=== PATIENT | female | born 1960 | race Caucasian/White ===

== ENCOUNTER 2021-09-30 11:09 | Inpatient (IN) ==
--- NOTE | 2021-09-30 11:19 | Emergency Department Note ---
Upper Extremity HPI General Chief Complaint: Extremity Injury, Upper Stated Complaint: left arm pain, fall yesterday Time Seen by Provider: 09/30/21 11:17 Source: patient Mode of arrival: wheelchair Limitations: no limitations History of Present Illness HPI Narrative: Narrative: 61-year-old female presents to the emerge department stating that she fell yesterday at noon and now has left wrist pain. She rates the pain as an 8 on a 0-to-10 scale. States it is constant. Describes it as a dull pain. States the pain radiates proximally towards the elbow. States that she took 650 mg of acetaminophen and it made no change. She has slight tingling in her's ball finger as well as at the tip of her ring finger. states that the patient has had significant edema in her lower extremities for the last month or so and he is concerned. Patient states that she has had a 19 pound weight gain in the last 31 days. Patient states that she is urinating. Denies shortness of breath. States that she has had swelling in her legs before after her hip surgeries. This time however it is worse than before. Patient states she has chronic low back pain. Has bronchiectasis, has lower extremity edema. Morbidly obese. Smoker. Hypertension. Patient denies alcoholism. States she has not been to an AA meeting. States she drinks vodka at night Related Data Home Medications Medication Instructions Recorded Confirmed gabapentin 300 mg capsule 300 mg PO BID 06/09/19 09/30/21 zolpidem 5 mg tablet 5 mg PO DAILY 06/09/19 09/17/21 albuterol sulfate 2.5 mg/0.5 mL 2.5 mg INHALATION QID PRN ea 05/02/21 09/30/21 solution for nebulization diphenhydramine HCl 25 mg capsule 25 mg PO Q6H PRN 05/02/21 09/30/21 (Benadryl) guaifenesin 600 mg tablet, 600 mg PO Q12H PRN 05/02/21 09/30/21 extended release 12 hr (Mucinex) buspirone 15 mg tablet 7.5 mg PO BID tab 06/28/21 09/30/21 famotidine 40 mg tablet 40 mg PO QDAY 08/14/21 09/30/21 ipratropium 20 mcg-albuterol 100 2 puff INHALATION QID g 08/14/21 09/30/21 mcg/actuation mist for inhalation (Combivent Respimat) lorazepam 0.5 mg tablet 0.5 mg PO BID PRN 08/14/21 09/17/21 benzonatate 100 mg capsule 100 mg PO TID PRN 09/30/21 09/30/21 Previous Rx's Medication Instructions Recorded emollient combo no.59 (bulk) See Rx Instructions TOPICAL BID 06/18/21 (Custom Base Pcca Lipoderm) #60 g cyclobenzaprine 5 mg tablet 5 mg PO TID PRN #15 tab 09/17/21 fluticasone fur. 100 mcg-umeclid 1 inh INHALATION Q24H #60 ea 09/27/21 62.5 mcg-vilant 25 mcg inhalat.powder (Trelegy Ellipta) Allergies Allergy/AdvReac Type Severity Reaction Status Date / Time Penicillins Allergy Severe Difficulty Verified 09/30/21 11:14 Breathing prednisone Allergy Severe Difficulty Verified 09/30/21 11:14 Breathing Influenza Virus Vaccines Allergy Unknown Burning Verified 09/30/21 11:14 sensation in hands and feet omeprazole Allergy Unknown Vomiting Verified 09/30/21 11:14 trospium Allergy Unknown Facial Verified 09/30/21 11:14 swelling, itching, rash codeine AdvReac Intermediate Nausea Verified 09/30/21 11:14 metoclopramide [From Reglan] AdvReac Intermediate Anxiety Verified 09/30/21 11:14 Review of Systems ROS ROS Narrative: Narrative: Constitutional: Reports weight change (19 pound weight gain in 31 days); Denies fever Eyes: Denies eye pain ENT ED: Denies throat pain or rhinorrhea Cardiovascular: Reports edema; Denies chest pain Respiratory: Denies shortness of breath Gastrointestinal: Reports abdominal pain (Right upper quadrant ) and other (Obese) Genitourinary: Denies dysuria Musculoskeletal: Reports back pain (Chronic) Integumentary: Denies rash Neurological: Reports other (Some difficulty walking and bending with her legs so swollen.) Psychiatric: Reports depression Hematological/Lymphatic: Denies easy bleeding Allergic/Immunologic: Denies facial swelling PFSH Narrative Patient History Narrative: Narrative: Medical/Surgical/Family History All Active Problems (Updated 09/30/21 @ 17:53 by Hector Cobb MD) Acute hyponatremia (Acute) Macrocytosis (Acute) Left wrist fracture (Acute) Elevated liver function tests (Acute) Elevated hemidiaphragm (Chronic) Nocturnal hypoxia (Chronic) Myofascial pain syndrome (Chronic) Weight loss (Chronic) Macrocytosis (Chronic) Hyperventilation (Chronic) Bronchospasm (Chronic) Chest pain (Chronic) Cardiomegaly (Chronic) Pulmonary vascular congestion (Chronic) SOB (shortness of breath) (Chronic) Exposure to COVID-19 virus (Chronic) Cough (Chronic) Acute upper respiratory infection (Chronic) Colon polyps (Chronic) Kidney stones (Chronic) Reactive airway disease (Chronic) Urge incontinence of urine (Chronic) Pernicious anemia (Chronic) Spinal stenosis (Chronic) Renal colic (Chronic) Diarrhea (Chronic) Hyperlipidemia (Chronic) Homocystinemia (Chronic) Nonalcoholic steatohepatitis (Chronic) Osteoarthritis (Chronic) Fever (Chronic) Vitamin D deficiency (Chronic) Osteopenia (Chronic) Abdominal pain (Chronic) Insomnia (Chronic) Cobalamin deficiency (Chronic) Folic acid deficiency (Chronic) Avascular necrosis of bone (Chronic) Abnormal liver enzymes (Chronic) Smoker (Chronic) GERD (gastroesophageal reflux disease) (Chronic) COPD (chronic obstructive pulmonary disease) (Chronic) Acute myofascial pain (Chronic) Contusion of right wrist (Chronic) Radiculopathy, thoracic region (Chronic) Spondylosis of thoracic spine with radiculopathy (Chronic) History of surgery (Chronic) Anxiety (Chronic) Hypertension (Chronic) Chronic pain (Chronic) Depression (Chronic) Back pain (Chronic) Thoracic back pain (Chronic) Muscle spasm (Chronic) Wrist injury (Chronic) Wrist fracture (Chronic) Medical History Abdominal pain Abnormal liver enzymes Acute myofascial pain Acute upper respiratory infection Anxiety Avascular necrosis of bone Back pain Bronchospasm Cardiomegaly Chest pain Chronic pain Cobalamin deficiency Colon polyps COPD (chronic obstructive pulmonary disease) Cough Depression Diarrhea Elevated hemidiaphragm Right Exposure to COVID-19 virus Fever Folic acid deficiency GERD (gastroesophageal reflux disease) Homocystinemia Hyperlipidemia Hypertension Hyperventilation Insomnia Kidney stones Macrocytosis Muscle spasm Myofascial pain syndrome Nocturnal hypoxia Nonalcoholic steatohepatitis Osteoarthritis Osteopenia Pernicious anemia Pulmonary vascular congestion Reactive airway disease Renal colic Smoker SOB (shortness of breath) Spinal stenosis Thoracic back pain Urge incontinence of urine Vitamin D deficiency Weight loss Wrist fracture Wrist injury Surgical History History of appendectomy (~1974) History of cholecystectomy (~1989) History of foot surgery (~2007) Right foot sebaceous cyst removal History of foot surgery (~1992) Right foot fracture repair History of hip surgery (~2012) Right Hip IT Band History of hip surgery (~2010) Right hip modification History of surgery TESI #1 T4-5 w/sed History of total abdominal hysterectomy and bilateral salpingo-oophorectomy (~2000) History of total hip replacement (~2012) History of total left hip replacement (~2008) History of total right hip replacement (~2009) History of tubal ligation (~1980) History of wisdom tooth extraction (~1984) x2 Family History Grandfather Heart disease Paternal Grandmother Type 2 diabetes mellitus Maternal Father , : 65 Lung cancer Alcohol abuse Mother Scoliosis Brother Breathing problem Sister Anxiety Back problem Other CAD (coronary artery disease) Social History Smoking Status: Current every day smoker Alcohol Intake Frequency: 2+ drinks per day Substance Use: marijuana and other Exam Narrative Narrative: Narrative: General Limitations: no limitations General appearance: Present alert and in distress Head Head: Present atraumatic and normocephalic Eye Eye: Present normal appearance ENT ENT: Present mucous membranes moist Neck Neck: Present normal inspection and trachea midline Respiratory Respiratory: Present normal lung sounds bilaterally; Absent respiratory distress Cardiovascular Cardiovascular: Present regular rate and normal rhythm Adbominal Abdominal: Present soft and tenderness (Right upper quadrant) Extremities Extremities: Present pedal edema, pretibial edema and other (Massive edema lower extremities up to the mid thigh) Back Back: Present tenderness Neurological Neurological: Present alert and oriented X3 Psychiatric Psychiatric: Present normal affect and normal mood Skin Skin: Present warm (WNL) and dry Course Vital Signs Vital signs: Vital Signs Temperature 97.5 F 09/30/21 11:11 Pulse Rate 97 H 09/30/21 11:11 Respiratory Rate 24 H 09/30/21 11:11 Blood Pressure 105/64 09/30/21 11:11 Pulse Oximetry (%) 95 09/30/21 11:11 Temperature 97.5 F 09/30/21 11:11 Pulse Rate 94 H 09/30/21 16:32 Respiratory Rate 24 H 09/30/21 11:11 Blood Pressure 130/82 09/30/21 16:32 Pulse Oximetry (%) 92 09/30/21 16:32 Procedures Splint Application Narrative: Nondisplaced intra-articular fracture of the distal radius left wrist was noted on x-ray. Sensorimotor and circulation were intact. Skin was intact. Minimal swelling. A preformed aluminum splint was applied to the left forearm by the x- ray department tech. I checked the sensorimotor circulation afterwards and found all three to be intact post application. Patient had reduction in pain in the wrist post splinting. MDM MDM Narrative Medical decision making narrative: Narrative: 61-year-old female presents emerge department with left wrist pain post fall but also massive edema in her lower extremities of unclear etiology. Differential diagnosis includes left wrist sprain, left wrist fracture, left wrist contusion. Differential for lower extremity edema includes dependent edema, congestive heart failure, nephrotic syndrome, alcoholic complication, malnutrition, other. Sodium was 116 chloride was 81. Potassium was 4.7. Bicarb was 16. Glucose was 121. BUN was four. Creatinine was 0.9. White count was 12.3, mildly elevated. Hemoglobin was mildly low at 11.8. Platelet count mildly low at 109. AST was elevated at 193 and a LT was elevated at 101. Both these are compatible with alcoholic liver disease though other considerations must be made. The BNP was mildly elevated at 441 but the D-dimer was markedly elevated at 6.89. Chest x- ray did not show any congestive heart failure. No acute disease on chest x-ray. X-ray of the left wrist revealed intra-articular fracture of the radius. Short arm splint was applied by the senior engineering technician to the left forearm. Se nsorimotor and circulation were intact distally after the application of the splint. Case was discussed with Dr. Caraballo the hospitalist. He agreed to admit the patient to the hospital for further care. Lab Data Result diagrams: 09/30/21 14:38 09/30/21 14:38 Labs: Lab Results 09/30/21 09/30/21 09/30/21 Range/Units 14:38 14:38 14:38 WBC 12.3 H (4.5-11.0) K/mcL RBC 2.62 L (3.59-5.38) M/mcL Hgb 11.8 (11.2-15.7) g/dL Hct 33.6 L (34.1-44.9) % MCV 128.2 H (80.0-100.0) fL MCH 45.0 H (26.0-34.0) pg MCHC 35.1 (31.0-36.0) g/dL RDW 14.8 H (11.5-14.5) % Plt Count 109 L (140-440) K/mcL MPV 10.5 H (7.4-10.4) fL Neut % (Auto) 82.0 H (38.0-78.0) % Lymph % (Auto) 6.8 L (15.5-49.0) % [place] % (Auto) 10.9 (1.0-12.0) % Eos % (Auto) 0.1 (0.0-7.0) % Baso % (Auto) 0.2 (0.0-2.0) % Lymph # (Auto) 0.84 L (1.50-4.80) K/mcL [place] # (Auto) 1.34 H (0.10-0.90) K/mcL Eos # (Auto) 0.01 (0.00-0.70) K/mcL Baso # (Auto) 0.02 (0.00-0.30) K/mcL Absolute Neutrophils 10.09 H (1.80-8.00) K/mcL D-Dimer 6.89 H (0.27-0.50) ug/mL Sodium 116 L* (133-145) mmol/L Potassium 4.7 (3.3-5.1) mmol/L Chloride 81 L (96-108) mmol/L Carbon Dioxide 16 L (22-30) mmol/L Anion Gap 19.0 H (8.0-16.0) BUN 4 L (8-23) mg/dL Creatinine 0.9 (0.6-1.1) mg/dL GFR Calculation 68 Glucose 121 H (70-105) mg/dL Calcium 8.2 L (8.6-10.4) mg/dL Total Bilirubin 1.8 H (0.1-1.0) mg/dL AST 193 H (<32) U/L ALT 101 H (<40) U/L Alkaline Phosphatase 328 H (39-117) U/L NT-Pro-B Natriuret Pep 441.4 H (<125.0) pg/mL Total Protein 6.1 (5.9-8.4) gm/dL Albumin 3.2 (3.2-5.2) gm/dL Globulin 2.9 (2.2-3.7) gm/dL Albumin/Globulin Ratio 1.1 (1.0-2.3) Discharge Plan Patient/Caregiver Discharge Instructions Pt seen by REHAB NURSE/PA only: No Clinical Impression: Acute hyponatremia, Macrocytosis, Left wrist fracture, Elevated liver function tests Patient Disposition: Xfer As Inpt ([facility]) Condition: Fair Follow up with: Nikolas Sanchez MD [Primary Care Provider] - Prescriptions: No Action Custom Base Pcca Lipoderm Cream See Rx Instructions TOPICAL BID Qty: 60 0RF Rx Instructions: topical twice a day; Trelegy Ellipta 100-62.5-25 mcg blister with device 1 inh inhalation Q24H Qty: 60 3RF Combivent Respimat 20-100 mcg/actuation mist 2 puff inhalation QID 0RF Rx Instructions: space evenly during waking hours famotidine 40 mg tablet 40 mg PO QDAY 0RF lorazepam 0.5 mg tablet 0.5 mg PO BID PRN (Reason: Anxiety) 0RF diphenhydramine HCl [Benadryl] 25 mg capsule 25 mg PO Q6H PRN (Reason: Itching) 0RF guaifenesin [Mucinex] 600 mg tablet extended release 12hr 600 mg PO Q12H PRN (Reason: Congestion) 0RF albuterol sulfate 2.5 mg/0.5 mL solution for nebulization 2.5 mg inhalation QID PRN (Reason: Shortness Of Breath) 0RF Rx Instructions: for up to 3 doses buspirone 15 mg tablet 7.5 mg PO BID 0RF cyclobenzaprine 5 mg tablet 5 mg PO TID PRN (Reason: muscle spasm) Qty: 15 0RF gabapentin 300 MG capsule 300 mg PO BID 0RF zolpidem 5 MG tablet 5 mg PO DAILY 0RF benzonatate 100 mg capsule 100 mg PO TID PRN (Reason: cough) 0RF
[2021-09-30] MEDS ORDERED: HYDROmorphone 1 MG/ML SYRINGE IM ONE (11:22)
[2021-09-30] MEDS ORDERED: FUROSEMIDE 40 MG/4 ML VIAL IV ONE (13:35)
[2021-09-30 15:27] LABS: Basophils # (Auto) 0.02 K/mcL (0.00-0.30); Basophils % (Auto) 0.2 % (0.0-2.0); Eosinophils # (Auto) 0.01 K/mcL (0.00-0.70); Eosinophils % (Auto) 0.1 % (0.0-7.0); Hematocrit 33.6 % (34.1-44.9); Hemoglobin 11.8 g/dL (11.2-15.7); Lymphocytes # (Auto) 0.84 K/mcL (1.50-4.80); Lymphocytes % (Auto) 6.8 % (15.5-49.0); Mean Cell Volume 128.2 fL (80.0-100.0); Mean Corpuscular HGB Conc 35.1 g/dL (31.0-36.0); Mean Platelet Volume 10.5 fL (7.4-10.4); Monocytes # (Auto) 1.34 K/mcL (0.10-0.90); Monocytes % (Auto) 10.9 % (1.0-12.0); Platelet Count 109 K/mcL (140-440); RBC 2.62 M/mcL (3.59-5.38); Red Cell Distribution Width 14.8 % (11.5-14.5); WBC 12.3 K/mcL (4.5-11.0)
[2021-09-30 15:33] LABS: proBNP 441.4 pg/mL (<125.0)
--- NOTE | 2021-09-30 15:35 | XRay Report ---
HISTORY: Fell and injured distal left radius FINDINGS: There is an obliquely oriented intra-articular fracture of the distal radius. This is located along the lateral border. There is no step-off along the articular surface. On the AP view a displaced 2 x 5 mm fragment is seen overlying the joint space between the radial styloid process and scaphoid. Adjacent to the trapezium there is a well-circumscribed 4 x 5 mm calcification which may be from an earlier injury. There is also a spur at the base of the first metacarpal. IMPRESSION: Intra-articular fracture of the distal radius Interpreted and Authenticated by: Juan Cole 09/30/21
[2021-09-30 15:41] LABS: ALT/SGPT 101 U/L (<40); AST/SGOT 193 U/L (<32); Albumin 3.2 gm/dL (3.2-5.2); Albumin/Globulin Ratio 1.1 (1.0-2.3); Alkaline Phosphatase 328 U/L (39-117); Bilirubin,Total 1.8 mg/dL (0.1-1.0); Blood Urea Nitrogen 4 mg/dL (8-23); Calcium 8.2 mg/dL (8.6-10.4); Carbon Dioxide 16 mmol/L (22-30); Chloride 81 mmol/L (96-108); Globulin 2.9 gm/dL (2.2-3.7); Glomerular Filtration Rate 68; Glucose 121 mg/dL (70-105)
--- NOTE | 2021-09-30 15:50 | XRay Report ---
HISTORY: Fell yesterday, bilateral dependent edema in the mid thigh, left arm pain FINDINGS: There are linear opacities in the lingula and right middle lobe. These correspond with bands of scar or atelectasis seen on the chest CT performed on 08/21/21. No acute infiltrate has developed. There is no pulmonary contusion, pneumothorax or pleural effusion. The heart size and pulmonary vasculature are normal. The mediastinum, kinza and pleura are normal. No chest wall lesion or fracture are seen. Overlying the top of the right humeral head there is an amorphous radiopaque structure. This could be an overlying foreign body or large soft tissue calcification. This is more likely an artifact since no corresponding structure was seen on a prior chest x-ray done on 03/29/21. IMPRESSION: Stable scar versus discoid atelectasis in right middle lobe and lingula No acute abnormality Interpreted and Authenticated by: Juan Cole 09/30/21
[2021-09-30] MEDS ORDERED: 0.9 % SODIUM CHLORIDE 1,000 ML IV ONE (15:53)
[2021-09-30] MEDS ORDERED: HYDROmorphone 0.5 MG/0.5 ML SYRINGE IV ONE (16:00)
[2021-09-30] MEDS ORDERED: ONDANSETRON 4 MG/2 ML VIAL IV ONE (16:15)
[2021-09-30] MEDS ORDERED: MULTIVIT,THER IRON,CA,FA & MIN 1 TABLET PO ONE (16:25)
[2021-09-30] MEDS ORDERED: ONDANSETRON 4 MG/2 ML VIAL IV PRN (16:29)
--- NOTE | 2021-09-30 17:25 | EKG ---
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
[2021-09-30] MEDS ORDERED: LORazepam 2 MG/ML VIAL IV ONE ×3 (17:41→21:30)
--- NOTE | 2021-09-30 18:03 | Internal Med History&Physical ---
HPI History of Present Illness Patient information: Note initiated : 09/30/21 at 5:46 pm Service Date, if different from initiated Date: [] Patient: Caleb Kern 61 y/o F admitted on for left arm pain, fall yesterday. Chief Complaint: [] Chief complaint: Fall History of present illness: Ms. Kern is a 61 year old female with a past medical history not limited to SILVA, COPD, nocturnal hypoxia, vitamin B12 deficiency, degenerative disc disease, obesity, tobacco use disorder who presented to the emergency department after a fall at home for further evaluation of left wrist pain. X-ray of the left wrist showed an intraarticular fracture of the distal radius. The patient was noted to be hypervolemic in the emergency department, CBC and chemistry panel were ordered showing severe hyponatremia with a sodium level of 116. Additionally, labs showed a mild leukocytosis of 12.3, severe macrocytosis, thrombocytopenia, anion gap metabolic acidosis, bilirubin of 1.8 and ALT and AST elevated compared to the patient's prior labs from 2020. Patient also had a NT proBNP of 441, 1 view chest x-ray did not show any pulmonary vascular congestion. The patient had a markedly elevated D-dimer of 6.89. The patient has not been having any shortness of breath recently and was comfortable on room air in the emergency department. The patient received Lasix IV in the emergency department. Hospital medicine was consulted for admission and management of severe hyponatremia. The patient says that she has been experiencing intermittent bilateral lower extremity edema for some time and that they have always resolved. The current amount of edema is more severe than prior episodes. She denies recent dyspnea, has not noticed any significant changes in urination. Patient says that she has known about "fatty liver di sease" for some time. She does drink a significant amount of alcohol which usually contains vodka on an almost daily basis. We discussed the goals of admission which include a gradual correction of her sodium level. We also discussed further work-up which will focus on cardiac, liver and renal pathologies that could explain hypovolemic hyponatremia. We discussed CODE STATUS in detail, the patient wishes to be full code. Review of systems Constitutional: Positive for unintentional weight gain, no fever Eyes: no vision changes or pain Cardiovascular: no chest pain, no palpitations Respiratory: Positive for chronic and nocturnal hypoxia requiring oxygen supplementation, denies exertional dyspnea Gastrointestinal: Positive for abdominal distention, no abdominal pain, no nausea, vomiting, or diarrhea Genitourinary: no dysuria or difficulty voiding Musculoskeletal: Positive for bilateral lower extremity edema, left wrist pain after recent fall Integumentary: Positive for dry skin Neurological: no focal weakness or numbness Psychiatric: Positive for anxiety Physical exam Head: Atraumatic, normal inspection. Eyes: normal appearance, no scleral icterus. Neck: full ROM Respiratory: no respiratory distress. Cardiovascular: normal rate and rhythm, S1, S2. GI/Abdominal: Distended abdomen, soft, nontender, no guarding. Extremities: Bilateral lower extremity 3+ pitting edema Neurological: CN II-XII intact, intact motor, intact sensation. Psychiatric: normal mood. Skin: Spider angiomas present in upper extremities, upper chest, upper back, diffuse flaky dry skin, warm PFSH PFSH All Active Problems (Updated 09/30/21 @ 17:53 by Hector Cobb MD) Acute hyponatremia (Acute) Macrocytosis (Acute) Left wrist fracture (Acute) Elevated liver function tests (Acute) Elevated hemidiaphragm (Chronic) Nocturnal hypoxia (Chronic) Myofascial pain syndrome (Chronic) Weight loss (Chronic) Macrocytosis (Chronic) Hyperventilation (Chronic) Bronchospasm (Chronic) Chest pain (Chronic) Cardiomegaly (Chronic) Pulmonary vascular congestion (Chronic) SOB (shortness of breath) (Chronic) Exposure to COVID-19 virus (Chronic) Cough (Chronic) Acute upper respiratory infection (Chronic) Colon polyps (Chronic) Kidney stones (Chronic) Reactive airway disease (Chronic) Urge incontinence of urine (Chronic) Pernicious anemia (Chronic) Spinal stenosis (Chronic) Renal colic (Chronic) Diarrhea (Chronic) Hyperlipidemia (Chronic) Homocystinemia (Chronic) Nonalcoholic steatohepatitis (Chronic) Osteoarthritis (Chronic) Fever (Chronic) Vitamin D deficiency (Chronic) Osteopenia (Chronic) Abdominal pain (Chronic) Insomnia (Chronic) Cobalamin deficiency (Chronic) Folic acid deficiency (Chronic) Avascular necrosis of bone (Chronic) Abnormal liver enzymes (Chronic) Smoker (Chronic) GERD (gastroesophageal reflux disease) (Chronic) COPD (chronic obstructive pulmonary disease) (Chronic) Acute myofascial pain (Chronic) Contusion of right wrist (Chronic) Radiculopathy, thoracic region (Chronic) Spondylosis of thoracic spine with radiculopathy (Chronic) History of surgery (Chronic) Anxiety (Chronic) Hypertension (Chronic) Chronic pain (Chronic) Depression (Chronic) Back pain (Chronic) Thoracic back pain (Chronic) Muscle spasm (Chronic) Wrist injury (Chronic) Wrist fracture (Chronic) Medical History Abdominal pain Abnormal liver enzymes Acute myofascial pain Acute upper respiratory infection Anxiety Avascular necrosis of bone Back pain Bronchospasm Cardiomegaly Chest pain Chronic pain Cobalamin deficiency Colon polyps COPD (chronic obstructive pulmonary disease) Cough Depression Diarrhea Elevated hemidiaphragm Right Exposure to COVID-19 virus Fever Folic acid deficiency GERD (gastroesophageal reflux disease) Homocystinemia Hyperlipidemia Hypertension Hyperventilation Insomnia Kidney stones Macrocytosis Muscle spasm Myofascial pain syndrome Nocturnal hypoxia Nonalcoholic steatohepatitis Osteoarthritis Osteopenia Pernicious anemia Pulmonary vascular congestion Reactive airway disease Renal colic Smoker SOB (shortness of breath) Spinal stenosis Thoracic back pain Urge incontinence of urine Vitamin D deficiency Weight loss Wrist fracture Wrist injury Surgical History History of appendectomy (~1974) History of cholecystectomy (~1989) History of foot surgery (~2007) Right foot sebaceous cyst removal History of foot surgery (~1992) Right foot fracture repair History of hip surgery (~2012) Right Hip IT Band History of hip surgery (~2010) Right hip modification History of surgery TESI #1 T4-5 w/sed History of total abdominal hysterectomy and bilateral salpingo-oophorectomy (~2000) History of total hip replacement (~2012) History of total left hip replacement (~2008) History of total right hip replacement (~2009) History of tubal ligation (~1980) History of wisdom tooth extraction (~1984) x2 Family History Grandfather Heart disease Paternal Grandmother Type 2 diabetes mellitus Maternal Father , : 65 Lung cancer Alcohol abuse Mother Scoliosis Brother Breathing problem Sister Anxiety Back problem Other CAD (coronary artery disease) Social History marital status: occupational status: employed 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 smoking status: Current every day smoker alcohol intake frequency: 2+ drinks per day substance use type: marijuana and other details: THC MEDS/ALLERGIES Home Medications and Allergies Home Medications Medication Instructions Recorded Confirmed Type gabapentin 300 mg capsule 300 mg PO BID 06/09/19 09/30/21 History zolpidem 5 mg tablet 5 mg PO DAILY 06/09/19 09/30/21 History albuterol sulfate 2.5 mg/0.5 mL 2.5 mg INHALATION QID PRN ea 05/02/21 09/30/21 History solution for nebulization diphenhydramine HCl 25 mg capsule 25 mg PO Q6H PRN 05/02/21 09/30/21 History (Benadryl) guaifenesin 600 mg tablet, 600 mg PO Q12H PRN 05/02/21 09/30/21 History extended release 12 hr (Mucinex) emollient combo no.59 (bulk) See Rx Instructions TOPICAL BID 06/18/21 09/30/21 Rx (Custom Base [facility] Lipoderm) #60 g buspirone 15 mg tablet 7.5 mg PO BID tab 06/28/21 09/30/21 History famotidine 40 mg tablet 40 mg PO QDAY 08/14/21 09/30/21 History ipratropium 20 mcg-albuterol 100 2 puff INHALATION QID g 08/14/21 09/30/21 History mcg/actuation mist for inhalation (Combivent Respimat) lorazepam 0.5 mg tablet 0.5 mg PO BID PRN 08/14/21 09/30/21 History cyclobenzaprine 5 mg tablet 5 mg PO TID PRN #15 tab 09/17/21 09/30/21 Rx fluticasone fur. 100 mcg-umeclid 1 inh INHALATION Q24H #60 ea 09/27/21 09/30/21 Rx 62.5 mcg-vilant 25 mcg inhalat.powder (Trelegy Ellipta) benzonatate 100 mg capsule 100 mg PO TID PRN 09/30/21 09/30/21 History Allergies Allergy/AdvReac Type Severity Reaction Status Date / Time Penicillins Allergy Severe Difficulty Verified 09/30/21 11:14 Breathing prednisone Allergy Severe Difficulty Verified 09/30/21 11:14 Breathing Influenza Virus Vaccines Allergy Unknown Burning Verified 09/30/21 11:14 sensation in hands and feet omeprazole Allergy Unknown Vomiting Verified 09/30/21 11:14 trospium Allergy Unknown Facial Verified 09/30/21 11:14 swelling, itching, rash codeine AdvReac Intermediate Nausea Verified 09/30/21 11:14 metoclopramide [From Reglan] AdvReac Intermediate Anxiety Verified 09/30/21 11:14 EXAM Constitutional Vitals: Temp Pulse Resp BP Pulse Ox 97.5 F 94 H 24 H 130/82 92 09/30/21 11:11 09/30/21 16:32 09/30/21 11:11 09/30/21 16:32 09/30/21 16:32 DATA Data Completed and Pending Labs: Labs from last 24 hours 09/30/21 09/30/21 09/30/21 14:38 14:38 14:38 WBC 12.3 H RBC 2.62 L Hgb 11.8 Hct 33.6 L MCV 128.2 H MCH 45.0 H MCHC 35.1 RDW 14.8 H Plt Count 109 L MPV 10.5 H Neut % (Auto) 82.0 H Lymph % (Auto) 6.8 L [place] % (Auto) 10.9 Eos % (Auto) 0.1 Baso % (Auto) 0.2 Lymph # (Auto) 0.84 L [place] # (Auto) 1.34 H Eos # (Auto) 0.01 Baso # (Auto) 0.02 Absolute Neutrophils 10.09 H D-Dimer 6.89 H Sodium 116 L* Potassium 4.7 Chloride 81 L Carbon Dioxide 16 L Anion Gap 19.0 H BUN 4 L Creatinine 0.9 GFR Calculation 68 Glucose 121 H Calcium 8.2 L Total Bilirubin 1.8 H AST 193 H ALT 101 H Alkaline Phosphatase 328 H NT-Pro-B Natriuret Pep 441.4 H Total Protein 6.1 Albumin 3.2 Globulin 2.9 Albumin/Globulin Ratio 1.1 A/P Narrative A/P Narrative: Assessment: 61 year old female with a past medical history not limited to SILVA, COPD, nocturnal hypoxia, vitamin B12 deficiency, degenerative disc disease, obesity, tobacco use disorder who presented to the emergency department after a fall at home and found to have a distal left radius fracture in the ED. The patient was also found to be severely volume overloaded and to have severe hyponatremia. The patient was admitted for severe hyponatremia. #Severe hypervolemic hyponatremia #Volume overload including ascites #Concern for liver cirrhosis versus nephrotic syndrome #History of SILVA #Elevated LFTs #Macrocytosis #Leukocytosis #Anion gap metabolic acidosis #Elevated D-dimer #Distal left intra-articular radius fracture -discussed with Dr. Christopher: nonoperative fracture #COPD #Nocturnal hypoxia #History of vitamin B12 deficiency #Degenerative disc disease #Anxiety disorder #Alcohol use disorder #Obesity BMI 38 Plan -Lasix 40 mg IV twice daily for now. -Follow sodium every 4 hours for now, avoid increase of > 8mmol/L/hr. -Monitor volume status, renal function, electrolytes. -Serum osmolality, urine osmolality and sodium. -Urine protein creatinine ratio and urinalysis. -TSH, morning cortisol, CRP/ESR, INR, lactic acid. -Vitamin B12 and folate. -Transthoracic echocardiogram. -Peripheral blood smear. -Bilateral lower extremity venous Doppler. -Abdominal ultrasound. -Consider paracentesis. -Consider CT abdomen pelvis with contrast. -Low-sodium and fluid restricted diet. -PT consult. -DVT prophylaxis: Lovenox -CODE STATUS: Full -Disposition: TBD, follow up with ortho in clinic for left radial fracture. Time Spent With Patient Time: Total time spent is greater than 50% in coordination of care (as documented) at patient's floor/unit and/or counseling patient:
--- NOTE | 2021-09-30 20:00 | Ultrasound Report ---
History: Bilateral swollen legs with elevated serum d-dimer levels FINDINGS: There is normal augmentation and compressibility in the deep veins as well as the greater lesser saphenous veins bilaterally from the groin through the calf. Doppler shows normal waveform patterns. A moderate amount of subcutaneous edema is present in each calf extending up to the popliteal fossa. IMPRESSION: No evidence of deep venous thrombosis in either leg. Bilateral calf edema Interpreted and Authenticated by: Juan Cole 09/30/21
--- NOTE | 2021-09-30 20:13 | Ultrasound Report ---
History: Abdominal pain, bloating, ultrasound documented fatty liver on prior exam FINDINGS: The liver is borderline enlarged. The parenchyma is very heterogeneous and difficult to penetrate due to moderately severe fatty infiltration. No discrete mass is identified. Doppler demonstrates normal directional blood flow in the hepatic and portal veins. The gallbladder has been removed. Common bile duct measures 4 mm. Pancreas is largely obscured. The visualized segments appear normal. Small to moderate amount of ascites is present in the abdomen and pelvis. Largest pocket is in left lower quadrant. The fluid appears uniformly anechoic. Comparison with the prior ultrasound done on 06/21/20 shows the heterogeneity of the liver has become worse and the ascites is new. IMPRESSION: Fatty liver. Patient may have steatohepatitis or early stage of cirrhosis. Ascites Interpreted and Authenticated by: Juan Cole 09/30/21
[2021-09-30] MEDS ORDERED: IBUPROFEN 200 MG TABLET PO PRN (20:15)
[2021-09-30] MEDS ORDERED: SENNOSIDES 1 TABLET PO SCH ×2 (20:15→21:00)
[2021-09-30] MEDS ORDERED: ALBUTEROL SULFATE 2.5 MG/3 ML NEBULIZER NEB PRN (20:15)
[2021-09-30] MEDS ORDERED: LORazepam 2 MG/ML VIAL ONE ×2 (20:58→21:38)
[2021-09-30] MEDS ORDERED: 0.9 % SODIUM CHLORIDE 10 ML SYRINGE IV SCH (22:00)
--- NOTE | 2021-09-30 22:39 | Procedure Note ---
PROC Central Line Placement Right IJ: Consent obtained: verbal consent and written consent Date of Procedure: 09/30/21 Time out performed: Yes Patient placed on monitor/pulse ox: Yes MD prep: mask, sterile gown, sterile gloves and cap Central line prep: 2% Chlorhexidine scrub Local anesthesia used: lidocaine 1% Amount of anesthesia used (mls): 3 Ultrasound used for placement: Yes Central line lumen inserted: quad Post procedure: sutured in place Post procedure x-ray: tip of catheter in good position Patient tolerated procedure: no complications
[2021-09-30] MEDS: LACTULOSE 20 GM/30 ML ORAL.SOL PO SCH (23:04)
[2021-09-30] MEDS: IPRATROPIUM/ALBUTEROL SULFATE 1 PUFF INHALER INH SCH (23:05)
[2021-09-30] MEDS: Fluticasone-Umeclidin-Vilanter [Trelegy Ellipta] Inhaler INH SCH (23:05)
[2021-09-30] MEDS: DOCUSATE SODIUM 100 MG CAPSULE PO SCH (23:15)
[2021-09-30] MEDS: 0.9 % SODIUM CHLORIDE 10 ML SYRINGE IV SCH (23:22)
[2021-09-30] MEDS: oxyCODONE HCL 5 MG TABLET PO PRN (23:27)
[2021-09-30] MEDS: GABAPENTIN 300 MG CAPSULE PO SCH (23:27)
[2021-09-30] MEDS: busPIRone 15 MG TABLET PO SCH (23:28)
[2021-10-01 00:09] LABS: INR 1.2 (0.9-1.1); Prothrombin Time 15.3 sec (11.9-14.5)
[2021-10-01 00:27] LABS: Thyroid Stimulating Hormone 2.43 uIU/mL (0.27-5.01)
[2021-10-01 01:07] LABS: Folate 5.4 ng/mL (4.2-19.9)
[2021-10-01] MEDS: ZOLPIDEM 5 MG TABLET PO PRN ×2 (01:27→22:24)
[2021-10-01] MEDS ORDERED: ZOLPIDEM 5 MG TABLET ONE (01:32)
[2021-10-01] MEDS ORDERED: PNEUMOCOCCAL 23-VAL P-SAC VAC 0.5 ML SYRINGE IM ONE (01:54)
[2021-10-01 02:07] LABS: Osmolality,Urine 278 mOSM/kg (80-1000)
[2021-10-01 02:10] LABS: Appearance,Urine CLOUDY (Clear); Bacteria,Urine FEW /hpf (0); Color,Urine AMBER; Culture Indicated,Urine No; Glucose,Urine (UA) Negative (Negative); Ketones,Urine Negative (Negative); Leukocyte Esterase,Urine 75 /uL (Negative); Mucus,Urine MOD /hpf; Nitrate,Urine Negative (Negative); Protein,Urine 30 mg/dL (Negative); Specific Gravity,Urine 1.024 (1.000-1.035); Urine Blood Negative (Negative); Urine Hyaline Cast 209 /lph (0-2); Urine Hyphae Yeast FEW /hpf; Urine RBC 4 /hpf (0-3); Urine Squamous Epithelial Cell 6 /hpf (0-4); Urine WBC 17 /hpf (0-4)
[2021-10-01 02:13] LABS: Sodium, Urine Random 10 mmol/L
[2021-10-01 02:22] LABS: Pro:Crea Ratio 0.18 (<0.20)
[2021-10-01 04:54] LABS: Basophils # (Auto) 0.01 K/mcL (0.00-0.30); Basophils % (Auto) 0.1 % (0.0-2.0); Eosinophils # (Auto) 0.02 K/mcL (0.00-0.70); Eosinophils % (Auto) 0.2 % (0.0-7.0); Hematocrit 27.2 % (34.1-44.9); Lymphocytes # (Auto) 0.74 K/mcL (1.50-4.80); Lymphocytes % (Auto) 7.6 % (15.5-49.0); Mean Cell Volume 119.8 fL (80.0-100.0); Mean Corpuscular HGB Conc 36.8 g/dL (31.0-36.0); Monocytes # (Auto) 1.25 K/mcL (0.10-0.90); Monocytes % (Auto) 12.8 % (1.0-12.0); Neutrophils % (Auto) 79.3 % (38.0-78.0); Platelet Count 105 K/mcL (140-440); RBC 2.27 M/mcL (3.59-5.38); Red Cell Distribution Width 14.6 % (11.5-14.5); WBC 9.8 K/mcL (4.5-11.0)
[2021-10-01 05:12] LABS: ALT/SGPT 97 U/L (<40); AST/SGOT 177 U/L (<32); Albumin/Globulin Ratio 1.2 (1.0-2.3); Alkaline Phosphatase 295 U/L (39-117); Bilirubin,Total 2.9 mg/dL (0.1-1.0); Blood Urea Nitrogen 6 mg/dL (8-23); Calcium 7.9 mg/dL (8.6-10.4); Carbon Dioxide 22 mmol/L (22-30); Chloride 86 mmol/L (96-108); Globulin 2.6 gm/dL (2.2-3.7); Glomerular Filtration Rate 48; Glucose 124 mg/dL (70-105)
[2021-10-01 05:27] LABS: Estimated Average Glucose(eAG) 80 mg/dL; Hemoglobin A1C 4.4 % Hgb (4.0-6.0)
[2021-10-01] MEDS: 0.9 % SODIUM CHLORIDE 10 ML SYRINGE IV SCH ×5 (05:40→21:15)
[2021-10-01] MEDS: oxyCODONE HCL 5 MG TABLET PO PRN ×3 (07:22→21:11)
[2021-10-01] MEDS: FUROSEMIDE 40 MG/4 ML VIAL IV SCH ×2 (07:22→14:54)
[2021-10-01] MEDS ORDERED: MAGNESIUM SULFATE 2 GM/50 ML BAG IV ONE (07:36)
--- NOTE | 2021-10-01 08:24 | XRay Report ---
CLINICAL INFORMATION: Central line placement COMPARISON: None. TECHNIQUE: PA and Lateral views FINDINGS: The heart size, mediastinum and pulmonary vessels are unremarkable. Right IJ central line tip overlies the SVC right atrial junction. No pneumothorax or other complication from line placement. Minor bibasilar atelectasis noted.. There are no effusions. The bones and soft tissues are within normal limits. IMPRESSION: Right IJ line in satisfactory position. No complication from line placement Interpreted and Authenticated by: Chris Arriola 10/01/21
[2021-10-01] MEDS ORDERED: ZOLPIDEM 5 MG TABLET PO SCH (09:00)
[2021-10-01] MEDS ORDERED: SODIUM CHLORIDE 3 % 100 ML IV ONE (10:45)
[2021-10-01] MEDS: LACTULOSE 20 GM/30 ML ORAL.SOL PO SCH ×2 (11:09→21:18)
[2021-10-01] MEDS: DOCUSATE SODIUM 100 MG CAPSULE PO SCH ×2 (11:09→21:13)
[2021-10-01] MEDS ORDERED: SENNOSIDES 1 TABLET PO PRN (11:10)
[2021-10-01] MEDS ORDERED: LACTULOSE 20 GM/30 ML ORAL.SOL PO PRN (11:10)
[2021-10-01] MEDS: IPRATROPIUM/ALBUTEROL SULFATE 1 PUFF INHALER INH SCH ×5 (11:46→21:30)
[2021-10-01] MEDS: [UNRECOGNIZED DRUG - OTHER] TOPICAL SCH ×2 (11:47→21:14)
[2021-10-01] MEDS: ENOXAPARIN 40 MG/0.4 ML SYRINGE SQ SCH (11:53)
[2021-10-01] MEDS: FAMOTIDINE 20 MG TABLET PO SCH (11:54)
[2021-10-01] MEDS: GABAPENTIN 300 MG CAPSULE PO SCH ×2 (11:54→21:10)
[2021-10-01] MEDS: guaiFENesin 600 MG TAB.SR.12H PO PRN (11:54)
[2021-10-01] MEDS: LORazepam 0.5 MG TABLET PO PRN ×2 (11:54→22:27)
[2021-10-01] MEDS: NICOTINE 21 MG PATCH TOPICAL SCH (11:55)
[2021-10-01] MEDS: busPIRone 15 MG TABLET PO SCH ×2 (12:20→21:10)
[2021-10-01] MEDS: CYCLOBENZAPRINE 10 MG TABLET PO PRN ×2 (12:21→22:27)
[2021-10-01] MEDS ORDERED: FUROSEMIDE 100 MG/10 ML VIAL IV ONE (14:00)
--- NOTE | 2021-10-01 17:01 | Internal Med Progress Note ---
SUBJECTIVE Subjective Patient information: Note initiated : 10/01/21 at 4:59 pm Service Date, if different from initiated Date: [] Patient: Caleb Kern 61 y/o F admitted on 09/30/21 for left arm pain, fall yesterday. Chief Complaint: [] Principal diagnosis: Severe hypervolemic hyponatremia Interval history: Ms. Kern is a 61 year old female with a past medical history not limited to SILVA, COPD, nocturnal hypoxia, vitamin B12 deficiency, degenerative disc disease, obesity, tobacco use disorder who presented to the emergency department after a fall at home for further evaluation of left wrist pain. X-ray of the l eft wrist showed an intraarticular fracture of the distal radius. The patient was noted to be hypervolemic in the emergency department, CBC and chemistry panel were ordered showing severe hyponatremia with a sodium level of 116. Additionally, labs showed a mild leukocytosis of 12.3, severe macrocytosis, thrombocytopenia, anion gap metabolic acidosis, bilirubin of 1.8 and ALT and AST elevated compared to the patient's prior labs from 2020. Patient also had a NT proBNP of 441, 1 view chest x-ray did not show any pulmonary vascular congestion. The patient had a markedly elevated D-dimer of 6.89. The patient has not been having any shortness of breath recently and was comfortable on room air in the emergency department. The patient received Lasix IV in the emergency department. Hospital medicine was consulted for admission and management of severe hyponatremia. The patient says that she has been experiencing intermittent bilateral lower extremity edema for some time and that they have always resolved. The current amount of edema is more severe than prior episodes. She denies recent dyspnea, has not noticed any significant changes in urination. Patient says that she has known about "fatty liver disease" for some time. She does drink a significant amount of alcohol which usually contains vodka on an almost daily basis. We discussed the goals of admission which include a gradual correction of her sodium level. We also discussed further work-up which will focus on cardiac, liver and renal pathologies that could explain hypovolemic hyponatremia. We discussed CODE STATUS in detail, the patient wishes to be full code. 3/ Urine protein creatinine ratio was normal, TSH and morning cortisol levels nikhil l. blood smear was not suggestive of a sinister hematologic process. Vitamin B12 level elevated, folate level normal. INR was 1.2. Sodium trended up to 120s and down to 119, the patient received 100 mL of 3% saline followed by increase in sodium to 122. Patient has not made significant urine after receiving a dose of Lasix 80 mg IV. Volume overloaded as on admission with bilateral lower extremity pitting edema. Abdominal ultrasound showed fatty liver, possible steatohepatitis or early stage cirrhosis, small to moderate amount of ascites was present, normal directional blood flow and hepatic and portal veins. Bilateral lower extremity venous duplex ultrasound was negative for DVT. Transthoracic echocardiogram report pending. Physical exam Head: Atraumatic, normal inspection. Eyes: normal appearance, no scleral icterus. Neck: full ROM Respiratory: no respiratory distress. Cardiovascular: normal rate and rhythm, S1, S2. GI/Abdominal: Distended abdomen, soft, nontender, no guarding. Extremities: Bilateral lower extremity 3+ pitting edema Neurological: CN II-XII intact, intact motor, intact sensation. Psychiatric: normal mood. Skin: Spider angiomas present in upper extremities, upper chest, upper back, diffuse flaky dry skin, warm Constitutional Vitals: Vital Signs Temp Pulse Resp BP Pulse Ox 98.0 F 91 H 13 104/55 100 10/01/21 16:01 10/01/21 07:00 10/01/21 16:01 10/01/21 16:01 10/01/21 16:01 Period Temp Pulse Resp BP Sys/Altman Pulse Ox Last 24 Hr 97.4 F-98.1 F 91-115 10-23 100-155/55-125 88-100 Intake and Output 10/01/21 10/01/21 10/01/21 05:59 13:59 21:59 Intake Total 240 510 Output Total 100 Balance 140 510 Weight 94.801 kg Patient Weight 10/02/21 05:59 Weight 94.801 kg Intake & Output: Intake & Output 10/01/21 10/01/21 10/01/21 05:59 13:59 21:59 Intake Total 240 510 Output Total 100 Balance 140 510 Weight 94.801 kg Intake: IV 150 Sodium Chloride 3% 100 ml @ 100 100 mls/hr IV ONCE ONE Rx#: [id number] Oral 240 360 Output: Void Amount 100 Other: Meal Lunch Percent of Meal Consumed 75% Feeding Ability Independent Urine Appearance Cloudy Urine Color Dark Isabel OBJ DATA Labs CBC & Chem 7: 10/01/21 04:20 10/01/21 15:58 Labs: Abnormal Lab Results 10/01/21 10/01/21 10/01/21 12:09 12:08 08:07 WBC RBC Hgb Hct MCV MCH MCHC RDW Plt Count MPV Neut % (Auto) Lymph % (Auto) [place] % (Auto) Lymph # (Auto) [place] # (Auto) Absolute Neutrophils PT INR D-Dimer Sodium 119 L* 119 L* Chloride Carbon Dioxide Anion Gap BUN Creatinine Glucose Osmolality Calcium Magnesium Total Bilirubin AST ALT Alkaline Phosphatase Ammonia 90 H C-Reactive Protein NT-Pro-B Natriuret Pep Total Protein Albumin Vitamin B12 Urine Appearance Urine Protein Urine Bilirubin Urine Urobilinogen Ur Leukocyte Esterase Urine RBC Urine WBC Ur Squamous Epith Cells Urine Bacteria Hyaline Casts Urine Mucus Ur Yeast w Hyphae Ur Random Creatinine 10/01/21 10/01/21 10/01/21 04:20 04:20 01:30 WBC RBC 2.27 L Hgb 10.0 L Hct 27.2 L MCV 119.8 H MCH 44.1 H MCHC 36.8 H RDW 14.6 H Plt Count 105 L MPV 11.0 H Neut % (Auto) 79.3 H Lymph % (Auto) 7.6 L [place] % (Auto) 12.8 H Lymph # (Auto) 0.74 L [place] # (Auto) 1.25 H Absolute Neutrophils PT INR D-Dimer Sodium 120 L Chloride 86 L Carbon Dioxide Anion Gap BUN 6 L Creatinine 1.2 H Glucose 124 H Osmolality Calcium 7.9 L Magnesium 1.5 L Total Bilirubin 2.9 H AST 177 H ALT 97 H Alkaline Phosphatase 295 H Ammonia C-Reactive Protein NT-Pro-B Natriuret Pep Total Protein 5.6 L Albumin 3.0 L Vitamin B12 Urine Appearance Cloudy A Urine Protein 30 A Urine Bilirubin 2.0 A Urine Urobilinogen 2.0 A Ur Leukocyte Esterase 75 A Urine RBC 4 H Urine WBC 17 H Ur Squamous Epith Cells 6 H Urine Bacteria Few A Hyaline Casts 209 H Urine Mucus Mod A Ur Yeast w Hyphae Few A Ur Random Creatinine 09/30/21 09/30/21 09/30/21 23:10 23:10 23:10 WBC RBC Hgb Hct MCV MCH MCHC RDW Plt Count MPV Neut % (Auto) Lymph % (Auto) [place] % (Auto) Lymph # (Auto) [place] # (Auto) Absolute Neutrophils PT 15.3 H INR 1.2 H D-Dimer Sodium 121 L Chloride Carbon Dioxide Anion Gap BUN Creatinine Glucose Osmolality 253 L Calcium Magnesium Total Bilirubin AST ALT Alkaline Phosphatase Ammonia C-Reactive Protein 7.80 H NT-Pro-B Natriuret Pep Total Protein Albumin Vitamin B12 > 2000.0 H Urine Appearance Urine Protein Urine Bilirubin Urine Urobilinogen Ur Leukocyte Esterase Urine RBC Urine WBC Ur Squamous Epith Cells Urine Bacteria Hyaline Casts Urine Mucus Ur Yeast w Hyphae Ur Random Creatinine 09/30/21 09/30/21 09/30/21 23:10 14:38 14:38 WBC RBC Hgb Hct MCV MCH MCHC RDW Plt Count MPV Neut % (Auto) Lymph % (Auto) [place] % (Auto) Lymph # (Auto) [place] # (Auto) Absolute Neutrophils PT INR D-Dimer 6.89 H Sodium 116 L* Chloride 81 L Carbon Dioxide 16 L Anion Gap 19.0 H BUN 4 L Creatinine Glucose 121 H Osmolality Calcium 8.2 L Magnesium Total Bilirubin 1.8 H AST 193 H ALT 101 H Alkaline Phosphatase 328 H Ammonia C-Reactive Protein NT-Pro-B Natriuret Pep 441.4 H Total Protein Albumin Vitamin B12 Urine Appearance Urine Protein Urine Bilirubin Urine Urobilinogen Ur Leukocyte Esterase Urine RBC Urine WBC Ur Squamous Epith Cells Urine Bacteria Hyaline Casts Urine Mucus Ur Yeast w Hyphae Ur Random Creatinine 287.0 H 09/30/21 14:38 WBC 12.3 H RBC 2.62 L Hgb Hct 33.6 L MCV 128.2 H MCH 45.0 H MCHC RDW 14.8 H Plt Count 109 L MPV 10.5 H Neut % (Auto) 82.0 H Lymph % (Auto) 6.8 L [place] % (Auto) Lymph # (Auto) 0.84 L [place] # (Auto) 1.34 H Absolute Neutrophils 10.09 H PT INR D-Dimer Sodium Chloride Carbon Dioxide Anion Gap BUN Creatinine Glucose Osmolality Calcium Magnesium Total Bilirubin AST ALT Alkaline Phosphatase Ammonia C-Reactive Protein NT-Pro-B Natriuret Pep Total Protein Albumin Vitamin B12 Urine Appearance Urine Protein Urine Bilirubin Urine Urobilinogen Ur Leukocyte Esterase Urine RBC Urine WBC Ur Squamous Epith Cells Urine Bacteria Hyaline Casts Urine Mucus Ur Yeast w Hyphae Ur Random Creatinine Meds: Medications Albuterol Sulfate (Albuterol Sulfate 2.5 Mg/3 Ml Nebulizer) 2.5 mg NEB Q4HRT PRN PRN Reason: shortness of breath Albuterol/Ipratropium (Ipratropium/Albuterol Sulfate 1 Puff Inhaler) 2 puff INH QID [facility] Last Admin: 10/01/21 15:34 Dose: Not Given Documented by: Benzonatate (Benzonatate 100 Mg Capsule) 100 mg PO TID PRN PRN Reason: cough Buspirone HCl (Buspirone 15 Mg Tablet) 7.5 mg PO BID [facility] Last Admin: 10/01/21 12:20 Dose: 7.5 mg Documented by: Cyclobenzaprine HCl (Cyclobenzaprine 10 Mg Tablet) 5 mg PO TIDP PRN PRN Reason: Muscle Spasm Last Admin: 10/01/21 12:21 Dose: 5 mg Documented by: Diphenhydramine HCl (Diphenhydramine 25 Mg Capsule) 25 mg PO Q6H PRN PRN Reason: Itching Docusate Sodium (Docusate Sodium 100 Mg Capsule) 100 mg PO BID [facility] Last Admin: 10/01/21 11:09 Dose: Not Given Documented by: Enoxaparin Sodium (Enoxaparin 40 Mg/0.4 Ml Syringe) 40 mg SQ DAILY [facility] Last Admin: 10/01/21 11:53 Dose: 40 mg Documented by: Famotidine (Famotidine 20 Mg Tablet) 40 mg PO QDAY [facility] Last Admin: 10/01/21 11:54 Dose: 40 mg Documented by: Furosemide (Furosemide 40 Mg/4 Ml Vial) 40 mg IV BIDD [facility] Last Admin: 10/01/21 14:54 Dose: Not Given Documented by: Gabapentin (Gabapentin 300 Mg Capsule) 300 mg PO BID [facility] Last Admin: 10/01/21 11:54 Dose: 300 mg Documented by: Guaifenesin (Guaifenesin 600 Mg Tab.Sr.12h) 600 mg PO Q12H PRN PRN Reason: Congestion Last Admin: 10/01/21 11:54 Dose: 600 mg Documented by: Ibuprofen (Ibuprofen 200 Mg Tablet) 400 mg PO Q4HP PRN; Protocol PRN Reason: Per Pain Protocol Lactulose (Lactulose 20 Gm/30 Ml Oral.Petra) 10 gm PO BID PRN PRN Reason: constipation Lorazepam (Lorazepam 0.5 Mg Tablet) 0.5 mg PO BID PRN PRN Reason: Anxiety Last Admin: 10/01/21 11:54 Dose: 0.5 mg Documented by: Nicotine (Nicotine 21 Mg Patch) 21 mg TOPICAL DAILY@1000 [facility] Last Admin: 10/01/21 11:55 Dose: 21 mg Documented by: Ondansetron HCl (Ondansetron 4 Mg/2 Ml Vial) 4 mg IV Q4HP PRN; Protocol PRN Reason: Nausea And Vomiting Oxycodone HCl (Oxycodone Hcl 5 Mg Tablet) 5 mg PO Q4HP PRN; Protocol PRN Reason: Per Pain Protocol Last Admin: 10/01/21 14:51 Dose: 5 mg Documented by: Emollient Combo No. [id number] (Bulk) [Custom Base Pcca] Cream 1 dose TOPICAL BID [facility] Last Admin: 10/01/21 11:47 Dose: 1 dose Documented by: Fluticasone- Umeclidin-Vilanter [ Trelegy Ellipta] Inhaler 1 dose INH Q24H [facility] Last Admin: 09/30/21 23:05 Dose: Not Given Documented by: Pneumococcal Polyvalent Vaccine (Pneumococcal 23-Isabel P-Sac Vac 0.5 Ml Syringe) 0.5 ml IM .ONCE ONE Stop: 10/02/21 10:01 Senna (Sennosides 1 Tablet) 2 tab PO HS PRN PRN Reason: constipation Sodium Chloride (0.9 % Sodium Chloride 10 Ml Syringe) 10 ml IV Q8 [facility] Last Admin: 10/01/21 14:52 Dose: 10 ml Documented by: Sodium Chloride (0.9 % Sodium Chloride 10 Ml Syringe) 10 ml IV Q12 [facility] Last Admin: 10/01/21 09:00 Dose: 10 ml Documented by: Sodium Chloride (0.9 % Sodium Chloride 10 Ml Syringe) 10 ml IV UD PRN PRN Reason: Central Line Maintence Zolpidem Tartrate (Zolpidem 5 Mg Tablet) 5 mg PO HSP PRN PRN Reason: Insomnia Last Admin: 10/01/21 01:27 Dose: 5 mg Documented by: A/P Narrative A/P Narrative: Assessment: 61 year old female with a past medical history not limited to SILVA, COPD, nocturnal hypoxia, vitamin B12 deficiency, degenerative disc disease, obesity, tobacco use disorder who presented to the emergency department after a fall at home and found to have a distal left radius fracture in the ED. The patient was also found to be severely volume overloaded and to have severe hyponatremia. The patient was admitted for severe hyponatremia. #Severe hypervolemic hyponatremia #Volume overload including ascites -TTE report pending -Urine protein creatinine ratio normal -Somewhat refractory to IV Lasix. #Concern for right-sided heart failure #Concern for liver cirrhosis -INR 1.2 -Ascites present on abdominal ultrasound -Ammonia elevated #History of SILVA #Elevated LFTs #Macrocytic anemia #Elevated D-dimer #Distal left intra-articular radius fracture -discussed with Dr. Christopher: nonoperative fracture #COPD #Nocturnal hypoxia #History of vitamin B12 deficiency #Degenerative disc disease #Anxiety disorder #Alcohol use disorder #Tobacco use disorder #Obesity BMI 38 Plan -Lasix IV twice daily for now. -Metolazone 5 mg once. -Consider Lasix infusion. -Follow sodium every 4 hours for now, avoid increase of > 8mmol/L/hr. -3% saline 100 mL today. -Monitor volume status, urine output, renal function, electrolytes. -Transthoracic echocardiogram report pending-if RV dilated consider CTA chest to evaluate for PE. -Start lactulose, goal is 2-3 loose BMs per day. -Nicotine patch. -Continue essential home medications. -Consider diagnostic paracentesis. -Consider CT abdomen pelvis. -Consider nephrology consult for refractory volume overload. -Remove IJ central line when no longer necessary. -Low-sodium and fluid restricted diet. -PT consult. -DVT prophylaxis: Lovenox -CODE STATUS: Full -Disposition: TBD, follow up with ortho in clinic for left radial fracture. GI referral for liver cirrhosis. Possible cardiology referral depending on TTE results. Time Spent With Patient Time: Total time spent is greater than 50% in coordination of care (as documented) at patient's floor/unit and/or counseling patient:
[2021-10-01] MEDS ORDERED: METOLAZONE 2.5 MG TABLET PO ONE (18:29)
[2021-10-01] MEDS ORDERED: FUROSEMIDE 40 MG/4 ML VIAL IV SCH (20:00)
[2021-10-01] MEDS: Fluticasone-Umeclidin-Vilanter [Trelegy Ellipta] Inhaler INH SCH (21:13)
[2021-10-01 21:22] LABS: Calcium 7.7 mg/dL (8.6-10.4); Phosphorous 2.6 mg/dL (2.5-4.5)
[2021-10-02] MEDS: diphenhydrAMINE 25 MG CAPSULE PO PRN (00:24)
[2021-10-02] MEDS: oxyCODONE HCL 5 MG TABLET PO PRN ×2 (01:35→10:02)
[2021-10-02 04:47] LABS: Basophils # (Auto) 0.02 K/mcL (0.00-0.30); Basophils % (Auto) 0.3 % (0.0-2.0); Eosinophils # (Auto) 0.03 K/mcL (0.00-0.70); Eosinophils % (Auto) 0.4 % (0.0-7.0); Hematocrit 26.4 % (34.1-44.9); Hemoglobin 9.2 g/dL (11.2-15.7); Lymphocytes # (Auto) 0.64 K/mcL (1.50-4.80); Mean Cell Volume 120.5 fL (80.0-100.0); Mean Corpuscular HGB Conc 34.8 g/dL (31.0-36.0); Mean Platelet Volume 10.8 fL (7.4-10.4); Monocytes # (Auto) 0.78 K/mcL (0.10-0.90); Neutrophils % (Auto) 79.3 % (38.0-78.0); Platelet Count 97 K/mcL (140-440); RBC 2.19 M/mcL (3.59-5.38); Red Cell Distribution Width 14.6 % (11.5-14.5); WBC 7.1 K/mcL (4.5-11.0)
[2021-10-02 05:02] LABS: ALT/SGPT 95 U/L (<40); AST/SGOT 165 U/L (<32); Albumin 2.9 gm/dL (3.2-5.2); Albumin/Globulin Ratio 1.2 (1.0-2.3); Alkaline Phosphatase 283 U/L (39-117); Bilirubin,Total 2.7 mg/dL (0.1-1.0); Blood Urea Nitrogen 7 mg/dL (8-23); Calcium 7.8 mg/dL (8.6-10.4); Carbon Dioxide 23 mmol/L (22-30); Chloride 87 mmol/L (96-108); Globulin 2.4 gm/dL (2.2-3.7); Glomerular Filtration Rate 34; Glucose 119 mg/dL (70-105)
[2021-10-02] MEDS: 0.9 % SODIUM CHLORIDE 10 ML SYRINGE IV SCH ×5 (05:59→21:51)
[2021-10-02] MEDS ORDERED: FUROSEMIDE 40 MG/4 ML VIAL IV SCH (08:00)
--- NOTE | 2021-10-02 08:50 | Nephrology Consult Note ---
HPI Data of Consult Patient: new to practice Consult date: 10/02/21 Requesting physician: Shaun Caraballo Primary Care Provider: Nikolas Sanchez Consult Narrative Chief complaint: Wrist pain after a fall Reason for consult: Diuretic resistance and hyponatremia History of present illness: 61 yr old alcoholic, smoker, COPD, chronic pain with pain management & pain contract, HTN, macrocytosis with neg w/u = EtOH, presents to ED post fall. Admitted due to electrolyte annormalities. Oliguria and refractory to moderdose loop diuretic and metolazone. Borderline BP. Ascites present on imaging study. Attempts at diuresis have lead to worsening GFR and little improvement in Serum Na. Discussed with hospital medicine service. PFTs ABD U/S September,: The liver is borderline enlarged. The parenchyma is very heterogeneous and difficult to penetrate due to moderately severe fatty infiltration. No discrete mass is identified. Doppler demonstrates normal directional blood flow in the hepatic and portal veins. The gallbladder has been removed. Common bile duct measures 4 mm. Pancreas is largely obscured. The visualized segments appear normal. Small to moderate amount of ascites is present in the abdomen and pelvis. Largest pocket is in left lower quadrant. The fluid appears uniformly anechoic. Comparison with the prior ultrasound done on 06/21/20 shows the heterogeneity of the liver has become worse and the ascites is new. IMPRESSION: Fatty liver. Patient may have steatohepatitis or early stage of cirrhosis. Ascites Vital Signs Temp Resp BP Pulse Ox 10/02/21 08:09 20 96 10/02/21 08:01 36.5 C 15 118/78 93 10/02/21 07:01 8 L 115/94 92 10/02/21 06:01 9 L 113/75 93 10/02/21 05:00 15 112/76 94 10/02/21 04:00 36.1 C 9 L 112/75 96 10/02/21 03:00 13 114/85 97 10/02/21 02:00 10 L 106/72 97 10/02/21 01:00 11 L 106/76 94 10/02/21 00:06 36.3 C 27 H 128/102 94 10/01/21 23:01 25 H 121/83 97 10/01/21 22:01 14 119/73 95 10/01/21 21:01 21 113/69 10/01/21 20:19 36.7 C 17 106/91 97 10/01/21 19:01 12 138/122 61 L 10/01/21 17:01 36.7 C 16 115/59 97 10/01/21 16:01 36.7 C 13 104/55 100 10/01/21 15:32 15 105/68 10/01/21 14:03 16 110/69 92 10/01/21 13:01 36.6 C 19 118/57 98 10/01/21 12:36 16 95 10/01/21 12:02 36.6 C 17 118/68 95 10/01/21 11:00 11 L 118/59 96 10/01/21 10:27 11 L 95 10/01/21 10:00 11 L 104/72 94 Intake and Output 10/01/21 10/02/21 10/02/21 21:59 05:59 13:59 Intake Total 240 Output Total 245 Balance -5 Intake: Oral 240 Output: Urine Catheter Amount 245 Other: Meal Dinner Percent of Meal Consumed 50% Feeding Ability Independent Urine Appearance Cloudy Uretheral ([place]) Cloudy Urine Color Dark Isabel Uretheral ([place]) Dark Isabel Weight 92.278 kg The totality of the evidence is cirrhosis/cirrhotic physiology with severe prerenal azotemia verses HRS. I see nothing to suggest cardiac etiology of her sodium avid state. Recommend: 1. When you do the paracentesis, send fluid to calculate the SAG and calculate MELD score 2. Hold diuretics and volume expand with colloid 12.5 gm Albumin q 6 hr x 4 doses. 3. If the above does not help, I'd recommend somatostatin and dopamine and if that fails, then add lasix +/- albumin. 4. It goes without saying without absolute cessation of EtOH, her prognosis is grave...especially if this is HRS in which case 6 month survival is <50%. 5. I generally do not advocate for [employer] in servere cirrhosis or HRS cc:: CC: Shaun Caraballo MD Review of Systems All systems: reviewed and no additional remarkable complaints except as stated Review of systems: Fell and Fx wrist EtOH up to 96 hrs ago Excess po fluid intake (+) nervousness and states confusion Denies DT's or EtOH withdrawal Sz Prior hx of low sodium in blood PFSH PFSH All Active Problems (Updated 10/02/21 @ 16:15 by David Joe MD) Hyponatremia (Acute) ARF (acute renal failure) (Acute) Oliguria and anuria (Acute) Cirrhosis with alcoholism (Acute) Back pain (Chronic) Thoracic back pain (Chronic) Muscle spasm (Chronic) Wrist injury (Chronic) Wrist fracture (Chronic) Depression (Chronic) Chronic pain (Chronic) Hypertension (Chronic) Anxiety (Chronic) History of surgery (Chronic) Spondylosis of thoracic spine with radiculopathy (Chronic) Radiculopathy, thoracic region (Chronic) Contusion of right wrist (Chronic) Acute myofascial pain (Chronic) COPD (chronic obstructive pulmonary disease) (Chronic) GERD (gastroesophageal reflux disease) (Chronic) Smoker (Chronic) Abnormal liver enzymes (Chronic) Avascular necrosis of bone (Chronic) Folic acid deficiency (Chronic) Cobalamin deficiency (Chronic) Insomnia (Chronic) Abdominal pain (Chronic) Osteopenia (Chronic) Vitamin D deficiency (Chronic) Fever (Chronic) Osteoarthritis (Chronic) Nonalcoholic steatohepatitis (Chronic) Homocystinemia (Chronic) Hyperlipidemia (Chronic) Diarrhea (Chronic) Renal colic (Chronic) Spinal stenosis (Chronic) Pernicious anemia (Chronic) Urge incontinence of urine (Chronic) Reactive airway disease (Chronic) Kidney stones (Chronic) Colon polyps (Chronic) Acute upper respiratory infection (Chronic) Cough (Chronic) Exposure to COVID-19 virus (Chronic) SOB (shortness of breath) (Chronic) Pulmonary vascular congestion (Chronic) Cardiomegaly (Chronic) Chest pain (Chronic) Bronchospasm (Chronic) Hyperventilation (Chronic) Macrocytosis (Chronic) Weight loss (Chronic) Myofascial pain syndrome (Chronic) Nocturnal hypoxia (Chronic) Elevated hemidiaphragm (Chronic) Acute hyponatremia (Acute) Macrocytosis (Acute) Left wrist fracture (Acute) Elevated liver function tests (Acute) Medical History Abdominal pain Abnormal liver enzymes Acute myofascial pain Acute upper respiratory infection Anxiety Avascular necrosis of bone Back pain Bronchospasm Cardiomegaly Chest pain Chronic pain Cobalamin deficiency Colon polyps COPD (chronic obstructive pulmonary disease) Cough Depression Diarrhea Elevated hemidiaphragm Right Exposure to COVID-19 virus Fever Folic acid deficiency GERD (gastroesophageal reflux disease) Homocystinemia Hyperlipidemia Hypertension Hyperventilation Insomnia Kidney stones Macrocytosis Muscle spasm Myofascial pain syndrome Nocturnal hypoxia Nonalcoholic steatohepatitis Osteoarthritis Osteopenia Pernicious anemia Pulmonary vascular congestion Reactive airway disease Renal colic Smoker SOB (shortness of breath) Spinal stenosis Thoracic back pain Urge incontinence of urine Vitamin D deficiency Weight loss Wrist fracture Wrist injury Surgical History History of appendectomy (~1974) History of cholecystectomy (~1989) History of foot surgery (~2007) Right foot sebaceous cyst removal History of foot surgery (~1992) Right foot fracture repair History of hip surgery (~2012) Right Hip IT Band History of hip surgery (~2010) Right hip modification History of surgery TESI #1 T4-5 w/sed History of total abdominal hysterectomy and bilateral salpingo-oophorectomy (~2000) History of total hip replacement (~2012) History of total left hip replacement (~2008) History of total right hip replacement (~2009) History of tubal ligation (~1980) History of wisdom tooth extraction (~1984) x2 Family History Grandfather Heart disease Paternal Grandmother Type 2 diabetes mellitus Maternal Father , : 65 Lung cancer Alcohol abuse Mother Scoliosis Brother Breathing problem Sister Anxiety Back problem Other CAD (coronary artery disease) Social History marital status: occupational status: employed 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 smoking status: Current every day smoker alcohol intake frequency: 2+ drinks per day substance use type: marijuana and other details: THC MEDS/ALLERGIES Home Medications and Allergies Home Medications Medication Instructions Recorded Confirmed Type gabapentin 300 mg capsule 300 mg PO BID 06/09/19 10/02/21 History zolpidem 5 mg tablet 5 mg PO HS 06/09/19 10/02/21 History albuterol sulfate 2.5 mg/0.5 mL 2.5 mg INHALATION QID PRN ea 05/02/21 10/02/21 History solution for nebulization diphenhydramine HCl 25 mg capsule 25 mg PO Q6H PRN 05/02/21 10/02/21 History (Benadryl) guaifenesin 600 mg tablet, 600 mg PO Q12H PRN 05/02/21 10/02/21 History extended release 12 hr (Mucinex) emollient combo no.59 (bulk) See Rx Instructions TOPICAL BID 06/18/21 10/02/21 Rx (Custom Base [facility] Lipoderm) #60 g buspirone 15 mg tablet 7.5 mg PO BID tab 06/28/21 10/02/21 History famotidine 40 mg tablet 40 mg PO QHS 08/14/21 10/02/21 History ipratropium 20 mcg-albuterol 100 2 puff INHALATION QID g 08/14/21 10/02/21 History mcg/actuation mist for inhalation (Combivent Respimat) cyclobenzaprine 5 mg tablet 5 mg PO TID PRN #15 tab 09/17/21 10/02/21 Rx fluticasone fur. 100 mcg-umeclid 1 inh INHALATION Q24H #60 ea 09/27/21 10/02/21 Rx 62.5 mcg-vilant 25 mcg inhalat.powder (Trelegy Ellipta) benzonatate 100 mg capsule 200 mg PO TID PRN 09/30/21 10/02/21 History clotrimazole 10 mg edwardo 10 mg MUCOUS MEMBRANE 5XD 10/01/21 10/02/21 History cyanocobalamin (vitamin B-12) 1 ml IM Q2W 10/02/21 10/02/21 History 1,000 mcg/mL injection solution furosemide 20 mg tablet 20 mg PO QAM 10/02/21 10/02/21 History hydrocodone 5 mg-acetaminophen 325 1 tab PO BID PRN 10/02/21 10/02/21 History mg tablet lorazepam 0.5 mg tablet 0.5 mg PO QDAY 10/02/21 10/02/21 History spironolactone 50 mg tablet 50 mg PO QDAY 10/02/21 10/02/21 History (Aldactone) Allergies Allergy/AdvReac Type Severity Reaction Status Date / Time Penicillins Allergy Severe Difficulty Verified 09/30/21 20:47 Breathing prednisone Allergy Severe Difficulty Verified 09/30/21 21:17 Breathing trospium Allergy Intermediate Facial Verified 09/30/21 21:17 swelling, itching, rash Influenza Virus Vaccines AdvReac Intermediate Burning Verified 09/30/21 21:17 sensation in hands and feet codeine AdvReac Mild Nausea Verified 09/30/21 21:17 metoclopramide [From Reglan] AdvReac Mild Anxiety Verified 09/30/21 21:17 omeprazole AdvReac Mild Vomiting Verified 09/30/21 21:17 Physical Examination Vital Signs Vital signs: Temp Pulse Resp BP Pulse Ox 36.5 C 91 H 20 118/78 96 10/02/21 08:01 10/01/21 07:00 10/02/21 08:09 10/02/21 08:01 10/02/21 08:09 General Appearance General appearance: obese, chronically ill and anxious EENT EENT: ATNC, PERRL, mucous membranes dry and hearing intact Neck Neck: no JVD and no carotid bruit Respiratory Respiratory: course breath sounds Cardiovascular Cardiology: no murmurs, no gallops, edema, normal S1 and normal S2 Gastrointestinal Gastrointestinal: normoactive bowel sounds and distended (shifting dullness present) Integumentary Integumentary: cool/clammy Neurologic Neurologic: no focal deficit, asterixis, confused, reflexes 2+ and symmetric (hyper-reflexic) and CN 3-12 intact Musculoskeletal Musculoskeletal: no cyanosis and no clubbing Psychiatric Psychiatric: agitated Results Lab Results Result Diagrams: 10/02/21 04:04 10/02/21 07:51 Lab results: Most recent lab results Calcium 7.8 mg/dL (8.6-10.4) L 10/02/21 04:05 Phosphorus 2.6 mg/dL (2.5-4.5) 10/01/21 19:55 Magnesium 1.5 mg/dL (1.6-2.5) L 10/01/21 04:20 A/P Assessment and plan (1) Hyponatremia: Assessment and plan: Edema rules out SIADS No CHF Sx or cardiac echo finding to support Cardiac ascites and cause of edema and hyponatremia Sodium avid state without proteinuria makes renal etiology of edema and hyonatremia unlikely This leaves cirrhotic physiology, excess oral fluid intake (Vodka and hypotonic fluids), low serum BUN means protein depravation (tea and toast diet) and loss of medullary concentrating function so cannot ultimately excrete a free H2O load, low oncotic pressure not helping. Status: Acute Comment: PO fluid restrict Increase protein intake For now, volume expand with colloid...hold diuretics Low sodium intake (2) Cirrhosis with alcoholism: Assessment and plan: Long standing Complicated by cirrhosis/cirrhotic physiology Some agitation Macrocytosis low BUN / proteien calorie malnutrition High risk for refeeding hypophosphatemia and hypokalemia Status: Acute Comment: Stop all EtOH consumption EtOH rehab...[facility] has highest success rate (3) Oliguria and anuria: Assessment and plan: Cirrhosis and cirrhotic physiology along with decreased BP and low oncotic pressure => decreased renal perfusion (Ofelia<10 and FeNa <<<1%) No evidence of underlying renal disease (no proteinuria) or underlying cardiac etiology of edema and ascites Poor prognisis without life altering changes Status: Acute Comment: Colloid for ECF volume expansion May need Octreotide and midodrine or dopamine prior to attempted diuresis in next 24 hours (4) ARF (acute renal failure): Assessment and plan: The etiology of oligoanuria is renal hypoperfusion...diuretic will only worsen this 1. Colloid for 24 hours to see what happens to UOP and BP 2. If that fails...Octreotide SQ and dopamine +/- spironolactone and/or loop diuretics 3. If the above fails...high risk for precipatating episode of HRS from which there is little hope of improvement Status: Acute Narrative A/P Narrative: As in HPI and above Time Spent With Patient Time: Total time spent is greater than 50% in coordination of care (as documented) at patient's floor/unit and/or counseling patient: Total time spent with greater than 50% in coordination of care (as documented) at patient's floor/unit and/or counseling patient:: 25 - 35 minutes
[2021-10-02 09:16] LABS: Hepatitis C Virus Antibody Non-Reactive (Non-Reactive)
[2021-10-02] MEDS: LACTULOSE 20 GM/30 ML ORAL.SOL PO SCH ×3 (09:40→21:42)
[2021-10-02] MEDS: NICOTINE 21 MG PATCH TOPICAL SCH (09:43)
[2021-10-02] MEDS: ENOXAPARIN 40 MG/0.4 ML SYRINGE SQ SCH (09:43)
[2021-10-02] MEDS: ALBUMIN HUMAN 12.5 GM/50 ML BAG IV SCH ×3 (09:48→21:50)
[2021-10-02] MEDS: IPRATROPIUM/ALBUTEROL SULFATE 1 PUFF INHALER INH SCH ×4 (09:56→21:48)
[2021-10-02] MEDS: busPIRone 15 MG TABLET PO SCH ×2 (10:00→21:48)
[2021-10-02] MEDS ORDERED: PNEUMOCOCCAL 23-VAL P-SAC VAC 0.5 ML SYRINGE IM ONE (10:00)
[2021-10-02] MEDS: [UNRECOGNIZED DRUG - OTHER] TOPICAL SCH ×2 (10:02→21:50)
[2021-10-02] MEDS: GABAPENTIN 300 MG CAPSULE PO SCH ×2 (10:03→21:49)
[2021-10-02] MEDS: DOCUSATE SODIUM 100 MG CAPSULE PO SCH ×2 (10:03→21:48)
[2021-10-02] MEDS: guaiFENesin 600 MG TAB.SR.12H PO PRN (10:03)
[2021-10-02] MEDS: LORazepam 0.5 MG TABLET PO PRN (10:03)
[2021-10-02] MEDS ORDERED: ALBUTEROL SULFATE 200 PUFF INHALER INH PRN (11:07)
[2021-10-02] MEDS: FAMOTIDINE 20 MG TABLET PO SCH (11:36)
--- NOTE | 2021-10-02 16:17 | Internal Med Progress Note ---
SUBJECTIVE Subjective Patient information: Note initiated : 10/02/21 at 4:15 pm Service Date, if different from initiated Date: [] Patient: Caleb Kern 61 y/o F admitted on 09/30/21 for left arm pain, fall yesterday. Chief Complaint: [] Principal diagnosis: Severe hypervolemic hyponatremia Interval history: Ms. Kern is a 61 year old female with a past medical history not limited to SILVA, COPD, nocturnal hypoxia, vitamin B12 deficiency, degenerative disc disease, obesity, tobacco use disorder who presented to the emergency department after a fall at home for further evaluation of left wrist pain. X-ray of the l eft wrist showed an intraarticular fracture of the distal radius. The patient was noted to be hypervolemic in the emergency department, CBC and chemistry panel were ordered showing severe hyponatremia with a sodium level of 116. Additionally, labs showed a mild leukocytosis of 12.3, severe macrocytosis, thrombocytopenia, anion gap metabolic acidosis, bilirubin of 1.8 and ALT and AST elevated compared to the patient's prior labs from 2020. Patient also had a NT proBNP of 441, 1 view chest x-ray did not show any pulmonary vascular congestion. The patient had a markedly elevated D-dimer of 6.89. The patient has not been having any shortness of breath recently and was comfortable on room air in the emergency department. The patient received Lasix IV in the emergency department. Hospital medicine was consulted for admission and management of severe hyponatremia. The patient says that she has been experiencing intermittent bilateral lower extremity edema for some time and that they have always resolved. The current amount of edema is more severe than prior episodes. She denies recent dyspnea, has not noticed any significant changes in urination. Patient says that she has known about "fatty liver disease" for some time. She does drink a significant amount of alcohol which usually contains vodka on an almost daily basis. We discussed the goals of admission which include a gradual correction of her sodium level. We also discussed further work-up which will focus on cardiac, liver and renal pathologies that could explain hypovolemic hyponatremia. We discussed CODE STATUS in detail, the patient wishes to be full code. 3/ Urine protein creatinine ratio was normal, TSH and morning cortisol levels nikhil l. blood smear was not suggestive of a sinister hematologic process. Vitamin B12 level elevated, folate level normal. INR was 1.2. Sodium trended up to 120s and down to 119, the patient received 100 mL of 3% saline followed by increase in sodium to 122. Patient has not made significant urine after receiving a dose of Lasix 80 mg IV. Volume overloaded as on admission with bilateral lower extremity pitting edema. Abdominal ultrasound showed fatty liver, possible steatohepatitis or early stage cirrhosis, small to moderate amount of ascites was present, normal directional blood flow and hepatic and portal veins. Bilateral lower extremity venous duplex ultrasound was negative for DVT. Transthoracic echocardiogram report pending. 10/02 Creatinine increased, discontinued lasix and consulted nephrology. Awaiting recommendations. Physical exam Head: Atraumatic, normal inspection. Eyes: normal appearance, no scleral icterus. Neck: full ROM Respiratory: no respiratory distress. Cardiovascular: normal rate and rhythm, S1, S2. GI/Abdominal: Distended abdomen, soft, nontender, no guarding. Extremities: Bilateral lower extremity 3+ pitting edema Neurological: CN II-XII intact, intact motor, intact sensation. Psychiatric: normal mood. Skin: Spider angiomas present in upper extremities, upper chest, upper back, diffuse flaky dry skin, warm Constitutional Vitals: Vital Signs Temp Pulse Resp BP Pulse Ox 97.8 F 91 H 10 L 128/85 97 10/02/21 12:03 10/01/21 07:00 10/02/21 14:14 10/02/21 14:01 10/02/21 14:14 Period Temp Pulse Resp BP Sys/Altman Pulse Ox Last 24 Hr 97.0 F-98.1 F 8-34 106-138/59-122 61-98 Intake and Output 10/02/21 10/02/21 10/02/21 05:59 13:59 21:59 Intake Total 240 50 240 Output Total 245 Balance -5 50 240 Intake & Output: Intake & Output 10/02/21 10/02/21 10/02/21 05:59 13:59 21:59 Intake Total 240 50 240 Output Total 245 Balance -5 50 240 Intake: IV 50 Oral 240 240 Output: Urine Catheter Amount 245 Other: Meal Lunch Percent of Meal Consumed 50% Feeding Ability Independent Urine Appearance Cloudy Urine Color Dark Isabel Stool Size Moderate Stool Color Brown Yellow Stool Consistency Liquid # Bowel Movements 1 OBJ DATA Labs CBC & Chem 7: 10/02/21 04:04 10/02/21 07:51 Labs: Abnormal Lab Results 10/02/21 10/02/21 10/02/21 07:51 04:05 04:04 WBC RBC Hgb Hct MCV MCH MCHC RDW Plt Count MPV Neut % (Auto) Lymph % (Auto) [place] % (Auto) Lymph # (Auto) [place] # (Auto) Absolute Neutrophils PT INR D-Dimer Sodium 120 L 121 L Chloride 87 L Carbon Dioxide Anion Gap BUN 7 L Creatinine 1.6 H Glucose 119 H Osmolality Calcium 7.8 L Magnesium Total Bilirubin 2.7 H AST 165 H ALT 95 H Alkaline Phosphatase 283 H Ammonia 74 H C-Reactive Protein NT-Pro-B Natriuret Pep Total Protein 5.3 L Albumin 2.9 L Vitamin B12 Urine Appearance Urine Protein Urine Bilirubin Urine Urobilinogen Ur Leukocyte Esterase Urine RBC Urine WBC Ur Squamous Epith Cells Urine Bacteria Hyaline Casts Urine Mucus Ur Yeast w Hyphae Ur Random Creatinine 10/02/21 10/02/21 10/01/21 04:04 00:27 19:55 WBC RBC 2.19 L Hgb 9.2 L Hct 26.4 L MCV 120.5 H MCH 42.0 H MCHC RDW 14.6 H Plt Count 97 L MPV 10.8 H Neut % (Auto) 79.3 H Lymph % (Auto) 9.0 L [place] % (Auto) Lymph # (Auto) 0.64 L [place] # (Auto) Absolute Neutrophils PT INR D-Dimer Sodium 121 L 118 L* Chloride 85 L Carbon Dioxide Anion Gap BUN 7 L Creatinine 1.6 H Glucose 136 H Osmolality Calcium 7.7 L Magnesium Total Bilirubin AST ALT Alkaline Phosphatase Ammonia C-Reactive Protein NT-Pro-B Natriuret Pep Total Protein Albumin 3.0 L Vitamin B12 Urine Appearance Urine Protein Urine Bilirubin Urine Urobilinogen Ur Leukocyte Esterase Urine RBC Urine WBC Ur Squamous Epith Cells Urine Bacteria Hyaline Casts Urine Mucus Ur Yeast w Hyphae Ur Random Creatinine 10/01/21 10/01/21 10/01/21 15:58 12:09 12:08 WBC RBC Hgb Hct MCV MCH MCHC RDW Plt Count MPV Neut % (Auto) Lymph % (Auto) [place] % (Auto) Lymph # (Auto) [place] # (Auto) Absolute Neutrophils PT INR D-Dimer Sodium 122 L 119 L* Chloride Carbon Dioxide Anion Gap BUN Creatinine Glucose Osmolality Calcium Magnesium Total Bilirubin AST ALT Alkaline Phosphatase Ammonia 90 H C-Reactive Protein NT-Pro-B Natriuret Pep Total Protein Albumin Vitamin B12 Urine Appearance Urine Protein Urine Bilirubin Urine Urobilinogen Ur Leukocyte Esterase Urine RBC Urine WBC Ur Squamous Epith Cells Urine Bacteria Hyaline Casts Urine Mucus Ur Yeast w Hyphae Ur Random Creatinine 10/01/21 10/01/21 10/01/21 08:07 04:20 04:20 WBC RBC 2.27 L Hgb 10.0 L Hct 27.2 L MCV 119.8 H MCH 44.1 H MCHC 36.8 H RDW 14.6 H Plt Count 105 L MPV 11.0 H Neut % (Auto) 79.3 H Lymph % (Auto) 7.6 L [place] % (Auto) 12.8 H Lymph # (Auto) 0.74 L [place] # (Auto) 1.25 H Absolute Neutrophils PT INR D-Dimer Sodium 119 L* 120 L Chloride 86 L Carbon Dioxide Anion Gap BUN 6 L Creatinine 1.2 H Glucose 124 H Osmolality Calcium 7.9 L Magnesium 1.5 L Total Bilirubin 2.9 H AST 177 H ALT 97 H Alkaline Phosphatase 295 H Ammonia C-Reactive Protein NT-Pro-B Natriuret Pep Total Protein 5.6 L Albumin 3.0 L Vitamin B12 Urine Appearance Urine Protein Urine Bilirubin Urine Urobilinogen Ur Leukocyte Esterase Urine RBC Urine WBC Ur Squamous Epith Cells Urine Bacteria Hyaline Casts Urine Mucus Ur Yeast w Hyphae Ur Random Creatinine 10/01/21 09/30/21 09/30/21 01:30 23:10 23:10 WBC RBC Hgb Hct MCV MCH MCHC RDW Plt Count MPV Neut % (Auto) Lymph % (Auto) [place] % (Auto) Lymph # (Auto) [place] # (Auto) Absolute Neutrophils PT 15.3 H INR 1.2 H D-Dimer Sodium 121 L Chloride Carbon Dioxide Anion Gap BUN Creatinine Glucose Osmolality Calcium Magnesium Total Bilirubin AST ALT Alkaline Phosphatase Ammonia C-Reactive Protein NT-Pro-B Natriuret Pep Total Protein Albumin Vitamin B12 Urine Appearance Cloudy A Urine Protein 30 A Urine Bilirubin 2.0 A Urine Urobilinogen 2.0 A Ur Leukocyte Esterase 75 A Urine RBC 4 H Urine WBC 17 H Ur Squamous Epith Cells 6 H Urine Bacteria Few A Hyaline Casts 209 H Urine Mucus Mod A Ur Yeast w Hyphae Few A Ur Random Creatinine 09/30/21 09/30/21 09/30/21 23:10 23:10 14:38 WBC RBC Hgb Hct MCV MCH MCHC RDW Plt Count MPV Neut % (Auto) Lymph % (Auto) [place] % (Auto) Lymph # (Auto) [place] # (Auto) Absolute Neutrophils PT INR D-Dimer 6.89 H Sodium Chloride Carbon Dioxide Anion Gap BUN Creatinine Glucose Osmolality 253 L Calcium Magnesium Total Bilirubin AST ALT Alkaline Phosphatase Ammonia C-Reactive Protein 7.80 H NT-Pro-B Natriuret Pep Total Protein Albumin Vitamin B12 > 2000.0 H Urine Appearance Urine Protein Urine Bilirubin Urine Urobilinogen Ur Leukocyte Esterase Urine RBC Urine WBC Ur Squamous Epith Cells Urine Bacteria Hyaline Casts Urine Mucus Ur Yeast w Hyphae Ur Random Creatinine 287.0 H 09/30/21 09/30/21 14:38 14:38 WBC 12.3 H RBC 2.62 L Hgb Hct 33.6 L MCV 128.2 H MCH 45.0 H MCHC RDW 14.8 H Plt Count 109 L MPV 10.5 H Neut % (Auto) 82.0 H Lymph % (Auto) 6.8 L [place] % (Auto) Lymph # (Auto) 0.84 L [place] # (Auto) 1.34 H Absolute Neutrophils 10.09 H PT INR D-Dimer Sodium 116 L* Chloride 81 L Carbon Dioxide 16 L Anion Gap 19.0 H BUN 4 L Creatinine Glucose 121 H Osmolality Calcium 8.2 L Magnesium Total Bilirubin 1.8 H AST 193 H ALT 101 H Alkaline Phosphatase 328 H Ammonia C-Reactive Protein NT-Pro-B Natriuret Pep 441.4 H Total Protein Albumin Vitamin B12 Urine Appearance Urine Protein Urine Bilirubin Urine Urobilinogen Ur Leukocyte Esterase Urine RBC Urine WBC Ur Squamous Epith Cells Urine Bacteria Hyaline Casts Urine Mucus Ur Yeast w Hyphae Ur Random Creatinine Meds: Medications Albuterol Sulfate (Albuterol Sulfate 200 Puff Inhaler) 1 puff INH Q4-6HP PRN PRN Reason: Shortness Of Breath Albuterol/Ipratropium (Ipratropium/Albuterol Sulfate 1 Puff Inhaler) 2 puff INH QID [facility] Last Admin: 10/02/21 09:56 Dose: Not Given Documented by: Benzonatate (Benzonatate 100 Mg Capsule) 100 mg PO TID PRN PRN Reason: cough Buspirone HCl (Buspirone 15 Mg Tablet) 7.5 mg PO BID [facility] Last Admin: 10/02/21 10:00 Dose: 7.5 mg Documented by: Cyclobenzaprine HCl (Cyclobenzaprine 10 Mg Tablet) 5 mg PO TIDP PRN PRN Reason: Muscle Spasm Last Admin: 10/01/21 22:27 Dose: 5 mg Documented by: Diphenhydramine HCl (Diphenhydramine 25 Mg Capsule) 25 mg PO Q6H PRN PRN Reason: Itching Last Admin: 10/02/21 00:24 Dose: 25 mg Documented by: Docusate Sodium (Docusate Sodium 100 Mg Capsule) 100 mg PO BID [facility] Last Admin: 10/02/21 10:03 Dose: 100 mg Documented by: Enoxaparin Sodium (Enoxaparin 40 Mg/0.4 Ml Syringe) 40 mg SQ DAILY [facility] Last Admin: 10/02/21 09:43 Dose: 40 mg Documented by: Gabapentin (Gabapentin 300 Mg Capsule) 300 mg PO BID [facility] Last Admin: 10/02/21 10:03 Dose: 300 mg Documented by: Guaifenesin (Guaifenesin 600 Mg Tab.Sr.12h) 600 mg PO Q12H PRN PRN Reason: Congestion Last Admin: 10/02/21 10:03 Dose: 600 mg Documented by: Albumin Human (Buminate) 12.5 gm in 50 mls @ 100 mls/hr IV Q6H [facility] Stop: 10/03/21 03:59 Last Infusion: 10/02/21 10:30 Dose: Infused Documented by: Lactulose (Lactulose 20 Gm/30 Ml Oral.Petra) 10 gm PO BID PRN PRN Reason: constipation Lactulose (Lactulose 20 Gm/30 Ml Oral.Petra) 30 gm PO TID [facility] Last Admin: 10/02/21 09:40 Dose: 30 gm Documented by: Lorazepam (Lorazepam 0.5 Mg Tablet) 0.5 mg PO BID PRN PRN Reason: Anxiety Last Admin: 10/02/21 10:03 Dose: 0.5 mg Documented by: Nicotine (Nicotine 21 Mg Patch) 21 mg TOPICAL DAILY@1000 [facility] Last Admin: 10/02/21 09:43 Dose: 21 mg Documented by: Ondansetron HCl (Ondansetron 4 Mg/2 Ml Vial) 4 mg IV Q4HP PRN; Protocol PRN Reason: Nausea And Vomiting Oxycodone HCl (Oxycodone Hcl 5 Mg Tablet) 5 mg PO Q4HP PRN; Protocol PRN Reason: Per Pain Protocol Last Admin: 10/02/21 10:02 Dose: 5 mg Documented by: Emollient Combo No. [id number] (Bulk) [Custom Base Pcca] Cream 1 dose TOPICAL BID [facility] Last Admin: 10/02/21 10:02 Dose: 1 dose Documented by: Fluticasone- Umeclidin-Vilanter [ Trelegy Ellipta] Inhaler 1 dose INH Q24H [facility] Last Admin: 10/01/21 21:13 Dose: 1 dose Documented by: Senna (Sennosides 1 Tablet) 2 tab PO HS PRN PRN Reason: constipation Sodium Chloride (0.9 % Sodium Chloride 10 Ml Syringe) 10 ml IV Q8 [facility] Last Admin: 10/02/21 05:59 Dose: 10 ml Documented by: Sodium Chloride (0.9 % Sodium Chloride 10 Ml Syringe) 10 ml IV Q12 [facility] Last Admin: 10/02/21 10:04 Dose: 10 ml Documented by: Sodium Chloride (0.9 % Sodium Chloride 10 Ml Syringe) 10 ml IV UD PRN PRN Reason: Central Line Maintence Zolpidem Tartrate (Zolpidem 5 Mg Tablet) 5 mg PO HSP PRN PRN Reason: Insomnia Last Admin: 10/01/21 22:24 Dose: 5 mg Documented by: A/P Narrative A/P Narrative: Assessment: 61 year old female with a past medical history not limited to SILVA, COPD, nocturnal hypoxia, vitamin B12 deficiency, degenerative disc disease, obesity, tobacco use disorder who presented to the emergency department after a fall at home and found to have a distal left radius fracture in the ED. The patient was also found to be severely volume overloaded and to have severe hyponatremia. The patient was admitted for severe hyponatremia. #Severe hypervolemic hyponatremia #Volume overload including ascites -TTE report pending -Urine protein creatinine ratio normal -Somewhat refractory to IV Lasix. #Concern for right-sided heart failure #Concern for liver cirrhosis -INR 1.2 -Ascites present on abdominal ultrasound -Ammonia elevated #History of SILVA #Elevated LFTs #Macrocytic anemia #Elevated D-dimer #Distal left intra-articular radius fracture -discussed with Dr. Christopher: nonoperative fracture #COPD #Nocturnal hypoxia #History of vitamin B12 deficiency #Degenerative disc disease #Anxiety disorder #Alcohol use disorder #Tobacco use disorder #Obesity BMI 38 Plan -Holding diuretics for now. -Nephrology consult. -Follow sodium, avoid increase of > 8mmol/L/24hr. -Monitor volume status, urine output, renal function, electrolytes. -Transthoracic echocardiogram report pending-if RV dilated consider CTA chest to evaluate for PE. -Start lactulose, goal is 2-3 loose BMs per day. -Nicotine patch. -Continue essential home medications. -Consider diagnostic paracentesis. -Consider CT abdomen pelvis. -Remove IJ central line when no longer necessary. -Low-sodium and fluid restricted diet. -PT consult. -DVT prophylaxis: Lovenox -CODE STATUS: Full -Disposition: TBD, follow up with ortho in clinic for left radial fracture. GI referral for liver cirrhosis. Possible cardiology referral depending on TTE results. Time Spent With Patient Time: Total time spent is greater than 50% in coordination of care (as documented) at patient's floor/unit and/or counseling patient:
[2021-10-02] MEDS: ZOLPIDEM 5 MG TABLET PO PRN (21:49)
[2021-10-02] MEDS: Fluticasone-Umeclidin-Vilanter [Trelegy Ellipta] Inhaler INH SCH (21:51)
[2021-10-03] MEDS: oxyCODONE HCL 5 MG TABLET PO PRN (01:48)
[2021-10-03] MEDS: ALBUMIN HUMAN 12.5 GM/50 ML BAG IV SCH ×3 (03:33→17:23)
[2021-10-03] MEDS: ONDANSETRON 4 MG/2 ML VIAL IV PRN (05:36)
[2021-10-03 06:41] LABS: Basophils # (Auto) 0.01 K/mcL (0.00-0.30); Basophils % (Auto) 0.2 % (0.0-2.0); Eosinophils # (Auto) 0.01 K/mcL (0.00-0.70); Eosinophils % (Auto) 0.2 % (0.0-7.0); Lymphocytes # (Auto) 0.58 K/mcL (1.50-4.80); Lymphocytes % (Auto) 9.1 % (15.5-49.0); Mean Cell Volume 121.4 fL (80.0-100.0); Mean Platelet Volume 11.2 fL (7.4-10.4); Monocytes # (Auto) 0.86 K/mcL (0.10-0.90); Monocytes % (Auto) 13.5 % (1.0-12.0); Platelet Count 111 K/mcL (140-440); RBC 2.06 M/mcL (3.59-5.38); Red Cell Distribution Width 14.9 % (11.5-14.5); WBC 6.4 K/mcL (4.5-11.0)
[2021-10-03 06:59] LABS: ALT/SGPT 80 U/L (<40); AST/SGOT 139 U/L (<32); Albumin 3.2 gm/dL (3.2-5.2); Albumin/Globulin Ratio 1.5 (1.0-2.3); Alkaline Phosphatase 252 U/L (39-117); Bilirubin,Total 2.9 mg/dL (0.1-1.0); Blood Urea Nitrogen 8 mg/dL (8-23); Calcium 8.3 mg/dL (8.6-10.4); Carbon Dioxide 25 mmol/L (22-30); Chloride 89 mmol/L (96-108); Globulin 2.2 gm/dL (2.2-3.7); Glomerular Filtration Rate 44; Glucose 115 mg/dL (70-105)
[2021-10-03] MEDS: 0.9 % SODIUM CHLORIDE 10 ML SYRINGE IV SCH ×5 (07:09→21:17)
[2021-10-03] MEDS: METOCLOPRAMIDE 10 MG/2 ML VIAL IV PRN ×2 (08:19→14:58)
[2021-10-03] MEDS: ENOXAPARIN 40 MG/0.4 ML SYRINGE SQ SCH (09:05)
[2021-10-03] MEDS: DOCUSATE SODIUM 100 MG CAPSULE PO SCH ×2 (09:05→21:17)
[2021-10-03] MEDS: LACTULOSE 20 GM/30 ML ORAL.SOL PO SCH ×4 (09:05→21:58)
[2021-10-03] MEDS: IPRATROPIUM/ALBUTEROL SULFATE 1 PUFF INHALER INH SCH ×4 (09:06→21:20)
[2021-10-03] MEDS: GABAPENTIN 300 MG CAPSULE PO SCH ×2 (09:06→21:18)
[2021-10-03] MEDS: [UNRECOGNIZED DRUG - OTHER] TOPICAL SCH ×2 (09:07→21:22)
[2021-10-03] MEDS: NICOTINE 21 MG PATCH TOPICAL SCH (09:09)
[2021-10-03] MEDS: busPIRone 15 MG TABLET PO SCH ×2 (09:12→21:18)
--- NOTE | 2021-10-03 09:16 | Nephrology Progress Note ---
SUBJECTIVE Subjective Patient information: Note initiated : 10/03/21 at 9:10 am Service Date, if different from initiated Date: [] Patient: Caleb Kern 61 y/o F admitted on 09/30/21 for left arm pain, fall yesterday. Chief Complaint: [Broken wrist] Principal diagnosis: Severe hypervolemic hyponatremia Interval history: Seen, examined , data reviewed Edema, ascites, and marked hyponatremia. In my opinion this is cirrhosis and related pathophysiologic changes leading to H2O retention in excess of sodium retention, excess po fluid intake and decreased nutritional stores from most calories from Vodka with obligate H2O intake. Suspect the "effective" volume status is low (no elevated JVD an low Ofelia) in which case attempts to diurese the patient leads to further decline in GFR. Vital Signs Temp Pulse Resp BP Pulse Ox 10/03/21 08:31 14 93 10/03/21 08:28 37.6 C H 14 126/70 95 10/03/21 06:03 14 123/82 93 10/03/21 04:01 36.8 C 14 117/71 95 10/03/21 03:02 13 116/73 96 10/03/21 03:01 12 116/34 96 10/03/21 02:01 14 106/66 95 10/03/21 01:01 13 124/59 95 10/03/21 00:15 102 H 97 10/03/21 00:01 37.2 C 13 108/69 96 10/02/21 23:00 14 124/75 97 10/02/21 22:00 12 101/82 90 10/02/21 21:00 11 L 109/70 93 10/02/21 20:01 37.0 C 12 142/92 97 10/02/21 19:30 104 H 96 10/02/21 19:01 12 126/74 10/02/21 18:01 36.7 C 22 118/86 10/02/21 16:21 10 L 10/02/21 16:14 37.1 C 19 124/77 10/02/21 14:14 10 L 97 10/02/21 14:01 10 L 128/85 97 10/02/21 13:01 20 125/84 94 10/02/21 12:08 16 96 10/02/21 12:03 36.6 C 34 H 108/67 98 10/02/21 11:02 14 117/79 98 10/02/21 10:14 16 10/02/21 10:01 13 124/93 Intake and Output 10/02/21 10/03/21 10/03/21 21:59 05:59 13:59 Intake Total 290 100 Output Total 175 250 Balance 115 -150 Intake: IV 50 100 Oral 240 Output: Urine Catheter Amount 175 250 Other: Meal Dinner Percent of Meal Consumed 10% Feeding Ability Independent Urine Appearance Cloudy Clear Uretheral (Burrell) Clear Clear Urine Color Dark Isabel Dark Isabel Uretheral (Burrell) Dark Yellow Dark Yellow Stool Size Smear Small Stool Color Brown Brown Stool Consistency Liquid Soft Liquid # Unmeasured Emesis 1 # Bowel Movements 2 # of times incontinent of 1 1 Bowels Weight 94.574 kg Laboratory Tests 09/30/21 10/01/21 10/02/21 23:10 08:06 04:04 Sodium Potassium Chloride Carbon Dioxide Anion Gap BUN Creatinine GFR Calculation Glucose Calcium Total Bilirubin AST ALT Alkaline Phosphatase Ammonia 74 H Total Protein Albumin Globulin Albumin/Globulin Ratio TSH 2.43 Cortisol AM Sample 12.8 10/03/21 10/03/21 05:12 05:12 Sodium 123 L Potassium 4.1 Chloride 89 L Carbon Dioxide 25 Anion Gap 12.0 BUN 8 Creatinine 1.3 H GFR Calculation 44 Glucose 115 H Calcium 8.3 L Total Bilirubin 2.9 H AST 139 H ALT 80 H Alkaline Phosphatase 252 H Ammonia Total Protein 5.4 L Albumin 3.2 Globulin 2.2 Albumin/Globulin Ratio 1.5 TSH Cortisol AM Sample Current Medications Albuterol Sulfate (Albuterol Sulfate 200 Puff Inhaler) 1 puff INH Q4-6HP PRN PRN Reason: Shortness Of Breath Albuterol/Ipratropium (Ipratropium/Albuterol Sulfate 1 Puff Inhaler) 2 puff INH QID [facility] Last Admin: 10/03/21 09:06 Dose: 2 puff Documented by: Benzonatate (Benzonatate 100 Mg Capsule) 100 mg PO TID PRN PRN Reason: cough Buspirone HCl (Buspirone 15 Mg Tablet) 7.5 mg PO BID [facility] Last Admin: 10/03/21 09:12 Dose: 7.5 mg Documented by: Cyclobenzaprine HCl (Cyclobenzaprine 10 Mg Tablet) 5 mg PO TIDP PRN PRN Reason: Muscle Spasm Last Admin: 10/01/21 22:27 Dose: 5 mg Documented by: Diphenhydramine HCl (Diphenhydramine 25 Mg Capsule) 25 mg PO Q6H PRN PRN Reason: Itching Last Admin: 10/02/21 00:24 Dose: 25 mg Documented by: Docusate Sodium (Docusate Sodium 100 Mg Capsule) 100 mg PO BID [facility] Last Admin: 10/03/21 09:05 Dose: 100 mg Documented by: Enoxaparin Sodium (Enoxaparin 40 Mg/0.4 Ml Syringe) 40 mg SQ DAILY [facility] Last Admin: 10/03/21 09:05 Dose: 40 mg Documented by: Gabapentin (Gabapentin 300 Mg Capsule) 300 mg PO BID [facility] Last Admin: 10/03/21 09:06 Dose: 300 mg Documented by: Guaifenesin (Guaifenesin 600 Mg Tab.Sr.12h) 600 mg PO Q12H PRN PRN Reason: Congestion Last Admin: 10/02/21 10:03 Dose: 600 mg Documented by: Lactulose (Lactulose 20 Gm/30 Ml Oral.Petra) 10 gm PO BID PRN PRN Reason: constipation Lactulose (Lactulose 20 Gm/30 Ml Oral.Petra) 30 gm PO TID [facility] Last Admin: 10/03/21 09:05 Dose: 30 gm Documented by: Lorazepam (Lorazepam 0.5 Mg Tablet) 0.5 mg PO BID PRN PRN Reason: Anxiety Last Admin: 10/02/21 10:03 Dose: 0.5 mg Documented by: Metoclopramide HCl (Metoclopramide 10 Mg/2 Ml Vial) 5 mg IV Q6HP PRN PRN Reason: Nausea And Vomiting Last Admin: 10/03/21 08:19 Dose: 5 mg Documented by: Nicotine (Nicotine 21 Mg Patch) 21 mg TOPICAL DAILY@1000 [facility] Last Admin: 10/03/21 09:09 Dose: 21 mg Documented by: Ondansetron HCl (Ondansetron 4 Mg/2 Ml Vial) 4 mg IV Q4HP PRN; Protocol PRN Reason: Nausea And Vomiting Last Admin: 10/03/21 05:36 Dose: 4 mg Documented by: Oxycodone HCl (Oxycodone Hcl 5 Mg Tablet) 5 mg PO Q4HP PRN; Protocol PRN Reason: Per Pain Protocol Last Admin: 10/03/21 01:48 Dose: 5 mg Documented by: Emollient Combo No. [id number] (Bulk) [Custom Base Pcca] Cream 1 dose TOPICAL BID [facility] Last Admin: 10/03/21 09:07 Dose: 1 dose Documented by: Fluticasone- Umeclidin-Vilanter [ Trelegy Ellipta] Inhaler 1 dose INH Q24H [facility] Last Admin: 10/02/21 21:51 Dose: 1 dose Documented by: Senna (Sennosides 1 Tablet) 2 tab PO HS PRN PRN Reason: constipation Sodium Chloride (0.9 % Sodium Chloride 10 Ml Syringe) 10 ml IV Q8 [facility] Last Admin: 10/03/21 07:09 Dose: 10 ml Documented by: Sodium Chloride (0.9 % Sodium Chloride 10 Ml Syringe) 10 ml IV Q12 [facility] Last Admin: 10/03/21 09:07 Dose: 10 ml Documented by: Sodium Chloride (0.9 % Sodium Chloride 10 Ml Syringe) 10 ml IV UD PRN PRN Reason: Central Line Maintence Zolpidem Tartrate (Zolpidem 5 Mg Tablet) 5 mg PO HSP PRN PRN Reason: Insomnia Last Admin: 10/02/21 21:49 Dose: 5 mg Documented by: Pertinent ROS: Nothing to ADD Additional PMFSH (Level 3 Only): N/A Constitutional Vitals: Vital Signs Temp Pulse Resp BP Pulse Ox 37.6 C H 102 H 14 126/70 93 10/03/21 08:28 10/03/21 00:15 10/03/21 08:31 10/03/21 08:28 10/03/21 08:31 Period Temp Pulse Resp BP Sys/Altman Pulse Ox Last 24 Hr 36.6 C-37.6 C 102-104 10-34 101-142/34-93 90-98 Intake and Output 10/02/21 10/03/21 10/03/21 21:59 05:59 13:59 Intake Total 290 100 Output Total 175 250 Balance 115 -150 Weight 94.574 kg Intake & Output: Intake & Output 10/02/21 10/03/21 10/03/21 21:59 05:59 13:59 Intake Total 290 100 Output Total 175 250 Balance 115 -150 Weight 94.574 kg Intake: IV 50 100 Oral 240 Output: Urine Catheter Amount 175 250 Other: Meal Dinner Percent of Meal Consumed 10% Feeding Ability Independent Urine Appearance Cloudy Clear Uretheral (Burrell) Clear Clear Urine Color Dark Isabel Dark Isabel Uretheral (Burrell) Dark Yellow Dark Yellow Stool Size Smear Small Stool Color Brown Brown Stool Consistency Liquid Soft Liquid # Unmeasured Emesis 1 # Bowel Movements 2 # of times incontinent of 1 1 Bowels General appearance: disheveled and obese Head Head exam: Present normal inspection Eye Eye exam: Present EOMI and PERRL; Absent scleral icterus Pupils: Present PERRL ENT ENT exam: Present mucous membranes dry Neck Neck exam: Present full ROM; Absent meningismus Respiratory Respiratory exam: Present rhonchi Cardiovascular Cardiovascular exam: Present normal rate and rhythm, +S1 and +S2 GI/Abdominal GI/Abdominal exam: Present diminished bowel sounds and distended; Absent rebound or tenderness Additional comments: burrell in place with concentrated urine Extremities Exam Extremities exam: Present pedal edema (1-2 plus with compression stockings) Neurological Exam Neurological exam: Present altered (lethagic, slurring of speech, required noxious stimuli to awaken) and CN II-XII intact Psychiatric Additional comments: lethargic but arousable. Confused when awakened Skin Skin exam: Present mottled A/P Assessment and plan (1) Hyponatremia: Assessment and plan: Excess fluid with low protein stores Suspect most calories are from Vodka Status: Chronic Comment: PO fluid restrict Increase protein intake For now, volume expand with colloid...hold diuretics Low sodium intake (2) ARF (acute renal failure): Status: Acute Comment: Diuretic related in a patient with reduced effective cirrulating volume (3) Oliguria and anuria: Assessment and plan: Urine Na of < 10 => poor renal perfusion / avoid diuretics and expand ECF volume with colloid Status: Acute Comment: Colloid for ECF volume expansion May need Octreotide and midodrine or dopamine prior to attempted diuresis in next 24 hours (4) Cirrhosis with alcoholism: Status: Acute Comment: Stop all EtOH consumption EtOH rehab...[facility] has highest success rate Narrative A/P Narrative: More albumin Add octreotide and midodrine May add spironolactone tomorrow Continue po fluid restriction Time Spent With Patient Time: Total time spent is greater than 50% in coordination of care (as documented) at patient's floor/unit and/or counseling patient: Total time spent with greater than 50% in coordination of care (as documented) at patient's floor/unit and/or counseling patient:: 25 - 35 minutes
[2021-10-03] MEDS: PANTOPRAZOLE 40 MG VIAL IV SCH ×2 (11:20→17:23)
[2021-10-03] MEDS: OCTREOTIDE ACETATE 100 MCG/ML VIAL SQ SCH ×2 (12:26→22:06)
[2021-10-03] MEDS: MIDODRINE 5 MG TABLET PO SCH ×2 (12:26→21:16)
[2021-10-03] MEDS ORDERED: LACTULOSE 20 GM/30 ML ORAL.SOL PO PRN (14:52)
--- NOTE | 2021-10-03 15:02 | Internal Med Progress Note ---
SUBJECTIVE Subjective Patient information: Note initiated : 10/03/21 at 2:55 pm Service Date, if different from initiated Date: [] Patient: Caleb Kern 61 y/o F admitted on 09/30/21 for left arm pain, fall yesterday. Chief Complaint: [] Principal diagnosis: Severe hypervolemic hyponatremia Interval history: Ms. Kern is a 61 year old female with a past medical history not limited to SILVA, COPD, nocturnal hypoxia, vitamin B12 deficiency, degenerative disc disease, obesity, tobacco use disorder who presented to the emergency department after a fall at home for further evaluation of left wrist pain. X-ray of the l eft wrist showed an intraarticular fracture of the distal radius. The patient was noted to be hypervolemic in the emergency department, CBC and chemistry panel were ordered showing severe hyponatremia with a sodium level of 116. Additionally, labs showed a mild leukocytosis of 12.3, severe macrocytosis, thrombocytopenia, anion gap metabolic acidosis, bilirubin of 1.8 and ALT and AST elevated compared to the patient's prior labs from 2020. Patient also had a NT proBNP of 441, 1 view chest x-ray did not show any pulmonary vascular congestion. The patient had a markedly elevated D-dimer of 6.89. The patient has not been having any shortness of breath recently and was comfortable on room air in the emergency department. The patient received Lasix IV in the emergency department. Hospital medicine was consulted for admission and management of severe hyponatremia. The patient says that she has been experiencing intermittent bilateral lower extremity edema for some time and that they have always resolved. The current amount of edema is more severe than prior episodes. She denies recent dyspnea, has not noticed any significant changes in urination. Patient says that she has known about "fatty liver disease" for some time. She does drink a significant amount of alcohol which usually contains vodka on an almost daily basis. We discussed the goals of admission which include a gradual correction of her sodium level. We also discussed further work-up which will focus on cardiac, liver and renal pathologies that could explain hypovolemic hyponatremia. We discussed CODE STATUS in detail, the patient wishes to be full code. 3/ Urine protein creatinine ratio was normal, TSH and morning cortisol levels nikhil l. blood smear was not suggestive of a sinister hematologic process. Vitamin B12 level elevated, folate level normal. INR was 1.2. Sodium trended up to 120s and down to 119, the patient received 100 mL of 3% saline followed by increase in sodium to 122. Patient has not made significant urine after receiving a dose of Lasix 80 mg IV. Volume overloaded as on admission with bilateral lower extremity pitting edema. Abdominal ultrasound showed fatty liver, possible steatohepatitis or early stage cirrhosis, small to moderate amount of ascites was present, normal directional blood flow and hepatic and portal veins. Bilateral lower extremity venous duplex ultrasound was negative for DVT. Transthoracic echocardiogram report pending. 10/02 Creatinine increased, discontinued lasix and consulted nephrology. Nephrology started albumin, recommended holding on diuretics at this time. 10/03 TTE was fairly unremarkable, etiology for hyponatremia is likely a liver cirrhosis combined with alcohol use. Patient is more confused now, likely secondary to hepatic encephalopathy as ammonia has also been elevated. Hemoglobin trending down, started Protonix IV twice daily. Trending hemoglobin, will consider consulting general surgery for EGD if this trends down further. Sodium slightly improved now at 123. Renal function slightly improved, creatinine 1.3 today. Physical exam Head: Atraumatic, normal inspection. Eyes: normal appearance, no scleral icterus. Neck: full ROM Respiratory: no respiratory distress. Cardiovascular: normal rate and rhythm, S1, S2. GI/Abdominal: Distended abdomen, soft, nontender, no guarding. Extremities: Bilateral lower extremity 3+ pitting edema Neurological: CN II-XII intact, intact motor, intact sensation. Psychiatric: normal mood. Skin: Spider angiomas present in upper extremities, upper chest, upper back. Constitutional Vitals: Vital Signs Temp Pulse Resp BP Pulse Ox 98.6 F 103 H 20 106/54 96 10/03/21 12:01 10/03/21 13:15 10/03/21 14:03 10/03/21 14:01 10/03/21 14:03 Period Temp Pulse Resp BP Sys/[place] Pulse Ox Last 24 Hr 98.1 F-99.6 F 102-111 05-18 90-142/34-92 90-98 Intake and Output 10/03/21 10/03/21 10/03/21 05:59 13:59 21:59 Intake Total 100 50 Output Total 250 150 Balance -150 50 -150 Intake & Output: Intake & Output 10/03/21 10/03/21 10/03/21 05:59 13:59 21:59 Intake Total 100 50 Output Total 250 150 Balance -150 50 -150 Intake: IV 100 50 Output: Urine Catheter Amount 250 150 Other: Urine Appearance Clear Clear Uretheral ([place]) Clear Clear Urine Color Dark Isabel Light Isabel Uretheral ([place]) Dark Yellow Dark Yellow [place] Stool Size Small Moderate Stool Color Brown Brown Stool Consistency Soft Loose Liquid # Unmeasured Emesis 1 # of times incontinent of 1 1 Bowels OBJ DATA Labs CBC & Chem 7: 10/03/21 13:56 10/03/21 05:12 Labs: Abnormal Lab Results 10/03/21 10/03/21 10/03/21 13:56 10:20 05:12 WBC RBC Hgb 8.9 L Hct MCV MCH MCHC RDW Plt Count MPV Neut % (Auto) Lymph % (Auto) [place] % (Auto) Lymph # (Auto) [place] # (Auto) Absolute Neutrophils PT INR D-Dimer Sodium 123 L Chloride Carbon Dioxide Anion Gap BUN Creatinine Glucose Osmolality Calcium Magnesium Total Bilirubin AST ALT Alkaline Phosphatase Ammonia 80 H C-Reactive Protein NT-Pro-B Natriuret Pep Total Protein Albumin Vitamin B12 Urine Appearance Urine Protein Urine Bilirubin Urine Urobilinogen Ur Leukocyte Esterase Urine RBC Urine WBC Ur Squamous Epith Cells Urine Bacteria Hyaline Casts Urine Mucus Ur Yeast w Hyphae Ur Random Creatinine 10/03/21 10/03/21 10/03/21 05:12 05:12 01:14 WBC RBC 2.06 L Hgb 9.0 L Hct 25.0 L MCV 121.4 H MCH 43.7 H MCHC RDW 14.9 H Plt Count 111 L MPV 11.2 H Neut % (Auto) Lymph % (Auto) 9.1 L [place] % (Auto) 13.5 H Lymph # (Auto) 0.58 L [place] # (Auto) Absolute Neutrophils PT INR D-Dimer Sodium 126 L 123 L Chloride 89 L Carbon Dioxide Anion Gap BUN Creatinine 1.3 H Glucose 115 H Osmolality Calcium 8.3 L Magnesium Total Bilirubin 2.9 H AST 139 H ALT 80 H Alkaline Phosphatase 252 H Ammonia C-Reactive Protein NT-Pro-B Natriuret Pep Total Protein 5.4 L Albumin Vitamin B12 Urine Appearance Urine Protein Urine Bilirubin Urine Urobilinogen Ur Leukocyte Esterase Urine RBC Urine WBC Ur Squamous Epith Cells Urine Bacteria Hyaline Casts Urine Mucus Ur Yeast w Hyphae Ur Random Creatinine 03/03/1810/02/21 10/02/21 20:17 16:37 12:14 WBC RBC Hgb Hct MCV MCH MCHC RDW Plt Count MPV Neut % (Auto) Lymph % (Auto) [place] % (Auto) Lymph # (Auto) [place] # (Auto) Absolute Neutrophils PT INR D-Dimer Sodium 123 L 122 L 123 L Chloride Carbon Dioxide Anion Gap BUN Creatinine Glucose Osmolality Calcium Magnesium Total Bilirubin AST ALT Alkaline Phosphatase Ammonia C-Reactive Protein NT-Pro-B Natriuret Pep Total Protein Albumin Vitamin B12 Urine Appearance Urine Protein Urine Bilirubin Urine Urobilinogen Ur Leukocyte Esterase Urine RBC Urine WBC Ur Squamous Epith Cells Urine Bacteria Hyaline Casts Urine Mucus Ur Yeast w Hyphae Ur Random Creatinine 10/02/21 10/02/21 10/02/21 07:51 04:05 04:04 WBC RBC Hgb Hct MCV MCH MCHC RDW Plt Count MPV Neut % (Auto) Lymph % (Auto) [place] % (Auto) Lymph # (Auto) [place] # (Auto) Absolute Neutrophils PT INR D-Dimer Sodium 120 L 121 L Chloride 87 L Carbon Dioxide Anion Gap BUN 7 L Creatinine 1.6 H Glucose 119 H Osmolality Calcium 7.8 L Magnesium Total Bilirubin 2.7 H AST 165 H ALT 95 H Alkaline Phosphatase 283 H Ammonia 74 H C-Reactive Protein NT-Pro-B Natriuret Pep Total Protein 5.3 L Albumin 2.9 L Vitamin B12 Urine Appearance Urine Protein Urine Bilirubin Urine Urobilinogen Ur Leukocyte Esterase Urine RBC Urine WBC Ur Squamous Epith Cells Urine Bacteria Hyaline Casts Urine Mucus Ur Yeast w Hyphae Ur Random Creatinine 10/02/21 10/02/21 10/01/21 04:04 00:27 19:55 WBC RBC 2.19 L Hgb 9.2 L Hct 26.4 L MCV 120.5 H MCH 42.0 H MCHC RDW 14.6 H Plt Count 97 L MPV 10.8 H Neut % (Auto) 79.3 H Lymph % (Auto) 9.0 L [place] % (Auto) Lymph # (Auto) 0.64 L [place] # (Auto) Absolute Neutrophils PT INR D-Dimer Sodium 121 L 118 L* Chloride 85 L Carbon Dioxide Anion Gap BUN 7 L Creatinine 1.6 H Glucose 136 H Osmolality Calcium 7.7 L Magnesium Total Bilirubin AST ALT Alkaline Phosphatase Ammonia C-Reactive Protein NT-Pro-B Natriuret Pep Total Protein Albumin 3.0 L Vitamin B12 Urine Appearance Urine Protein Urine Bilirubin Urine Urobilinogen Ur Leukocyte Esterase Urine RBC Urine WBC Ur Squamous Epith Cells Urine Bacteria Hyaline Casts Urine Mucus Ur Yeast w Hyphae Ur Random Creatinine 10/01/21 10/01/21 10/01/21 15:58 12:09 12:08 WBC RBC Hgb Hct MCV MCH MCHC RDW Plt Count MPV Neut % (Auto) Lymph % (Auto) [place] % (Auto) Lymph # (Auto) [place] # (Auto) Absolute Neutrophils PT INR D-Dimer Sodium 122 L 119 L* Chloride Carbon Dioxide Anion Gap BUN Creatinine Glucose Osmolality Calcium Magnesium Total Bilirubin AST ALT Alkaline Phosphatase Ammonia 90 H C-Reactive Protein NT-Pro-B Natriuret Pep Total Protein Albumin Vitamin B12 Urine Appearance Urine Protein Urine Bilirubin Urine Urobilinogen Ur Leukocyte Esterase Urine RBC Urine WBC Ur Squamous Epith Cells Urine Bacteria Hyaline Casts Urine Mucus Ur Yeast w Hyphae Ur Random Creatinine 10/01/21 10/01/21 10/01/21 08:07 04:20 04:20 WBC RBC 2.27 L Hgb 10.0 L Hct 27.2 L MCV 119.8 H MCH 44.1 H MCHC 36.8 H RDW 14.6 H Plt Count 105 L MPV 11.0 H Neut % (Auto) 79.3 H Lymph % (Auto) 7.6 L [place] % (Auto) 12.8 H Lymph # (Auto) 0.74 L [place] # (Auto) 1.25 H Absolute Neutrophils PT INR D-Dimer Sodium 119 L* 120 L Chloride 86 L Carbon Dioxide Anion Gap BUN 6 L Creatinine 1.2 H Glucose 124 H Osmolality Calcium 7.9 L Magnesium 1.5 L Total Bilirubin 2.9 H AST 177 H ALT 97 H Alkaline Phosphatase 295 H Ammonia C-Reactive Protein NT-Pro-B Natriuret Pep Total Protein 5.6 L Albumin 3.0 L Vitamin B12 Urine Appearance Urine Protein Urine Bilirubin Urine Urobilinogen Ur Leukocyte Esterase Urine RBC Urine WBC Ur Squamous Epith Cells Urine Bacteria Hyaline Casts Urine Mucus Ur Yeast w Hyphae Ur Random Creatinine 10/01/21 09/30/21 09/30/21 01:30 23:10 23:10 WBC RBC Hgb Hct MCV MCH MCHC RDW Plt Count MPV Neut % (Auto) Lymph % (Auto) [place] % (Auto) Lymph # (Auto) [place] # (Auto) Absolute Neutrophils PT 15.3 H INR 1.2 H D-Dimer Sodium 121 L Chloride Carbon Dioxide Anion Gap BUN Creatinine Glucose Osmolality Calcium Magnesium Total Bilirubin AST ALT Alkaline Phosphatase Ammonia C-Reactive Protein NT-Pro-B Natriuret Pep Total Protein Albumin Vitamin B12 Urine Appearance Cloudy A Urine Protein 30 A Urine Bilirubin 2.0 A Urine Urobilinogen 2.0 A Ur Leukocyte Esterase 75 A Urine RBC 4 H Urine WBC 17 H Ur Squamous Epith Cells 6 H Urine Bacteria Few A Hyaline Casts 209 H Urine Mucus Mod A Ur Yeast w Hyphae Few A Ur Random Creatinine 09/30/21 09/30/21 09/30/21 23:10 23:10 14:38 WBC RBC Hgb Hct MCV MCH MCHC RDW Plt Count MPV Neut % (Auto) Lymph % (Auto) [place] % (Auto) Lymph # (Auto) [place] # (Auto) Absolute Neutrophils PT INR D-Dimer 6.89 H Sodium Chloride Carbon Dioxide Anion Gap BUN Creatinine Glucose Osmolality 253 L Calcium Magnesium Total Bilirubin AST ALT Alkaline Phosphatase Ammonia C-Reactive Protein 7.80 H NT-Pro-B Natriuret Pep Total Protein Albumin Vitamin B12 > 2000.0 H Urine Appearance Urine Protein Urine Bilirubin Urine Urobilinogen Ur Leukocyte Esterase Urine RBC Urine WBC Ur Squamous Epith Cells Urine Bacteria Hyaline Casts Urine Mucus Ur Yeast w Hyphae Ur Random Creatinine 287.0 H 09/30/21 09/30/21 14:38 14:38 WBC 12.3 H RBC 2.62 L Hgb Hct 33.6 L MCV 128.2 H MCH 45.0 H MCHC RDW 14.8 H Plt Count 109 L MPV 10.5 H Neut % (Auto) 82.0 H Lymph % (Auto) 6.8 L [place] % (Auto) Lymph # (Auto) 0.84 L [place] # (Auto) 1.34 H Absolute Neutrophils 10.09 H PT INR D-Dimer Sodium 116 L* Chloride 81 L Carbon Dioxide 16 L Anion Gap 19.0 H BUN 4 L Creatinine Glucose 121 H Osmolality Calcium 8.2 L Magnesium Total Bilirubin 1.8 H AST 193 H ALT 101 H Alkaline Phosphatase 328 H Ammonia C-Reactive Protein NT-Pro-B Natriuret Pep 441.4 H Total Protein Albumin Vitamin B12 Urine Appearance Urine Protein Urine Bilirubin Urine Urobilinogen Ur Leukocyte Esterase Urine RBC Urine WBC Ur Squamous Epith Cells Urine Bacteria Hyaline Casts Urine Mucus Ur Yeast w Hyphae Ur Random Creatinine Meds: Medications Albuterol Sulfate (Albuterol Sulfate 200 Puff Inhaler) 1 puff INH Q4-6HP PRN PRN Reason: Shortness Of Breath Albuterol/Ipratropium (Ipratropium/Albuterol Sulfate 1 Puff Inhaler) 2 puff INH QID [facility] Last Admin: 10/03/21 12:30 Dose: 2 puff Documented by: Benzonatate (Benzonatate 100 Mg Capsule) 100 mg PO TID PRN PRN Reason: cough Buspirone HCl (Buspirone 15 Mg Tablet) 7.5 mg PO BID [facility] Last Admin: 10/03/21 09:12 Dose: 7.5 mg Documented by: Diphenhydramine HCl (Diphenhydramine 25 Mg Capsule) 25 mg PO Q6H PRN PRN Reason: Itching Last Admin: 10/02/21 00:24 Dose: 25 mg Documented by: Docusate Sodium (Docusate Sodium 100 Mg Capsule) 100 mg PO BID [facility] Last Admin: 10/03/21 09:05 Dose: 100 mg Documented by: Gabapentin (Gabapentin 300 Mg Capsule) 300 mg PO BID [facility] Last Admin: 10/03/21 09:06 Dose: 300 mg Documented by: Guaifenesin (Guaifenesin 600 Mg Tab.Sr.12h) 600 mg PO Q12H PRN PRN Reason: Congestion Last Admin: 10/02/21 10:03 Dose: 600 mg Documented by: Albumin Human (Buminate) 12.5 gm in 50 mls @ 100 mls/hr IV Q6H [facility] Stop: 10/04/21 06:29 Last Infusion: 10/03/21 12:57 Dose: Infused Documented by: Lactulose (Lactulose 20 Gm/30 Ml Oral.Petra) 30 gm PO TID [facility] Last Admin: 10/03/21 14:40 Dose: 30 gm Documented by: Lactulose (Lactulose 20 Gm/30 Ml Oral.Petra) 30 gm PO TID PRN PRN Reason: constipation Lorazepam (Lorazepam 0.5 Mg Tablet) 0.5 mg PO BID PRN PRN Reason: Anxiety Last Admin: 10/02/21 10:03 Dose: 0.5 mg Documented by: Metoclopramide HCl (Metoclopramide 10 Mg/2 Ml Vial) 5 mg IV Q6HP PRN PRN Reason: Nausea And Vomiting Last Admin: 10/03/21 08:19 Dose: 5 mg Documented by: Midodrine (Midodrine 5 Mg Tablet) 5 mg PO Q8H [facility] Stop: 10/05/21 04:01 Last Admin: 10/03/21 12:26 Dose: 5 mg Documented by: Nicotine (Nicotine 21 Mg Patch) 21 mg TOPICAL DAILY@1000 [facility] Last Admin: 10/03/21 09:09 Dose: 21 mg Documented by: Octreotide Acetate (Octreotide Acetate 100 Mcg/Ml Vial) 100 mcg SQ Q8H [facility] Stop: 10/05/21 04:01 Last Admin: 10/03/21 12:26 Dose: 100 mcg Documented by: Ondansetron HCl (Ondansetron 4 Mg/2 Ml Vial) 4 mg IV Q4HP PRN; Protocol PRN Reason: Nausea And Vomiting Last Admin: 10/03/21 05:36 Dose: 4 mg Documented by: Pantoprazole Sodium (Pantoprazole 40 Mg Vial) 40 mg IV BIDAC [facility] Last Admin: 10/03/21 11:20 Dose: 40 mg Documented by: Emollient Combo No. [id number] (Bulk) [Custom Base Pcca] Cream 1 dose TOPICAL BID [facility] Last Admin: 10/03/21 09:07 Dose: 1 dose Documented by: Fluticasone- Umeclidin-Vilanter [ Trelegy Ellipta] Inhaler 1 dose INH Q24H [facility] Last Admin: 10/02/21 21:51 Dose: 1 dose Documented by: Senna (Sennosides 1 Tablet) 2 tab PO HS PRN PRN Reason: constipation Sodium Chloride (0.9 % Sodium Chloride 10 Ml Syringe) 10 ml IV Q8 [facility] Last Admin: 10/03/21 13:53 Dose: 10 ml Documented by: Sodium Chloride (0.9 % Sodium Chloride 10 Ml Syringe) 10 ml IV Q12 [facility] Last Admin: 10/03/21 09:07 Dose: 10 ml Documented by: Sodium Chloride (0.9 % Sodium Chloride 10 Ml Syringe) 10 ml IV UD PRN PRN Reason: Central Line Maintence A/P Narrative A/P Narrative: Assessment: 61 year old female with a past medical history not limited to SILVA, COPD, nocturnal hypoxia, vitamin B12 deficiency, degenerative disc disease, obesity, tobacco use disorder who presented to the emergency department after a fall at home and found to have a distal left radius fracture in the ED. The patient was also found to be severely volume overloaded and to have severe hyponatremia. The patient was admitted for severe hyponatremia. #Hypervolemic hyponatremia -Secondary to alcohol use and liver cirrhosis -TTE report was fairly unremarkable. -Urine protein creatinine ratio normal -Refractory to IV Lasix. #Decompensated liver cirrhosis -Likely secondary to chronic fatty liver and alcohol use disorder -INR was 1.2 -Ascites was present on initial abdominal ultrasound -Ammonia elevated #Encephalopathy, likely hepatic encephalopathy #Acute kidney injury: Improving now after holding Lasix and IV albumin #Acute anemia: Concern for possible GI bleed #Macrocytosis #COPD #Nocturnal hypoxia #Degenerative disc disease #Anxiety disorder #Alcohol use disorder #Tobacco use disorder #Obesity BMI 38 #Distal left intra-articular radius fracture -Has splint on left wrist. -discussed with Dr. Christopher: nonoperative fracture Plan -Albumin 12.5 g IV every 6 hours per nephrology. -Monitoring renal function, holding diuretics for now. -Follow sodium, avoid increase of > 8mmol/L/24hr. -Monitor volume status, urine output, renal function, electrolytes. -Continue lactulose, goal is 2-3 loose BMs per day. -Follow ammonia level. -Check VBG for hypercapnia. -Consider adding rifaximin. -Protonix IV twice daily, consider GI/general surgery consult GI bleed work-up. -Nicotine patch. -Continue essential home medications. -Remove IJ central line when no longer necessary. -Low-sodium and fluid restricted diet. -PT consult. -Nephrology following. -DVT prophylaxis: SCDs for downtrending hemoglobin. -CODE STATUS: Full -Disposition: TBD, follow up with ortho in clinic for left radial fracture. GI referral for liver cirrhosis. Time Spent With Patient Time: Total time spent is greater than 50% in coordination of care (as documented) at patient's floor/unit and/or counseling patient:
[2021-10-03 16:41] LABS: ABG Methemoglobin 0.1 % (0.4-1.5); Total Hemoglobin 10.6 gm/Dl (12.0-15.0); VBG Base Excess 0 (-2-3); VBG HCO3 23.7 mmol/L (24.0-28.0); VBG Oxygen Saturation 91.2 % (40.0-70.0); VBG PCO2 36.6 mmHg (41.0-51.0); VBG PH 7.43 U (7.32-7.42); VBG PO2 88.5 mmHg (25.0-40.0); VBG Total CO2 24.8 mmol/L (25.0-29.0)
[2021-10-03 17:06] LABS: Iron 35 ug/dL (37-145); TIBC Calculation 75 ug/dl (228-428); Transferrin % Saturation 47 % (15-50)
[2021-10-03] MEDS ORDERED: ACETAMINOPHEN 160 MG/5 ML ORAL.SOL PO PRN (19:22)
[2021-10-03] MEDS: Fluticasone-Umeclidin-Vilanter [Trelegy Ellipta] Inhaler INH SCH (21:22)
[2021-10-04] MEDS: ALBUMIN HUMAN 12.5 GM/50 ML BAG IV SCH ×2 (00:42→05:25)
[2021-10-04] MEDS: LORazepam 0.5 MG TABLET PO PRN ×2 (03:09→21:10)
[2021-10-04] MEDS: OCTREOTIDE ACETATE 100 MCG/ML VIAL SQ SCH ×3 (04:49→21:17)
[2021-10-04] MEDS: MIDODRINE 5 MG TABLET PO SCH ×3 (04:49→21:10)
[2021-10-04] MEDS: 0.9 % SODIUM CHLORIDE 10 ML SYRINGE IV SCH ×4 (05:25→21:42)
[2021-10-04 07:17] LABS: ALT/SGPT 63 U/L (<40); AST/SGOT 93 U/L (<32); Albumin 3.1 gm/dL (3.2-5.2); Albumin/Globulin Ratio 1.5 (1.0-2.3); Alkaline Phosphatase 199 U/L (39-117); Bilirubin,Total 3.1 mg/dL (0.1-1.0); Blood Urea Nitrogen 10 mg/dL (8-23); Calcium 8.3 mg/dL (8.6-10.4); Carbon Dioxide 24 mmol/L (22-30); Chloride 92 mmol/L (96-108); Glomerular Filtration Rate 40; Glucose 140 mg/dL (70-105)
--- NOTE | 2021-10-04 07:39 | Nephrology Progress Note ---
SUBJECTIVE Subjective Patient information: Note initiated : 10/04/21 at 7:37 am Service Date, if different from initiated Date: [] Patient: Caleb Kern 61 y/o F admitted on 09/30/21 for left arm pain, fall yesterday. Chief Complaint: [fx left wrist] Principal diagnosis: Severe hypervolemic hyponatremia Interval history: Vital Signs Temp Pulse Resp BP Pulse Ox 10/04/21 06:07 15 111/72 10/04/21 04:01 13 110/73 95 10/04/21 02:01 21 117/63 92 10/04/21 00:01 37.2 C 22 108/63 93 10/03/21 22:01 15 128/76 96 10/03/21 20:01 37.3 C H 14 119/67 10/03/21 18:05 13 100 10/03/21 18:01 12 130/80 99 10/03/21 16:09 36.5 C 13 115/81 94 10/03/21 16:07 12 94 10/03/21 14:03 20 96 10/03/21 14:01 11 L 106/54 96 10/03/21 13:15 103 H 10/03/21 12:07 12 96 10/03/21 12:01 37.0 C 11 L 90/52 96 10/03/21 10:40 14 98 10/03/21 10:01 16 117/76 96 10/03/21 08:31 14 93 10/03/21 08:28 37.6 C H 14 126/70 95 Intake and Output 10/03/21 10/04/21 10/04/21 21:59 05:59 13:59 Intake Total 50 50 50 Output Total 525 125 50 Balance -475 -75 0 Intake: IV 50 50 50 Output: Urine Catheter Amount 525 125 50 Other: Meal Dinner Percent of Meal Consumed 25% Feeding Ability Independent Urine Appearance Clear Clear Clear Uretheral (Gama) Clear Urine Color Dark Isabel Dark Isabel Dark Isabel Uretheral (Gama) Dark Yellow Urine Odor Strong Stool Size Small Small Copious Stool Color Brown Brown Green Stool Consistency Liquid Liquid Liquid Watery Watery Watery Loose Loose # Bowel Movements 1 1 # of times incontinent of 1 1 2 Bowels Weight 93.071 kg Laboratory Tests 10/04/21 10/04/21 05:38 05:38 Sodium 126 L Potassium 3.6 Chloride 92 L Carbon Dioxide 24 Anion Gap 10.0 BUN 10 Creatinine 1.4 H GFR Calculation 40 Glucose 140 H Calcium 8.3 L Total Bilirubin 3.1 H AST 93 H ALT 63 H Alkaline Phosphatase 199 H Ammonia 78 H Total Protein 5.1 L Albumin 3.1 L Globulin 2.0 L Albumin/Globulin Ratio 1.5 Serum Na Echo 09/30/2021 U/S ABD September 30, 2021: The liver is borderline enlarged. The parenchyma is very heterogeneous and difficult to penetrate due to moderately severe fatty infiltration. No discrete mass is identified. Doppler demonstrates normal directional blood flow in the hepatic and portal veins. The gallbladder has been removed. Common bile duct measures 4 mm. Pancreas is largely obscured. The visualized segments appear normal. Small to moderate amount of ascites is present in the abdomen and pelvis. Largest pocket is in left lower quadrant. The fluid appears uniformly anechoic. Comparison with the prior ultrasound done on 06/21/20 shows the heterogeneity of the liver has become worse and the ascites is new. IMPRESSION: Fatty liver. Patient may have steatohepatitis or early stage of cirrhosis. MELD Score 11 on 09/30/2021 MELD 17 and MELDNa Score 17 and 25 10/04/2021 Hepatitis Discriminant /fx for Corticosteroid Therapy in alcoholic hepatitis is 26 (favor steroids if > 32) today Pertinent ROS: more alert Additional PMFSH (Level 3 Only): N/A Constitutional Vitals: Vital Signs Temp Pulse Resp BP Pulse Ox 37.2 C 103 H 15 111/72 95 10/04/21 00:01 10/03/21 13:15 10/04/21 06:07 10/04/21 06:07 10/04/21 04:01 Period Temp Pulse Resp BP Sys/Altman Pulse Ox Last 24 Hr 36.5 C-37.6 C 103 - 90-130/52-81 92-100 Intake and Output 10/03/21 10/04/21 10/04/21 21:59 05:59 13:59 Intake Total 50 50 50 Output Total 525 125 50 Balance -475 -75 0 Weight 93.071 kg Intake & Output: Intake & Output 10/03/21 10/04/21 10/04/21 21:59 05:59 13:59 Intake Total 50 50 50 Output Total 525 125 50 Balance -475 -75 0 Weight 93.071 kg Intake: IV 50 50 50 Output: Urine Catheter Amount 525 125 50 Other: Meal Dinner Percent of Meal Consumed 25% Feeding Ability Independent Urine Appearance Clear Clear Clear Uretheral ([place]ama) Clear Urine Color Dark Isabel Dark Isabel Dark Isabel Uretheral ([place]ama) Dark Yellow Urine Odor Strong Stool Size Small Small Copious Stool Color Brown Brown Green Stool Consistency Liquid Liquid Liquid Watery Watery Watery Loose Loose # Bowel Movements 1 1 # of times incontinent of 1 1 2 Bowels General appearance: mild distress and obese Head Head exam: Present normocephalic Eye Eye exam: Present EOMI and PERRL; Absent scleral icterus Pupils: Present PERRL ENT ENT exam: Present mucous membranes moist Neck Neck exam: Absent meningismus Respiratory Respiratory exam: Present CTAB Cardiovascular Cardiovascular exam: Present +S1 and +S2; Absent JVD or systolic murmur GI/Abdominal GI/Abdominal exam: Present diminished bowel sounds and distended Additional comments: Gama in place Extremities Exam Extremities exam: Absent pedal edema Additional comments: Edema improved or moved to another location Neurological Exam Neurological exam: Present CN II-XII intact Psychiatric Psychiatric exam: Present anxious Skin Skin exam: Present petechiae (ecchymosis) A/P Assessment and plan (1) Hyponatremia: Status: Chronic Comment: PO fluid restrict Increase protein intake For now, volume expand with colloid...hold diuretics Low sodium intake (2) ARF (acute renal failure): Status: Acute Comment: Diuretic related in a patient with reduced effective cirrulating volume (3) Oliguria and anuria: Status: Acute Comment: Colloid for ECF volume expansion May need Octreotide and midodrine or dopamine prior to attempted diuresis in next 24 hours (4) Cirrhosis with alcoholism: Assessment and plan: Looks like acute alcoholic hepatitis superimposed on alcoholic fatty liver...combo bad but neither seems life threatening. Acute alcoholic hepatitis not severe enough for steroids WILLIAMS will progress to cirrhosis and ESLD unless she stops all EtOH intake now Status: Chronic Comment: Stop all EtOH consumption EtOH rehab...[facility] has highest success rate No indication for steroids for acute alcoholic hepatitis (5) Acquired hypophosphatemia: Assessment and plan: Replace with IV NaPO4 Status: Acute Narrative A/P Narrative: Replace Phos with sodium Phos Time Spent With Patient Time: Total time spent is greater than 50% in coordination of care (as documented) at patient's floor/unit and/or counseling patient:
[2021-10-04] MEDS: PANTOPRAZOLE 40 MG VIAL IV SCH ×2 (08:35→16:58)
[2021-10-04] MEDS ORDERED: HYDROcodone/APAP 5/325MG TABLET PO PRN (09:33)
[2021-10-04] MEDS ORDERED: ACETAMINOPHEN 325 MG TABLET PO PRN (09:35)
[2021-10-04] MEDS: DOCUSATE SODIUM 100 MG CAPSULE PO SCH ×2 (09:38→20:45)
[2021-10-04] MEDS: LACTULOSE 20 GM/30 ML ORAL.SOL PO SCH ×3 (09:38→20:44)
[2021-10-04] MEDS: GABAPENTIN 300 MG CAPSULE PO SCH ×2 (09:41→21:23)
[2021-10-04] MEDS: BENZONATATE 100 MG CAPSULE PO PRN (09:41)
[2021-10-04] MEDS: busPIRone 15 MG TABLET PO SCH ×2 (09:41→21:23)
[2021-10-04] MEDS: NICOTINE 21 MG PATCH TOPICAL SCH (09:44)
[2021-10-04] MEDS: IPRATROPIUM/ALBUTEROL SULFATE 1 PUFF INHALER INH SCH ×4 (10:20→21:23)
[2021-10-04] MEDS: [UNRECOGNIZED DRUG - OTHER] TOPICAL SCH ×2 (10:21→21:23)
[2021-10-04 10:52] LABS: INR 1.3 (0.9-1.1); Prothrombin Time 17.2 sec (11.9-14.5)
[2021-10-04 10:53] LABS: Phosphorous 2.1 mg/dL (2.5-4.5)
--- NOTE | 2021-10-04 12:16 | Internal Med Progress Note ---
SUBJECTIVE Subjective Patient information: Note initiated : 10/04/21 at 12:14 pm Service Date, if different from initiated Date: [] Patient: Caleb Kern 61 y/o F admitted on 09/30/21 for left arm pain, fall yesterday. Chief Complaint: [] Principal diagnosis: Severe hypervolemic hyponatremia Interval history: Ms. Kern is a 61 year old female with a past medical history not limited to SILVA, COPD, nocturnal hypoxia, vitamin B12 deficiency, degenerative disc disease, obesity, tobacco use disorder who presented to the emergency department after a fall at home for further evaluation of left wrist pain. X-ray of the left wrist showed an intraarticular fracture of the distal radius. The patient was noted to be hypervolemic in the emergency department, CBC and chemistry panel were ordered showing severe hyponatremia with a sodium level of 116. Additionally, labs showed a mild leukocytosis of 12.3, severe macrocytosis, thrombocytopenia, anion gap metabolic acidosis, bilirubin of 1.8 and ALT and AST elevated compared to the patient's prior labs from 2020. Patient also had a NT proBNP of 441, 1 view chest x-ray did not show any pulmonary vascular congestion. The patient had a markedly elevated D-dimer of 6.89. The patient has not been having any shortness of breath recently and was comfortable on room air in the emergency department. The patient received Lasix IV in the emergency department. Hospital medicine was consulted for admission and management of severe hyponatremia. The patient says that she has been experiencing intermittent bilateral lower extremity edema for some time and that they have always resolved. The current amount of edema is more severe than prior episodes. She denies recent dyspnea, has not noticed any significant changes in urination. Patient says that she has known about "fatty liver disease" for some time. She does drink a significant amount of alcohol which us ually contains vodka on an almost daily basis. We discussed the goals of admission which include a gradual correction of her sodium level. We also discussed further work-up which will focus on cardiac, liver and renal pathologies that could explain hypovolemic hyponatremia. We discussed CODE STAT US in detail, the patient wishes to be full code. 10/01 Urine protein creatinine ratio was normal, TSH and morning cortisol levels nikhil l. blood smear was not suggestive of a sinister hematologic process. Vitamin B12 level elevated, folate level normal. INR was 1.2. Sodium trended up to 120s and down to 119, the patient received 100 mL of 3% saline followed by increase in sodium to 122. Patient has not made significant urine after receiving a dose of Lasix 80 mg IV. Volume overloaded as on admission with bilateral lower extremity pitting edema. Abdominal ultrasound showed fatty liver, possible steatohepatitis or early stage cirrhosis, small to moderate amount of ascites was present, normal directional blood flow and hepatic and portal veins. Bilateral lower extremity venous duplex ultrasound was negative for DVT. Transthoracic echocardiogram report pending. 10/02 Creatinine increased, discontinued lasix and consulted nephrology. Nephrology started albumin, recommended holding on diuretics at this time. 10/03 TTE was fairly unremarkable, etiology for hyponatremia is likely a liver cirrhosis combined with alcohol use. Patient is more confused now, likely secondary to hepatic encephalopathy as ammonia has also been elevated. Hemoglobin trending down, started Protonix IV twice daily. Trending hemoglobin, will consider consulting general surgery for EGD if this trends down further. Sodium slightly improved now at 123. Renal function slightly improved, creatinine 1.3 today. 10/04 The patient is more alert and oriented today but still confused, ammonia level still elevated in spite of increase in lactulose. Hemoglobin trending up now, will continue Protonix IV BID for now and likely transition to oral PPI therapy in 1-2 days. The patient does have a history of peptic ulcer and had been taking Ibuprofen prior to admission but with hemoglobin trending up on a PPI and EGD may not be high yield. GI consult currently not available at [facility]. Nephrology started Octreotide and Midodrine in addition to Albumin IV. Renal function is about the same, sodium about the same as yesterday. The patient is still markedly hypervolemic. Physical exam Head: Atraumatic, normal inspection. Eyes: normal appearance, no scleral icterus. Neck: full ROM Respiratory: no respiratory distress. Cardiovascular: normal rate and rhythm, S1, S2. GI/Abdominal: Distended abdomen, soft, nontender, no guarding. Extremities: Bilateral lower extremity 3+ pitting edema Neurological: CN II-XII intact, intact motor, intact sensation. Psychiatric: normal mood. Skin: Spider angiomas present in upper extremities, upper chest, upper back. Constitutional Vitals: Vital Signs Temp Pulse Resp BP Pulse Ox 98.0 F 103 H 13 137/84 98 10/04/21 08:27 10/03/21 13:15 10/04/21 10:20 10/04/21 10:15 10/04/21 10:20 Period Temp Pulse Resp BP Sys/Altman Pulse Ox Last 24 Hr 97.7 F-99.2 F 103 11-28 106-137/54-108 92-100 Intake and Output 10/03/21 10/04/21 10/04/21 21:59 05:59 13:59 Intake Total 50 50 50 Output Total 525 125 50 Balance -475 -75 0 Weight 93.071 kg Intake & Output: Intake & Output 10/03/21 10/04/21 10/04/21 21:59 05:59 13:59 Intake Total 50 50 50 Output Total 525 125 50 Balance -475 -75 0 Weight 93.071 kg Intake: IV 50 50 50 Output: Urine Catheter Amount 525 125 50 Other: Meal Dinner Breakfast Percent of Meal Consumed 25% Refused Feeding Ability Independent Urine Appearance Clear Clear Clear Uretheral ([place]ama) Clear Clear Urine Color Dark Isabel Dark Isabel Dark Isabel Uretheral ([place]) Dark Yellow [place] Urine Odor Strong Stool Size Small Small Small Stool Color Brown Brown Green Stool Consistency Liquid Liquid Liquid Watery Watery Loose Loose # Bowel Movements 1 1 1 # of times incontinent of 1 1 2 Bowels OBJ DATA Labs CBC & Chem 7: 10/03/21 22:20 10/04/21 05:38 Labs: Abnormal Lab Results 10/04/21 10/04/21 10/04/21 09:53 09:53 05:38 RBC Hgb Hct MCV MCH RDW Plt Count MPV Neut % (Auto) Lymph % (Auto) Sunflower % (Auto) Lymph # (Auto) PT 17.2 H INR 1.3 H ABG Methemoglobin VBG pH VBG pCO2 VBG pO2 VBG HCO3 VBG Total CO2 VBG O2 Saturation Carboxyhemoglobin Total Hemoglobin Sodium Chloride BUN Creatinine Glucose Calcium Phosphorus 2.1 L Iron TIBC Unsat Iron Binding Total Bilirubin AST ALT Alkaline Phosphatase Ammonia 78 H Total Protein Albumin Globulin 10/04/21 10/03/21 10/03/21 05:38 22:20 22:20 RBC Hgb 9.7 L Hct MCV MCH RDW Plt Count MPV Neut % (Auto) Lymph % (Auto) Sunflower % (Auto) Lymph # (Auto) PT INR ABG Methemoglobin VBG pH VBG pCO2 VBG pO2 VBG HCO3 VBG Total CO2 VBG O2 Saturation Carboxyhemoglobin Total Hemoglobin Sodium 126 L 127 L Chloride 92 L BUN Creatinine 1.4 H Glucose 140 H Calcium 8.3 L Phosphorus Iron TIBC Unsat Iron Binding Total Bilirubin 3.1 H AST 93 H ALT 63 H Alkaline Phosphatase 199 H Ammonia Total Protein 5.1 L Albumin 3.1 L Globulin 2.0 L 10/03/21 10/03/21 10/03/21 16:16 16:15 16:15 RBC Hgb 9.4 L Hct MCV MCH RDW Plt Count MPV Neut % (Auto) Lymph % (Auto) Sunflower % (Auto) Lymph # (Auto) PT INR ABG Methemoglobin 0.1 L VBG pH 7.43 H VBG pCO2 36.6 L VBG pO2 88.5 H VBG HCO3 23.7 L VBG Total CO2 24.8 L VBG O2 Saturation 91.2 H Carboxyhemoglobin 5.8 H Total Hemoglobin 10.6 L Sodium 123 L Chloride BUN Creatinine Glucose Calcium Phosphorus Iron 35 L TIBC 75 L Unsat Iron Binding 40 L Total Bilirubin AST ALT Alkaline Phosphatase Ammonia Total Protein Albumin Globulin 10/03/21 10/03/21 10/03/21 13:56 10:20 05:12 RBC Hgb 8.9 L Hct MCV MCH RDW Plt Count MPV Neut % (Auto) Lymph % (Auto) Sunflower % (Auto) Lymph # (Auto) PT INR ABG Methemoglobin VBG pH VBG pCO2 VBG pO2 VBG HCO3 VBG Total CO2 VBG O2 Saturation Carboxyhemoglobin Total Hemoglobin Sodium 123 L Chloride BUN Creatinine Glucose Calcium Phosphorus Iron TIBC Unsat Iron Binding Total Bilirubin AST ALT Alkaline Phosphatase Ammonia 80 H Total Protein Albumin Globulin 10/03/21 10/03/21 10/03/21 05:12 05:12 01:14 RBC 2.06 L Hgb 9.0 L Hct 25.0 L MCV 121.4 H MCH 43.7 H RDW 14.9 H Plt Count 111 L MPV 11.2 H Neut % (Auto) Lymph % (Auto) 9.1 L Sunflower % (Auto) 13.5 H Lymph # (Auto) 0.58 L PT INR ABG Methemoglobin VBG pH VBG pCO2 VBG pO2 VBG HCO3 VBG Total CO2 VBG O2 Saturation Carboxyhemoglobin Total Hemoglobin Sodium 126 L 123 L Chloride 89 L BUN Creatinine 1.3 H Glucose 115 H Calcium 8.3 L Phosphorus Iron TIBC Unsat Iron Binding Total Bilirubin 2.9 H AST 139 H ALT 80 H Alkaline Phosphatase 252 H Ammonia Total Protein 5.4 L Albumin Globulin 10/02/21 10/02/21 10/02/21 20:17 16:37 12:14 RBC Hgb Hct MCV MCH RDW Plt Count MPV Neut % (Auto) Lymph % (Auto) Sunflower % (Auto) Lymph # (Auto) PT INR ABG Methemoglobin VBG pH VBG pCO2 VBG pO2 VBG HCO3 VBG Total CO2 VBG O2 Saturation Carboxyhemoglobin Total Hemoglobin Sodium 123 L 122 L 123 L Chloride BUN Creatinine Glucose Calcium Phosphorus Iron TIBC Unsat Iron Binding Total Bilirubin AST ALT Alkaline Phosphatase Ammonia Total Protein Albumin Globulin 10/02/21 10/02/21 10/02/21 07:51 04:05 04:04 RBC Hgb Hct MCV MCH RDW Plt Count MPV Neut % (Auto) Lymph % (Auto) Sunflower % (Auto) Lymph # (Auto) PT INR ABG Methemoglobin VBG pH VBG pCO2 VBG pO2 VBG HCO3 VBG Total CO2 VBG O2 Saturation Carboxyhemoglobin Total Hemoglobin Sodium 120 L 121 L Chloride 87 L BUN 7 L Creatinine 1.6 H Glucose 119 H Calcium 7.8 L Phosphorus Iron TIBC Unsat Iron Binding Total Bilirubin 2.7 H AST 165 H ALT 95 H Alkaline Phosphatase 283 H Ammonia 74 H Total Protein 5.3 L Albumin 2.9 L Globulin 10/02/21 10/02/21 10/01/21 04:04 00:27 19:55 RBC 2.19 L Hgb 9.2 L Hct 26.4 L MCV 120.5 H MCH 42.0 H RDW 14.6 H Plt Count 97 L MPV 10.8 H Neut % (Auto) 79.3 H Lymph % (Auto) 9.0 L Sunflower % (Auto) Lymph # (Auto) 0.64 L PT INR ABG Methemoglobin VBG pH VBG pCO2 VBG pO2 VBG HCO3 VBG Total CO2 VBG O2 Saturation Carboxyhemoglobin Total Hemoglobin Sodium 121 L 118 L* Chloride 85 L BUN 7 L Creatinine 1.6 H Glucose 136 H Calcium 7.7 L Phosphorus Iron TIBC Unsat Iron Binding Total Bilirubin AST ALT Alkaline Phosphatase Ammonia Total Protein Albumin 3.0 L Globulin 10/01/21 10/01/21 10/01/21 15:58 12:09 12:08 RBC Hgb Hct MCV MCH RDW Plt Count MPV Neut % (Auto) Lymph % (Auto) Sunflower % (Auto) Lymph # (Auto) PT INR ABG Methemoglobin VBG pH VBG pCO2 VBG pO2 VBG HCO3 VBG Total CO2 VBG O2 Saturation Carboxyhemoglobin Total Hemoglobin Sodium 122 L 119 L* Chloride BUN Creatinine Glucose Calcium Phosphorus Iron TIBC Unsat Iron Binding Total Bilirubin AST ALT Alkaline Phosphatase Ammonia 90 H Total Protein Albumin Globulin Meds: Medications Acetaminophen (Acetaminophen 325 Mg Tablet) 325 mg PO Q4HP PRN; Protocol PRN Reason: Per Pain Protocol Hydrocodone Bitart/Acetaminophen (Hydrocodone/Apap 5/325mg Tablet) 1 tab PO Q6HP PRN; Protocol PRN Reason: Per Pain Protocol Last Admin: 10/04/21 09:46 Dose: 1 tab Documented by: Albuterol Sulfate (Albuterol Sulfate 200 Puff Inhaler) 1 puff INH Q4-6HP PRN PRN Reason: Shortness Of Breath Albuterol/Ipratropium (Ipratropium/Albuterol Sulfate 1 Puff Inhaler) 2 puff INH QID [facility] Last Admin: 10/04/21 10:20 Dose: 2 puff Documented by: Benzonatate (Benzonatate 100 Mg Capsule) 100 mg PO TID PRN PRN Reason: cough Last Admin: 10/04/21 09:41 Dose: 100 mg Documented by: Buspirone HCl (Buspirone 15 Mg Tablet) 7.5 mg PO BID [facility] Last Admin: 10/04/21 09:41 Dose: 7.5 mg Documented by: Diphenhydramine HCl (Diphenhydramine 25 Mg Capsule) 25 mg PO Q6H PRN PRN Reason: Itching Last Admin: 10/02/21 00:24 Dose: 25 mg Documented by: Docusate Sodium (Docusate Sodium 100 Mg Capsule) 100 mg PO BID [facility] Last Admin: 10/04/21 09:38 Dose: Not Given Documented by: Gabapentin (Gabapentin 300 Mg Capsule) 300 mg PO BID [facility] Last Admin: 10/04/21 09:41 Dose: 300 mg Documented by: Guaifenesin (Guaifenesin 600 Mg Tab.Sr.12h) 600 mg PO Q12H PRN PRN Reason: Congestion Last Admin: 10/02/21 10:03 Dose: 600 mg Documented by: Lactulose (Lactulose 20 Gm/30 Ml Oral.Petra) 30 gm PO TID [facility] Last Admin: 10/04/21 09:38 Dose: Not Given Documented by: Lactulose (Lactulose 20 Gm/30 Ml Oral.Petra) 30 gm PO TIDP PRN PRN Reason: constipation Lorazepam (Lorazepam 0.5 Mg Tablet) 0.5 mg PO BID PRN PRN Reason: Anxiety Last Admin: 10/04/21 03:09 Dose: 0.5 mg Documented by: Metoclopramide HCl (Metoclopramide 10 Mg/2 Ml Vial) 5 mg IV Q6HP PRN PRN Reason: Nausea And Vomiting Last Admin: 10/03/21 14:58 Dose: 5 mg Documented by: Midodrine (Midodrine 5 Mg Tablet) 5 mg PO Q8H [facility] Stop: 10/05/21 04:01 Last Admin: 10/04/21 04:49 Dose: 5 mg Documented by: Nicotine (Nicotine 21 Mg Patch) 21 mg TOPICAL DAILY@1000 [facility] Last Admin: 10/04/21 09:44 Dose: 21 mg Documented by: Octreotide Acetate (Octreotide Acetate 100 Mcg/Ml Vial) 100 mcg SQ Q8H [facility] Stop: 10/05/21 04:01 Last Admin: 10/04/21 04:49 Dose: 100 mcg Documented by: Ondansetron HCl (Ondansetron 4 Mg/2 Ml Vial) 4 mg IV Q4HP PRN; Protocol PRN Reason: Nausea And Vomiting Last Admin: 10/03/21 05:36 Dose: 4 mg Documented by: Pantoprazole Sodium (Pantoprazole 40 Mg Vial) 40 mg IV BIDAC [facility] Last Admin: 10/04/21 08:35 Dose: 40 mg Documented by: Emollient Combo No. 59 (Bulk) [Custom Base Pcca] Cream 1 dose TOPICAL BID [facility] Last Admin: 10/04/21 10:21 Dose: 1 dose Documented by: Fluticasone- Umeclidin-Vilanter [ Trelegy Ellipta] Inhaler 1 dose INH Q24H [facility] Last Admin: 10/03/21 21:22 Dose: 1 dose Documented by: Senna (Sennosides 1 Tablet) 2 tab PO HS PRN PRN Reason: constipation Sodium Chloride (0.9 % Sodium Chloride 10 Ml Syringe) 10 ml IV Q8 [facility] Last Admin: 10/04/21 05:25 Dose: 10 ml Documented by: Sodium Chloride (0.9 % Sodium Chloride 10 Ml Syringe) 10 ml IV Q12 [facility] Last Admin: 10/04/21 09:00 Dose: 10 ml Documented by: Sodium Chloride (0.9 % Sodium Chloride 10 Ml Syringe) 10 ml IV UD PRN PRN Reason: Central Line Maintence ABG Interpretation ABG results: 10/03/21 16:16 ABG Methemoglobin 0.1 L VBG pH 7.43 H VBG pCO2 36.6 L VBG pO2 88.5 H VBG HCO3 23.7 L VBG Total CO2 24.8 L VBG O2 Saturation 91.2 H VBG Base Excess 0 A/P Narrative A/P Narrative: Assessment: 61 year old female with a past medical history not limited to SILVA, COPD, nocturnal hypoxia, vitamin B12 deficiency, degenerative disc disease, obesity, tobacco use disorder who presented to the emergency department after a fall at home and found to have a distal left radius fracture in the ED. The patient was also found to be severely volume overloaded and to have severe hyponatremia. The patient was admitted for severe hyponatremia. #Hypervolemic hyponatremia -Secondary to alcohol use and liver cirrhosis -TTE report was fairly unremarkable. -Urine protein creatinine ratio normal -Refractory to IV Lasix. #Decompensated liver cirrhosis -Likely secondary to chronic fatty liver and alcohol use disorder -INR was 1.2 -Ascites was present on initial abdominal ultrasound -Ammonia elevated #Encephalopathy, likely a component of hepatic encephalopathy #Acute kidney injury #Acute anemia: improved after PPI started #Macrocytosis #COPD #Nocturnal hypoxia #Degenerative disc disease #Anxiety disorder #Alcohol use disorder #Tobacco use disorder #Obesity BMI 38 #Distal left intra-articular radius fracture -Has splint on left wrist. -discussed with Dr. Christopher: nonoperative fracture Plan -Octreotide, Midodrine, Albumin per nephrology. -Monitoring renal function, holding diuretics for now. -Follow sodium, doubt this will normalized but may still improve. -Monitor volume status, urine output, renal function, electrolytes. -Continue lactulose, goal is 2-3 loose BMs per day. -Consider adding rifaximin. -Monitor hemoglobin. -Protonix IV twice daily. -Analgesics prn, avoid NSAIDs. -Monitor CIWA. -Nicotine patch. -Continue essential home medications. -Remove IJ central line when no longer necessary. -Low-sodium and fluid restricted diet. -PT consult. -Nephrology following. -DVT prophylaxis: SCDs for downtrending hemoglobin. -CODE STATUS: Full -Disposition: TBD, follow up with ortho in clinic for left radial fracture. GI referral for liver cirrhosis. Time Spent With Patient Time: Total time spent is greater than 50% in coordination of care (as documented) at patient's floor/unit and/or counseling patient:
[2021-10-04] MEDS: ALBUTEROL SULFATE 200 PUFF INHALER INH PRN (13:11)
[2021-10-04] MEDS: CLOTRIMAZOLE 10 MG TROCHE PO SCH ×3 (14:46→21:11)
[2021-10-04] MEDS: ONDANSETRON 4 MG/2 ML VIAL IV PRN (17:25)
[2021-10-04] MEDS ORDERED: SODIUM PHOSPHATE 15 MMOL in 0.9 % SODIUM CHLORIDE 250 ML IV ONE (20:00)
[2021-10-04] MEDS ORDERED: SODIUM PHOSPHATE 15 MMOL/5 ML VIAL IV ONE (20:00)
[2021-10-04] MEDS ORDERED: 0.9 % SODIUM CHLORIDE 10 ML SYRINGE IV SCH (21:00)
[2021-10-04] MEDS ORDERED: 0.9 % SODIUM CHLORIDE 1,000 ML IV SCH (21:00)
[2021-10-04] MEDS: Fluticasone-Umeclidin-Vilanter [Trelegy Ellipta] Inhaler INH SCH (21:23)
[2021-10-04] MEDS: 0.9 % SODIUM CHLORIDE 1,000 ML IV SCH (21:42)
[2021-10-05] MEDS: RIFAXIMIN 550 MG TABLET PO SCH ×3 (00:26→21:28)
[2021-10-05] MEDS: MIDODRINE 5 MG TABLET PO SCH (05:06)
[2021-10-05] MEDS: OCTREOTIDE ACETATE 100 MCG/ML VIAL SQ SCH (05:06)
[2021-10-05] MEDS: 0.9 % SODIUM CHLORIDE 10 ML SYRINGE IV SCH ×3 (05:53→22:45)
[2021-10-05] MEDS: PANTOPRAZOLE 40 MG VIAL IV SCH ×2 (07:36→17:28)
[2021-10-05] MEDS: CLOTRIMAZOLE 10 MG TROCHE PO SCH ×5 (07:37→21:26)
--- NOTE | 2021-10-05 07:43 | Nephrology Progress Note ---
SUBJECTIVE Subjective Patient information: Note initiated : 10/05/21 at 7:36 am Service Date, if different from initiated Date: [] Patient: Caleb Kern 61 y/o F admitted on 09/30/21 for left arm pain, fall yesterday. Chief Complaint: [wrist pain] Principal diagnosis: Severe hypervolemic hyponatremia Interval history: It is my theory this woman has long standing alcohilic steatosis and early cirrhosis. She then developed acute alcoholic hepatitis and demonstrated cirrhotic physiology with oligoanuria and a sodium avid state (Urine Na < 10). As such she was diuretic resistant and attempts to diurese the patient only lead to worsening renal perfusion and decrease in GFR. Hyponatremia is due to the sodium avid state being over-ruled by large amounts of fluid at home, inability to excrete a free water load due to protein deprivation and loss of medulary urea gradient and fully activated renin-ang II-eusebio system due to the ineffective ECF volume. Vital Signs Temp Pulse Resp BP Pulse Ox 10/05/21 06:05 11 L 94 10/05/21 06:01 10 L 112/59 94 10/05/21 05:47 91 H 10 L 95 10/05/21 04:16 10 L 95 10/05/21 04:01 10 L 127/80 95 10/05/21 02:05 10 L 94 10/05/21 02:01 10 L 117/69 94 10/05/21 00:01 36.7 C 12 141/82 98 10/04/21 22:01 12 123/83 96 10/04/21 21:04 15 96 10/04/21 20:01 11 L 129/85 96 10/04/21 18:01 11 L 124/78 97 10/04/21 16:26 16 95 10/04/21 16:01 36.9 C 24 H 133/66 95 10/04/21 15:45 25 H 95 10/04/21 14:01 11 L 109/79 95 10/04/21 12:19 14 93 10/04/21 12:01 36.5 C 14 103/61 93 10/04/21 10:20 13 98 10/04/21 10:15 28 H 137/84 10/04/21 08:37 16 93 10/04/21 08:27 36.7 C 14 118/108 97 Intake and Output 10/04/21 10/05/21 10/05/21 21:59 05:59 13:59 Intake Total 320 255 Output Total 50 170 Balance 270 85 Intake: IV 255 Sodium Phosphate 15 Mmol In 255 Sodium Chloride 0.9% 250 ml @ 50 mls/hr IV ONCE ONE Rx#: [id number] Oral 320 Output: Urine Catheter Amount 50 170 Other: Meal Dinner Percent of Meal Consumed 25% Feeding Ability Assist with Tray Set Up Urine Appearance Cloudy Clear Sediment Uretheral ([place]) Clear Urine Color Straw [place] Uretheral ([place]) Bright Yellow [place] Weight 90.174 kg Laboratory Tests 10/05/21 10/05/21 07:46 07:46 Sodium 131 L Potassium 3.6 Chloride 95 L Carbon Dioxide 25 Anion Gap 11.0 BUN 12 Creatinine 1.6 H GFR Calculation 34 Glucose 125 H Uric Acid 11.9 H Calcium 8.4 L Phosphorus 3.3 Magnesium 1.9 Total Bilirubin 2.8 H Direct Bilirubin 2.0 H GGT 520 H AST 90 H ALT 63 H Alkaline Phosphatase 200 H Ammonia 109 H Lactate Dehydrogenase 841 H Total Protein 5.3 L Albumin 3.0 L Globulin 2.3 Pertinent ROS: N/A Additional PMFSH (Level 3 Only): N/A Constitutional Vitals: Vital Signs Temp Pulse Resp BP Pulse Ox 36.7 C 91 H 11 L 112/59 94 10/05/21 00:01 10/05/21 05:47 10/05/21 06:05 10/05/21 06:01 10/05/21 06:05 Period Temp Pulse Resp BP Sys/Altman Pulse Ox Last 24 Hr 36.5 C-36.9 C 91 10-28 103-141/59-108 93-98 Intake and Output 10/04/21 10/05/21 10/05/21 21:59 05:59 13:59 Intake Total 320 255 Output Total 50 170 Balance 270 85 Weight 90.174 kg Intake & Output: Intake & Output 10/04/21 10/05/21 10/05/21 21:59 05:59 13:59 Intake Total 320 255 Output Total 50 170 Balance 270 85 Weight 90.174 kg Intake: IV 255 Sodium Phosphate 15 Mmol In 255 Sodium Chloride 0.9% 250 ml @ 50 mls/hr IV ONCE ONE Rx#: [id number] Oral 320 Output: Urine Catheter Amount 50 170 Other: Meal Dinner Percent of Meal Consumed 25% Feeding Ability Assist with Tray Set Up Urine Appearance Cloudy Clear Sediment Uretheral ([place]) Clear Urine Color Straw [place] Uretheral ([place]) Bright Yellow [place] Current Medications Acetaminophen (Acetaminophen 325 Mg Tablet) 325 mg PO Q6HP PRN; Protocol PRN Reason: Per Pain Protocol Albuterol Sulfate (Albuterol Sulfate 200 Puff Inhaler) 1 puff INH Q4-6HP PRN PRN Reason: Shortness Of Breath Last Admin: 10/04/21 13:11 Dose: 1 puff Documented by: Albuterol/Ipratropium (Ipratropium/Albuterol Sulfate 1 Puff Inhaler) 2 puff INH QID FRANK Last Admin: 10/04/21 21:23 Dose: 2 puff Documented by: Benzonatate (Benzonatate 100 Mg Capsule) 100 mg PO TID PRN PRN Reason: cough Last Admin: 10/05/21 07:48 Dose: 100 mg Documented by: Buspirone HCl (Buspirone 15 Mg Tablet) 7.5 mg PO BID [facility] Last Admin: 10/04/21 21:23 Dose: 7.5 mg Documented by: Clotrimazole (Clotrimazole 10 Mg Yvette) 10 mg PO 5XD [facility] Last Admin: 10/05/21 07:37 Dose: 10 mg Documented by: Diphenhydramine HCl (Diphenhydramine 25 Mg Capsule) 25 mg PO Q6H PRN PRN Reason: Itching Last Admin: 10/02/21 00:24 Dose: 25 mg Documented by: Docusate Sodium (Docusate Sodium 100 Mg Capsule) 100 mg PO BID [facility] Last Admin: 10/04/21 20:45 Dose: Not Given Documented by: Gabapentin (Gabapentin 300 Mg Capsule) 300 mg PO BID [facility] Last Admin: 10/04/21 21:23 Dose: 300 mg Documented by: Guaifenesin (Guaifenesin 600 Mg Tab.Sr.12h) 600 mg PO Q12H PRN PRN Reason: Congestion Last Admin: 10/05/21 07:49 Dose: 600 mg Documented by: Sodium Chloride (Sodium Chloride 0.9%) 1,000 mls @ 84 mls/hr IV Q12 [facility] Stop: 10/05/21 20:55 Last Admin: 10/04/21 21:42 Dose: 84 mls/hr Documented by: Lactulose (Lactulose 20 Gm/30 Ml Oral.Petra) 30 gm PO TID [facility] Last Admin: 10/04/21 20:44 Dose: Not Given Documented by: Lactulose (Lactulose 20 Gm/30 Ml Oral.Petra) 30 gm PO TIDP PRN PRN Reason: constipation Lorazepam (Lorazepam 0.5 Mg Tablet) 0.5 mg PO BID PRN PRN Reason: Anxiety Last Admin: 10/04/21 21:10 Dose: 0.5 mg Documented by: Metoclopramide HCl (Metoclopramide 10 Mg/2 Ml Vial) 5 mg IV Q6HP PRN PRN Reason: Nausea And Vomiting Last Admin: 10/03/21 14:58 Dose: 5 mg Documented by: Nicotine (Nicotine 21 Mg Patch) 21 mg TOPICAL DAILY@1000 [facility] Last Admin: 10/04/21 09:44 Dose: 21 mg Documented by: Ondansetron HCl (Ondansetron 4 Mg/2 Ml Vial) 4 mg IV Q4HP PRN; Protocol PRN Reason: Nausea And Vomiting Last Admin: 10/04/21 17:25 Dose: 4 mg Documented by: Oxycodone HCl (Oxycodone Hcl 5 Mg Tablet) 5 mg PO Q6HP PRN; Protocol PRN Reason: Per Pain Protocol Last Admin: 10/05/21 07:48 Dose: 5 mg Documented by: Pantoprazole Sodium (Pantoprazole 40 Mg Vial) 40 mg IV BIDAC [facility] Last Admin: 10/05/21 07:36 Dose: 40 mg Documented by: Emollient Combo No. [id number] (Bulk) [Custom Base Pcca] Cream 1 dose TOPICAL BID [facility] Last Admin: 10/04/21 21:23 Dose: 1 dose Documented by: Fluticasone- Umeclidin-Vilanter [ Trelegy Ellipta] Inhaler 1 dose INH Q24H [facility] Last Admin: 10/04/21 21:23 Dose: 1 dose Documented by: Senna (Sennosides 1 Tablet) 2 tab PO HS PRN PRN Reason: constipation Sodium Chloride (0.9 % Sodium Chloride 10 Ml Syringe) 10 ml IV Q8 [facility] Last Admin: 10/05/21 05:53 Dose: 10 ml Documented by: Sodium Chloride (0.9 % Sodium Chloride 10 Ml Syringe) 10 ml IV UD PRN PRN Reason: [place] Line Maintence General appearance: mild distress and obese Head Head exam: Present normal inspection Eye Eye exam: Present EOMI; Absent scleral icterus Pupils: Present PERRL ENT ENT exam: Present mucous membranes dry Neck Neck exam: Absent meningismus Respiratory Respiratory exam: Present normal respiratory exam and rhonchi Cardiovascular Cardiovascular exam: Present normal rate and rhythm, +S1 and +S2 GI/Abdominal GI/Abdominal exam: Present diminished bowel sounds; Absent guarding or tenderness Extremities Exam Extremities exam: Absent calf tenderness or pedal edema Neurological Exam Neurological exam: Present alert; Absent normal gait (stands with assistance and pivit with help) Psychiatric Psychiatric exam: Present anxious Skin Skin exam: Present mottled A/P Assessment and plan (1) Acquired hypophosphatemia: Status: Acute (2) Hyponatremia: Status: Chronic Comment: PO fluid restrict Increase protein intake For now, volume expand with colloid...hold diuretics Low sodium intake (3) ARF (acute renal failure): Status: Acute Comment: Diuretic related in a patient with reduced effective cirrulating volume (4) Oliguria and anuria: Status: Acute Comment: Colloid for ECF volume expansion May need Octreotide and midodrine or dopamine prior to attempted diuresis in next 24 hours (5) Cirrhosis with alcoholism: Status: Chronic Comment: Stop all EtOH consumption EtOH rehab...[facility] highest success rate No indication for steroids for acute alcoholic hepatitis Narrative A/P Narrative: A/P Assessment and plan (1) Hyponatremia: (2) ARF (acute renal failure): (3) Oliguria and anuria: (4) Cirrhosis with alcoholism: Assessment and plan: Looks like acute alcoholic hepatitis superimposed on alcoholic fatty live r...combo bad but neither seems life threatening. Acute alcoholic hepatitis not severe enough for steroids WILLIAMS will progress to cirrhosis and ESLD unless she stops all EtOH intake now (5) Acquired hypophosphatemia: Assessment and plan: Replace with IV NaPO4 Narrative A/P Narrative: Replaced Phos with sodium Phos Time to stop drinking Time Spent With Patient Time: Total time spent is greater than 50% in coordination of care (as documented) at patient's floor/unit and/or counseling patient: Total time spent with greater than 50% in coordination of care (as documented) at patient's floor/unit and/or counseling patient:: Greater than 35 minutes
[2021-10-05] MEDS: BENZONATATE 100 MG CAPSULE PO PRN (07:48)
[2021-10-05] MEDS: oxyCODONE HCL 5 MG TABLET PO PRN ×2 (07:48→17:43)
[2021-10-05] MEDS: guaiFENesin 600 MG TAB.SR.12H PO PRN ×2 (07:49→21:24)
[2021-10-05] MEDS: ONDANSETRON 4 MG/2 ML VIAL IV PRN (08:05)
[2021-10-05 08:41] LABS: Basophils # (Auto) 0.03 K/mcL (0.00-0.30); Basophils % (Auto) 0.4 % (0.0-2.0); Eosinophils # (Auto) 0.07 K/mcL (0.00-0.70); Eosinophils % (Auto) 0.8 % (0.0-7.0); Hematocrit 27.3 % (34.1-44.9); Hemoglobin 9.4 g/dL (11.2-15.7); Lymphocytes % (Auto) 9.5 % (15.5-49.0); Mean Cell Volume 125.2 fL (80.0-100.0); Mean Corpuscular HGB Conc 34.4 g/dL (31.0-36.0); Mean Platelet Volume 10.8 fL (7.4-10.4); Monocytes # (Auto) 1.08 K/mcL (0.10-0.90); Monocytes % (Auto) 12.8 % (1.0-12.0); Neutrophils % (Auto) 76.5 % (38.0-78.0); Platelet Count 125 K/mcL (140-440); RBC 2.18 M/mcL (3.59-5.38); Red Cell Distribution Width 15.5 % (11.5-14.5); WBC 8.5 K/mcL (4.5-11.0)
[2021-10-05 08:51] LABS: INR 1.3 (0.9-1.1); Prothrombin Time 17.1 sec (11.9-14.5)
[2021-10-05] MEDS ORDERED: 0.9 % SODIUM CHLORIDE 1,000 ML IV SCH (09:00)
[2021-10-05 09:07] LABS: ALT/SGPT 63 U/L (<40); AST/SGOT 90 U/L (<32); Albumin/Globulin Ratio 1.3 (1.0-2.3); Alkaline Phosphatase 200 U/L (39-117); Bilirubin,Total 2.8 mg/dL (0.1-1.0); Blood Urea Nitrogen 12 mg/dL (8-23); Calcium 8.4 mg/dL (8.6-10.4); Carbon Dioxide 25 mmol/L (22-30); Chloride 95 mmol/L (96-108); Globulin 2.3 gm/dL (2.2-3.7); Glomerular Filtration Rate 34; Glucose 125 mg/dL (70-105); Lactate Dehydrogenase 841 U/L (135-225); Phosphorous 3.3 mg/dL (2.5-4.5); Triglycerides 124 mg/dL (<150); Uric Acid 11.9 mg/dL (2.5-8.0)
[2021-10-05] MEDS: GABAPENTIN 300 MG CAPSULE PO SCH ×2 (09:09→21:24)
[2021-10-05] MEDS: busPIRone 15 MG TABLET PO SCH ×2 (09:09→21:26)
[2021-10-05] MEDS: LACTULOSE 20 GM/30 ML ORAL.SOL PO SCH ×3 (09:10→21:23)
[2021-10-05] MEDS: [UNRECOGNIZED DRUG - OTHER] TOPICAL SCH ×2 (09:11→22:44)
[2021-10-05] MEDS: IPRATROPIUM/ALBUTEROL SULFATE 1 PUFF INHALER INH SCH ×3 (09:11→17:28)
[2021-10-05] MEDS: DOCUSATE SODIUM 100 MG CAPSULE PO SCH ×2 (09:12→21:31)
[2021-10-05] MEDS: ALBUTEROL SULFATE 200 PUFF INHALER INH PRN ×2 (09:49→17:28)
[2021-10-05] MEDS: NICOTINE 21 MG PATCH TOPICAL SCH (11:48)
[2021-10-05] MEDS: LORazepam 0.5 MG TABLET PO PRN (13:55)
[2021-10-05] MEDS: 0.9 % SODIUM CHLORIDE 1,000 ML IV SCH ×3 (14:29→21:02)
[2021-10-05] MEDS ORDERED: THIAMINE 100 MG TABLET PO SCH (17:10)
--- NOTE | 2021-10-05 18:38 | Internal Med Progress Note ---
SUBJECTIVE Subjective Patient information: Note initiated : 10/05/21 at 6:35 pm Service Date, if different from initiated Date: [] Patient: Caleb Kern 61 y/o F admitted on 09/30/21 for left arm pain, fall yesterday. Chief Complaint: [] Principal diagnosis: Severe hypervolemic hyponatremia Interval history: Ms. Kern is a 61 year old female with a past medical history not limited to SILVA, COPD, nocturnal hypoxia, vitamin B12 deficiency, degenerative disc disease, obesity, tobacco use disorder who presented to the emergency department after a fall at home for further evaluation of left wrist pain. X-ray of the l eft wrist showed an intraarticular fracture of the distal radius. The patient was noted to be hypervolemic in the emergency department, CBC and chemistry panel were ordered showing severe hyponatremia with a sodium level of 116. Additionally, labs showed a mild leukocytosis of 12.3, severe macrocytosis, thrombocytopenia, anion gap metabolic acidosis, bilirubin of 1.8 and ALT and AST elevated compared to the patient's prior labs from 2020. Patient also had a NT proBNP of 441, 1 view chest x-ray did not show any pulmonary vascular congestion. The patient had a markedly elevated D-dimer of 6.89. The patient has not been having any shortness of breath recently and was comfortable on room air in the emergency department. The patient received Lasix IV in the emergency department. Hospital medicine was consulted for admission and management of severe hyponatremia. The patient says that she has been experiencing intermittent bilateral lower extremity edema for some time and that they have always resolved. The current amount of edema is more severe than prior episodes. She denies recent dyspnea, has not noticed any significant changes in urination. Patient says that she has known about "fatty liver disease" for some time. She does drink a significant amount of alcohol which usually contains vodka on an almost daily basis. We discussed the goals of admission which include a gradual correction of her sodium level. We also discussed further work-up which will focus on cardiac, liver and renal pathologies that could explain hypovolemic hyponatremia. We discussed CODE STATUS in detail, the patient wishes to be full code. 3/ Urine protein creatinine ratio was normal, TSH and morning cortisol levels nikhil l. blood smear was not suggestive of a sinister hematologic process. Vitamin B12 level elevated, folate level normal. INR was 1.2. Sodium trended up to 120s and down to 119, the patient received 100 mL of 3% saline followed by increase in sodium to 122. Patient has not made significant urine after receiving a dose of Lasix 80 mg IV. Volume overloaded as on admission with bilateral lower extremity pitting edema. Abdominal ultrasound showed fatty liver, possible steatohepatitis or early stage cirrhosis, small to moderate amount of ascites was present, normal directional blood flow and hepatic and portal veins. Bilateral lower extremity venous duplex ultrasound was negative for DVT. Transthoracic echocardiogram report pending. 10/02 Creatinine increased, discontinued lasix and consulted nephrology. Nephrology started albumin, recommended holding on diuretics at this time. 10/03 TTE was fairly unremarkable, etiology for hyponatremia is likely a liver cirrhosis combined with alcohol use. Patient is more confused now, likely secondary to hepatic encephalopathy as ammonia has also been elevated. Hemoglobin trending down, started Protonix IV twice daily. Trending hemoglobin, will consider consulting general surgery for EGD if this trends down further. Sodium slightly improved now at 123. Renal function slightly improved, creatinine 1.3 today. 10/04 The patient is more alert and oriented today but still confused, ammonia level still elevated in spite of increase in lactulose. Hemoglobin trending up now, will continue Protonix IV BID for now and likely transition to oral PPI therapy in 1-2 days. The patient does have a history of peptic ulcer and had been taking Ibuprofen prior to admission but with hemoglobin trending up on a PPI and EGD may not be high yield. GI consult currently not available at [facility]. Nephrology started Octreotide and Midodrine in addition to Albumin IV. Renal function is about the same, sodium about the same as yesterday. The patient is still markedly hypervolemic. 10/05 Low urine output, nephrology started IV fluid, no longer on octreotide, midodrine and albumin IV. Urine output did improve somewhat today but still low relative to the patient's hypervolemic volume status. Ammonia increasing and the patient continues to be confused and having intermittent hallucinations. CIWA score was 10 but clinically does not appear to be in withdrawal and the patient does not feel like she is in alcohol withdrawal. Started lactulose enema every 6 hours. We will get a CT abdomen pelvis without contrast. C onsider EGD tomorrow. Physical exam Head: Atraumatic, normal inspection. Eyes: normal appearance, no scleral icterus. Neck: full ROM Respiratory: no respiratory distress. Cardiovascular: normal rate and rhythm, S1, S2. GI/Abdominal: Distended abdomen, soft, nontender, no guarding. Extremities: Bilateral lower extremity 3+ pitting edema Neurological: CN II-XII intact, intact motor, intact sensation. Psychiatric: normal mood. Skin: Spider angiomas present in upper extremities, upper chest, upper back. Constitutional Vitals: Vital Signs Temp Pulse Resp BP Pulse Ox 97.6 F 91 H 13 137/95 98 10/05/21 16:01 10/05/21 05:47 10/05/21 18:02 10/05/21 18:02 10/05/21 18:02 Period Temp Pulse Resp BP Sys/[place] Pulse Ox Last 24 Hr 97.2 F-98.1 F 91 10-20 100-141/59-95 94-100 Intake and Output 10/05/21 10/05/21 10/05/21 05:59 13:59 21:59 Intake Total 255 1480 380 Output Total 170 305 50 Balance 85 1175 330 Intake & Output: Intake & Output 10/05/21 10/05/21 10/05/21 05:59 13:59 21:59 Intake Total 255 1480 380 Output Total 170 305 50 Balance 85 1175 330 Intake: Nourishment/Supplement quantity 200 (ml) IV 255 1000 Sodium Chloride 0.9% 1,000 ml @ 1000 84 mls/hr IV Q12 [facility] Rx#: [id number] Sodium Phosphate 15 Mmol In 255 Sodium Chloride 0.9% 250 ml @ 50 mls/hr IV ONCE ONE Rx#: [id number] Oral 480 180 Output: Urine Catheter Amount 170 305 50 Other: Meal Lunch Dinner Percent of Meal Consumed bites 50% Feeding Ability Assist with Tray Set Up Nourishment/Supplement name Nepro Urine Appearance Clear Clear Clear Urine Color [place] Urine Odor Normal Normal Stool Size Small Stool Color Brown Stool Consistency Liquid # Bowel Movements 1 OBJ DATA Labs CBC & Chem 7: 10/05/21 07:46 10/05/21 07:46 Labs: Abnormal Lab Results 10/05/21 10/05/21 10/05/21 07:46 07:46 07:46 RBC Hgb Hct MCV MCH RDW Plt Count MPV Lymph % (Auto) [place] % (Auto) Lymph # (Auto) [place] # (Auto) PT 17.1 H INR 1.3 H ABG Methemoglobin VBG pH VBG pCO2 VBG pO2 VBG HCO3 VBG Total CO2 VBG O2 Saturation Carboxyhemoglobin Total Hemoglobin Sodium 131 L Chloride 95 L Creatinine 1.6 H Glucose 125 H Uric Acid 11.9 H Calcium 8.4 L Phosphorus Iron TIBC Unsat Iron Binding Total Bilirubin 2.8 H Direct Bilirubin 2.0 H GGT 520 H AST 90 H ALT 63 H Alkaline Phosphatase 200 H Ammonia 109 H Lactate Dehydrogenase 841 H Total Protein 5.3 L Albumin 3.0 L Globulin 10/05/21 10/04/21 10/04/21 07:46 09:53 09:53 RBC 2.18 L Hgb 9.4 L Hct 27.3 L MCV 125.2 H MCH 43.1 H RDW 15.5 H Plt Count 125 L MPV 10.8 H Lymph % (Auto) 9.5 L [place] % (Auto) 12.8 H Lymph # (Auto) 0.80 L [place] # (Auto) 1.08 H PT 17.2 H INR 1.3 H ABG Methemoglobin VBG pH VBG pCO2 VBG pO2 VBG HCO3 VBG Total CO2 VBG O2 Saturation Carboxyhemoglobin Total Hemoglobin Sodium Chloride Creatinine Glucose Uric Acid Calcium Phosphorus 2.1 L Iron TIBC Unsat Iron Binding Total Bilirubin Direct Bilirubin GGT AST ALT Alkaline Phosphatase Ammonia Lactate Dehydrogenase Total Protein Albumin Globulin 10/04/21 10/04/21 10/03/21 05:38 05:38 22:20 RBC Hgb Hct MCV MCH RDW Plt Count MPV Lymph % (Auto) [place] % (Auto) Lymph # (Auto) [place] # (Auto) PT INR ABG Methemoglobin VBG pH VBG pCO2 VBG pO2 VBG HCO3 VBG Total CO2 VBG O2 Saturation Carboxyhemoglobin Total Hemoglobin Sodium 126 L 127 L Chloride 92 L Creatinine 1.4 H Glucose 140 H Uric Acid Calcium 8.3 L Phosphorus Iron TIBC Unsat Iron Binding Total Bilirubin 3.1 H Direct Bilirubin GGT AST 93 H ALT 63 H Alkaline Phosphatase 199 H Ammonia 78 H Lactate Dehydrogenase Total Protein 5.1 L Albumin 3.1 L Globulin 2.0 L 10/03/21 10/03/21 10/03/21 22:20 16:16 16:15 RBC Hgb 9.7 L Hct MCV MCH RDW Plt Count MPV Lymph % (Auto) [place] % (Auto) Lymph # (Auto) [place] # (Auto) PT INR ABG Methemoglobin 0.1 L VBG pH 7.43 H VBG pCO2 36.6 L VBG pO2 88.5 H VBG HCO3 23.7 L VBG Total CO2 24.8 L VBG O2 Saturation 91.2 H Carboxyhemoglobin 5.8 H Total Hemoglobin 10.6 L Sodium 123 L Chloride Creatinine Glucose Uric Acid Calcium Phosphorus Iron 35 L TIBC 75 L Unsat Iron Binding 40 L Total Bilirubin Direct Bilirubin GGT AST ALT Alkaline Phosphatase Ammonia Lactate Dehydrogenase Total Protein Albumin Globulin 10/03/21 10/03/21 10/03/21 16:15 13:56 10:20 RBC Hgb 9.4 L 8.9 L Hct MCV MCH RDW Plt Count MPV Lymph % (Auto) [place] % (Auto) Lymph # (Auto) [place] # (Auto) PT INR ABG Methemoglobin VBG pH VBG pCO2 VBG pO2 VBG HCO3 VBG Total CO2 VBG O2 Saturation Carboxyhemoglobin Total Hemoglobin Sodium Chloride Creatinine Glucose Uric Acid Calcium Phosphorus Iron TIBC Unsat Iron Binding Total Bilirubin Direct Bilirubin GGT AST ALT Alkaline Phosphatase Ammonia 80 H Lactate Dehydrogenase Total Protein Albumin Globulin 10/03/21 10/03/21 10/03/21 05:12 05:12 05:12 RBC 2.06 L Hgb 9.0 L Hct 25.0 L MCV 121.4 H MCH 43.7 H RDW 14.9 H Plt Count 111 L MPV 11.2 H Lymph % (Auto) 9.1 L [place] % (Auto) 13.5 H Lymph # (Auto) 0.58 L [place] # (Auto) PT INR ABG Methemoglobin VBG pH VBG pCO2 VBG pO2 VBG HCO3 VBG Total CO2 VBG O2 Saturation Carboxyhemoglobin Total Hemoglobin Sodium 123 L 126 L Chloride 89 L Creatinine 1.3 H Glucose 115 H Uric Acid Calcium 8.3 L Phosphorus Iron TIBC Unsat Iron Binding Total Bilirubin 2.9 H Direct Bilirubin GGT AST 139 H ALT 80 H Alkaline Phosphatase 252 H Ammonia Lactate Dehydrogenase Total Protein 5.4 L Albumin Globulin 10/03/21 10/02/21 10/02/21 01:14 20:17 16:37 RBC Hgb Hct MCV MCH RDW Plt Count MPV Lymph % (Auto) [place] % (Auto) Lymph # (Auto) [place] # (Auto) PT INR ABG Methemoglobin VBG pH VBG pCO2 VBG pO2 VBG HCO3 VBG Total CO2 VBG O2 Saturation Carboxyhemoglobin Total Hemoglobin Sodium 123 L 123 L 122 L Chloride Creatinine Glucose Uric Acid Calcium Phosphorus Iron TIBC Unsat Iron Binding Total Bilirubin Direct Bilirubin GGT AST ALT Alkaline Phosphatase Ammonia Lactate Dehydrogenase Total Protein Albumin Globulin Meds: Medications Acetaminophen (Acetaminophen 325 Mg Tablet) 325 mg PO Q6HP PRN; Protocol PRN Reason: Per Pain Protocol Albuterol Sulfate (Albuterol Sulfate 200 Puff Inhaler) 1 puff INH Q4-6HP PRN PRN Reason: Shortness Of Breath Last Admin: 10/05/21 17:28 Dose: 1 puff Documented by: Benzonatate (Benzonatate 100 Mg Capsule) 100 mg PO TID PRN PRN Reason: cough Last Admin: 10/05/21 07:48 Dose: 100 mg Documented by: Buspirone HCl (Buspirone 15 Mg Tablet) 7.5 mg PO BID [facility] Last Admin: 10/05/21 09:09 Dose: 7.5 mg Documented by: Clotrimazole (Clotrimazole 10 Mg Yvette) 10 mg PO 5XD [facility] Last Admin: 10/05/21 17:28 Dose: 10 mg Documented by: Diphenhydramine HCl (Diphenhydramine 25 Mg Capsule) 25 mg PO Q6H PRN PRN Reason: Itching Last Admin: 10/02/21 00:24 Dose: 25 mg Documented by: Docusate Sodium (Docusate Sodium 100 Mg Capsule) 100 mg PO BID [facility] Last Admin: 10/05/21 09:12 Dose: Not Given Documented by: Gabapentin (Gabapentin 300 Mg Capsule) 300 mg PO BID [facility] Last Admin: 10/05/21 09:09 Dose: 300 mg Documented by: Guaifenesin (Guaifenesin 600 Mg Tab.Sr.12h) 600 mg PO Q12H PRN PRN Reason: Congestion Last Admin: 10/05/21 07:49 Dose: 600 mg Documented by: Sodium Chloride (Sodium Chloride 0.9%) 1,000 mls @ 84 mls/hr IV Q12 [facility] Stop: 10/06/21 08:55 Last Admin: 10/05/21 15:29 Dose: 84 mls/hr Documented by: Thiamine HCl 300 mg/ Sodium (Chloride) 53 mls @ 50 mls/hr IV TID [facility] Stop: 10/08/21 17:59 Thiamine HCl 300 mg/ Sodium (Chloride) 53 mls @ 50 mls/hr IV DAILY [facility] Stop: 10/12/21 08:59 Lactulose (Lactulose 20 Gm/30 Ml Oral.Petra) 30 gm PO TID [facility] Last Admin: 10/05/21 15:12 Dose: 30 gm Documented by: Lactulose (Lactulose 20 Gm/30 Ml Oral.Petra) 30 gm PO TIDP PRN PRN Reason: constipation Lactulose (Lactulose 20 Gm/30 Ml Oral.Petra) 30 gm OK Q6H [facility] Stop: 10/06/21 00:31 Lorazepam (Lorazepam 0.5 Mg Tablet) 0.5 mg PO BID PRN PRN Reason: Anxiety Last Admin: 10/05/21 13:55 Dose: 0.5 mg Documented by: Metoclopramide HCl (Metoclopramide 10 Mg/2 Ml Vial) 5 mg IV Q6HP PRN PRN Reason: Nausea And Vomiting Last Admin: 10/03/21 14:58 Dose: 5 mg Documented by: Nicotine (Nicotine 21 Mg Patch) 21 mg TOPICAL DAILY@1000 [facility] Last Admin: 10/05/21 11:48 Dose: 21 mg Documented by: Ondansetron HCl (Ondansetron 4 Mg/2 Ml Vial) 4 mg IV Q4HP PRN; Protocol PRN Reason: Nausea And Vomiting Last Admin: 10/05/21 08:05 Dose: 4 mg Documented by: Oxycodone HCl (Oxycodone Hcl 5 Mg Tablet) 5 mg PO Q6HP PRN; Protocol PRN Reason: Per Pain Protocol Last Admin: 10/05/21 17:43 Dose: 5 mg Documented by: Pantoprazole Sodium (Pantoprazole 40 Mg Vial) 40 mg IV BIDAC [facility] Last Admin: 10/05/21 17:28 Dose: 40 mg Documented by: Emollient Combo No. [id number] (Bulk) [Custom Base Pcca] Cream 1 dose TOPICAL BID [facility] Last Admin: 10/05/21 09:11 Dose: 1 dose Documented by: Fluticasone- Umeclidin-Vilanter [ Trelegy Ellipta] Inhaler 1 dose INH Q24H [facility] Last Admin: 10/04/21 21:23 Dose: 1 dose Documented by: Senna (Sennosides 1 Tablet) 2 tab PO HS PRN PRN Reason: constipation Sodium Chloride (0.9 % Sodium Chloride 10 Ml Syringe) 10 ml IV Q8 [facility] Last Admin: 10/05/21 14:32 Dose: 10 ml Documented by: Sodium Chloride (0.9 % Sodium Chloride 10 Ml Syringe) 10 ml IV UD PRN PRN Reason: Central Line Maintence ABG Interpretation ABG results: 10/03/21 16:16 ABG Methemoglobin 0.1 L VBG pH 7.43 H VBG pCO2 36.6 L VBG pO2 88.5 H VBG HCO3 23.7 L VBG Total CO2 24.8 L VBG O2 Saturation 91.2 H VBG Base Excess 0 A/P Narrative A/P Narrative: Assessment: 61 year old female with a past medical history not limited to SILVA, COPD, nocturnal hypoxia, vitamin B12 deficiency, degenerative disc disease, obesity, tobacco use disorder who presented to the emergency department after a fall at home and found to have a distal left radius fracture in the ED. The patient was also found to be severely volume overloaded and to have severe hyponatremia. The patient was admitted for severe hyponatremia. #Hypervolemic hyponatremia -Improving, secondary to alcohol use poor dietary intake andliver cirrhosis -TTE report was fairly unremarkable. -Urine protein creatinine ratio normal -refractory to IV Lasix. #Decompensated liver cirrhosis -Likely secondary to chronic fatty liver disease and alcohol use disorder -Does not qualify for prednisolone therapy. -Ascites was present on initial abdominal ultrasound -Ammonia elevated -MELD-Na score 23 #Encephalopathy, likely a component of hepatic encephalopathy #Acute kidney injury #Acute anemia: improved after PPI started #Macrocytosis #COPD #Nocturnal hypoxia #Degenerative disc disease #Anxiety disorder #Alcohol use disorder #Tobacco use disorder #Obesity BMI 38 #Distal left intra-articular radius fracture -Has splint on left wrist. -discussed with Dr. Christopher: nonoperative fracture Plan -IV fluid per nephrology. -Monitoring renal function, holding diuretics for now. -Monitor volume status, urine output, renal function, electrolytes. -Continue lactulose, goal is 2-3 loose BMs per day. -Lactulose enema Q6 hr x2. -Rifaximin 500 mg BID. -Monitor hemoglobin. -Protonix IV twice daily. -Stool guaiac. -Analgesics prn, avoid NSAIDs. -Monitor CIWA, consider adding ativan prn. -High dose thiamine IV, folic acid, vitamin B12 supplementation. -Nicotine patch. -Continue essential home medications. -Remove IJ central line when no longer necessary. -Low-sodium and fluid restricted diet. -PT consult. -Nephrology following. -DVT prophylaxis: SCDs for downtrending hemoglobin. -CODE STATUS: Full -Disposition: TBD, follow up with ortho in clinic for left radial fracture. GI referral for liver cirrhosis. Time Spent With Patient Time: Total time spent is greater than 50% in coordination of care (as documented) at patient's floor/unit and/or counseling patient:
[2021-10-05] MEDS ORDERED: THIAMINE 100 MG/ML VIAL ONE (20:17)
[2021-10-05] MEDS: Fluticasone-Umeclidin-Vilanter [Trelegy Ellipta] Inhaler INH SCH (21:25)
[2021-10-05] MEDS: SODIUM CHLORIDE 0.9% IV SCH ×2 (21:28→22:45)
[2021-10-05] MEDS: THIAMINE IV SCH ×2 (21:28→22:45)
[2021-10-05] MEDS: LORazepam 2 MG/ML VIAL IV PRN (21:30)
[2021-10-05] MEDS: LACTULOSE 20 GM/30 ML ORAL.SOL PR SCH (22:44)
[2021-10-06] MEDS: LORazepam 2 MG/ML VIAL IV PRN ×6 (00:19→15:50)
[2021-10-06] MEDS: LACTULOSE 20 GM/30 ML ORAL.SOL PR SCH (05:39)
[2021-10-06] MEDS: 0.9 % SODIUM CHLORIDE 10 ML SYRINGE IV SCH ×2 (05:54→15:23)
--- NOTE | 2021-10-06 06:30 | Cat Scan Report ---
CLINICAL INFORMATION: Abdominal pain and distention COMPARISON: Abdomen and pelvic CT 08/28/2016 TECHNIQUE: 0.625 mm helical slices were obtained from the mid heart through the subtrochanteric regions. Following reconstruction, 2.5 mm sagittal, coronal and axial reformatted images were processed and reviewed at bone and soft tissue windows.The exam was performed using radiation dose optimization techniques including, but not limited to, automated exposure control, adjustment of the mA and/or kV according to patient size and use of iterative reconstruction technique. FINDINGS: The lung shows scattered subsegmental atelectasis. There are no effusions. The visualized heart is grossly normal. Abdominal images show moderate hepatomegaly-new from the 2017 CT. There is now a massive (20 x 10 cm) low attenuation region infiltrating the entire lateral right hepatic lobe with an irregular margin. A second smaller (5.5 cm) more vague region seen in the lateral segment left hepatic lobe. The portal vein is mildly dilated at 15 mm with mild congestion the portal vein tributaries including the splenic, SMV and IMV. The spleen is moderately enlarged 15 cm. There is also moderate ascites in the perihepatic, perisplenic and true pelvis regions. Moderate subcutaneous edema has developed throughout the abdomen and pelvis. The gallbladder is surgically absent. The intrahepatic and common bile ducts are normal caliber CBD is 5 mm. The noncontrasted pancreas, both kidneys, adrenal glands and aorta are normal in size configuration and attenuation without focal lesion. Images through the pelvis are obscured by beam hardening artifact from hip prostheses. Urinary bladder and prostate grossly normal. Stomach, small and large bowel are grossly normal. Bone windows show no osseous abnormality. Bilateral hip prostheses are anatomically aligned without loosening or infection. IMPRESSION: 1. Moderate hepatomegaly with a large (18 cm) low-attenuation region infiltrating the entire lateral right hepatic lobe. There is also a 5.5 cm low-attenuation region in the lateral segment of the left hepatic lobe. On the previous exam, patient had moderate steatosis diffusely throughout the liver. While this may merely represent atypical fatty infiltration, the possibility of multifocal hepatoma or metastases from an unknown primary carcinoma requires further evaluation. Please correlate with alpha-fetoprotein and abdominal MRI. 2. Developing cirrhosis. There is mild enlargement of the portal vein, mild congestive of the portal vein tributaries, moderate splenomegaly and moderate ascites. There is also moderate subcutaneous edema throughout the abdomen and pelvis. Interpreted and Authenticated by: Chris Arriola 10/06/21
[2021-10-06] MEDS: PANTOPRAZOLE 40 MG VIAL IV SCH ×2 (07:10→17:10)
[2021-10-06 07:27] LABS: Basophils # (Auto) 0.02 K/mcL (0.00-0.30); Basophils % (Auto) 0.3 % (0.0-2.0); Eosinophils # (Auto) 0.08 K/mcL (0.00-0.70); Eosinophils % (Auto) 1.1 % (0.0-7.0); Hemoglobin 8.3 g/dL (11.2-15.7); Lymphocytes # (Auto) 0.63 K/mcL (1.50-4.80); Lymphocytes % (Auto) 8.8 % (15.5-49.0); Mean Corpuscular HGB Conc 34.6 g/dL (31.0-36.0); Mean Platelet Volume 11.2 fL (7.4-10.4); Monocytes # (Auto) 1.02 K/mcL (0.10-0.90); Monocytes % (Auto) 14.2 % (1.0-12.0); Neutrophils % (Auto) 75.6 % (38.0-78.0); Platelet Count 112 K/mcL (140-440); RBC 1.89 M/mcL (3.59-5.38); Red Cell Distribution Width 15.6 % (11.5-14.5); WBC 7.2 K/mcL (4.5-11.0)
[2021-10-06 07:35] LABS: ALT/SGPT 58 U/L (<40); AST/SGOT 89 U/L (<32); Albumin 2.9 gm/dL (3.2-5.2); Albumin/Globulin Ratio 1.4 (1.0-2.3); Alkaline Phosphatase 195 U/L (39-117); Bilirubin,Direct 1.4 mg/dL (<0.3); Blood Urea Nitrogen 14 mg/dL (8-23); Calcium 8.2 mg/dL (8.6-10.4); Carbon Dioxide 24 mmol/L (22-30); Chloride 99 mmol/L (96-108); Globulin 2.1 gm/dL (2.2-3.7); Glomerular Filtration Rate 34; Glucose 121 mg/dL (70-105); Lactate Dehydrogenase 780 U/L (135-225); Phosphorous 2.9 mg/dL (2.5-4.5); Triglycerides 115 mg/dL (<150); Uric Acid 12.4 mg/dL (2.5-8.0)
[2021-10-06] MEDS: CLOTRIMAZOLE 10 MG TROCHE PO SCH ×5 (08:40→21:27)
[2021-10-06] MEDS ORDERED: SODIUM CHLORIDE 0.9% IV SCH (09:00)
[2021-10-06] MEDS ORDERED: THIAMINE IV SCH (09:00)
--- NOTE | 2021-10-06 09:31 | Nephrology Progress Note ---
SUBJECTIVE Subjective Patient information: Note initiated : 10/06/21 at 9:29 am Service Date, if different from initiated Date: [] Patient: Caleb Kern 61 y/o F admitted on 09/30/21 for left arm pain, fall yesterday. Chief Complaint: [left wrist injury] Principal diagnosis: Severe hypervolemic hyponatremia Interval history: Agitated and sedated last PM, now obtunded. Vital Signs Temp Resp BP Pulse Ox 10/06/21 08:01 99/47 94 10/06/21 07:39 36.4 C 12 104/60 93 10/06/21 07:02 115/81 91 10/06/21 06:39 121/74 10/06/21 04:02 91 10/06/21 04:01 115/69 92 10/06/21 04:00 115/69 92 10/06/21 02:02 94 10/06/21 02:01 109/72 94 10/06/21 02:00 94 10/06/21 01:21 110/67 96 10/06/21 00:00 100 10/05/21 22:01 135/78 91 10/05/21 22:00 94 10/05/21 20:06 94 10/05/21 20:05 36.6 C 137/84 94 10/05/21 20:00 87 L 10/05/21 18:03 14 99 10/05/21 18:02 13 137/95 98 10/05/21 16:01 36.4 C 10 L 115/95 97 10/05/21 14:00 20 100/75 94 10/05/21 12:01 36.2 C 14 100/75 97 10/05/21 10:01 11 L 117/69 100 Intake and Output 10/05/21 10/06/21 10/06/21 21:59 05:59 13:59 Intake Total 595 851 8856 Output Total 195 195 60 Balance 185 187 940 Intake: Nourishment/Supplement quantity 200 (ml) IV 382 1000 Sodium Chloride 0.9% 1,000 ml @ 1000 84 mls/hr IV Q12 [facility] Rx#: [id number] Vitamin B1 300 mg In Sodium 382 Chloride 0.9% 150 ml @ 103 mls/ hr IV TID [facility] Rx#:[id number] Oral 180 Output: Urine Catheter Amount 195 195 60 Uretheral ([place]) 60 60 Other: Meal Dinner Percent of Meal Consumed 50% Nourishment/Supplement name Nepro Urine Appearance Clear Clear Uretheral ([place]) Clear Clear Urine Color [place] Uretheral ([place]) Bright Yellow [place] Urine Odor Normal Stool Size Small Large Stool Color Brown Elbert Colored Stool Consistency Liquid Liquid # Bowel Movements 1 # of times incontinent of 1 Bowels Weight 92.164 kg Laboratory Tests 10/06/21 05:25 Sodium 134 Potassium 3.3 Chloride 99 Carbon Dioxide 24 Anion Gap 11.0 BUN 14 Creatinine 1.6 H GFR Calculation 34 Glucose 121 H Uric Acid 12.4 H Calcium 8.2 L Phosphorus 2.9 Magnesium 1.9 Total Bilirubin 2.0 H Direct Bilirubin 1.4 H GGT 434 H AST 89 H ALT 58 H Alkaline Phosphatase 195 H Lactate Dehydrogenase 780 H Total Protein 5.0 L Albumin 2.9 L Globulin 2.1 L Albumin/Globulin Ratio 1.4 CT SCAN [facility] 2021: 1. Moderate hepatomegaly with a large (18 cm) low-attenuation region infiltrating the entire lateral right hepatic lobe. There is also a 5.5 cm low-attenuation region in the lateral segment of the left hepatic lobe. On the previous exam, patient had moderate steatosis diffusely throughout the liver. While this may merely represent atypical fatty infiltration, the possibility of multifocal hepatoma or metastases from an unknown primary carcinoma requires further evaluation. Please correlate with alpha-fetoprotein and abdominal MRI. 2. Developing cirrhosis. There is mild enlargement of the portal vein, mild congestive of the portal vein tributaries, moderate splenomegaly and moderate ascites. There is also moderate subcutaneous edema throughout the abdomen and pelvis. iMPRESSION: Cirrhotic physiology and worsening GFR. 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 Pertinent ROS: N/A Additional PMFSH (Level 3 Only): N/A Constitutional Vitals: Vital Signs Temp Pulse Resp BP Pulse Ox 36.4 C 91 H 12 99/47 94 10/06/21 07:39 10/05/21 05:47 10/06/21 07:39 10/06/21 08:01 10/06/21 08:01 Period Temp Pulse Resp BP Sys/[place] Pulse Ox Last 24 Hr 36.2 C-36.6 C 10-20 99-137/47-95 87-100 Intake and Output 10/05/21 10/06/21 10/06/21 21:59 05:59 13:59 Intake Total 029 788 1981 Output Total 195 195 60 Balance 185 187 940 Weight 92.164 kg Intake & Output: Intake & Output 10/05/21 10/06/21 10/06/21 21:59 05:59 13:59 Intake Total 957 742 2284 Output Total 195 195 60 Balance 185 187 940 Weight 92.164 kg Intake: Nourishment/Supplement quantity 200 (ml) IV 382 1000 Sodium Chloride 0.9% 1,000 ml @ 1000 84 mls/hr IV Q12 [facility] Rx#: [id number] Vitamin B1 300 mg In Sodium 382 Chloride 0.9% 150 ml @ 103 mls/ hr IV TID [facility] Rx#:[id number] Oral 180 Output: Urine Catheter Amount 195 195 60 Uretheral ([place]) 60 60 Other: Meal Dinner Percent of Meal Consumed 50% Nourishment/Supplement name Nepro Urine Appearance Clear Clear Uretheral ([place]) Clear Clear Urine Color [place] Uretheral ([place]) Bright Yellow [place] Urine Odor Normal Stool Size Small Large Stool Color Brown [place] Colored Stool Consistency Liquid Liquid # Bowel Movements 1 # of times incontinent of 1 Bowels General appearance: obese Exam: obtunded Head Head exam: Present normocephalic Eye Eye exam: Present EOMI and PERRL Neck Neck exam: Absent meningismus Respiratory Respiratory exam: Present rhonchi Cardiovascular Cardiovascular exam: Present +S1 and +S2 GI/Abdominal GI/Abdominal exam: Present diminished bowel sounds Neurological Exam Neurological exam: Present altered and CN II-XII intact Additional comments: obtundated Psychiatric Additional comments: obtunded Skin Skin exam: Present dry and mottled A/P Assessment and plan (1) Hyponatremia: Status: Chronic Comment: PO fluid restrict Increase protein intake For now, volume expand with colloid...hold diuretics Low sodium intake (2) ARF (acute renal failure): Assessment and plan: More loop diuretics in refractory ascites only leading to further decrease in GFR. Situation grave. I'm in favor of octreotide/midodrine and aldactone, lasix and sodium restriction Status: Acute Comment: Diuretic related in a patient with reduced effective cirrulating volume (3) Oliguria and anuria: Status: Acute Comment: Colloid for ECF volume expansion Start Octreotide and dopamine for HRS / diuretic resistance in cirrhosis (4) Cirrhosis with alcoholism: Status: Chronic Comment: Stop all EtOH consumption EtOH rehab...[facility] has highest success rate No indication for steroids for acute alcoholic hepatitis (5) Acquired hypophosphatemia: Status: Acute Comment: High risk for "refeeding" hypophos, hypo K and hypoMg Narrative A/P Narrative: Diuretic resistant Ascites summary from Up To Date SUMMARY AND RECOMMENDATIONS Diuretic-resistant ascites in patients with cirrhosis is considered to be present when at least one of the following criteria is present in the absence of therapy with a nonsteroidal antiinflammatory drug (NSAID), which can induce renal vasoconstriction and diminish diuretic responsiveness An inability to mobilize ascites despite confirmed adherence to the dietary sodium restriction (88 mEq [2000 mg] per day) and the administration of maximum tolerable doses of oral diuretics (400 mg per day ofspironolactoneand 160 mg per day offurosemide Rapid reaccumulation of fluid after therapeutic paracentesis. The development of diuretic-related complications such as progressive azotemia, hepatic encephalopathy, or progressive electrolyte imbalances. Ascites is truly diuretic resistant in approximately 10 percent of patients with cirrhosis and ascites. Patients who are diuretic resistant should continue to follow a low-sodium diet (88 mEq [2000 mg] per day). Diuretics should be discontinued if the urine sodium is <30 mEq per day. Liver transplantation is the only definitive therapeutic option for patients with diuretic-resistant ascites, but patients who are awaiting transplantation or who are not transplantation candidates need to have their ascites managed. We suggest beta blockersnotbe initiated in patients with diuretic-resistant ascites or, if the patient is already taking a beta zeke, that it be discontinued . Beta blockers appear to reduce survival in patients with refractory ascites or spontaneous bacterial peritonitis (SBP). In addition, we discontinue beta blockers in patients who present with SBP, bleeding, azotemia, severe alcoholic hepatitis, or hypotension. If the patient's blood pressure and azotemia improve off the beta zeke, it can be restarted cautiously with careful monitoring of blood pressure (including in home monitoring) and renal function. However, among patients with SBP, we discontinue the beta zeke permanently. Other medications to avoid include angiotensin converting enzyme inhibitors, angiotensin receptor blockers, and NSAIDS. We suggest that patients with cirrhosis who have hypotension and/or diuretic- resistant ascites and who do not respond to dietary modifications, education, discontinuation of beta blockers, and appropriately-prescribed diuretics be treated with oralmidodrine. Midodrine is an oral vasopressor that will usually increase blood pressure in advanced cirrhosis, resulting in improved renal perfusion. We start with 5 mg orally three times daily and adjust the dose every 24 hours (maximal dose 17.5 mg three times daily) to achieve a mean arterial pressure >82 mm Hg mmHg. We suggest that patients with diuretic-resistant ascites who do not adequately respond to noninvasive treatments undergo serial large-volume paracentesis rather than transjugular intrahepatic portosystemic shunt (TIPS) placement as initial therapy Large-volume paracentesis is generally well tolerated, whereas TIPS placement frequently results in hepatic encephalopathy. The necessity of plasma expansion after large-volume paracentesis remains controversial. We suggestalbumin solutionbe given (6 to 8 grams of albumin/liter of fluid removed) when >= liters of ascites are removed TIPS may be more effective than serial paracenteses in carefully selected patients, but the effectiveness of TIPS in heterogeneous patient populations and centers with varying experience with TIPS has yet to be established. We consider referring a patient for TIPS if the following conditions are met: The patient has diuretic-resistant ascites. The patient is intolerant of paracentesis or is requiring very frequent paracentesis (eg, weekly). The patient has Child-Hernandez class A or B cirrhosis The patient has a Model for End-stage Liver Disease score <18 The patient is <65 years of age. A caregiver is present in the home. The patient does not have alcoholic hepatitis. The patient's cardiac ejection fraction is >60 percent. The patient does not have a history of severe, spontaneous (ie, in the absence of gut bleeding, infection, or dehydration) hepatic encephalopathy or other injury to the central nervous system (eg, prior subdural bleeding, brain abscess, or cerebrovascular accident). Time Spent With Patient Time: Total time spent is greater than 50% in coordination of care (as documented) at patient's floor/unit and/or counseling patient: Total time spent with greater than 50% in coordination of care (as documented) at patient's floor/unit and/or counseling patient:: Greater than 35 minutes
[2021-10-06] MEDS: ALBUTEROL SULFATE 200 PUFF INHALER INH PRN ×2 (09:49→15:12)
[2021-10-06] MEDS: DOCUSATE SODIUM 100 MG CAPSULE PO SCH ×2 (10:13→21:28)
[2021-10-06] MEDS: NICOTINE 21 MG PATCH TOPICAL SCH (10:20)
[2021-10-06] MEDS: RIFAXIMIN 550 MG TABLET PO SCH ×2 (10:39→21:28)
[2021-10-06] MEDS: GABAPENTIN 300 MG CAPSULE PO SCH ×2 (10:39→21:28)
[2021-10-06] MEDS: busPIRone 15 MG TABLET PO SCH ×2 (10:39→21:28)
[2021-10-06] MEDS: LACTULOSE 20 GM/30 ML ORAL.SOL PO SCH ×3 (10:39→21:29)
[2021-10-06] MEDS: FOLIC ACID 1 MG TABLET PO SCH (10:39)
[2021-10-06] MEDS ORDERED: DOPamine 400 MG in PREMIX 1 BAG IV SCH (11:30)
[2021-10-06] MEDS: OCTREOTIDE ACETATE 100 MCG/ML VIAL SQ SCH ×2 (11:55→21:47)
[2021-10-06] MEDS: ALBUMIN HUMAN 12.5 GM/50 ML BAG IV SCH (12:00)
[2021-10-06] MEDS ORDERED: OCTREOTIDE ACETATE 1,000 MCG/ML VIAL IV SCH ×2 (12:00)
[2021-10-06] MEDS: DOPamine 400 MG in PREMIX 1 BAG IV SCH (12:03)
--- NOTE | 2021-10-06 13:16 | Cat Scan Report ---
CLINICAL INFORMATION: Worsening encephalopathy COMPARISON: None. TECHNIQUE: 2.5 mm helical slices were obtained in the skull base to vertex. Following reconstruction, axial reformatted images were reviewed at bone and parenchymal windows. The exam was performed using radiation dose optimization techniques including, but not limited to, automated exposure control, adjustment of the mA and/or kV according to patient size and use of iterative reconstruction technique. FINDINGS: The ventricles, sulci, fissures, and cisterns are normal in size and configuration for age. No extra-axial fluid collections are identified. Mild chronic ischemic changes in the cerebral white matter expected for age.. There is no evidence of hemorrhage, mass effect, or edema. Bone windows show no osseous abnormality. IMPRESSION: Mild atrophy with mild chronic ischemic changes in the cerebral white matter-expected for age. No acute findings Interpreted and Authenticated by: Chris Arriola 10/06/21
[2021-10-06 13:24] LABS: Alpha Fetoprotein NonMaternal 2.1 ng/ml (<8.7)
[2021-10-06] MEDS: [UNRECOGNIZED DRUG - OTHER] TOPICAL SCH ×2 (13:24→21:28)
[2021-10-06] MEDS: SODIUM CHLORIDE 0.9% IV SCH ×2 (15:12→21:45)
[2021-10-06] MEDS: THIAMINE IV SCH ×2 (15:12→21:45)
[2021-10-06] MEDS: 0.9 % SODIUM CHLORIDE 250 ML IV SCH (15:23)
--- NOTE | 2021-10-06 16:40 | Internal Med Progress Note ---
SUBJECTIVE Subjective Patient information: Note initiated : 10/06/21 at 4:38 pm Service Date, if different from initiated Date: [] Patient: Caleb Kern 61 y/o F admitted on 09/30/21 for left arm pain, fall yesterday. Chief Complaint: [] Principal diagnosis: Severe hypervolemic hyponatremia Interval history: Ms. Kern is a 61 year old female with a past medical history not limited to SILVA, COPD, nocturnal hypoxia, vitamin B12 deficiency, degenerative disc disease, obesity, tobacco use disorder who presented to the emergency department after a fall at home for further evaluation of left wrist pain. X-ray of the l eft wrist showed an intraarticular fracture of the distal radius. The patient was noted to be hypervolemic in the emergency department, CBC and chemistry panel were ordered showing severe hyponatremia with a sodium level of 116. Additionally, labs showed a mild leukocytosis of 12.3, severe macrocytosis, thrombocytopenia, anion gap metabolic acidosis, bilirubin of 1.8 and ALT and AST elevated compared to the patient's prior labs from 2020. Patient also had a NT proBNP of 441, 1 view chest x-ray did not show any pulmonary vascular congestion. The patient had a markedly elevated D-dimer of 6.89. The patient has not been having any shortness of breath recently and was comfortable on room air in the emergency department. The patient received Lasix IV in the emergency department. Hospital medicine was consulted for admission and management of severe hyponatremia. The patient says that she has been experiencing intermittent bilateral lower extremity edema for some time and that they have always resolved. The current amount of edema is more severe than prior episodes. She denies recent dyspnea, has not noticed any significant changes in urination. Patient says that she has known about "fatty liver disease" for some time. She does drink a significant amount of alcohol which usually contains vodka on an almost daily basis. We discussed the goals of admission which include a gradual correction of her sodium level. We also discussed further work-up which will focus on cardiac, liver and renal pathologies that could explain hypovolemic hyponatremia. We discussed CODE STATUS in detail, the patient wishes to be full code. 3/ Urine protein creatinine ratio was normal, TSH and morning cortisol levels nikhil l. blood smear was not suggestive of a sinister hematologic process. Vitamin B12 level elevated, folate level normal. INR was 1.2. Sodium trended up to 120s and down to 119, the patient received 100 mL of 3% saline followed by increase in sodium to 122. Patient has not made significant urine after receiving a dose of Lasix 80 mg IV. Volume overloaded as on admission with bilateral lower extremity pitting edema. Abdominal ultrasound showed fatty liver, possible steatohepatitis or early stage cirrhosis, small to moderate amount of ascites was present, normal directional blood flow and hepatic and portal veins. Bilateral lower extremity venous duplex ultrasound was negative for DVT. Transthoracic echocardiogram report pending. 10/02 Creatinine increased, discontinued lasix and consulted nephrology. Nephrology started albumin, recommended holding on diuretics at this time. 10/03 TTE was fairly unremarkable, etiology for hyponatremia is likely a liver cirrhosis combined with alcohol use. Patient is more confused now, likely secondary to hepatic encephalopathy as ammonia has also been elevated. Hemoglobin trending down, started Protonix IV twice daily. Trending hemoglobin, will consider consulting general surgery for EGD if this trends down further. Sodium slightly improved now at 123. Renal function slightly improved, creatinine 1.3 today. 10/04 The patient is more alert and oriented today but still confused, ammonia level still elevated in spite of increase in lactulose. Hemoglobin trending up now, will continue Protonix IV BID for now and likely transition to oral PPI therapy in 1-2 days. The patient does have a history of peptic ulcer and had been taking Ibuprofen prior to admission but with hemoglobin trending up on a PPI and EGD may not be high yield. GI consult currently not available at [facility]. Nephrology started Octreotide and Midodrine in addition to Albumin IV. Renal function is about the same, sodium about the same as yesterday. The patient is still markedly hypervolemic. 10/05 Low urine output, nephrology started IV fluid, no longer on octreotide, midodrine and albumin IV. Urine output did improve somewhat today but still low relative to the patient's hypervolemic volume status. Ammonia increasing and the patient continues to be confused and having intermittent hallucinations. CIWA score was 10 but clinically does not appear to be in withdrawal and the patient does not feel like she is in alcohol withdrawal. Started lactulose enema every 6 hours. Started high-dose thiamine IV supplementation. abdomen pelvis without contrast showed moderate hepatomegaly with a large low attenuating region infiltrating the entire lateral right hepatic lobe and a smaller region in the lateral segment of the left hepatic lobe, may represent atypical fatty infiltration however hepatocellular carcinoma or liver metastasis could have a similar appearance. There was also developing liver cirrhosis with mild enlargement of the portal vein, moderate splenomegaly and moderate ascites. Radiology recommended an MRI of the abdomen. We will have to defer MRI of the abdomen until the patient is no longer encephalopathic. Alpha fetoprotein level was normal. 10/06 The patient is more confused overnight suspect the patient is withdrawing from alcohol. Receiving Ativan IV as needed per [facility] protocol. This have been blunted initially by hepatic encephalopathy and the patient was also taking home Ativan as needed. Ammonia improved after a couple lactulose enemas overnight. CT head without contrast did not show any acute changes. Renal function is similar to yesterday. Nephrology started dopamine, octreotide and albumin IV. Discussed anemia with general surgery, Dr. Curiel deferred EGD at this time as he felt it would not be a high yield work-up. Physical exam Head: Atraumatic, normal inspection. Eyes: normal appearance, no scleral icterus. Neck: full ROM Respiratory: Nasal cannula oxygen, does not appear to be inrespiratory distress. Cardiovascular: Regular tachycardia, S1, S2. GI/Abdominal: Distended abdomen, soft, nontender, no guarding. Extremities: Bilateral lower extremity 3+ pitting edema Neurological: CN II-XII intact, intact motor, intact sensation. Psychiatric: Appears anxious, encephalopathic Skin: Spider angiomas present in upper extremities, upper chest, upper back. Constitutional Vitals: Vital Signs Temp Pulse Resp BP Pulse Ox 97.5 F 12 L 12 121/75 94 10/06/21 16:04 10/06/21 10:01 10/06/21 16:04 10/06/21 16:04 10/06/21 16:04 Period Temp Pulse Resp BP Sys/[place] Pulse Ox Last 24 Hr 97.4 F-97.8 F 12-14 9-14 94-141/47-95 87-100 Intake and Output 10/06/21 10/06/21 10/06/21 05:59 13:59 21:59 Intake Total 382 1303 Output Total 195 220 260 Balance 187 1083 -260 Weight 92.164 kg Intake & Output: Intake & Output 10/06/21 10/06/21 10/06/21 05:59 13:59 21:59 Intake Total 382 1303 Output Total 195 220 260 Balance 187 1083 -260 Weight 92.164 kg Intake: IV 382 1303 Sodium Chloride 0.9% 1,000 ml @ 1000 84 mls/hr IV Q12 [facility] Rx#: [id number] Vitamin B1 300 mg In Sodium 382 Chloride 0.9% 150 ml @ 103 mls/ hr IV TID [facility] Rx#:[id number] Vitamin B1 300 mg In Sodium 253 Chloride 0.9% 250 ml @ 103 mls/ hr IV TID [facility] Rx#:[id number] Output: Urine Catheter Amount 195 220 260 Uretheral ([place]) 60 60 Other: Urine Appearance Clear Clear Clear Uretheral ([place]) Clear Clear Urine Color [place] Bright Yellow Bright Yellow [place] Uretheral ([place]) Bright Yellow [place] Urine Odor Normal Normal Stool Size Large Stool Color [place] Colored Stool Consistency Liquid # of times incontinent of 1 Bowels OBJ DATA Labs CBC & Chem 7: 10/06/21 12:01 10/06/21 05:25 Labs: Abnormal Lab Results 10/06/21 10/06/21 10/06/21 12:01 05:25 05:25 RBC 1.89 L Hgb 8.7 L 8.3 L Hct 24.0 L MCV 127.0 H MCH 43.9 H RDW 15.6 H Plt Count 112 L MPV 11.2 H Lymph % (Auto) 8.8 L Travis % (Auto) 14.2 H Lymph # (Auto) 0.63 L Travis # (Auto) 1.02 H PT INR ABG Methemoglobin VBG pH VBG pCO2 VBG pO2 VBG HCO3 VBG Total CO2 VBG O2 Saturation Carboxyhemoglobin Total Hemoglobin Sodium Chloride Creatinine 1.6 H Glucose 121 H Uric Acid 12.4 H Calcium 8.2 L Phosphorus Iron TIBC Unsat Iron Binding Total Bilirubin 2.0 H Direct Bilirubin 1.4 H GGT 434 H AST 89 H ALT 58 H Alkaline Phosphatase 195 H Ammonia Lactate Dehydrogenase 780 H Total Protein 5.0 L Albumin 2.9 L Globulin 2.1 L 10/06/21 10/05/21 10/05/21 05:24 07:46 07:46 RBC Hgb Hct MCV MCH RDW Plt Count MPV Lymph % (Auto) Travis % (Auto) Lymph # (Auto) Travis # (Auto) PT INR ABG Methemoglobin VBG pH VBG pCO2 VBG pO2 VBG HCO3 VBG Total CO2 VBG O2 Saturation Carboxyhemoglobin Total Hemoglobin Sodium 131 L Chloride 95 L Creatinine 1.6 H Glucose 125 H Uric Acid 11.9 H Calcium 8.4 L Phosphorus Iron TIBC Unsat Iron Binding Total Bilirubin 2.8 H Direct Bilirubin 2.0 H GGT 520 H AST 90 H ALT 63 H Alkaline Phosphatase 200 H Ammonia 85 H 109 H Lactate Dehydrogenase 841 H Total Protein 5.3 L Albumin 3.0 L Globulin 10/05/21 10/05/21 10/04/21 07:46 07:46 09:53 RBC 2.18 L Hgb 9.4 L Hct 27.3 L MCV 125.2 H MCH 43.1 H RDW 15.5 H Plt Count 125 L MPV 10.8 H Lymph % (Auto) 9.5 L Travis % (Auto) 12.8 H Lymph # (Auto) 0.80 L Travis # (Auto) 1.08 H PT 17.1 H INR 1.3 H ABG Methemoglobin VBG pH VBG pCO2 VBG pO2 VBG HCO3 VBG Total CO2 VBG O2 Saturation Carboxyhemoglobin Total Hemoglobin Sodium Chloride Creatinine Glucose Uric Acid Calcium Phosphorus 2.1 L Iron TIBC Unsat Iron Binding Total Bilirubin Direct Bilirubin GGT AST ALT Alkaline Phosphatase Ammonia Lactate Dehydrogenase Total Protein Albumin Globulin 10/04/21 10/04/21 10/04/21 09:53 05:38 05:38 RBC Hgb Hct MCV MCH RDW Plt Count MPV Lymph % (Auto) Travis % (Auto) Lymph # (Auto) Travis # (Auto) PT 17.2 H INR 1.3 H ABG Methemoglobin VBG pH VBG pCO2 VBG pO2 VBG HCO3 VBG Total CO2 VBG O2 Saturation Carboxyhemoglobin Total Hemoglobin Sodium 126 L Chloride 92 L Creatinine 1.4 H Glucose 140 H Uric Acid Calcium 8.3 L Phosphorus Iron TIBC Unsat Iron Binding Total Bilirubin 3.1 H Direct Bilirubin GGT AST 93 H ALT 63 H Alkaline Phosphatase 199 H Ammonia 78 H Lactate Dehydrogenase Total Protein 5.1 L Albumin 3.1 L Globulin 2.0 L 10/03/21 10/03/21 10/03/21 22:20 22:20 16:16 RBC Hgb 9.7 L Hct MCV MCH RDW Plt Count MPV Lymph % (Auto) Travis % (Auto) Lymph # (Auto) Travis # (Auto) PT INR ABG Methemoglobin 0.1 L VBG pH 7.43 H VBG pCO2 36.6 L VBG pO2 88.5 H VBG HCO3 23.7 L VBG Total CO2 24.8 L VBG O2 Saturation 91.2 H Carboxyhemoglobin 5.8 H Total Hemoglobin 10.6 L Sodium 127 L Chloride Creatinine Glucose Uric Acid Calcium Phosphorus Iron TIBC Unsat Iron Binding Total Bilirubin Direct Bilirubin GGT AST ALT Alkaline Phosphatase Ammonia Lactate Dehydrogenase Total Protein Albumin Globulin 10/03/21 10/03/21 16:15 16:15 RBC Hgb 9.4 L Hct MCV MCH RDW Plt Count MPV Lymph % (Auto) Travis % (Auto) Lymph # (Auto) Travis # (Auto) PT INR ABG Methemoglobin VBG pH VBG pCO2 VBG pO2 VBG HCO3 VBG Total CO2 VBG O2 Saturation Carboxyhemoglobin Total Hemoglobin Sodium 123 L Chloride Creatinine Glucose Uric Acid Calcium Phosphorus Iron 35 L TIBC 75 L Unsat Iron Binding 40 L Total Bilirubin Direct Bilirubin GGT AST ALT Alkaline Phosphatase Ammonia Lactate Dehydrogenase Total Protein Albumin Globulin Meds: Medications Acetaminophen (Acetaminophen 325 Mg Tablet) 325 mg PO Q6HP PRN; Protocol PRN Reason: Per Pain Protocol Albuterol Sulfate (Albuterol Sulfate 200 Puff Inhaler) 1 puff INH Q4-6HP PRN PRN Reason: Shortness Of Breath Last Admin: 10/06/21 15:12 Dose: 1 puff Documented by: Benzonatate (Benzonatate 100 Mg Capsule) 100 mg PO TID PRN PRN Reason: cough Last Admin: 10/05/21 07:48 Dose: 100 mg Documented by: Buspirone HCl (Buspirone 15 Mg Tablet) 7.5 mg PO BID [facility] Last Admin: 10/06/21 10:39 Dose: Not Given Documented by: Clotrimazole (Clotrimazole 10 Mg Yvette) 10 mg PO 5XD [facility] Last Admin: 10/06/21 15:22 Dose: Not Given Documented by: Cyanocobalamin (Cyanocobalamin 1,000 Mcg/Ml Vial) 1,000 mcg IM Q2W [facility] Diphenhydramine HCl (Diphenhydramine 25 Mg Capsule) 25 mg PO Q6H PRN PRN Reason: Itching Last Admin: 10/02/21 00:24 Dose: 25 mg Documented by: Docusate Sodium (Docusate Sodium 100 Mg Capsule) 100 mg PO BID [facility] Last Admin: 10/06/21 10:13 Dose: Not Given Documented by: Folic Acid (Folic Acid 1 Mg Tablet) 1 mg PO DAILY [facility] Last Admin: 10/06/21 10:39 Dose: Not Given Documented by: Gabapentin (Gabapentin 300 Mg Capsule) 300 mg PO BID [facility] Last Admin: 10/06/21 10:39 Dose: Not Given Documented by: Guaifenesin (Guaifenesin 600 Mg Tab.Sr.12h) 600 mg PO Q12H PRN PRN Reason: Congestion Last Admin: 10/05/21 21:24 Dose: 600 mg Documented by: Thiamine HCl 300 mg/ Sodium (Chloride) 153 mls @ 126.5 mls/hr IV DAILY [facility] Thiamine HCl 300 mg/ Sodium (Chloride) 153 mls @ 103 mls/hr IV TID [facility] Stop: 10/08/21 10:30 Last Admin: 10/06/21 15:12 Dose: 103 mls/hr Documented by: Sodium Chloride (Sodium Chloride 0.9%) 250 mls @ 10 mls/hr IV .Q24H [facility] Last Admin: 10/06/21 15:23 Dose: Not Given Documented by: Albumin Human (Buminate) 12.5 gm in 50 mls @ 100 mls/hr IV Q12H [facility] Last Infusion: 10/06/21 12:30 Dose: Infused Documented by: Dopamine HCl/Dextrose 400 mg/ (Premix) 250 mls @ 9.677 mls/hr IV .Q24H [facility]; Pro tocol Last Admin: 10/06/21 12:03 Dose: 2.8 mcg/kg/min, 9.677 mls/hr Documented by: Lactulose (Lactulose 20 Gm/30 Ml Oral.Petra) 30 gm PO TID [facility] Last Admin: 10/06/21 15:23 Dose: Not Given Documented by: Lactulose (Lactulose 20 Gm/30 Ml Oral.Petra) 30 gm PO TIDP PRN PRN Reason: constipation Lorazepam (Lorazepam 2 Mg/Ml Vial) 0 mg IV Q4HP PRN; Protocol PRN Reason: Alcohol Withdrawal Last Admin: 10/06/21 15:50 Dose: 2 mg Documented by: Metoclopramide HCl (Metoclopramide 10 Mg/2 Ml Vial) 5 mg IV Q6HP PRN PRN Reason: Nausea And Vomiting Last Admin: 10/03/21 14:58 Dose: 5 mg Documented by: Nicotine (Nicotine 21 Mg Patch) 21 mg TOPICAL DAILY@1000 [facility] Last Admin: 10/06/21 10:20 Dose: 21 mg Documented by: Octreotide Acetate (Octreotide Acetate 100 Mcg/Ml Vial) 100 mcg SQ Q8H [facility] Last Admin: 10/06/21 11:55 Dose: 100 mcg Documented by: Ondansetron HCl (Ondansetron 4 Mg/2 Ml Vial) 4 mg IV Q4HP PRN; Protocol PRN Reason: Nausea And Vomiting Last Admin: 10/05/21 08:05 Dose: 4 mg Documented by: Oxycodone HCl (Oxycodone Hcl 5 Mg Tablet) 5 mg PO Q6HP PRN; Protocol PRN Reason: Per Pain Protocol Last Admin: 10/05/21 17:43 Dose: 5 mg Documented by: Pantoprazole Sodium (Pantoprazole 40 Mg Vial) 40 mg IV BIDAC [facility] Last Admin: 10/06/21 07:10 Dose: 40 mg Documented by: Emollient Combo No. 59 (Bulk) [Custom Base Pcca] Cream 1 dose TOPICAL BID [facility] Last Admin: 10/06/21 13:24 Dose: Not Given Documented by: Fluticasone- Umeclidin-Vilanter [ Trelegy Ellipta] Inhaler 1 dose INH Q24H [facility] Last Admin: 10/05/21 21:25 Dose: 1 dose Documented by: Senna (Sennosides 1 Tablet) 2 tab PO HS PRN PRN Reason: constipation Sodium Chloride (0.9 % Sodium Chloride 10 Ml Syringe) 10 ml IV Q8 [facility] Last Admin: 10/06/21 15:23 Dose: 10 ml Documented by: Sodium Chloride (0.9 % Sodium Chloride 10 Ml Syringe) 10 ml IV UD PRN PRN Reason: Central Line Maintence ABG Interpretation ABG results: 10/03/21 16:16 ABG Methemoglobin 0.1 L VBG pH 7.43 H VBG pCO2 36.6 L VBG pO2 88.5 H VBG HCO3 23.7 L VBG Total CO2 24.8 L VBG O2 Saturation 91.2 H VBG Base Excess 0 A/P Narrative A/P Narrative: Assessment: 61 year old female with a past medical history not limited to SILVA, COPD, nocturnal hypoxia, vitamin B12 deficiency, degenerative disc disease, obesity, tobacco use disorder who presented to the emergency department after a fall at home and found to have a distal left radius fracture in the ED. The patient was also found to be severely volume overloaded and to have severe hyponatremia. The patient was admitted for severe hyponatremia which gradually resolved. The cause of hyponatremia was likely a combination of beer potomania and liver cirrhosis. The patient was encephalopathic upon admission likely secondary to hepatic encephalopathy. She later developed agitation which is felt to be secondary to alcohol withdrawal. Additionally, the patient developed an acute kidney injury after receiving IV Lasix for hypervolemia in the setting of hyponatremia. Nephrology has been following, the patient has been receiving treatment for hepatorenal syndrome. The patient also developed anemia of unce rtain etiology, that has been treated with Protonix IV twice daily. General surgery did not feel that an EGD was warranted at this time. #Volume overload -Probably secondary to liver cirrhosis. -TTE report was fairly unremarkable. -Urine protein creatinine ratio normal -Initially refractory to IV Lasix as the patient developed acute kidney injury. #Decompensated liver cirrhosis -Likely secondary to SILVA and alcohol use disorder -Ascites was present on initial abdominal ultrasound -Ammonia elevated -MELD-Na score was 23 #Acute alcoholic hepatitis -Did not qualify for prednisolone based on MDF score. #Encephalopathy likely combined hepatic encephalopathy and alcohol withdrawal #Concern for liver mass versus atypical fatty infiltration on CT abdomen pelvis -Alpha fetoprotein level was normal #Acute kidney injury, concern for hepatorenal syndrome #Acute anemia #Macrocytosis likely secondary to alcohol use disorder -Vitamin B12 and folate normal. #COPD #Chronic nocturnal hypoxia #Degenerative disc disease #Anxiety disorder #Severe alcohol use disorder #Tobacco use disorder #Reported history of peptic ulcer disease #Obesity BMI 38 #Distal left intra-articular radius fracture -Has splint on left wrist. -discussed with Dr. Christopher: nonoperative fracture Plan -Dopamine, octreotide, albumin IV per nephrology. -Monitoring renal function, holding diuretics for now. -Monitor volume status, urine output, renal function, electrolytes. -Continue lactulose, goal is 2-3 loose BMs per day. -Rifaximin 550 mg BID. -Monitor hemoglobin. -Protonix IV twice daily for now -Stool guaiac x3. -Analgesics prn, avoid NSAIDs. -Monitor CIWA with Ativan IV as needed. -High dose thiamine IV, folic acid, vitamin B12 supplementation. -Nicotine patch. -Continue essential home medications. -Remove IJ central line when no longer necessary. -Consider GI consult on 10/08/2021, Dr. Driver will be available next week. -Low-sodium and fluid restricted diet. -PT consult. -Nephrology following. -DVT prophylaxis: SCDs for downtrending hemoglobin. -CODE STATUS: Full -Disposition: TBD, follow up with ortho in clinic for left radial fracture. GI referral for liver cirrhosis. Time Spent With Patient Time: Total time spent is greater than 50% in coordination of care (as documented) at patient's floor/unit and/or counseling patient:
[2021-10-06] MEDS: Fluticasone-Umeclidin-Vilanter [Trelegy Ellipta] Inhaler INH SCH (21:28)
[2021-10-07] MEDS: 0.9 % SODIUM CHLORIDE 10 ML SYRINGE IV SCH ×3 (03:43→14:54)
[2021-10-07] MEDS: ALBUMIN HUMAN 12.5 GM/50 ML BAG IV SCH ×2 (03:45→13:14)
[2021-10-07] MEDS: OCTREOTIDE ACETATE 100 MCG/ML VIAL SQ SCH ×3 (04:18→21:30)
[2021-10-07] MEDS: PANTOPRAZOLE 40 MG VIAL IV SCH ×2 (06:31→17:42)
[2021-10-07 06:56] LABS: Basophils # (Auto) 0.04 K/mcL (0.00-0.30); Basophils % (Auto) 0.4 % (0.0-2.0); Eosinophils # (Auto) 0.12 K/mcL (0.00-0.70); Eosinophils % (Auto) 1.3 % (0.0-7.0); Hemoglobin 8.8 g/dL (11.2-15.7); Lymphocytes # (Auto) 0.82 K/mcL (1.50-4.80); Lymphocytes % (Auto) 9.1 % (15.5-49.0); Mean Cell Volume 127.5 fL (80.0-100.0); Mean Corpuscular HGB Conc 33.8 g/dL (31.0-36.0); Mean Platelet Volume 10.6 fL (7.4-10.4); Monocytes % (Auto) 12.2 % (1.0-12.0); Platelet Count 133 K/mcL (140-440); RBC 2.04 M/mcL (3.59-5.38)
[2021-10-07 07:07] LABS: ALT/SGPT 53 U/L (<40); AST/SGOT 109 U/L (<32); Albumin 3.2 gm/dL (3.2-5.2); Albumin/Globulin Ratio 1.5 (1.0-2.3); Alkaline Phosphatase 184 U/L (39-117); Bilirubin,Direct 1.7 mg/dL (<0.3); Bilirubin,Total 2.5 mg/dL (0.1-1.0); Blood Urea Nitrogen 12 mg/dL (8-23); Calcium 8.2 mg/dL (8.6-10.4); Carbon Dioxide 24 mmol/L (22-30); Chloride 102 mmol/L (96-108); Globulin 2.1 gm/dL (2.2-3.7); Glomerular Filtration Rate 60; Glucose 118 mg/dL (70-105); Lactate Dehydrogenase 682 U/L (135-225); Phosphorous 3.3 mg/dL (2.5-4.5); Triglycerides 108 mg/dL (<150); Uric Acid 13.1 mg/dL (2.5-8.0)
[2021-10-07] MEDS: SODIUM CHLORIDE 0.9% IV SCH ×3 (08:50→21:30)
[2021-10-07] MEDS: THIAMINE IV SCH ×3 (08:50→21:30)
--- NOTE | 2021-10-07 09:08 | Nephrology Progress Note ---
SUBJECTIVE Subjective Patient information: Note initiated : 10/07/21 at 9:04 am Service Date, if different from initiated Date: [] Patient: Caleb Kern 61 y/o F admitted on 09/30/21 for left arm pain, fall yesterday. Chief Complaint: [Left wrist Fx] Principal diagnosis: Severe hypervolemic hyponatremia Interval history: To my eye, alteration in MS proceeding to obtundation is much more likely hepatic encephalopathy + benzodiazepine than EtOH withdrawal but either is possible and both have atypical features making a clear distinction difficult ARF and severe hyponatremia have resolved with treatment of presumed HRS with colloid, octreotide and dopamine Definite evidence of fatty liver with transition to cirrhosis with portal HTN (enlarged port vein on recent CT with ascites) now existes Laboratory Tests 10/06/21 10/07/21 12:00 05:10 Sodium 139 Potassium 3.5 Chloride 102 Carbon Dioxide 24 Anion Gap 13.0 BUN 12 Creatinine 1.0 GFR Calculation 60 Glucose 118 H Uric Acid 13.1 H Calcium 8.2 L Phosphorus 3.3 Magnesium 1.7 Albumin 3.2 Alpha Fetoprotein 2.1 Pertinent ROS: N/A Additional PMFSH (Level 3 Only): N/A Constitutional Vitals: Vital Signs Temp Pulse Resp BP Pulse Ox 36.9 C 12 L 15 133/75 94 10/07/21 08:01 10/06/21 10:01 10/07/21 08:01 10/07/21 08:01 10/07/21 08:01 Period Temp Pulse Resp BP Sys/Altman Pulse Ox Last 24 Hr 36.3 C-36.9 C 12-14 9-16 94-141/63-95 93-100 Intake and Output 10/06/21 10/07/21 10/07/21 20:59 05:59 13:59 Intake Total Output Total 100 Balance -100 Weight Intake & Output: Intake & Output 10/06/21 10/07/21 10/07/21 20:59 05:59 13:59 Intake Total Output Total 100 Balance -100 Weight Intake: IV Vitamin B1 300 mg In Sodium Chloride 0.9% 150 ml @ 103 mls/ hr IV [facility] Rx#:[id number] Output: Urine Catheter Amount 100 Uretheral (Brurell) Other: Urine Appearance Clear Uretheral (Burrell) Clear Urine Color Light Isabel Uretheral (Burrell) Dark Yellow Urine Odor General appearance: disheveled and obese Head Head exam: Present normocephalic Eye Eye exam: Absent scleral icterus (scleral edema) Pupils: Present PERRL ENT ENT exam: Present mucous membranes dry Neck Neck exam: Absent meningismus Respiratory Respiratory exam: Present CTAB Cardiovascular Cardiovascular exam: Present normal rate and rhythm, +S1 and +S2; Absent JVD or systolic murmur GI/Abdominal GI/Abdominal exam: Present diminished bowel sounds and distended Additional comments: burrell in place Neurological Exam Neurological exam: Present altered (lethargic but arousable...recognized son but then fell back asleep) and CN II-XII intact Psychiatric Additional comments: lethargic and confused Skin Skin exam: Present dry and mottled A/P Assessment and plan (1) Cirrhosis with alcoholism: Status: Chronic Comment: Stop all EtOH consumption EtOH rehab...[facility] has highest success rate No indication for steroids for acute alcoholic hepatitis (2) ARF (acute renal failure): Status: Acute Comment: Diuretic related in a patient with reduced effective cirrulating volume (3) Oliguria and anuria: Status: Acute Comment: 10/06/2021: Colloid for ECF volume expansion 10/06/2021: Start Octreotide and dopamine for HRS / diuretic resistance in cirrhosis 10/07/2021: Start high dose aldactone 100 mg po qD (4) Hyponatremia: Status: Chronic Comment: PO fluid restrict Increase protein intake For now, volume expand with colloid...hold diuretics till => aldactone 100 mg/day Low sodium intake (5) Acquired hypophosphatemia: Status: Acute Comment: High risk for "refeeding" hypophos, hypo K and hypoMg Narrative A/P Narrative: Assessment and plan (1) Hyponatremia: Improved/resolved (2) ARF (acute renal failure):Better with treatment of presume HRS More loop diuretics in refractory ascites only leading to further decrease in GFR. Situation grave. I'm in favor of octreotide/midodrine and aldactone, lasix and sodium restriction (3) Oliguria and anuria:Speaks to the Dx of HRS (4) Cirrhosis with alcoholism:Main issue (5) Acquired hypophosphatemia: Replaced When po access available start spironolactone. Diuretic resistant Ascites summary from Up To Date SUMMARY AND RECOMMENDATIONS Diuretic-resistant ascites in patients with cirrhosis is considered to be present when at least one of the following criteria is present in the absence of therapy with a nonsteroidal antiinflammatory drug (NSAID), which can induce renal vasoconstriction and diminish diuretic responsiveness An inability to mobilize ascites despite confirmed adherence to the dietary so dium restriction (88 mEq [2000 mg] per day) and the administration of maximum tolerable doses of oral diuretics (400 mg per day ofspironolactoneand 160 mg per day offurosemide Rapid reaccumulation of fluid after therapeutic paracentesis. The development of diuretic-related complications such as progressive azotemia, hepatic encephalopathy, or progressive electrolyte imbalances. Ascites is truly diuretic resistant in approximately 10 percent of patients with cirrhosis and ascites. Patients who are diuretic resistant should continue to follow a low-sodium diet (88 mEq [2000 mg] per day). Diuretics should be discontinued if the urine sodium is <30 mEq per day. Liver transplantation is the only definitive therapeutic option for patients with diuretic-resistant ascites, but patients who are awaiting transplantation or who are not transplantation candidates need to have their ascites managed. We suggest beta blockersnotbe initiated in patients with diuretic-resistant ascites or, if the patient is already taking a beta zeke, that it be discontinued . Beta blockers appear to reduce survival in patients with refractory ascites or spontaneous bacterial peritonitis (SBP). In addition, we discontinue beta blockers in patients who present with SBP, bleeding, azotemia, severe alcoholic hepatitis, or hypotension. If the patient's blood pressure and azotemia improve off the beta zeke, it can be restarted cautiously with careful monitoring of blood pressure (including in home monitoring) and renal function. However, among patients with SBP, we discontinue the beta zeke permanently. Other medications to avoid include angiotensin converting enzyme inhibitors, angiotensin receptor blockers, and NSAIDS. We suggest that patients with cirrhosis who have hypotension and/or diuretic- resistant ascites and who do not respond to dietary modifications, education, discontinuation of beta blockers, and appropriately-prescribed diuretics be treated with oralmidodrine. Midodrine is an oral vasopressor that will usually increase blood pressure in advanced cirrhosis, resulting in improved renal perfusion. We start with 5 mg orally three times daily and adjust the dose every 24 hours (maximal dose 17.5 mg three times daily) to achieve a mean arterial pressure >82 mm Hg mmHg. We suggest that patients with diuretic-resistant ascites who do not adequately respond to noninvasive treatments undergo serial large-volume paracentesis rather than transjugular intrahepatic portosystemic shunt (TIPS) placement as initial therapy Large-volume paracentesis is generally well tolerated, whereas TIPS placement frequently results in hepatic encephalopathy. The necessity of plasma expansion after large-volume paracentesis remains controversial. We suggestalbumin solutionbe given (6 to 8 grams of albumin/liter of fluid removed) when >= liters of ascites are removed TIPS may be more effective than serial paracenteses in carefully selected patients, but the effectiveness of TIPS in heterogeneous patient populations and centers with varying experience with TIPS has yet to be established. We consider referring a patient for TIPS if the following conditions are met: The patient has diuretic-resistant ascites. The patient is intolerant of paracentesis or is requiring very frequent paracentesis (eg, weekly). The patient has Child-Hernandez class A or B cirrhosis The patient has a Model for End-stage Liver Disease score <18 The patient is <65 years of age. A caregiver is present in the home. The patient does not have alcoholic hepatitis. The patient's cardiac ejection fraction is >60 percent. The patient does not have a history of severe, spontaneous (ie, in the absence of gut bleeding, infection, or dehydration) hepatic encephalopathy or other injury to the central nervous system (eg, prior subdural bleeding, brain absces s, or cerebrovascular accident). Time Spent With Patient Time: Total time spent is greater than 50% in coordination of care (as documented) at patient's floor/unit and/or counseling patient: Total time spent with greater than 50% in coordination of care (as documented) at patient's floor/unit and/or counseling patient::Greater than 35 minutes Time Spent With Patient Time: Total time spent is greater than 50% in coordination of care (as documented) at patient's floor/unit and/or counseling patient:
[2021-10-07] MEDS: LACTULOSE 20 GM/30 ML ORAL.SOL PO SCH ×3 (09:09→21:00)
--- NOTE | 2021-10-07 11:16 | Internal Med Progress Note ---
SUBJECTIVE Subjective Patient information: Note initiated : 10/07/21 at 11:09 am Service Date, if different from initiated Date: [] Patient: Caleb Kern 61 y/o F admitted on 09/30/21 for left arm pain, fall yesterday. Chief Complaint: [] Principal diagnosis: Severe hypervolemic hyponatremia Interval history: Ms. Kern is a 61 year old female with a past medical history not limited to SILVA, COPD, nocturnal hypoxia, vitamin B12 deficiency, degenerative disc disease, obesity, tobacco use disorder who presented to the emergency department after a fall at home for further evaluation of left wrist pain. X-ray of the left wrist showed an intraarticular fracture of the distal radius. The patient was noted to be hypervolemic in the emergency department, CBC and chemistry panel were ordered showing severe hyponatremia with a sodium level of 116. Additionally, labs showed a mild leukocytosis of 12.3, severe macrocytosis, thrombocytopenia, anion gap metabolic acidosis, bilirubin of 1.8 and ALT and AST elevated compared to the patient's prior labs from 2020. Patient also had a NT proBNP of 441, 1 view chest x-ray did not show any pulmonary vascular congestion. The patient had a markedly elevated D-dimer of 6.89. The patient has not been having any shortness of breath recently and was comfortable on room air in the emergency department. The patient received Lasix IV in the emergency department. Hospital medicine was consulted for admission and management of severe hyponatremia. The patient says that she has been experiencing intermittent bilateral lower extremity edema for some time and that they have always resolved. The current amount of edema is more severe than prior episodes. She denies recent dyspnea, has not noticed any significant changes in urination. Patient says that she has known about "fatty liver disease" for some time. She does drink a significant amount of alcohol which us ually contains vodka on an almost daily basis. We discussed the goals of admission which include a gradual correction of her sodium level. We also discussed further work-up which will focus on cardiac, liver and renal pathologies that could explain hypovolemic hyponatremia. We discussed CODE STAT US in detail, the patient wishes to be full code. 10/01 Urine protein creatinine ratio was normal, TSH and morning cortisol levels nikhil l. blood smear was not suggestive of a sinister hematologic process. Vitamin B12 level elevated, folate level normal. INR was 1.2. Sodium trended up to 120s and down to 119, the patient received 100 mL of 3% saline followed by increase in sodium to 122. Patient has not made significant urine after receiving a dose of Lasix 80 mg IV. Volume overloaded as on admission with bilateral lower extremity pitting edema. Abdominal ultrasound showed fatty liver, possible steatohepatitis or early stage cirrhosis, small to moderate amount of ascites was present, normal directional blood flow and hepatic and portal veins. Bilateral lower extremity venous duplex ultrasound was negative for DVT. Transthoracic echocardiogram report pending. 10/02 Creatinine increased, discontinued lasix and consulted nephrology. Nephrology started albumin, recommended holding on diuretics at this time. 10/03 TTE was fairly unremarkable, etiology for hyponatremia is likely a liver cirrhosis combined with alcohol use. Patient is more confused now, likely secondary to hepatic encephalopathy as ammonia has also been elevated. Hemoglobin trending down, started Protonix IV twice daily. Trending hemoglobin, will consider consulting general surgery for EGD if this trends down further. Sodium slightly improved now at 123. Renal function slightly improved, creatinine 1.3 today. 10/04 The patient is more alert and oriented today but still confused, ammonia level still elevated in spite of increase in lactulose. Hemoglobin trending up now, will continue Protonix IV BID for now and likely transition to oral PPI therapy in 1-2 days. The patient does have a history of peptic ulcer and had been taking Ibuprofen prior to admission but with hemoglobin trending up on a PPI and EGD may not be high yield. GI consult currently not available at [facility]. Nephrology started Octreotide and Midodrine in addition to Albumin IV. Renal function is about the same, sodium about the same as yesterday. The patient is still markedly hypervolemic. 10/05 Low urine output, nephrology started IV fluid, no longer on octreotide, midodrine and albumin IV. Urine output did improve somewhat today but still low relative to the patient's hypervolemic volume status. Ammonia increasing and the patient continues to be confused and having intermittent hallucinations. CIWA score was 10 but clinically does not appear to be in withdrawal and the patient does not feel like she is in alcohol withdrawal. Started lactulose enema every 6 hours. Started high-dose thiamine IV supplementation. abdomen pelvis without contrast showed moderate hepatomegaly with a large low attenuating region infiltrating the entire lateral right hepatic lobe and a smaller region in the lateral segment of the left hepatic lobe, may represent atypical fatty infiltration however hepatocellular carcinoma or liver metastasis could have a similar appearance. There was also developing liver cirrhosis with mild enlargement of the portal vein, moderate splenomegaly and moderate ascites. Radiology recommended an MRI of the abdomen. We will have to defer MRI of the abdomen until the patient is no longer encephalopathic. Alpha fetoprotein level was normal. 10/06 The patient is more confused overnight suspect the patient is withdrawing from alcohol. Receiving Ativan IV as needed per CIWA protocol. This have been blunted initially by hepatic encephalopathy and the patient was also taking home Ativan as needed. Ammonia improved after a couple lactulose enemas overnight. CT head without contrast did not show any acute changes. Renal function is similar to yesterday. Nephrology started dopamine, octreotide and albumin IV. Discussed anemia with general surgery, Dr. Curiel deferred EGD at this time as h e felt it would not be a high yield work-up. 10/07 Vital stable overnight, less agitated today, CIWA scores have improved. Renal function has improved. Ammonia level 90, down from a high of 109. Hemoglobin about the same as yesterday, 8.8. We will get an abdominal ultrasound to evaluate the extent of ascites today. Peripheral blood smear ordered for anemia and macrocytosis. Physical exam Head: Atraumatic, normal inspection. Eyes: normal appearance, no scleral icterus. Neck: full ROM Respiratory: Nasal cannula oxygen, does not appear to be in respiratory distress. Cardiovascular: Regular tachycardia, S1, S2. GI/Abdominal: Distended abdomen, soft, nontender, no guarding. Extremities: Bilateral lower extremity 3+ pitting edema Neurological: CN II-XII intact, intact motor, intact sensation. Psychiatric: Does not appear anxious, patient is confused. Skin: Spider angiomas present in upper extremities, upper chest, upper back. Constitutional Vitals: Vital Signs Temp Pulse Resp BP Pulse Ox 98.4 F 12 L 17 112/48 87 L 10/07/21 08:01 10/06/21 10:01 10/07/21 10:01 10/07/21 10:10/07/21 10:01 Period Temp Pulse Resp BP Sys/Altman Pulse Ox Last 24 Hr 97.4 F-98.4 F 9-19 94-141/48-95 87-100 Intake and Output 10/06/21 10/07/21 10/07/21 20:59 05:59 13:59 Intake Total 153 Output Total 250 Balance -97 Weight Intake & Output: Intake & Output 10/06/21 10/07/21 10/07/21 20:59 05:59 13:59 Intake Total 153 Output Total 250 Balance -97 Weight Intake: IV 153 Vitamin B1 300 mg In Sodium 153 Chloride 0.9% 150 ml @ 103 mls/ hr IV TID [facility] Rx#:[id number] Output: Urine Catheter Amount 250 Uretheral ([place]) Other: Urine Appearance Clear Uretheral ([place]ama) Clear Urine Color Dark Isabel Uretheral ([place]) Dark Yellow Urine Odor OBJ DATA Labs CBC & Chem 7: 10/07/21 05:10 10/07/21 05:10 Labs: Abnormal Lab Results 10/07/21 10/07/21 10/07/21 10:01 05:10 05:10 RBC 2.04 L Hgb 8.8 L Hct 26.0 L MCV 127.5 H MCH 43.1 H RDW 16.0 H Plt Count 133 L MPV 10.6 H Lymph % (Auto) 9.1 L Lumpkin % (Auto) 12.2 H Lymph # (Auto) 0.82 L [place] # (Auto) 1.10 H PT INR Sodium Chloride Creatinine Glucose 118 H Uric Acid 13.1 H Calcium 8.2 L Phosphorus Total Bilirubin 2.5 H Direct Bilirubin 1.7 H GGT 423 H AST 109 H ALT 53 H Alkaline Phosphatase 184 H Ammonia 90 H Lactate Dehydrogenase 682 H Total Protein 5.3 L Albumin Globulin 2.1 L 10/06/21 10/06/21 10/06/21 12:01 05:25 05:25 RBC 1.89 L Hgb 8.7 L 8.3 L Hct 24.0 L MCV 127.0 H MCH 43.9 H RDW 15.6 H Plt Count 112 L MPV 11.2 H Lymph % (Auto) 8.8 L [place] % (Auto) 14.2 H Lymph # (Auto) 0.63 L [place] # (Auto) 1.02 H PT INR Sodium Chloride Creatinine 1.6 H Glucose 121 H Uric Acid 12.4 H Calcium 8.2 L Phosphorus Total Bilirubin 2.0 H Direct Bilirubin 1.4 H GGT 434 H AST 89 H ALT 58 H Alkaline Phosphatase 195 H Ammonia Lactate Dehydrogenase 780 H Total Protein 5.0 L Albumin 2.9 L Globulin 2.1 L 10/06/21 10/05/21 10/05/21 05:24 07:46 07:46 RBC Hgb Hct MCV MCH RDW Plt Count MPV Lymph % (Auto) [place] % (Auto) Lymph # (Auto) [place] # (Auto) PT INR Sodium 131 L Chloride 95 L Creatinine 1.6 H Glucose 125 H Uric Acid 11.9 H Calcium 8.4 L Phosphorus Total Bilirubin 2.8 H Direct Bilirubin 2.0 H GGT 520 H AST 90 H ALT 63 H Alkaline Phosphatase 200 H Ammonia 85 H 109 H Lactate Dehydrogenase 841 H Total Protein 5.3 L Albumin 3.0 L Globulin 10/05/21 10/05/21 10/04/21 07:46 07:46 09:53 RBC 2.18 L Hgb 9.4 L Hct 27.3 L MCV 125.2 H MCH 43.1 H RDW 15.5 H Plt Count 125 L MPV 10.8 H Lymph % (Auto) 9.5 L [place] % (Auto) 12.8 H Lymph # (Auto) 0.80 L [place] # (Auto) 1.08 H PT 17.1 H INR 1.3 H Sodium Chloride Creatinine Glucose Uric Acid Calcium Phosphorus 2.1 L Total Bilirubin Direct Bilirubin GGT AST ALT Alkaline Phosphatase Ammonia Lactate Dehydrogenase Total Protein Albumin Globulin 10/04/21 09:53 RBC Hgb Hct MCV MCH RDW Plt Count MPV Lymph % (Auto) [place] % (Auto) Lymph # (Auto) [place] # (Auto) PT 17.2 H INR 1.3 H Sodium Chloride Creatinine Glucose Uric Acid Calcium Phosphorus Total Bilirubin Direct Bilirubin GGT AST ALT Alkaline Phosphatase Ammonia Lactate Dehydrogenase Total Protein Albumin Globulin Meds: Medications Acetaminophen (Acetaminophen 325 Mg Tablet) 325 mg PO Q6HP PRN; Protocol PRN Reason: Per Pain Protocol Albuterol Sulfate (Albuterol Sulfate 200 Puff Inhaler) 1 puff INH Q4-6HP PRN PRN Reason: Shortness Of Breath Last Admin: 10/06/21 15:12 Dose: 1 puff Documented by: Benzonatate (Benzonatate 100 Mg Capsule) 100 mg PO TID PRN PRN Reason: cough Last Admin: 10/05/21 07:48 Dose: 100 mg Documented by: Buspirone HCl (Buspirone 15 Mg Tablet) 7.5 mg PO BID [facility] Last Admin: 10/06/21 21:28 Dose: Not Given Documented by: Clotrimazole (Clotrimazole 10 Mg Yvette) 10 mg PO 5XD [facility] Last Admin: 10/06/21 21:27 Dose: Not Given Documented by: Cyanocobalamin (Cyanocobalamin 1,000 Mcg/Ml Vial) 1,000 mcg IM Q2W [facility] Diphenhydramine HCl (Diphenhydramine 25 Mg Capsule) 25 mg PO Q6H PRN PRN Reason: Itching Last Admin: 10/02/21 00:24 Dose: 25 mg Documented by: Docusate Sodium (Docusate Sodium 100 Mg Capsule) 100 mg PO BID [facility] Last Admin: 10/06/21 21:28 Dose: Not Given Documented by: Folic Acid (Folic Acid 1 Mg Tablet) 1 mg PO DAILY [facility] Last Admin: 10/06/21 10:39 Dose: Not Given Documented by: Gabapentin (Gabapentin 300 Mg Capsule) 300 mg PO BID [facility] Last Admin: 10/06/21 21:28 Dose: Not Given Documented by: Guaifenesin (Guaifenesin 600 Mg Tab.Sr.12h) 600 mg PO Q12H PRN PRN Reason: Congestion Last Admin: 10/05/21 21:24 Dose: 600 mg Documented by: Thiamine HCl 300 mg/ Sodium (Chloride) 153 mls @ 126.5 mls/hr IV DAILY [facility] Thiamine HCl 300 mg/ Sodium (Chloride) 153 mls @ 103 mls/hr IV TID [facility] Stop: 10/08/21 10:30 Last Infusion: 10/07/21 10:20 Dose: Infused Documented by: Sodium Chloride (Sodium Chloride 0.9%) 250 mls @ 10 mls/hr IV .Q24H [facility] Last Admin: 10/06/21 15:23 Dose: Not Given Documented by: Albumin Human (Buminate) 12.5 gm in 50 mls @ 100 mls/hr IV Q12H [facility] Last Infusion: 10/07/21 04:15 Dose: Infused Documented by: Dopamine HCl/Dextrose 400 mg/ (Premix) 250 mls @ 9.677 mls/hr IV .Q24H [facility]; Protocol Last Admin: 10/06/21 12:03 Dose: 2.8 mcg/kg/min, 9.677 mls/hr Documented by: Lactulose (Lactulose 20 Gm/30 Ml Oral.Petra) 30 gm PO TID [facility] Last Admin: 10/07/21 09:09 Dose: 30 gm Documented by: Lactulose (Lactulose 20 Gm/30 Ml Oral.Petra) 30 gm PO TIDP PRN PRN Reason: constipation Lorazepam (Lorazepam 2 Mg/Ml Vial) 0 mg IV Q4HP PRN; Protocol PRN Reason: Alcohol Withdrawal Last Admin: 10/06/21 15:50 Dose: 2 mg Documented by: Metoclopramide HCl (Metoclopramide 10 Mg/2 Ml Vial) 5 mg IV Q6HP PRN PRN Reason: Nausea And Vomiting Last Admin: 10/03/21 14:58 Dose: 5 mg Documented by: Nicotine (Nicotine 21 Mg Patch) 21 mg TOPICAL DAILY@1000 [facility] Last Admin: 10/06/21 10:20 Dose: 21 mg Documented by: Octreotide Acetate (Octreotide Acetate 100 Mcg/Ml Vial) 100 mcg SQ Q8H [facility] Last Admin: 10/07/21 04:18 Dose: 100 mcg Documented by: Ondansetron HCl (Ondansetron 4 Mg/2 Ml Vial) 4 mg IV Q4HP PRN; Protocol PRN Reason: Nausea And Vomiting Last Admin: 10/05/21 08:05 Dose: 4 mg Documented by: Oxycodone HCl (Oxycodone Hcl 5 Mg Tablet) 5 mg PO Q6HP PRN; Protocol PRN Reason: Per Pain Protocol Last Admin: 10/05/21 17:43 Dose: 5 mg Documented by: Pantoprazole Sodium (Pantoprazole 40 Mg Vial) 40 mg IV BIDAC [facility] Last Admin: 10/07/21 06:31 Dose: 40 mg Documented by: Emollient Combo No. [id number] (Bulk) [Custom Base Pcca] Cream 1 dose TOPICAL BID [facility] Last Admin: 10/06/21 21:28 Dose: Not Given Documented by: Fluticasone- Umeclidin-Vilanter [ Trelegy Ellipta] Inhaler 1 dose INH Q24H [facility] Last Admin: 10/06/21 21:28 Dose: Not Given Documented by: Senna (Sennosides 1 Tablet) 2 tab PO HS PRN PRN Reason: constipation Sodium Chloride (0.9 % Sodium Chloride 10 Ml Syringe) 10 ml IV Q8 [facility] Last Admin: 10/07/21 05:55 Dose: 10 ml Documented by: Sodium Chloride (0.9 % Sodium Chloride 10 Ml Syringe) 10 ml IV UD PRN PRN Reason: Central Line Maintence ABG Interpretation ABG results: 10/03/21 16:16 ABG Methemoglobin 0.1 L VBG pH 7.43 H VBG pCO2 36.6 L VBG pO2 88.5 H VBG HCO3 23.7 L VBG Total CO2 24.8 L VBG O2 Saturation 91.2 H VBG Base Excess 0 A/P Narrative A/P Narrative: Assessment: 61 year old female with a past medical history not limited to SILVA, COPD, nocturnal hypoxia, vitamin B12 deficiency, degenerative disc disease, obesity, tobacco use disorder who presented to the emergency department after a fall at home and found to have a distal left radius fracture in the ED. The patient was also found to be severely volume overloaded and to have severe hyponatremia. The patient was admitted for severe hyponatremia which gradually resolved. The cause of hyponatremia was likely a combination of beer potomania and liver cirrhosis. The patient was encephalopathic upon admission likely secondary to hepatic encephalopathy. She later developed agitation which is felt to be secondary to alcohol withdrawal. Additionally, the patient developed an acute kidney injury after receiving IV Lasix for hypervolemia in the setting of hyponatremia. Nephrology has been following, the patient has been receiving treatment for hepatorenal syndrome. The patient also developed anemia of uncertain etiology, that has been treated with Protonix IV twice daily. General surgery did not feel that an EGD was warranted at this time. #Volume overload -Probably secondary to liver cirrhosis. -TTE report was fairly unremarkable. -Urine protein creatinine ratio normal -Initially refractory to IV Lasix as the patient developed acute kidney injury. #Decompensated liver cirrhosis -Likely secondary to SILVA and alcohol use disorder -Ascites was present on initial abdominal ultrasound -Ammonia elevated but improved after starting lactulose. -MELD-Na score was about 25, now improving. #Acute alcoholic hepatitis -Did not qualify for prednisolone based on MDF score. #Encephalopathy likely combined hepatic encephalopathy and resolving alcohol withdrawal #Concern for liver mass versus atypical fatty infiltration on CT abdomen pelvis -Alpha fetoprotein level was normal #Acute kidney injury, concern for hepatorenal syndrome #Acute anemia #Macrocytosis likely secondary to alcohol use disorder -Vitamin B12 and folate normal. #COPD #Chronic nocturnal hypoxia #Degenerative disc disease #Anxiety disorder #Severe alcohol use disorder #Tobacco use disorder #Reported history of peptic ulcer disease #Obesity BMI 38 #Distal left intra-articular radius fracture -Has splint on left wrist. -discussed with Dr. Christopher: nonoperative fracture Plan -Dopamine, octreotide, albumin IV per nephrology. -Monitoring renal function, holding diuretics for now. -Monitor volume status, urine output, renal function, electrolytes. -Continue lactulose, goal is 2-3 loose BMs per day. -Rifaximin 550 mg BID. -Monitor hemoglobin. -Protonix IV twice daily for now -Stool guaiac x3. -Limited abdominal US to evaluate for drainable ascites. -Analgesics prn, avoid NSAIDs. -Monitor CIWA with Ativan IV as needed. -High dose thiamine IV, folic acid, vitamin B12 supplementation. -Peripheral blood smear for anemia and macrocytosis. -Nicotine patch. -Continue essential home medications. -Remove IJ central line when no longer necessary. -Consider GI consult. -Low-sodium and fluid restricted diet. -PT consult. -Nephrology following. -DVT prophylaxis: SCDs for recently downtrending hemoglobin. -CODE STATUS: Full -Disposition: TBD, follow up with ortho in clinic for left radial fracture. Recommend hepatology referral for liver cirrhosis. Time Spent With Patient Time: Total time spent is greater than 50% in coordination of care (as documented) at patient's floor/unit and/or counseling patient:
[2021-10-07] MEDS: CLOTRIMAZOLE 10 MG TROCHE PO SCH ×5 (11:19→21:28)
[2021-10-07] MEDS: NICOTINE 21 MG PATCH TOPICAL SCH (12:59)
[2021-10-07] MEDS: busPIRone 15 MG TABLET PO SCH (13:11)
[2021-10-07] MEDS: FOLIC ACID 1 MG TABLET PO SCH (13:12)
[2021-10-07] MEDS: [UNRECOGNIZED DRUG - OTHER] TOPICAL SCH ×2 (13:12→21:27)
[2021-10-07] MEDS: GABAPENTIN 300 MG CAPSULE PO SCH (13:12)
[2021-10-07] MEDS: DOCUSATE SODIUM 100 MG CAPSULE PO SCH ×2 (13:12→21:27)
[2021-10-07] MEDS: RIFAXIMIN 550 MG TABLET PO SCH (13:13)
[2021-10-07] MEDS: 0.9 % SODIUM CHLORIDE 250 ML IV SCH (13:14)
[2021-10-07] MEDS: DOPamine 400 MG in PREMIX 1 BAG IV SCH (13:49)
--- NOTE | 2021-10-07 14:29 | Internal Med Progress Note ---
SUBJECTIVE Subjective Patient information: Note initiated : 10/07/21 at 2:21 pm Service Date, if different from initiated Date: [] Patient: Caleb Kern 61 y/o F admitted on 09/30/21 for left arm pain, fall yesterday. Chief Complaint: [] Principal diagnosis: Severe hypervolemic hyponatremia Interval history: Ms. Kern is a 61 year old female with a past medical history not limited to SILVA, COPD, nocturnal hypoxia, vitamin B12 deficiency, degenerative disc disease, obesity, tobacco use disorder who presented to the emergency department after a fall at home for further evaluation of left wrist pain. X-ray of the l eft wrist showed an intraarticular fracture of the distal radius. The patient was noted to be hypervolemic in the emergency department, CBC and chemistry panel were ordered showing severe hyponatremia with a sodium level of 116. Additionally, labs showed a mild leukocytosis of 12.3, severe macrocytosis, thrombocytopenia, anion gap metabolic acidosis, bilirubin of 1.8 and ALT and AST elevated compared to the patient's prior labs from 2020. Patient also had a NT proBNP of 441, 1 view chest x-ray did not show any pulmonary vascular congestion. The patient had a markedly elevated D-dimer of 6.89. The patient has not been having any shortness of breath recently and was comfortable on room air in the emergency department. The patient received Lasix IV in the emergency department. Hospital medicine was consulted for admission and management of severe hyponatremia. The patient says that she has been experiencing intermittent bilateral lower extremity edema for some time and that they have always resolved. The current amount of edema is more severe than prior episodes. She denies recent dyspnea, has not noticed any significant changes in urination. Patient says that she has known about "fatty liver disease" for some time. She does drink a significant amount of alcohol which usually contains vodka on an almost daily basis. We discussed the goals of admission which include a gradual correction of her sodium level. We also discussed further work-up which will focus on cardiac, liver and renal pathologies that could explain hypovolemic hyponatremia. We discussed CODE STATUS in detail, the patient wishes to be full code. 3/ Urine protein creatinine ratio was normal, TSH and morning cortisol levels nikhil l. blood smear was not suggestive of a sinister hematologic process. Vitamin B12 level elevated, folate level normal. INR was 1.2. Sodium trended up to 120s and down to 119, the patient received 100 mL of 3% saline followed by increase in sodium to 122. Patient has not made significant urine after receiving a dose of Lasix 80 mg IV. Volume overloaded as on admission with bilateral lower extremity pitting edema. Abdominal ultrasound showed fatty liver, possible steatohepatitis or early stage cirrhosis, small to moderate amount of ascites was present, normal directional blood flow and hepatic and portal veins. Bilateral lower extremity venous duplex ultrasound was negative for DVT. Transthoracic echocardiogram report pending. 10/02 Creatinine increased, discontinued lasix and consulted nephrology. Nephrology started albumin, recommended holding on diuretics at this time. 10/03 TTE was fairly unremarkable, etiology for hyponatremia is likely a liver cirrhosis combined with alcohol use. Patient is more confused now, likely secondary to hepatic encephalopathy as ammonia has also been elevated. Hemoglobin trending down, started Protonix IV twice daily. Trending hemoglobin, will consider consulting general surgery for EGD if this trends down further. Sodium slightly improved now at 123. Renal function slightly improved, creatinine 1.3 today. 10/04 The patient is more alert and oriented today but still confused, ammonia level still elevated in spite of increase in lactulose. Hemoglobin trending up now, will continue Protonix IV BID for now and likely transition to oral PPI therapy in 1-2 days. The patient does have a history of peptic ulcer and had been taking Ibuprofen prior to admission but with hemoglobin trending up on a PPI and EGD may not be high yield. GI consult currently not available at [facility]. Nephrology started Octreotide and Midodrine in addition to Albumin IV. Renal function is about the same, sodium about the same as yesterday. The patient is still markedly hypervolemic. 10/05 Low urine output, nephrology started IV fluid, no longer on octreotide, midodrine and albumin IV. Urine output did improve somewhat today but still low relative to the patient's hypervolemic volume status. Ammonia increasing and the patient continues to be confused and having intermittent hallucinations. CIWA score was 10 but clinically does not appear to be in withdrawal and the patient does not feel like she is in alcohol withdrawal. Started lactulose enema every 6 hours. Started high-dose thiamine IV supplementation. abdomen pelvis without contrast showed moderate hepatomegaly with a large low attenuating region infiltrating the entire lateral right hepatic lobe and a smaller region in the lateral segment of the left hepatic lobe, may represent atypical fatty infiltration however hepatocellular carcinoma or liver metastasis could have a similar appearance. There was also developing liver cirrhosis with mild enlargement of the portal vein, moderate splenomegaly and moderate ascites. Radiology recommended an MRI of the abdomen. We will have to defer MRI of the abdomen until the patient is no longer encephalopathic. Alpha fetoprotein level was normal. 10/06 The patient is more confused overnight suspect the patient is withdrawing from alcohol. Receiving Ativan IV as needed per CIWA protocol. This have been blunted initially by hepatic encephalopathy and the patient was also taking home Ativan as needed. Ammonia improved after a couple lactulose enemas overnight. CT head without contrast did not show any acute changes. Renal function is similar to yesterday. Nephrology started dopamine, octreotide and albumin IV. Discussed anemia with general surgery, Dr. Curiel deferred EGD at this time as he felt it would not be a high yield work-up. 10/07 Vital stable overnight, less agitated today, CIWA scores have improved. Renal function has improved. Ammonia level 90, down from a high of 109. Hemoglobin about the same as yesterday, 8.8. We will get an abdominal ultrasound to evaluate the extent of ascites today. Peripheral blood smear ordered for anemia and macrocytosis. 10/08 Constitutional Vitals: Vital Signs Temp Pulse Resp BP Pulse Ox 98.2 F 12 L 15 124/69 93 10/07/21 12:01 10/06/21 10:01 10/07/21 14:01 10/07/21 14:00 10/07/21 13:01 Period Temp Pulse Resp BP Sys/Altman Pulse Ox Last 24 Hr 97.5 F-98.4 F 10-25 107-140/48-95 87-97 Intake and Output 10/07/21 10/07/21 10/07/21 05:59 13:59 21:59 Intake Total 393 Output Total 400 75 Balance -7 -75 Weight Intake & Output: Intake & Output 10/07/21 10/07/21 10/07/21 05:59 13:59 21:59 Intake Total 393 Output Total 400 75 Balance -7 -75 Weight Intake: IV 393 DOPamine 400 MG In Premix 1 Bag 240 @ 2.8 MCG/KG/MIN 9.677 mls/hr IV .Q24H [facility] Rx#:[id number] Vitamin B1 300 mg In Sodium 153 Chloride 0.9% 150 ml @ 103 mls/ hr IV TID [facility] Rx#:[id number] Output: Urine Catheter Amount 400 75 Uretheral (Gama) Other: Urine Appearance Cloudy Cloudy Uretheral (Gama) Clear Urine Color Dark Isabel Dark Isabel Uretheral (Gama) Dark Yellow Exam: General: Alert, Awake, No acute Distress Eyes/N/T: EOMI, Head/Neck: neck supple, CV: RRR, No murmurs, Pulm: Clear b/l, no wheezing/rhonchi/rales Abd: Distended abdomen, soft, nontender Ext: no clubbing/cyanosis, b/l LE 3+ edema Neuro: Alert, no focal deficits, moves all extremities, Skin: warm/dry, Spider angiomas present in upper extremities, upper chest, upper back. OBJ DATA Labs CBC & Chem 7: 10/07/21 05:10 10/07/21 05:10 Labs: Abnormal Lab Results 10/07/21 10/07/21 10/07/21 10:01 05:10 05:10 RBC 2.04 L Hgb 8.8 L Hct 26.0 L MCV 127.5 H MCH 43.1 H RDW 16.0 H Plt Count 133 L MPV 10.6 H Lymph % (Auto) 9.1 L Yates % (Auto) 12.2 H Lymph # (Auto) 0.82 L Yates # (Auto) 1.10 H PT INR Sodium Chloride Creatinine Glucose 118 H Uric Acid 13.1 H Calcium 8.2 L Total Bilirubin 2.5 H Direct Bilirubin 1.7 H GGT 423 H AST 109 H ALT 53 H Alkaline Phosphatase 184 H Ammonia 90 H Lactate Dehydrogenase 682 H Total Protein 5.3 L Albumin Globulin 2.1 L 10/06/21 10/06/21 10/06/21 12:01 05:25 05:25 RBC 1.89 L Hgb 8.7 L 8.3 L Hct 24.0 L MCV 127.0 H MCH 43.9 H RDW 15.6 H Plt Count 112 L MPV 11.2 H Lymph % (Auto) 8.8 L Yates % (Auto) 14.2 H Lymph # (Auto) 0.63 L Yates # (Auto) 1.02 H PT INR Sodium Chloride Creatinine 1.6 H Glucose 121 H Uric Acid 12.4 H Calcium 8.2 L Total Bilirubin 2.0 H Direct Bilirubin 1.4 H GGT 434 H AST 89 H ALT 58 H Alkaline Phosphatase 195 H Ammonia Lactate Dehydrogenase 780 H Total Protein 5.0 L Albumin 2.9 L Globulin 2.1 L 10/06/21 10/05/21 10/05/21 05:24 07:46 07:46 RBC Hgb Hct MCV MCH RDW Plt Count MPV Lymph % (Auto) Yates % (Auto) Lymph # (Auto) Yates # (Auto) PT INR Sodium 131 L Chloride 95 L Creatinine 1.6 H Glucose 125 H Uric Acid 11.9 H Calcium 8.4 L Total Bilirubin 2.8 H Direct Bilirubin 2.0 H GGT 520 H AST 90 H ALT 63 H Alkaline Phosphatase 200 H Ammonia 85 H 109 H Lactate Dehydrogenase 841 H Total Protein 5.3 L Albumin 3.0 L Globulin 10/05/21 10/05/21 07:46 07:46 RBC 2.18 L Hgb 9.4 L Hct 27.3 L MCV 125.2 H MCH 43.1 H RDW 15.5 H Plt Count 125 L MPV 10.8 H Lymph % (Auto) 9.5 L Yates % (Auto) 12.8 H Lymph # (Auto) 0.80 L Yates # (Auto) 1.08 H PT 17.1 H INR 1.3 H Sodium Chloride Creatinine Glucose Uric Acid Calcium Total Bilirubin Direct Bilirubin GGT AST ALT Alkaline Phosphatase Ammonia Lactate Dehydrogenase Total Protein Albumin Globulin Meds: Medications Acetaminophen (Acetaminophen 325 Mg Tablet) 325 mg PO Q6HP PRN; Protocol PRN Reason: Per Pain Protocol Albuterol Sulfate (Albuterol Sulfate 200 Puff Inhaler) 1 puff INH Q4-6HP PRN PRN Reason: Shortness Of Breath Last Admin: 10/06/21 15:12 Dose: 1 puff Documented by: Benzonatate (Benzonatate 100 Mg Capsule) 100 mg PO TID PRN PRN Reason: cough Last Admin: 10/05/21 07:48 Dose: 100 mg Documented by: Buspirone HCl (Buspirone 15 Mg Tablet) 7.5 mg PO BID [facility] Last Admin: 10/07/21 13:11 Dose: Not Given Documented by: Clotrimazole (Clotrimazole 10 Mg Yvette) 10 mg PO 5XD [facility] Last Admin: 10/07/21 11:21 Dose: Not Given Documented by: Cyanocobalamin (Cyanocobalamin 1,000 Mcg/Ml Vial) 1,000 mcg IM Q2W [facility] Diphenhydramine HCl (Diphenhydramine 25 Mg Capsule) 25 mg PO Q6H PRN PRN Reason: Itching Last Admin: 10/02/21 00:24 Dose: 25 mg Documented by: Docusate Sodium (Docusate Sodium 100 Mg Capsule) 100 mg PO BID [facility] Last Admin: 10/07/21 13:12 Dose: Not Given Documented by: Folic Acid (Folic Acid 1 Mg Tablet) 1 mg PO DAILY [facility] Last Admin: 10/07/21 13:12 Dose: Not Given Documented by: Gabapentin (Gabapentin 300 Mg Capsule) 300 mg PO BID [facility] Last Admin: 10/07/21 13:12 Dose: Not Given Documented by: Guaifenesin (Guaifenesin 600 Mg Tab.Sr.12h) 600 mg PO Q12H PRN PRN Reason: Congestion Last Admin: 10/05/21 21:24 Dose: 600 mg Documented by: Thiamine HCl 300 mg/ Sodium (Chloride) 153 mls @ 126.5 mls/hr IV DAILY [facility] Thiamine HCl 300 mg/ Sodium (Chloride) 153 mls @ 103 mls/hr IV TID [facility] Stop: 10/08/21 10:30 Last Infusion: 10/07/21 10:20 Dose: Infused Documented by: Sodium Chloride (Sodium Chloride 0.9%) 250 mls @ 10 mls/hr IV .Q24H [facility] Last Admin: 10/07/21 13:14 Dose: Not Given Documented by: Albumin Human (Buminate) 12.5 gm in 50 mls @ 100 mls/hr IV Q12H [facility] Last Admin: 10/07/21 13:14 Dose: 100 mls/hr Documented by: Dopamine HCl/Dextrose 400 mg/ (Premix) 250 mls @ 9.677 mls/hr IV .Q24H [facility]; Protocol Last Admin: 10/07/21 13:49 Dose: 2.8 mcg/kg/min, 9.677 mls/hr Documented by: Lactulose (Lactulose 20 Gm/30 Ml Oral.Petra) 30 gm PO TID [facility] Last Admin: 10/07/21 09:09 Dose: 30 gm Documented by: Lactulose (Lactulose 20 Gm/30 Ml Oral.Petra) 30 gm PO TIDP PRN PRN Reason: constipation Lorazepam (Lorazepam 2 Mg/Ml Vial) 0 mg IV Q4HP PRN; Protocol PRN Reason: Alcohol Withdrawal Last Admin: 10/06/21 15:50 Dose: 2 mg Documented by: Metoclopramide HCl (Metoclopramide 10 Mg/2 Ml Vial) 5 mg IV Q6HP PRN PRN Reason: Nausea And Vomiting Last Admin: 10/03/21 14:58 Dose: 5 mg Documented by: Nicotine (Nicotine 21 Mg Patch) 21 mg TOPICAL DAILY@1000 [facility] Last Admin: 10/07/21 12:59 Dose: 21 mg Documented by: Octreotide Acetate (Octreotide Acetate 100 Mcg/Ml Vial) 100 mcg SQ Q8H [facility] Last Admin: 10/07/21 13:49 Dose: 100 mcg Documented by: Ondansetron HCl (Ondansetron 4 Mg/2 Ml Vial) 4 mg IV Q4HP PRN; Protocol PRN Reason: Nausea And Vomiting Last Admin: 10/05/21 08:05 Dose: 4 mg Documented by: Oxycodone HCl (Oxycodone Hcl 5 Mg Tablet) 5 mg PO Q6HP PRN; Protocol PRN Reason: Per Pain Protocol Last Admin: 10/05/21 17:43 Dose: 5 mg Documented by: Pantoprazole Sodium (Pantoprazole 40 Mg Vial) 40 mg IV BIDAC [facility] Last Admin: 10/07/21 06:31 Dose: 40 mg Documented by: Emollient Combo No. 59 (Bulk) [Custom Base Pcca] Cream 1 dose TOPICAL BID [facility] Last Admin: 10/07/21 13:12 Dose: Not Given Documented by: Fluticasone- Umeclidin-Vilanter [ Trelegy Ellipta] Inhaler 1 dose INH Q24H [facility] Last Admin: 10/06/21 21:28 Dose: Not Given Documented by: Senna (Sennosides 1 Tablet) 2 tab PO HS PRN PRN Reason: constipation Sodium Chloride (0.9 % Sodium Chloride 10 Ml Syringe) 10 ml IV Q8 [facility] Last Admin: 10/07/21 05:55 Dose: 10 ml Documented by: Sodium Chloride (0.9 % Sodium Chloride 10 Ml Syringe) 10 ml IV UD PRN PRN Reason: Central Line Maintence ABG Interpretation ABG results: 10/03/21 16:16 ABG Methemoglobin 0.1 L VBG pH 7.43 H VBG pCO2 36.6 L VBG pO2 88.5 H VBG HCO3 23.7 L VBG Total CO2 24.8 L VBG O2 Saturation 91.2 H VBG Base Excess 0 A/P Narrative A/P Narrative: A: #Volume overload: Probably 2/2 liver cirrhosis. -TTE report was fairly unremarkable. 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 & resolving alcohol wit hdrawal #Concern for liver mass versus atypical fatty infiltration on CT abdomen pelvis -Alpha fetoprotein level was normal #GASPER, concern for hepatorenal syndrome: #Acute anemia: #Macrocytosis: likely 2/2 alcohol use disorder -Vitamin B12 and folate normal #Hyponatremia, likely beer potomania superimposed on cirrhosis: resolved #Chronic nocturnal hypoxia: #Degenerative disc disease: #Anxiety disorder: #Severe alcohol use disorder & withdrawal: #Tobacco use disorder: #Reported history of peptic ulcer disease #Obesity BMI 38 #Distal left intra-articular radius fracture: -Has splint on left wrist -discussed with Dr. Christopher: nonoperative fracture Plan: -Dopamine, octreotide, albumin IV per nephrology -Nephrology following, Consider GI consult -Monitoring renal function, holding diuretics for now - defer to Nephrology -Monitor volume status, urine output, renal function, electrolytes. -Continue lactulose, goal is 2-3 loose BMs per day; Rifaximin 550 mg BID. -Stool guaiac x3. ppi for now -eventual abdominal MRI to evaluate liver lesions -Monitor CIWA with Ativan IV as needed. -High dose thiamine IV, folic acid, vitamin B12 supplementation. -Peripheral blood smear for anemia and macrocytosis. -Remove IJ central line when no longer necessary. -PT consult -Smoking cessation counseling -follow up with ortho in clinic for left radial fracture. -f/u with GI/Gameplay Programmer for liver cirrhosis. -ppx: SCDs for recently downtrending hemoglobin CODE STATUS: Supervisor Advice Spent With Patient Time: Total time spent is greater than 50% in coordination of care (as documented) at patient's floor/unit and/or counseling patient:
[2021-10-07] MEDS: SPIRONOLACTONE 25 MG TABLET PO SCH (14:53)
[2021-10-07] MEDS: oxyCODONE HCL 5 MG TABLET PO PRN (15:14)
[2021-10-07] MEDS: ALBUTEROL SULFATE 200 PUFF INHALER INH PRN (15:43)
[2021-10-07] MEDS: diphenhydrAMINE 25 MG CAPSULE PO PRN (17:42)
[2021-10-07] MEDS: ACETAMINOPHEN 325 MG TABLET PO PRN (17:42)
--- NOTE | 2021-10-07 17:51 | Ultrasound Report ---
CLINICAL INFORMATION: Evaluate for ascites and abdominal distention COMPARISON: None. FINDINGS: Moderate ascites is seen in the perihepatic perisplenic and pelvic region. It is anechoic and thus appears to be simple fluid. IMPRESSION: Moderate simple ascites. Interpreted and Authenticated by: Chris Arriola 10/07/21
[2021-10-07] MEDS: LORazepam 2 MG/ML VIAL IV PRN ×2 (19:23→23:00)
[2021-10-07] MEDS: Fluticasone-Umeclidin-Vilanter [Trelegy Ellipta] Inhaler INH SCH (21:27)
[2021-10-08] MEDS: busPIRone 15 MG TABLET PO SCH ×3 (00:21→21:03)
[2021-10-08] MEDS: GABAPENTIN 300 MG CAPSULE PO SCH ×3 (00:21→20:53)
[2021-10-08] MEDS: RIFAXIMIN 550 MG TABLET PO SCH ×3 (00:21→21:02)
[2021-10-08] MEDS: 0.9 % SODIUM CHLORIDE 10 ML SYRINGE IV SCH ×4 (00:22→22:38)
[2021-10-08] MEDS: ALBUMIN HUMAN 12.5 GM/50 ML BAG IV SCH (00:33)
[2021-10-08] MEDS: LORazepam 2 MG/ML VIAL IV PRN ×5 (03:06→21:18)
[2021-10-08] MEDS: OCTREOTIDE ACETATE 100 MCG/ML VIAL SQ SCH ×2 (05:35→17:12)
[2021-10-08 06:28] LABS: Basophils # (Auto) 0.03 K/mcL (0.00-0.30); Basophils % (Auto) 0.3 % (0.0-2.0); Eosinophils % (Auto) 1.1 % (0.0-7.0); Hematocrit 26.6 % (34.1-44.9); Hemoglobin 9.2 g/dL (11.2-15.7); Lymphocytes # (Auto) 0.75 K/mcL (1.50-4.80); Lymphocytes % (Auto) 8.4 % (15.5-49.0); Mean Cell Volume 127.3 fL (80.0-100.0); Mean Corpuscular HGB Conc 34.6 g/dL (31.0-36.0); Mean Platelet Volume 10.5 fL (7.4-10.4); Monocytes # (Auto) 0.97 K/mcL (0.10-0.90); Monocytes % (Auto) 10.9 % (1.0-12.0); Neutrophils % (Auto) 79.3 % (38.0-78.0); Platelet Count 137 K/mcL (140-440); RBC 2.09 M/mcL (3.59-5.38); Red Cell Distribution Width 15.8 % (11.5-14.5); WBC 8.9 K/mcL (4.5-11.0)
[2021-10-08 06:45] LABS: ALT/SGPT 47 U/L (<40); AST/SGOT 100 U/L (<32); Albumin 3.5 gm/dL (3.2-5.2); Albumin/Globulin Ratio 1.8 (1.0-2.3); Alkaline Phosphatase 204 U/L (39-117); Bilirubin,Direct 1.7 mg/dL (<0.3); Bilirubin,Total 2.6 mg/dL (0.1-1.0); Blood Urea Nitrogen 8 mg/dL (8-23); Calcium 8.8 mg/dL (8.6-10.4); Carbon Dioxide 27 mmol/L (22-30); Chloride 106 mmol/L (96-108); Globulin 1.9 gm/dL (2.2-3.7); Glomerular Filtration Rate 97; Glucose 126 mg/dL (70-105); Lactate Dehydrogenase 702 U/L (135-225); Phosphorous 2.5 mg/dL (2.5-4.5); Triglycerides 105 mg/dL (<150); Uric Acid 11.2 mg/dL (2.5-8.0)
--- NOTE | 2021-10-08 07:52 | Internal Med Progress Note ---
SUBJECTIVE Subjective Patient information: Note initiated : 10/08/21 at 7:51 am Service Date, if different from initiated Date: [] Patient: Caleb Kern 61 y/o F admitted on 09/30/21 for left arm pain, fall yesterday. Chief Complaint: [] Principal diagnosis: Severe hypervolemic hyponatremia Interval history: Ms. Kern is a 61 year old female with a past medical history not limited to SILVA, COPD, nocturnal hypoxia, vitamin B12 deficiency, degenerative disc disease, obesity, tobacco use disorder who presented to the emergency department after a fall at home for further evaluation of left wrist pain. X-ray of the l eft wrist showed an intraarticular fracture of the distal radius. The patient was noted to be hypervolemic in the emergency department, CBC and chemistry panel were ordered showing severe hyponatremia with a sodium level of 116. Additionally, labs showed a mild leukocytosis of 12.3, severe macrocytosis, thrombocytopenia, anion gap metabolic acidosis, bilirubin of 1.8 and ALT and AST elevated compared to the patient's prior labs from 2020. Patient also had a NT proBNP of 441, 1 view chest x-ray did not show any pulmonary vascular congestion. The patient had a markedly elevated D-dimer of 6.89. The patient has not been having any shortness of breath recently and was comfortable on room air in the emergency department. The patient received Lasix IV in the emergency department. Hospital medicine was consulted for admission and management of severe hyponatremia. The patient says that she has been experiencing intermittent bilateral lower extremity edema for some time and that they have always resolved. The current amount of edema is more severe than prior episodes. She denies recent dyspnea, has not noticed any significant changes in urination. Patient says that she has known about "fatty liver disease" for some time. She does drink a significant amount of alcohol which usually contains vodka on an almost daily basis. We discussed the goals of admission which include a gradual correction of her sodium level. We also discussed further work-up which will focus on cardiac, liver and renal pathologies that could explain hypovolemic hyponatremia. We discussed CODE STATUS in detail, the patient wishes to be full code. 3/ Urine protein creatinine ratio was normal, TSH and morning cortisol levels nikhil l. blood smear was not suggestive of a sinister hematologic process. Vitamin B12 level elevated, folate level normal. INR was 1.2. Sodium trended up to 120s and down to 119, the patient received 100 mL of 3% saline followed by increase in sodium to 122. Patient has not made significant urine after receiving a dose of Lasix 80 mg IV. Volume overloaded as on admission with bilateral lower extremity pitting edema. Abdominal ultrasound showed fatty liver, possible steatohepatitis or early stage cirrhosis, small to moderate amount of ascites was present, normal directional blood flow and hepatic and portal veins. Bilateral lower extremity venous duplex ultrasound was negative for DVT. Transthoracic echocardiogram report pending. 10/02 Creatinine increased, discontinued lasix and consulted nephrology. Nephrology started albumin, recommended holding on diuretics at this time. 10/03 TTE was fairly unremarkable, etiology for hyponatremia is likely a liver cirrhosis combined with alcohol use. Patient is more confused now, likely secondary to hepatic encephalopathy as ammonia has also been elevated. Hemoglobin trending down, started Protonix IV twice daily. Trending hemoglobin, will consider consulting general surgery for EGD if this trends down further. Sodium slightly improved now at 123. Renal function slightly improved, creatinine 1.3 today. 10/04 The patient is more alert and oriented today but still confused, ammonia level still elevated in spite of increase in lactulose. Hemoglobin trending up now, will continue Protonix IV BID for now and likely transition to oral PPI therapy in 1-2 days. The patient does have a history of peptic ulcer and had been taking Ibuprofen prior to admission but with hemoglobin trending up on a PPI and EGD may not be high yield. GI consult currently not available at [facility]. Nephrology started Octreotide and Midodrine in addition to Albumin IV. Renal function is about the same, sodium about the same as yesterday. The patient is still markedly hypervolemic. 10/05 Low urine output, nephrology started IV fluid, no longer on octreotide, midodrine and albumin IV. Urine output did improve somewhat today but still low relative to the patient's hypervolemic volume status. Ammonia increasing and the patient continues to be confused and having intermittent hallucinations. CIWA score was 10 but clinically does not appear to be in withdrawal and the patient does not feel like she is in alcohol withdrawal. Started lactulose enema every 6 hours. Started high-dose thiamine IV supplementation. abdomen pelvis without contrast showed moderate hepatomegaly with a large low attenuating region infiltrating the entire lateral right hepatic lobe and a smaller region in the lateral segment of the left hepatic lobe, may represent atypical fatty infiltration however hepatocellular carcinoma or liver metastasis could have a similar appearance. There was also developing liver cirrhosis with mild enlargement of the portal vein, moderate splenomegaly and moderate ascites. Radiology recommended an MRI of the abdomen. We will have to defer MRI of the abdomen until the patient is no longer encephalopathic. Alpha fetoprotein level was normal. 10/06 The patient is more confused overnight suspect the patient is withdrawing from alcohol. Receiving Ativan IV as needed per CIWA protocol. This have been blunted initially by hepatic encephalopathy and the patient was also taking home Ativan as needed. Ammonia improved after a couple lactulose enemas overnight. CT head without contrast did not show any acute changes. Renal function is similar to yesterday. Nephrology started dopamine, octreotide and albumin IV. Discussed anemia with general surgery, Dr. Curiel deferred EGD at this time as he felt it would not be a high yield work-up. 10/07 Vital stable overnight, less agitated today, CIWA scores have improved. Renal function has improved. Ammonia level 90, down from a high of 109. Hemoglobin about the same as yesterday, 8.8. We will get an abdominal ultrasound to evaluate the extent of ascites today. Peripheral blood smear ordered for anemia and macrocytosis. 10/08 Patient going through alcohol withdrawal but is awake and answering questions appropriately. Hemoglobin stable. Creatinine stable. Transaminitis stable. Patient only complains of headache. Per nurse 3 bowel movements yesterday but none overnight. Guaiac testing was not done will obtain for next BM. Review of Systems: denies fever/chills/nausea/vomiting/chest or abdominal pain/cough/dyspnea/diarrhea. Otherwise see above. Constitutional Vitals: Vital Signs Temp Pulse Resp BP Pulse Ox 98.7 F 12 L 16 107/65 90 10/08/21 00:01 10/06/21 10:01 10/08/21 05:02 10/08/21 05:01 10/08/21 05:02 Period Temp Pulse Resp BP Sys/Altman Pulse Ox Last 24 Hr 98.2 F-99.5 F - 107-144/48-109 87-97 Intake and Output 10/07/21 10/08/21 10/08/21 21:59 05:59 13:59 Intake Total 153 Output Total 450 805 Balance -297 -805 Weight 94.432 kg Intake & Output: Intake & Output 10/07/21 10/08/21 10/08/21 21:59 05:59 13:59 Intake Total 153 Output Total 450 805 Balance -297 -805 Weight 94.432 kg Intake: IV 153 Vitamin B1 300 mg In Sodium 153 Chloride 0.9% 150 ml @ 103 mls/ hr IV TID [facility] Rx#:[id number] Output: Urine Catheter Amount 450 805 Uretheral (Gama) 50 Other: Urine Appearance Clear Clear Uretheral (Gama) Clear Urine Color Bright Yellow Elmer Uretheral (Gama) Elmer Urine Odor Normal Exam: General: Alert, Awake, No acute Distress Eyes/N/T: EOMI, Head/Neck: neck supple, CV: RRR, No murmurs, Pulm: Clear b/l, no wheezing/rhonchi/rales Abd: Distended abdomen, soft, nontender Ext: no clubbing/cyanosis, b/l LE 2+ edema Neuro: Alert, no focal deficits, moves all extremities, follow commands Skin: warm/dry, Spider angiomas present in upper extremities, upper chest, upper back. OBJ DATA Labs CBC & Chem 7: 10/08/21 04:58 10/08/21 04:58 Labs: Abnormal Lab Results 10/08/21 10/08/21 10/07/21 04:58 04:58 10:01 RBC 2.09 L Hgb 9.2 L Hct 26.6 L MCV 127.3 H MCH 44.0 H RDW 15.8 H Plt Count 137 L MPV 10.5 H Neut % (Auto) 79.3 H Lymph % (Auto) 8.4 L Mcduffie % (Auto) Lymph # (Auto) 0.75 L Mcduffie # (Auto) 0.97 H PT INR Sodium Chloride Creatinine Glucose 126 H Uric Acid 11.2 H Calcium Total Bilirubin 2.6 H Direct Bilirubin 1.7 H GGT 418 H AST 100 H ALT 47 H Alkaline Phosphatase 204 H Ammonia 90 H Lactate Dehydrogenase 702 H Total Protein 5.4 L Albumin Globulin 1.9 L 10/07/21 10/07/21 10/06/21 05:10 05:10 12:01 RBC 2.04 L Hgb 8.8 L 8.7 L Hct 26.0 L MCV 127.5 H MCH 43.1 H RDW 16.0 H Plt Count 133 L MPV 10.6 H Neut % (Auto) Lymph % (Auto) 9.1 L Mcduffie % (Auto) 12.2 H Lymph # (Auto) 0.82 L Mcduffie # (Auto) 1.10 H PT INR Sodium Chloride Creatinine Glucose 118 H Uric Acid 13.1 H Calcium 8.2 L Total Bilirubin 2.5 H Direct Bilirubin 1.7 H GGT 423 H AST 109 H ALT 53 H Alkaline Phosphatase 184 H Ammonia Lactate Dehydrogenase 682 H Total Protein 5.3 L Albumin Globulin 2.1 L 10/06/21 10/06/21 10/06/21 05:25 05:25 05:24 RBC 1.89 L Hgb 8.3 L Hct 24.0 L MCV 127.0 H MCH 43.9 H RDW 15.6 H Plt Count 112 L MPV 11.2 H Neut % (Auto) Lymph % (Auto) 8.8 L Mcduffie % (Auto) 14.2 H Lymph # (Auto) 0.63 L Mcduffie # (Auto) 1.02 H PT INR Sodium Chloride Creatinine 1.6 H Glucose 121 H Uric Acid 12.4 H Calcium 8.2 L Total Bilirubin 2.0 H Direct Bilirubin 1.4 H GGT 434 H AST 89 H ALT 58 H Alkaline Phosphatase 195 H Ammonia 85 H Lactate Dehydrogenase 780 H Total Protein 5.0 L Albumin 2.9 L Globulin 2.1 L 10/05/21 10/05/21 10/05/21 07:46 07:46 07:46 RBC Hgb Hct MCV MCH RDW Plt Count MPV Neut % (Auto) Lymph % (Auto) Mcduffie % (Auto) Lymph # (Auto) Mcduffie # (Auto) PT 17.1 H INR 1.3 H Sodium 131 L Chloride 95 L Creatinine 1.6 H Glucose 125 H Uric Acid 11.9 H Calcium 8.4 L Total Bilirubin 2.8 H Direct Bilirubin 2.0 H GGT 520 H AST 90 H ALT 63 H Alkaline Phosphatase 200 H Ammonia 109 H Lactate Dehydrogenase 841 H Total Protein 5.3 L Albumin 3.0 L Globulin 10/05/21 07:46 RBC 2.18 L Hgb 9.4 L Hct 27.3 L MCV 125.2 H MCH 43.1 H RDW 15.5 H Plt Count 125 L MPV 10.8 H Neut % (Auto) Lymph % (Auto) 9.5 L Mcduffie % (Auto) 12.8 H Lymph # (Auto) 0.80 L Mcduffie # (Auto) 1.08 H PT INR Sodium Chloride Creatinine Glucose Uric Acid Calcium Total Bilirubin Direct Bilirubin GGT AST ALT Alkaline Phosphatase Ammonia Lactate Dehydrogenase Total Protein Albumin Globulin Meds: Medications Acetaminophen (Acetaminophen 325 Mg Tablet) 325 mg PO Q6HP PRN; Protocol PRN Reason: Per Pain Protocol Last Admin: 10/07/21 17:42 Dose: 325 mg Documented by: Albuterol Sulfate (Albuterol Sulfate 200 Puff Inhaler) 1 puff INH Q4-6HP PRN PRN Reason: Shortness Of Breath Last Admin: 10/07/21 15:43 Dose: 1 puff Documented by: Benzonatate (Benzonatate 100 Mg Capsule) 100 mg PO TID PRN PRN Reason: cough Last Admin: 10/05/21 07:48 Dose: 100 mg Documented by: Buspirone HCl (Buspirone 15 Mg Tablet) 7.5 mg PO BID [facility] Last Admin: 10/08/21 00:21 Dose: Not Given Documented by: Clotrimazole (Clotrimazole 10 Mg Yvette) 10 mg PO 5XD [facility] Last Admin: 10/07/21 21:28 Dose: 10 mg Documented by: Cyanocobalamin (Cyanocobalamin 1,000 Mcg/Ml Vial) 1,000 mcg IM Q2W [facility] Diphenhydramine HCl (Diphenhydramine 25 Mg Capsule) 25 mg PO Q6H PRN PRN Reason: Itching Last Admin: 10/07/21 17:42 Dose: 25 mg Documented by: Docusate Sodium (Docusate Sodium 100 Mg Capsule) 100 mg PO BID [facility] Last Admin: 10/07/21 21:27 Dose: Not Given Documented by: Folic Acid (Folic Acid 1 Mg Tablet) 1 mg PO DAILY [facility] Last Admin: 10/07/21 13:12 Dose: Not Given Documented by: Gabapentin (Gabapentin 300 Mg Capsule) 300 mg PO BID [facility] Last Admin: 10/08/21 00:21 Dose: Not Given Documented by: Guaifenesin (Guaifenesin 600 Mg Tab.Sr.12h) 600 mg PO Q12H PRN PRN Reason: Congestion Last Admin: 10/05/21 21:24 Dose: 600 mg Documented by: Thiamine HCl 300 mg/ Sodium (Chloride) 153 mls @ 126.5 mls/hr IV DAILY FRANK Thiamine HCl 300 mg/ Sodium (Chloride) 153 mls @ 103 mls/hr IV TID [facility] Stop: 10/08/21 10:30 Last Admin: 10/07/21 21:30 Dose: 103 mls/hr Documented by: Sodium Chloride (Sodium Chloride 0.9%) 250 mls @ 10 mls/hr IV .Q24H [facility] Last Admin: 10/07/21 13:14 Dose: Not Given Documented by: Albumin Human (Buminate) 12.5 gm in 50 mls @ 100 mls/hr IV Q12H [facility] Last Admin: 10/08/21 00:33 Dose: 100 mls/hr Documented by: Dopamine HCl/Dextrose 400 mg/ (Premix) 250 mls @ 9.677 mls/hr IV .Q24H [facility]; Protocol Last Admin: 10/07/21 13:49 Dose: 2.8 mcg/kg/min, 9.677 mls/hr Documented by: Lactulose (Lactulose 20 Gm/30 Ml Oral.Petra) 30 gm PO TID [facility] Last Admin: 10/07/21 21:00 Dose: 30 gm Documented by: Lactulose (Lactulose 20 Gm/30 Ml Oral.Petra) 30 gm PO TIDP PRN PRN Reason: constipation Lorazepam (Lorazepam 2 Mg/Ml Vial) 0 mg IV Q4HP PRN; Protocol PRN Reason: Alcohol Withdrawal Last Admin: 10/08/21 03:06 Dose: 2 mg Documented by: Nicotine (Nicotine 21 Mg Patch) 21 mg TOPICAL DAILY@1000 FRANK Last Admin: 10/07/21 12:59 Dose: 21 mg Documented by: Octreotide Acetate (Octreotide Acetate 100 Mcg/Ml Vial) 100 mcg SQ Q8H [facility] Last Admin: 10/08/21 05:35 Dose: 100 mcg Documented by: Ondansetron HCl (Ondansetron 4 Mg/2 Ml Vial) 4 mg IV Q4HP PRN; Protocol PRN Reason: Nausea And Vomiting Last Admin: 10/05/21 08:05 Dose: 4 mg Documented by: Oxycodone HCl (Oxycodone Hcl 5 Mg Tablet) 5 mg PO Q6HP PRN; Protocol PRN Reason: Per Pain Protocol Last Admin: 10/07/21 15:14 Dose: 5 mg Documented by: Pantoprazole Sodium (Pantoprazole 40 Mg Vial) 40 mg IV BIDAC [facility] Last Admin: 10/07/21 17:42 Dose: 40 mg Documented by: Emollient Combo No. 59 (Bulk) [Custom Base Pcca] Cream 1 dose TOPICAL BID [facility] Last Admin: 10/07/21 21:27 Dose: Not Given Documented by: Fluticasone- Umeclidin-Vilanter [ Trelegy Ellipta] Inhaler 1 dose INH Q24H [facility] Last Admin: 10/07/21 21:27 Dose: Not Given Documented by: Senna (Sennosides 1 Tablet) 2 tab PO HS PRN PRN Reason: constipation Sodium Chloride (0.9 % Sodium Chloride 10 Ml Syringe) 10 ml IV Q8 [facility] Last Admin: 10/08/21 05:36 Dose: 10 ml Documented by: Sodium Chloride (0.9 % Sodium Chloride 10 Ml Syringe) 10 ml IV UD PRN PRN Reason: Central Line Maintence Spironolactone (Spironolactone 25 Mg Tablet) 100 mg PO DAILY [facility] Last Admin: 10/07/21 14:53 Dose: 100 mg Documented by: ABG Interpretation ABG results: 10/03/21 16:16 ABG Methemoglobin 0.1 L VBG pH 7.43 H VBG pCO2 36.6 L VBG pO2 88.5 H VBG HCO3 23.7 L VBG Total CO2 24.8 L VBG O2 Saturation 91.2 H VBG Base Excess 0 A/P Narrative A/P Narrative: A: #Volume overload: Probably 2/2 liver cirrhosis. -TTE report was fairly unremarkable. 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 & resolving alcohol withdrawal #Concern for liver mass versus atypical fatty infiltration on CT abdomen pelvis -Alpha fetoprotein level was normal #GASPER, concern for hepatorenal syndrome: #Acute anemia: stable #Macrocytosis: likely 2/2 alcohol use disorder -Vitamin B12 and folate normal #Hyponatremia, likely beer potomania superimposed on cirrhosis: resolved #Chronic nocturnal hypoxia & mild COPD: #Degenerative disc disease: #Anxiety disorder: #Severe alcohol use disorder & withdrawal: #Tobacco use disorder: #Reported history of peptic ulcer disease #Obesity BMI 38 #Distal left intra-articular radius fracture: -Has splint on left wrist -discussed with Dr. Christopher: nonoperative fracture Plan: -Dopamine, octreotide, albumin IV per nephrology -Nephrology following, -Monitoring renal function, holding diuretics for now - defer to Nephrology -Monitor volume status, urine output, renal function, electrolytes. -Continue lactulose, goal is 2-3 loose BMs per day; Rifaximin 550 mg BID. -prn paracentesis -Consider GI consult -Stool guaiac x3. ppi for now -eventual abdominal MRI to evaluate liver lesions -Monitor CIWA with Ativan IV as needed. -High dose thiamine IV, folic acid, vitamin B12 supplementation -Remove IJ central line when no longer necessary. -PT consult -Smoking cessation counseling -follow up with ortho in clinic for left radial fracture. -f/u with GI/Real Estate Professor for liver cirrhosis. -ppx: SCDs for recently downtrending hemoglobin CODE STATUS: [employer] Spent With Patient Time: Total time spent is greater than 50% in coordination of care (as documented) at patient's floor/unit and/or counseling patient:
--- NOTE | 2021-10-08 08:09 | Nephrology Progress Note ---
SUBJECTIVE Subjective Patient information: Note initiated : 10/08/21 at 8:07 am Service Date, if different from initiated Date: [] Patient: Caleb Kern 61 y/o F admitted on 09/30/21 for left arm pain, fall yesterday. Chief Complaint: [fell and injured left wrist] Principal diagnosis: Severe hypervolemic hyponatremia Interval history: Hyponatremia and ARF inproved with addressing cirrhosis as primary cause. On colloid, dopamine, octreotide and yesterday started spironolactone Avoiding loop diuretics. Laboratory Tests 10/08/21 04:58 Sodium 143 Potassium 3.3 Chloride 106 Carbon Dioxide 27 Anion Gap 10.0 BUN 8 Creatinine 0.6 Uric Acid 11.2 H Calcium 8.8 Phosphorus 2.5 Magnesium 1.7 Albumin 3.5 Vital Signs Temp Resp BP Pulse Ox 10/08/21 05:02 16 90 10/08/21 05:01 17 107/65 90 10/08/21 04:01 13 133/70 95 10/08/21 04:00 13 95 10/08/21 03:02 18 93 10/08/21 03:01 20 124/83 94 10/08/21 02:17 95 10/08/21 02:02 13 95 10/08/21 02:01 13 144/81 94 10/08/21 02:00 13 95 10/08/21 01:01 12 144/78 95 10/08/21 00:02 13 94 10/08/21 00:01 37.1 C 13 143/80 94 10/07/21 23:01 15 127/109 94 10/07/21 22:01 12 136/79 94 10/07/21 22:00 13 94 10/07/21 21:02 13 94 10/07/21 21:01 14 130/77 93 10/07/21 20:14 14 122/80 91 10/07/21 20:00 37.5 C H 15 122/80 93 10/07/21 19:28 94 10/07/21 18:08 16 92 10/07/21 18:07 16 129/76 92 10/07/21 18:00 17 92 10/07/21 17:00 15 142/87 97 10/07/21 16:04 17 95 10/07/21 16:03 36.9 C 17 134/77 95 10/07/21 16:00 18 96 10/07/21 15:01 19 118/95 93 10/07/21 14:01 15 10/07/21 14:00 15 124/69 96 10/07/21 13:01 25 H 107/65 93 10/07/21 12:02 16 94 10/07/21 12:01 36.8 C 16 118/62 94 10/07/21 12:00 16 95 10/07/21 11:00 14 113/61 95 10/07/21 10:02 16 90 10/07/21 10:01 17 112/48 87 L 10/07/21 10:00 19 87 L 10/07/21 09:03 17 122/59 88 L Intake and Output 10/07/21 10/08/21 10/08/21 21:59 05:59 13:59 Intake Total 153 Output Total 450 805 Balance -297 -805 Intake: IV 153 Vitamin B1 300 mg In Sodium 153 Chloride 0.9% 150 ml @ 103 mls/ hr IV TID [facility] Rx#:[id number] Output: Urine Catheter Amount 450 805 Uretheral (Gama) 50 Other: Urine Appearance Clear Clear Uretheral (Gama) Clear Urine Color Bright Yellow Mcmullen Uretheral ([place]ama) Mcmullen Urine Odor Normal Weight 94.432 kg Pertinent ROS: N/A Additional PMFSH (Level 3 Only): N/A Constitutional Vitals: Vital Signs Temp Pulse Resp BP Pulse Ox 37.1 C 12 L 16 107/65 90 10/08/21 00:01 10/06/21 10:01 10/08/21 05:02 10/08/21 05:01 10/08/21 05:02 Period Temp Pulse Resp BP Sys/Altman Pulse Ox Last 24 Hr 36.8 C-37.5 C 12-25 107-144/48-109 87-97 Intake and Output 10/07/21 10/08/21 10/08/21 21:59 05:59 13:59 Intake Total 153 Output Total 450 805 Balance -297 -805 Weight 94.432 kg Intake & Output: Intake & Output 10/07/21 10/08/21 10/08/21 21:59 05:59 13:59 Intake Total 153 Output Total 450 805 Balance -297 -805 Weight 94.432 kg Intake: IV 153 Vitamin B1 300 mg In Sodium 153 Chloride 0.9% 150 ml @ 103 mls/ hr IV TID [facility] Rx#:[id number] Output: Urine Catheter Amount 450 805 Uretheral (Gama) 50 Other: Urine Appearance Clear Clear Uretheral (Gama) Clear Urine Color Bright Yellow Mcmullen Uretheral (Gama) Mcmullen Urine Odor Normal General appearance: mild distress and obese Exam: obtunded Head Head exam: Present normocephalic Eye Eye exam: Present EOMI and PERRL; Absent scleral icterus ENT ENT exam: Present mucous membranes dry Neck Neck exam: Absent meningismus Respiratory Respiratory exam: Present CTAB Cardiovascular Cardiovascular exam: Present normal rate and rhythm, +S1 and +S2; Absent JVD, rubs or systolic murmur GI/Abdominal GI/Abdominal exam: Present diminished bowel sounds and organomegaly (liver 10 cm below RCM); Absent tenderness Additional comments: Gama in place Extremities Exam Extremities exam: Absent pedal edema or tenderness Neurological Exam Neurological exam: Present CN II-XII intact; Absent alert or normal gait (Too weak) Psychiatric Psychiatric exam: Present flat affect Skin Skin exam: Present dry and mottled A/P Assessment and plan (1) Cirrhosis with alcoholism: Assessment and plan: Looks like acute alcoholic hepatitis superimposed on alcoholic fatty liver...combo bad but neither seems life threatening. Acute alcoholic hepatitis not severe enough for steroids WILLIAMS will progress to cirrhosis and ESLD unless she stops all EtOH intake now Status: Chronic Comment: Stop all EtOH consumption EtOH rehab...[facility] has highest success rate No indication for steroids for acute alcoholic hepatitis (2) Oliguria and anuria: Assessment and plan: Urine Na of < 10 => poor renal perfusion / avoid diuretics and expand ECF volume with colloid Status: Acute Comment: 10/06/2021: Colloid for ECF volume expansion 10/06/2021: Start Octreotide and dopamine for HRS / diuretic resistance in cirrhosis 10/07/2021: Start high dose aldactone 100 mg po qD (3) ARF (acute renal failure): Assessment and plan: More loop diuretics in refractory ascites only leading to further decrease in GFR. Situation grave. I'm in favor of octreotide/midodrine and aldactone, lasix and sodium restriction Status: Acute Comment: Diuretic related in a patient with reduced effective cirrulating volume (4) Hyponatremia: Assessment and plan: Excess fluid with low protein stores Suspect most calories are from Vodka Status: Chronic Comment: PO fluid restrict Increase protein intake For now, volume expand with colloid...hold diuretics till => aldactone 100 mg/day Low sodium intake (5) Acquired hypophosphatemia: Assessment and plan: Replace with IV NaPO4 Status: Acute Comment: High risk for "refeeding" hypophos, hypo K and hypoMg Narrative A/P Narrative: See prior note. GRR improved Hyponatremia resolved Convert dopamine to midodrine Decrease octreotide to BID dosing D/C albumin CONTINUE ONLY SPIRONOLACTONE - NO LASIX Time Spent With Patient Time: Total time spent is greater than 50% in coordination of care (as documented) at patient's floor/unit and/or counseling patient: Total time spent with greater than 50% in coordination of care (as documented) at patient's floor/unit and/or counseling patient:: 25 - 35 minutes
[2021-10-08] MEDS: PANTOPRAZOLE 40 MG VIAL IV SCH ×2 (08:21→17:12)
[2021-10-08] MEDS: FOLIC ACID 1 MG TABLET PO SCH (08:30)
[2021-10-08] MEDS: SPIRONOLACTONE 25 MG TABLET PO SCH (08:30)
[2021-10-08] MEDS: oxyCODONE HCL 5 MG TABLET PO PRN ×3 (08:30→20:53)
[2021-10-08] MEDS: NICOTINE 21 MG PATCH TOPICAL SCH (08:31)
[2021-10-08] MEDS: CLOTRIMAZOLE 10 MG TROCHE PO SCH ×5 (08:32→20:54)
[2021-10-08] MEDS: THIAMINE IV SCH (08:33)
[2021-10-08] MEDS: SODIUM CHLORIDE 0.9% IV SCH (08:33)
[2021-10-08] MEDS: [UNRECOGNIZED DRUG - OTHER] TOPICAL SCH ×2 (08:33→20:55)
[2021-10-08] MEDS: DOCUSATE SODIUM 100 MG CAPSULE PO SCH ×2 (08:35→20:53)
[2021-10-08] MEDS: LACTULOSE 20 GM/30 ML ORAL.SOL PO SCH ×3 (08:35→20:54)
[2021-10-08] MEDS: ALBUTEROL SULFATE 200 PUFF INHALER INH PRN (08:38)
[2021-10-08] MEDS ORDERED: SPIRONOLACTONE 25 MG TABLET PO SCH (09:00)
[2021-10-08] MEDS ORDERED: POTASSIUM CHLORIDE 20 MEQ in DEXTROSE 5% IN WATER 100 ML IV ONE (12:50)
[2021-10-08] MEDS: 0.9 % SODIUM CHLORIDE 250 ML IV SCH (12:53)
[2021-10-08] MEDS: ACETAMINOPHEN 325 MG TABLET PO PRN (13:01)
[2021-10-08] MEDS: VANCOMYCIN ORAL SOL 1,000 MG/10 ML BOTTLE PO SCH ×2 (17:06→20:54)
--- NOTE | 2021-10-08 17:27 | Internal Medicine Consult Note ---
HPI Data of Consult Patient: new to practice Consult date: 10/08/21 Primary Care Provider: Nikolas Sanchez Consult Narrative Chief complaint: cirrhosis Reason for consult: cirrhosis History of present illness: Mrs Kern is a 61 year old female with a history of steatosis who is admitted for severe hyponatremia (116) with anasarca and discovered to have cirrhosis complicated by portal hypertension, ascites and hepatic encephalopathy. She is not able to answer questions. I spoke on the phone with her Davon ([phone]) who tells me she has a long history of "fatty liver" for many years. Her father had alcohol use disorder but there is no other family history of liver disease. She has not traveled outside the [place]. She has been under the care of data manager Dr. Hanks and had EGD and colonoscopy in the last year. He confirms that she has been drinking vodka with cranberry juice daily and may have increased her intake due to her back pain; she also increased her PO intake of ibuprofen and tylenol. Much of the rest of the history is gleaned from the chart. She had oliguria after diuresis and was trialed on albumin, octreotide and midodrine. Anasarca has resolved but ascites persists. She has been afebrile. She has been started on lactulose and Xifaxan, but altered mental status persists, perhaps secondary to alcohol withdrawal. Hyponatremia has been corrected. C difficile poisitve today. Had significant macrocytosis with normal B12 and folate and negative oncology consultation. HBsAg and anti HCV negative. cc:: CC: Shaun Caraballo MD Review of Systems ROS unobtainable: due to mental status PFSH PFSH All Active Problems (Updated 10/08/21 @ 18:18 by ENMANUEL Winn) Cirrhosis of liver with ascites (Acute) Back pain (Chronic) Thoracic back pain (Chronic) Muscle spasm (Chronic) Wrist injury (Chronic) Wrist fracture (Chronic) Depression (Chronic) Chronic pain (Chronic) Hypertension (Chronic) Anxiety (Chronic) History of surgery (Chronic) Spondylosis of thoracic spine with radiculopathy (Chronic) Radiculopathy, thoracic region (Chronic) Contusion of right wrist (Chronic) Acute myofascial pain (Chronic) COPD (chronic obstructive pulmonary disease) (Chronic) GERD (gastroesophageal reflux disease) (Chronic) Smoker (Chronic) Abnormal liver enzymes (Chronic) Avascular necrosis of bone (Chronic) Folic acid deficiency (Chronic) Cobalamin deficiency (Chronic) Insomnia (Chronic) Abdominal pain (Chronic) Osteopenia (Chronic) Vitamin D deficiency (Chronic) Fever (Chronic) Osteoarthritis (Chronic) Nonalcoholic steatohepatitis (Chronic) Homocystinemia (Chronic) Hyperlipidemia (Chronic) Diarrhea (Chronic) Renal colic (Chronic) Spinal stenosis (Chronic) Pernicious anemia (Chronic) Urge incontinence of urine (Chronic) Reactive airway disease (Chronic) Kidney stones (Chronic) Colon polyps (Chronic) Acute upper respiratory infection (Chronic) Cough (Chronic) Exposure to COVID-19 virus (Chronic) SOB (shortness of breath) (Chronic) Pulmonary vascular congestion (Chronic) Cardiomegaly (Chronic) Chest pain (Chronic) Bronchospasm (Chronic) Hyperventilation (Chronic) Macrocytosis (Chronic) Weight loss (Chronic) Myofascial pain syndrome (Chronic) Nocturnal hypoxia (Chronic) Elevated hemidiaphragm (Chronic) Acute hyponatremia (Acute) Macrocytosis (Acute) Left wrist fracture (Acute) Elevated liver function tests (Acute) Oliguria and anuria (Acute) Cirrhosis with alcoholism (Chronic) ARF (acute renal failure) (Acute) Hyponatremia (Chronic) Acquired hypophosphatemia (Acute) Medical History Abdominal pain Abnormal liver enzymes Acute myofascial pain Acute upper respiratory infection Anxiety Avascular necrosis of bone Back pain Bronchospasm Cardiomegaly Chest pain Chronic pain Cobalamin deficiency Colon polyps COPD (chronic obstructive pulmonary disease) Cough Depression Diarrhea Elevated hemidiaphragm Right Exposure to COVID-19 virus Fever Folic acid deficiency GERD (gastroesophageal reflux disease) Homocystinemia Hyperlipidemia Hypertension Hyperventilation Insomnia Kidney stones Macrocytosis Muscle spasm Myofascial pain syndrome Nocturnal hypoxia Nonalcoholic steatohepatitis Osteoarthritis Osteopenia Pernicious anemia Pulmonary vascular congestion Reactive airway disease Renal colic Smoker SOB (shortness of breath) Spinal stenosis Thoracic back pain Urge incontinence of urine Vitamin D deficiency Weight loss Wrist fracture Wrist injury Surgical History History of appendectomy (~1974) History of cholecystectomy (~1989) History of foot surgery (~2007) Right foot sebaceous cyst removal History of foot surgery (~1992) Right foot fracture repair History of hip surgery (~2012) Right Hip IT Band History of hip surgery (~2010) Right hip modification History of surgery TESI #1 T4-5 w/sed History of total abdominal hysterectomy and bilateral salpingo-oophorectomy (~2000) History of total hip replacement (~2012) History of total left hip replacement (~2008) History of total right hip replacement (~2009) History of tubal ligation (~1980) History of wisdom tooth extraction (~1984) x2 Family History Grandfather Heart disease Paternal Grandmother Type 2 diabetes mellitus Maternal Father , : 65 Lung cancer Alcohol abuse Mother Scoliosis Brother Breathing problem Sister Anxiety Back problem Other CAD (coronary artery disease) Social History marital status: occupational status: employed 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 smoking status: Current every day smoker alcohol intake frequency: 2+ drinks per day substance use type: marijuana and other details: THC MEDS/ALLERGIES Home Medications and Allergies Home Medications Medication Instructions Recorded Confirmed Type gabapentin 300 mg capsule 300 mg PO BID 06/09/19 10/02/21 History zolpidem 5 mg tablet 5 mg PO HS 06/09/19 10/02/21 History albuterol sulfate 2.5 mg/0.5 mL 2.5 mg INHALATION QID PRN ea 05/02/21 10/02/21 History solution for nebulization diphenhydramine HCl 25 mg capsule 25 mg PO Q6H PRN 05/02/21 10/02/21 History (Benadryl) guaifenesin 600 mg tablet, 600 mg PO Q12H PRN 05/02/21 10/02/21 History extended release 12 hr (Mucinex) emollient combo no.59 (bulk) See Rx Instructions TOPICAL BID 06/18/21 10/02/21 Rx (Custom Base [facility] Lipoderm) #60 g buspirone 15 mg tablet 7.5 mg PO BID tab 06/28/21 10/02/21 History famotidine 40 mg tablet 40 mg PO QHS 08/14/21 10/02/21 History ipratropium 20 mcg-albuterol 100 2 puff INHALATION QID g 08/14/21 10/02/21 History mcg/actuation mist for inhalation (Combivent Respimat) cyclobenzaprine 5 mg tablet 5 mg PO TID PRN #15 tab 09/17/21 10/02/21 Rx fluticasone fur. 100 mcg-umeclid 1 inh INHALATION Q24H #60 ea 09/27/21 10/02/21 Rx 62.5 mcg-vilant 25 mcg inhalat.powder (Trelegy Ellipta) benzonatate 100 mg capsule 200 mg PO TID PRN 09/30/21 10/02/21 History clotrimazole 10 mg edwardo 10 mg MUCOUS MEMBRANE 5XD 10/01/21 10/02/21 History cyanocobalamin (vitamin B-12) 1 ml IM Q2W 10/02/21 10/02/21 History 1,000 mcg/mL injection solution furosemide 20 mg tablet 20 mg PO QAM 10/02/21 10/02/21 History hydrocodone 5 mg-acetaminophen 325 1 tab PO BID PRN 10/02/21 10/02/21 History mg tablet lorazepam 0.5 mg tablet 0.5 mg PO QDAY 10/02/21 10/02/21 History spironolactone 50 mg tablet 50 mg PO QDAY 10/02/21 10/02/21 History (Aldactone) Allergies Allergy/AdvReac Type Severity Reaction Status Date / Time Penicillins Allergy Severe Difficulty Verified 09/30/21 20:47 Breathing prednisone Allergy Severe Difficulty Verified 09/30/21 21:17 Breathing trospium Allergy Intermediate Facial Verified 09/30/21 21:17 swelling, itching, rash Influenza Virus Vaccines AdvReac Intermediate Burning Verified 09/30/21 21:17 sensation in hands and feet codeine AdvReac Mild Nausea Verified 09/30/21 21:17 metoclopramide [From Reglan] AdvReac Mild Anxiety Verified 09/30/21 21:17 omeprazole AdvReac Mild Vomiting Verified 09/30/21 21:17 EXAM Constitutional Vitals: Temp Pulse Resp BP Pulse Ox 98.0 F 12 L 22 119/65 95 10/08/21 16:01 10/06/21 10:01 10/08/21 16:01 10/08/21 16:01 10/08/21 16:01 General appearance: average body habitus and disheveled Head Head exam: Present atraumatic, normal inspection and normocephalic Eye Eye exam: Present normal appearance ENT ENT exam: Present mucous membranes dry Neck Neck exam: Present normal inspection; Absent lymphadenopathy Respiratory Additional comments: crackles in bases. Coughing with drinking water. Cardiovascular Cardiovascular exam: Present normal rate and rhythm GI/Abdominal GI/Abdominal exam: Present normal bowel sounds; Absent hernia or tenderness Expanded GI/Abdominal Exam GI/Abdominal exam: Present ascites Extremities Exam Additional comments: trace dependent edema Neurological Exam Neurological exam: Present alert and altered; Absent oriented X3 Skin Skin exam: Present dry and warm Additional comments: Spider nevi and palmar erythema seen. DATA Data Completed and Pending Labs: Labs from last 24 hours 10/08/21 10/08/21 04:58 04:58 WBC 8.9 RBC 2.09 L Hgb 9.2 L Hct 26.6 L MCV 127.3 H MCH 44.0 H MCHC 34.6 RDW 15.8 H Plt Count 137 L MPV 10.5 H Neut % (Auto) 79.3 H Lymph % (Auto) 8.4 L Woods % (Auto) 10.9 Eos % (Auto) 1.1 Baso % (Auto) 0.3 Lymph # (Auto) 0.75 L Woods # (Auto) 0.97 H Eos # (Auto) 0.10 Baso # (Auto) 0.03 Absolute Neutrophils 7.04 Sodium 143 Potassium 3.3 Chloride 106 Carbon Dioxide 27 Anion Gap 10.0 BUN 8 Creatinine 0.6 GFR Calculation 97 Glucose 126 H Uric Acid 11.2 H Calcium 8.8 Phosphorus 2.5 Magnesium 1.7 Total Bilirubin 2.6 H Direct Bilirubin 1.7 H GGT 418 H AST 100 H ALT 47 H Alkaline Phosphatase 204 H Lactate Dehydrogenase 702 H Total Protein 5.4 L Albumin 3.5 Globulin 1.9 L Albumin/Globulin Ratio 1.8 Triglycerides 105 A/P Assessment and plan (1) Cirrhosis of liver with ascites: Assessment and plan: I reviewed her case with Dr. Tabor. She will continue lactulose and Xifaxan. Her MELD score has dropped from 25 to 13 (calculated today). As you know, hyponatremia is an indicator of poor prognosis is cirrhotics. We will arrange for EGD to evaluate her anemia and screen for varices. We will check serologies for autoimmune and metablolic causes of chronic liver disease. Further recommendations will be forthcoming following EGD. Status: Acute Time Spent With Patient Time: Total time spent is greater than 50% in coordination of care (as documented) at patient's floor/unit and/or counseling patient: Total time spent with greater than 50% in coordination of care (as documented) at patient's floor/unit and/or counseling patient:: Greater than 35 minutes
[2021-10-08] MEDS ORDERED: RIFAXIMIN 550 MG PO SCH (21:00)
[2021-10-08] MEDS ORDERED: THIAMINE 100 MG TABLET PO SCH (21:00)
[2021-10-08] MEDS: Fluticasone-Umeclidin-Vilanter [Trelegy Ellipta] Inhaler INH SCH (21:04)
[2021-10-08] MEDS: MIDODRINE 5 MG TABLET PO SCH (21:08)
[2021-10-09] MEDS: OCTREOTIDE ACETATE 100 MCG/ML VIAL SQ SCH ×2 (05:43→19:25)
[2021-10-09] MEDS: MIDODRINE 5 MG TABLET PO SCH ×3 (05:44→21:21)
[2021-10-09] MEDS: 0.9 % SODIUM CHLORIDE 10 ML SYRINGE IV SCH ×3 (06:00→21:21)
[2021-10-09 06:10] LABS: Hematocrit 25.7 % (34.1-44.9); Hemoglobin 8.6 g/dL (11.2-15.7)
[2021-10-09 06:37] LABS: Iron 78 ug/dL (37-145)
[2021-10-09 06:37] LABS: Blood Urea Nitrogen 8 mg/dL (8-23); Calcium 8.3 mg/dL (8.6-10.4); Carbon Dioxide 26 mmol/L (22-30); Chloride 105 mmol/L (96-108); Glomerular Filtration Rate 97; Glucose 92 mg/dL (70-105)
[2021-10-09] MEDS: PANTOPRAZOLE 40 MG VIAL IV SCH ×2 (07:18→10:17)
--- NOTE | 2021-10-09 07:32 | Internal Med Progress Note ---
SUBJECTIVE Subjective Patient information: Note initiated : 10/09/21 at 7:30 am Service Date, if different from initiated Date: [] Patient: Caleb Kern 61 y/o F admitted on 09/30/21 for left arm pain, fall yesterday. Chief Complaint: [] Principal diagnosis: Severe hypervolemic hyponatremia Interval history: Ms. Kern is a 61 year old female with a past medical history not limited to SILVA, COPD, nocturnal hypoxia, vitamin B12 deficiency, degenerative disc disease, obesity, tobacco use disorder who presented to the emergency department after a fall at home for further evaluation of left wrist pain. X-ray of the l eft wrist showed an intraarticular fracture of the distal radius. The patient was noted to be hypervolemic in the emergency department, CBC and chemistry panel were ordered showing severe hyponatremia with a sodium level of 116. Additionally, labs showed a mild leukocytosis of 12.3, severe macrocytosis, thrombocytopenia, anion gap metabolic acidosis, bilirubin of 1.8 and ALT and AST elevated compared to the patient's prior labs from 2020. Patient also had a NT proBNP of 441, 1 view chest x-ray did not show any pulmonary vascular congestion. The patient had a markedly elevated D-dimer of 6.89. The patient has not been having any shortness of breath recently and was comfortable on room air in the emergency department. The patient received Lasix IV in the emergency department. Hospital medicine was consulted for admission and management of severe hyponatremia. The patient says that she has been experiencing intermittent bilateral lower extremity edema for some time and that they have always resolved. The current amount of edema is more severe than prior episodes. She denies recent dyspnea, has not noticed any significant changes in urination. Patient says that she has known about "fatty liver disease" for some time. She does drink a significant amount of alcohol which usually contains vodka on an almost daily basis. We discussed the goals of admission which include a gradual correction of her sodium level. We also discussed further work-up which will focus on cardiac, liver and renal pathologies that could explain hypovolemic hyponatremia. We discussed CODE STATUS in detail, the patient wishes to be full code. 3/ Urine protein creatinine ratio was normal, TSH and morning cortisol levels nikhil l. blood smear was not suggestive of a sinister hematologic process. Vitamin B12 level elevated, folate level normal. INR was 1.2. Sodium trended up to 120s and down to 119, the patient received 100 mL of 3% saline followed by increase in sodium to 122. Patient has not made significant urine after receiving a dose of Lasix 80 mg IV. Volume overloaded as on admission with bilateral lower extremity pitting edema. Abdominal ultrasound showed fatty liver, possible steatohepatitis or early stage cirrhosis, small to moderate amount of ascites was present, normal directional blood flow and hepatic and portal veins. Bilateral lower extremity venous duplex ultrasound was negative for DVT. Transthoracic echocardiogram report pending. 10/02 Creatinine increased, discontinued lasix and consulted nephrology. Nephrology started albumin, recommended holding on diuretics at this time. 10/03 TTE was fairly unremarkable, etiology for hyponatremia is likely a liver cirrhosis combined with alcohol use. Patient is more confused now, likely secondary to hepatic encephalopathy as ammonia has also been elevated. Hemoglobin trending down, started Protonix IV twice daily. Trending hemoglobin, will consider consulting general surgery for EGD if this trends down further. Sodium slightly improved now at 123. Renal function slightly improved, creatinine 1.3 today. 10/04 The patient is more alert and oriented today but still confused, ammonia level still elevated in spite of increase in lactulose. Hemoglobin trending up now, will continue Protonix IV BID for now and likely transition to oral PPI therapy in 1-2 days. The patient does have a history of peptic ulcer and had been taking Ibuprofen prior to admission but with hemoglobin trending up on a PPI and EGD may not be high yield. GI consult currently not available at [facility]. Nephrology started Octreotide and Midodrine in addition to Albumin IV. Renal function is about the same, sodium about the same as yesterday. The patient is still markedly hypervolemic. 10/05 Low urine output, nephrology started IV fluid, no longer on octreotide, midodrine and albumin IV. Urine output did improve somewhat today but still low relative to the patient's hypervolemic volume status. Ammonia increasing and the patient continues to be confused and having intermittent hallucinations. CIWA score was 10 but clinically does not appear to be in withdrawal and the patient does not feel like she is in alcohol withdrawal. Started lactulose enema every 6 hours. Started high-dose thiamine IV supplementation. abdomen pelvis without contrast showed moderate hepatomegaly with a large low attenuating region infiltrating the entire lateral right hepatic lobe and a smaller region in the lateral segment of the left hepatic lobe, may represent atypical fatty infiltration however hepatocellular carcinoma or liver metastasis could have a similar appearance. There was also developing liver cirrhosis with mild enlargement of the portal vein, moderate splenomegaly and moderate ascites. Radiology recommended an MRI of the abdomen. We will have to defer MRI of the abdomen until the patient is no longer encephalopathic. Alpha fetoprotein level was normal. 10/06 The patient is more confused overnight suspect the patient is withdrawing from alcohol. Receiving Ativan IV as needed per CIWA protocol. This have been blunted initially by hepatic encephalopathy and the patient was also taking home Ativan as needed. Ammonia improved after a couple lactulose enemas overnight. CT head without contrast did not show any acute changes. Renal function is similar to yesterday. Nephrology started dopamine, octreotide and albumin IV. Discussed anemia with general surgery, Dr. Curiel deferred EGD at this time as he felt it would not be a high yield work-up. 10/07 Vital stable overnight, less agitated today, CIWA scores have improved. Renal function has improved. Ammonia level 90, down from a high of 109. Hemoglobin about the same as yesterday, 8.8. We will get an abdominal ultrasound to evaluate the extent of ascites today. Peripheral blood smear ordered for anemia and macrocytosis. 10/08 Patient going through alcohol withdrawal but is awake and answering questions appropriately. Hemoglobin stable. Creatinine stable. Transaminitis stable. Patient only complains of headache. Per nurse 3 bowel movements yesterday but none overnight. Guaiac testing was not done will obtain for next BM. 10/09 Patient last got 2 mg of Ativan last night at 9:00. None since. No overnight issues. Schedule undergo EGD for evaluation for esophagus varices. Patient seems lethargic this morning. Makes eye contact is does not answer questions. Ammonia improved from yesterday. Review of Systems: denies fever/chills/nausea/vomiting/chest or abdominal pain/cough/dyspnea/diarrhea. Otherwise see above. Constitutional Vitals: Vital Signs Temp Pulse Resp BP Pulse Ox 98.0 F 12 L 12 110/61 92 10/09/21 04:01 10/06/21 10:01 10/09/21 06:01 10/09/21 06:01 10/09/21 06:01 Period Temp Pulse Resp BP Sys/Altman Pulse Ox Last 24 Hr 97.5 F-98.4 F 11-38 87-162/51-81 91-97 Intake and Output 10/08/21 10/09/21 10/09/21 21:59 05:59 13:59 Intake Total 110 Output Total 25 135 Balance 85 -135 Weight 92.164 kg Intake & Output: Intake & Output 10/08/21 10/09/21 10/09/21 21:59 05:59 13:59 Intake Total 110 Output Total 25 135 Balance 85 -135 Weight 92.164 kg Intake: IV 110 Potassium Chloride 20 Meq In 110 Dextrose 5% in Water 100 ml @ 55 mls/hr IV ONCE ONE Rx#: [id number] Output: Urine Catheter Amount 25 135 Other: Urine Appearance Clear Cloudy Uretheral ([place]) Sediment Urine Color Light Isabel Dark Isabel Uretheral ([place]) Bright Yellow Urine Odor Foul Uretheral ([place]) Strong # Bowel Movements 1 Exam: General: Awakens, No acute Distress Eyes/N/T: EOMI, scleral icterus Head/Neck: neck supple, CV: RRR, No murmurs, Pulm: Clear b/l, no wheezing/rhonchi/rales Abd: Distended abdomen, soft, nontender Ext: no clubbing/cyanosis, b/l LE mild edema Neuro: lethargic, makes eye contact but does not answer my questions, moves all extremities, follow commands Skin: warm/dry, Spider angiomas present in upper extremities, upper chest, upper back. OBJ DATA Labs CBC & Chem 7: 10/09/21 05:10 10/09/21 05:10 Labs: Abnormal Lab Results 10/09/21 10/09/21 10/09/21 05:14 05:10 05:10 RBC Hgb Hct MCV MCH RDW Plt Count MPV Neut % (Auto) Lymph % (Auto) [place] % (Auto) Lymph # (Auto) [place] # (Auto) Potassium 3.2 L Creatinine Glucose Uric Acid Calcium 8.3 L Ferritin 1759.0 H Total Bilirubin Direct Bilirubin GGT AST ALT Alkaline Phosphatase Ammonia 78 H Lactate Dehydrogenase Total Protein Albumin Globulin 10/09/21 10/08/21 10/08/21 05:10 04:58 04:58 RBC 2.09 L Hgb 8.6 L 9.2 L Hct 25.7 L 26.6 L MCV 127.3 H MCH 44.0 H RDW 15.8 H Plt Count 137 L MPV 10.5 H Neut % (Auto) 79.3 H Lymph % (Auto) 8.4 L [place] % (Auto) Lymph # (Auto) 0.75 L [place] # (Auto) 0.97 H Potassium Creatinine Glucose 126 H Uric Acid 11.2 H Calcium Ferritin Total Bilirubin 2.6 H Direct Bilirubin 1.7 H GGT 418 H AST 100 H ALT 47 H Alkaline Phosphatase 204 H Ammonia Lactate Dehydrogenase 702 H Total Protein 5.4 L Albumin Globulin 1.9 L 10/07/21 10/07/21 10/07/21 10:01 05:10 05:10 RBC 2.04 L Hgb 8.8 L Hct 26.0 L MCV 127.5 H MCH 43.1 H RDW 16.0 H Plt Count 133 L MPV 10.6 H Neut % (Auto) Lymph % (Auto) 9.1 L [place] % (Auto) 12.2 H Lymph # (Auto) 0.82 L [place] # (Auto) 1.10 H Potassium Creatinine Glucose 118 H Uric Acid 13.1 H Calcium 8.2 L Ferritin Total Bilirubin 2.5 H Direct Bilirubin 1.7 H GGT 423 H AST 109 H ALT 53 H Alkaline Phosphatase 184 H Ammonia 90 H Lactate Dehydrogenase 682 H Total Protein 5.3 L Albumin Globulin 2.1 L 10/06/21 10/06/21 10/06/21 12:01 05:25 05:25 RBC 1.89 L Hgb 8.7 L 8.3 L Hct 24.0 L MCV 127.0 H MCH 43.9 H RDW 15.6 H Plt Count 112 L MPV 11.2 H Neut % (Auto) Lymph % (Auto) 8.8 L [place] % (Auto) 14.2 H Lymph # (Auto) 0.63 L [place] # (Auto) 1.02 H Potassium Creatinine 1.6 H Glucose 121 H Uric Acid 12.4 H Calcium 8.2 L Ferritin Total Bilirubin 2.0 H Direct Bilirubin 1.4 H GGT 434 H AST 89 H ALT 58 H Alkaline Phosphatase 195 H Ammonia Lactate Dehydrogenase 780 H Total Protein 5.0 L Albumin 2.9 L Globulin 2.1 L 10/06/21 05:24 RBC Hgb Hct MCV MCH RDW Plt Count MPV Neut % (Auto) Lymph % (Auto) [place] % (Auto) Lymph # (Auto) [place] # (Auto) Potassium Creatinine Glucose Uric Acid Calcium Ferritin Total Bilirubin Direct Bilirubin GGT AST ALT Alkaline Phosphatase Ammonia 85 H Lactate Dehydrogenase Total Protein Albumin Globulin Meds: Medications Acetaminophen (Acetaminophen 325 Mg Tablet) 325 mg PO Q6HP PRN; Protocol PRN Reason: Per Pain Protocol Last Admin: 10/08/21 13:01 Dose: 325 mg Documented by: Albuterol Sulfate (Albuterol Sulfate 200 Puff Inhaler) 1 puff INH Q4-6HP PRN PRN Reason: Shortness Of Breath Last Admin: 10/08/21 08:38 Dose: 1 puff Documented by: Benzonatate (Benzonatate 100 Mg Capsule) 100 mg PO TID PRN PRN Reason: cough Last Admin: 10/05/21 07:48 Dose: 100 mg Documented by: Buspirone HCl (Buspirone 15 Mg Tablet) 7.5 mg PO BID [facility] Last Admin: 10/08/21 21:03 Dose: 7.5 mg Documented by: Clotrimazole (Clotrimazole 10 Mg Yvette) 10 mg PO 5XD [facility] Last Admin: 10/08/21 20:54 Dose: 10 mg Documented by: Cyanocobalamin (Cyanocobalamin 1,000 Mcg/Ml Vial) 1,000 mcg IM Q2W [facility] Diphenhydramine HCl (Diphenhydramine 25 Mg Capsule) 25 mg PO Q6H PRN PRN Reason: Itching Last Admin: 10/07/21 17:42 Dose: 25 mg Documented by: Docusate Sodium (Docusate Sodium 100 Mg Capsule) 100 mg PO BID [facility] Last Admin: 10/08/21 20:53 Dose: 100 mg Documented by: Folic Acid (Folic Acid 1 Mg Tablet) 1 mg PO DAILY [facility] Last Admin: 10/08/21 08:30 Dose: 1 mg Documented by: Gabapentin (Gabapentin 300 Mg Capsule) 300 mg PO BID [facility] Last Admin: 10/08/21 20:53 Dose: 300 mg Documented by: Guaifenesin (Guaifenesin 600 Mg Tab.Sr.12h) 600 mg PO Q12H PRN PRN Reason: Congestion Last Admin: 10/05/21 21:24 Dose: 600 mg Documented by: Thiamine HCl 300 mg/ Sodium (Chloride) 153 mls @ 126.5 mls/hr IV DAILY [facility] Sodium Chloride (Sodium Chloride 0.9%) 250 mls @ 10 mls/hr IV .Q24H [facility] Last Admin: 10/08/21 12:53 Dose: Not Given Documented by: Lactulose (Lactulose 20 Gm/30 Ml Oral.Petra) 30 gm PO TID [facility] Last Admin: 10/08/21 20:54 Dose: 30 gm Documented by: Lactulose (Lactulose 20 Gm/30 Ml Oral.Petra) 30 gm PO TIDP PRN PRN Reason: constipation Lorazepam (Lorazepam 2 Mg/Ml Vial) 0 mg IV Q4HP PRN; Protocol PRN Reason: Alcohol Withdrawal Last Admin: 10/08/21 21:18 Dose: 2 mg Documented by: Midodrine (Midodrine 5 Mg Tablet) 5 mg PO Q8 [facility] Last Admin: 10/09/21 05:44 Dose: 5 mg Documented by: Nicotine (Nicotine 21 Mg Patch) 21 mg TOPICAL DAILY@1000 [facility] Last Admin: 10/08/21 08:31 Dose: 21 mg Documented by: Octreotide Acetate (Octreotide Acetate 100 Mcg/Ml Vial) 100 mcg SQ Q12H [facility] Last Admin: 10/09/21 05:43 Dose: 100 mcg Documented by: Ondansetron HCl (Ondansetron 4 Mg/2 Ml Vial) 4 mg IV Q4HP PRN; Protocol PRN Reason: Nausea And Vomiting Last Admin: 10/05/21 08:05 Dose: 4 mg Documented by: Oxycodone HCl (Oxycodone Hcl 5 Mg Tablet) 5 mg PO Q6HP PRN; Protocol PRN Reason: Per Pain Protocol Last Admin: 10/08/21 20:53 Dose: 5 mg Documented by: Pantoprazole Sodium (Pantoprazole 40 Mg Vial) 40 mg IV BIDAC [facility] Last Admin: 10/08/21 17:12 Dose: 40 mg Documented by: Emollient Combo No. 59 (Bulk) [Custom Base Pcca] Cream 1 dose TOPICAL BID [facility] Last Admin: 10/08/21 20:55 Dose: 1 dose Documented by: Fluticasone- Umeclidin-Vilanter [ Trelegy Ellipta] Inhaler 1 dose INH Q24H [facility] Last Admin: 10/08/21 21:04 Dose: Not Given Documented by: Senna (Sennosides 1 Tablet) 2 tab PO HS PRN PRN Reason: constipation Sodium Chloride (0.9 % Sodium Chloride 10 Ml Syringe) 10 ml IV Q8 [facility] Last Admin: 10/08/21 22:38 Dose: 10 ml Documented by: Sodium Chloride (0.9 % Sodium Chloride 10 Ml Syringe) 10 ml IV UD PRN PRN Reason: Central Line Maintence Spironolactone (Spironolactone 25 Mg Tablet) 100 mg PO DAILY [facility] Last Admin: 10/08/21 08:30 Dose: 100 mg Documented by: Vancomycin HCl (Vancomycin Oral Petra 1,000 Mg/10 Ml Bottle) 125 mg PO QID [facility]; Protocol Last Admin: 10/08/21 20:54 Dose: 125 mg Documented by: ABG Interpretation ABG results: 10/03/21 16:16 ABG Methemoglobin 0.1 L VBG pH 7.43 H VBG pCO2 36.6 L VBG pO2 88.5 H VBG HCO3 23.7 L VBG Total CO2 24.8 L VBG O2 Saturation 91.2 H VBG Base Excess 0 A/P Narrative A/P Narrative: A: #Volume overload: Probably 2/2 liver cirrhosis. -TTE report was fairly unremarkable. -Initially refractory to IV Lasix as the patient developed acute kidney injury #Decompensated liver cirrhosis w/ascites: Likely 2/2 SILVA & alcohol use disorder -Ammonia elevated but improved after starting lactulose -MELD-Na score was about 25 on admit, now improving #Acute alcoholic hepatitis: Did not qualify for prednisolone based on MDF score #Encephalopathy: likely combined hepatic encephalopathy & resolving alcohol withdrawal #C. difficile colitis: #Concern for liver mass versus atypical fatty infiltration on CT abdomen pelvis -Alpha fetoprotein level was normal -MRI showing #GASPER, concern for hepatorenal syndrome: resolved #Acute anemia: stable #Macrocytosis: likely 2/2 alcohol use disorder -Vitamin B12 and folate normal #Hyponatremia, likely beer potomania + cirrhosis: resolved #Chronic nocturnal hypoxia & mild COPD: #Degenerative disc disease: #Anxiety disorder: #Severe alcohol use disorder & withdrawal: #Tobacco use disorder: #Reported history of peptic ulcer disease #Obesity BMI 38 #Distal left intra-articular radius fracture: -Has splint on left wrist -discussed with Dr. Christopher: nonoperative fracture Plan: -Oral Vanco x10 days -Dopamine, octreotide, albumin IV per nephrology -Nephrology following, -Monitoring renal function, diuretics - defer to Nephrology -Monitor volume status, urine output, renal function, electrolytes. -Continue lactulose, goal is 2-3 loose BMs per day; Rifaximin 550 mg BID. -prn paracentesis -GI following, patient to get EGD for variceal evaluation -abdominal MRI to evaluate liver lesions -Monitor CIWA with Ativan IV as needed. -thiamine/folic acid/vitamin B12 supplementation -Remove IJ central line when no longer necessary. -PT consult -Smoking cessation counseling -follow up with ortho in clinic for left radial fracture. -f/u with GI/Quality Analyst for liver cirrhosis -ppx: SCDs/heparin CODE STATUS: Au Pair Spent With Patient Time: Total time spent is greater than 50% in coordination of care (as documented) at patient's floor/unit and/or counseling patient:
--- NOTE | 2021-10-09 08:19 | Nephrology Progress Note ---
SUBJECTIVE Subjective Patient information: Note initiated : 10/09/21 at 8:18 am Service Date, if different from initiated Date: [] Patient: Caleb Kern 61 y/o F admitted on 09/30/21 for left arm pain, fall yesterday. Chief Complaint: [left wrist fx] Principal diagnosis: Severe hypervolemic hyponatremia Interval history: Presented with edema and Na < 120, GFR worsened with lasix. Treated with colloid, dopamine and octreotide and D/C Lasix with improvement of both GFR and serum sodium Transient hypophosphatemia While GFR and electrolytes improved, mentation worsened. Hypotensive after dopamine stopped so midodrine added and octreotide decreased to BID dose BP trend suggests more pressors needed. Vital Signs Temp Resp BP Pulse Ox 10/09/21 08:01 12 93 10/09/21 08:00 36.6 C 11 L 103/61 93 10/09/21 07:23 19 95 10/09/21 07:01 11 L 90/60 92 10/09/21 06:02 12 92 10/09/21 06:01 12 110/61 92 10/09/21 05:01 16 100/59 92 10/09/21 04:01 36.7 C 12 105/61 92 10/09/21 03:02 11 L 92 10/09/21 03:01 12 93/60 92 10/09/21 02:02 11 L 93 10/09/21 02:01 11 L 97/58 93 10/09/21 02:00 12 93 10/09/21 01:57 93 10/09/21 01:01 11 L 94/56 92 10/09/21 00:01 12 99/63 94 10/09/21 00:00 36.8 C 13 99/63 94 10/08/21 23:02 11 L 94 10/08/21 23:01 11 L 93/59 94 10/08/21 22:02 11 L 94 10/08/21 22:01 11 L 95/51 93 10/08/21 21:01 15 104/62 97 10/08/21 20:01 36.4 C 13 93/56 94 10/08/21 20:00 91 10/08/21 19:01 14 97/54 95 10/08/21 18:31 14 87/53 96 10/08/21 17:33 36.7 C 16 92/55 95 10/08/21 16:01 36.7 C 22 119/65 95 10/08/21 16:00 38 H 92 10/08/21 15:04 17 103/58 95 10/08/21 14:10 36.7 C 19 106/69 94 10/08/21 14:00 21 95 10/08/21 13:58 36.7 C 22 162/81 95 10/08/21 10:01 36.8 C 23 H 109/72 93 10/08/21 09:01 36.7 C 16 114/63 95 Intake and Output 10/08/21 10/09/21 10/09/21 21:59 05:59 13:59 Intake Total 110 Output Total 25 135 Balance 85 -135 Intake: IV 110 Potassium Chloride 20 Meq In 110 Dextrose 5% in Water 100 ml @ 55 mls/hr IV ONCE ONE Rx#: [id number] Output: Urine Catheter Amount 25 135 Other: Urine Appearance Clear Cloudy Uretheral (Burrell) Sediment Sediment Urine Color Light Isabel Dark Isabel Uretheral (Burrell) Bright Yellow Bright Yellow Urine Odor Foul Uretheral (Burrell) Strong Normal # Bowel Movements 1 Weight 92.164 kg Laboratory Tests 10/09/21 10/09/21 05:10 05:10 Sodium 142 Potassium 3.2 L Chloride 105 Carbon Dioxide 26 Anion Gap 11.0 BUN 8 Creatinine 0.6 GFR Calculation 97 Glucose 92 Calcium 8.3 L Ammonia 78 H Current Medications Acetaminophen (Acetaminophen 325 Mg Tablet) 325 mg PO Q6HP PRN; Protocol PRN Reason: Per Pain Protocol Last Admin: 10/08/21 13:01 Dose: 325 mg Documented by: Albuterol Sulfate (Albuterol Sulfate 200 Puff Inhaler) 1 puff INH Q4-6HP PRN PRN Reason: Shortness Of Breath Last Admin: 10/08/21 08:38 Dose: 1 puff Documented by: Benzonatate (Benzonatate 100 Mg Capsule) 100 mg PO TID PRN PRN Reason: cough Last Admin: 10/05/21 07:48 Dose: 100 mg Documented by: Buspirone HCl (Buspirone 15 Mg Tablet) 7.5 mg PO BID FRANK Last Admin: 10/08/21 21:03 Dose: 7.5 mg Documented by: Clotrimazole (Clotrimazole 10 Mg Yvette) 10 mg PO 5XD [facility] Last Admin: 10/08/21 20:54 Dose: 10 mg Documented by: Cyanocobalamin (Cyanocobalamin 1,000 Mcg/Ml Vial) 1,000 mcg IM Q2W [facility] Diphenhydramine HCl (Diphenhydramine 25 Mg Capsule) 25 mg PO Q6H PRN PRN Reason: Itching Last Admin: 10/07/21 17:42 Dose: 25 mg Documented by: Docusate Sodium (Docusate Sodium 100 Mg Capsule) 100 mg PO BID [facility] Last Admin: 10/08/21 20:53 Dose: 100 mg Documented by: Folic Acid (Folic Acid 1 Mg Tablet) 1 mg PO DAILY [facility] Last Admin: 10/08/21 08:30 Dose: 1 mg Documented by: Gabapentin (Gabapentin 300 Mg Capsule) 300 mg PO BID [facility] Last Admin: 10/08/21 20:53 Dose: 300 mg Documented by: Guaifenesin (Guaifenesin 600 Mg Tab.Sr.12h) 600 mg PO Q12H PRN PRN Reason: Congestion Last Admin: 10/05/21 21:24 Dose: 600 mg Documented by: Thiamine HCl 300 mg/ Sodium (Chloride) 153 mls @ 126.5 mls/hr IV DAILY [facility] Sodium Chloride (Sodium Chloride 0.9%) 250 mls @ 10 mls/hr IV .Q24H [facility] Last Admin: 10/08/21 12:53 Dose: Not Given Documented by: Lactulose (Lactulose 20 Gm/30 Ml Oral.Petra) 30 gm PO TID [facility] Last Admin: 10/08/21 20:54 Dose: 30 gm Documented by: Lactulose (Lactulose 20 Gm/30 Ml Oral.Petra) 30 gm PO TIDP PRN PRN Reason: constipation Lorazepam (Lorazepam 2 Mg/Ml Vial) 0 mg IV Q4HP PRN; Protocol PRN Reason: Alcohol Withdrawal Last Admin: 10/08/21 21:18 Dose: 2 mg Documented by: Midodrine (Midodrine 5 Mg Tablet) 5 mg PO Q8 [facility] Last Admin: 10/09/21 05:44 Dose: 5 mg Documented by: Nicotine (Nicotine 21 Mg Patch) 21 mg TOPICAL DAILY@1000 [facility] Last Admin: 10/08/21 08:31 Dose: 21 mg Documented by: Octreotide Acetate (Octreotide Acetate 100 Mcg/Ml Vial) 100 mcg SQ Q12H [facility] Last Admin: 10/09/21 05:43 Dose: 100 mcg Documented by: Ondansetron HCl (Ondansetron 4 Mg/2 Ml Vial) 4 mg IV Q4HP PRN; Protocol PRN Reason: Nausea And Vomiting Last Admin: 10/05/21 08:05 Dose: 4 mg Documented by: Oxycodone HCl (Oxycodone Hcl 5 Mg Tablet) 5 mg PO Q6HP PRN; Protocol PRN Reason: Per Pain Protocol Last Admin: 10/08/21 20:53 Dose: 5 mg Documented by: Pantoprazole Sodium (Pantoprazole 40 Mg Vial) 40 mg IV BIDAC [facility] Last Admin: 10/08/21 17:12 Dose: 40 mg Documented by: Emollient Combo No. 59 (Bulk) [Custom Base Pcca] Cream 1 dose TOPICAL BID [facility] Last Admin: 10/08/21 20:55 Dose: 1 dose Documented by: Fluticasone- Umeclidin-Vilanter [ Trelegy Ellipta] Inhaler 1 dose INH Q24H [facility] Last Admin: 10/08/21 21:04 Dose: Not Given Documented by: Senna (Sennosides 1 Tablet) 2 tab PO HS PRN PRN Reason: constipation Sodium Chloride (0.9 % Sodium Chloride 10 Ml Syringe) 10 ml IV Q8 [facility] Last Admin: 10/08/21 22:38 Dose: 10 ml Documented by: Sodium Chloride (0.9 % Sodium Chloride 10 Ml Syringe) 10 ml IV UD PRN PRN Reason: Central Line Maintence Spironolactone (Spironolactone 25 Mg Tablet) 100 mg PO DAILY [facility] Last Admin: 10/08/21 08:30 Dose: 100 mg Documented by: Vancomycin HCl (Vancomycin Oral Petra 1,000 Mg/10 Ml Bottle) 125 mg PO QID [facility]; Protocol Last Admin: 10/08/21 20:54 Dose: 125 mg Documented by: Pertinent ROS: C Diff positive? Additional PMFSH (Level 3 Only): N/A Constitutional Vitals: Vital Signs Temp Pulse Resp BP Pulse Ox 36.6 C 12 L 12 103/61 93 10/09/21 08:00 10/06/21 10:01 10/09/21 08:01 10/09/21 08:00 10/09/21 08:01 Period Temp Pulse Resp BP Sys/Altman Pulse Ox Last 24 Hr 36.4 C-36.8 C 11-38 87-162/51-81 91-97 Intake and Output 10/08/21 10/09/21 10/09/21 21:59 05:59 13:59 Intake Total 110 Output Total 25 135 Balance 85 -135 Weight 92.164 kg Intake & Output: Intake & Output 10/08/21 10/09/21 10/09/21 21:59 05:59 13:59 Intake Total 110 Output Total 25 135 Balance 85 -135 Weight 92.164 kg Intake: IV 110 Potassium Chloride 20 Meq In 110 Dextrose 5% in Water 100 ml @ 55 mls/hr IV ONCE ONE Rx#: [id number] Output: Urine Catheter Amount 25 135 Other: Urine Appearance Clear Cloudy Uretheral (Burrell) Sediment Sediment Urine Color Light Isabel Dark Isabel Uretheral (Burrell) Bright Yellow Bright Yellow Urine Odor Foul Uretheral (Burrell) Strong Normal # Bowel Movements 1 General appearance: disheveled; no cooperative Exam: Encephalopathic Head Head exam: Present normocephalic Eye Eye exam: Present EOMI and PERRL; Absent scleral icterus ENT ENT exam: Present mucous membranes dry Neck Neck exam: Absent meningismus Respiratory Respiratory exam: Present decreased breath sounds and CTAB Cardiovascular Cardiovascular exam: Present +S1 and +S2; Absent JVD, rubs or +S3 GI/Abdominal GI/Abdominal exam: Present diminished bowel sounds, distended and organomegaly (liver span 10 cm at RCM) Additional comments: burrell in place Extremities Exam Extremities exam: Present pedal edema Neurological Exam Neurological exam: Present altered, CN II-XII intact and oriented X3 (to person and place) Psychiatric Additional comments: Encephalopathic Skin Skin exam: Present dry and mottled Additional comments: scattered ecchymosis A/P Narrative A/P Narrative: A/P Assessment and plan (1) Cirrhosis with alcoholism: Assessment and plan: Looks like acute alcoholic hepatitis superimposed on alcoholic fatty liver...combo bad but neither seems life threatening. Acute alcoholic hepatitis not severe enough for steroids WILLIAMS will progress to cirrhosis and ESLD unless she stops all EtOH intake now (2) Oliguria and anuria: Assessment and plan: Urine Na of < 10 => poor renal perfusion / avoid diuretics and expand ECF volume with colloid (3) ARF (acute renal failure): Assessment and plan: More loop diuretics in refractory ascites only leading to further decrease in GFR. Situation grave. I'm in favor of octreotide/midodrine and aldactone, hold lasix due to lowish BP and continue sodium restriction (4) Hyponatremia: Assessment and plan: Excess fluid with low protein stores Suspect most calories are from Vodka (5) Acquired hypophosphatemia: Assessment and plan: Replace with IV NaPO4 Narrative GFR improved Hyponatremia resolved Convert dopamine to midodrine, titrate to bp 110 systolic Decrease octreotide to BID dosing D/C albumin CONTINUE ONLY SPIRONOLACTONE - NO LASIX If BP goal not reached with midodrine, back to dopamine or stop octreotide and see how it goes. Time Spent With Patient Time: Total time spent is greater than 50% in coordination of care (as documented) at patient's floor/unit and/or counseling patient:
[2021-10-09] MEDS ORDERED: MIDODRINE 5 MG TABLET PO ONE (08:31)
[2021-10-09] MEDS: LACTULOSE 20 GM/30 ML ORAL.SOL PO SCH ×3 (08:38→21:20)
[2021-10-09] MEDS: DOCUSATE SODIUM 100 MG CAPSULE PO SCH (08:38)
[2021-10-09] MEDS: oxyCODONE HCL 5 MG TABLET PO PRN (08:47)
[2021-10-09] MEDS ORDERED: KETAMINE 50 MG/ML ML IV PRN (08:47)
[2021-10-09] MEDS: POTASSIUM CHLORIDE 20 MEQ TABLET PO ONE ×2 (08:48→09:15)
[2021-10-09] MEDS: NICOTINE 21 MG PATCH TOPICAL SCH (08:48)
[2021-10-09] MEDS: FOLIC ACID 1 MG TABLET PO SCH (08:48)
[2021-10-09] MEDS: GABAPENTIN 300 MG CAPSULE PO SCH ×2 (08:48→21:19)
[2021-10-09] MEDS: VANCOMYCIN ORAL SOL 1,000 MG/10 ML BOTTLE PO SCH ×4 (08:59→21:20)
[2021-10-09] MEDS: THIAMINE IV SCH (08:59)
[2021-10-09] MEDS: SODIUM CHLORIDE 0.9% IV SCH (08:59)
[2021-10-09] MEDS: ALBUTEROL SULFATE 200 PUFF INHALER INH PRN (09:00)
[2021-10-09] MEDS ORDERED: PROPOFOL 200 MG/20 ML VIAL IV SCH (09:00)
[2021-10-09] MEDS: CLOTRIMAZOLE 10 MG TROCHE PO SCH ×5 (09:00→21:19)
[2021-10-09] MEDS: [UNRECOGNIZED DRUG - OTHER] TOPICAL SCH ×2 (09:00→21:20)
[2021-10-09] MEDS ORDERED: MIDAZOLAM 2 MG/2 ML VIAL IV SCH (09:00)
[2021-10-09] MEDS: SPIRONOLACTONE 25 MG TABLET PO SCH (09:13)
[2021-10-09] MEDS ORDERED: POTASSIUM CHLORIDE 40 MEQ in DEXTROSE 5% IN WATER 250 ML IV ONE (09:17)
[2021-10-09] MEDS: RIFAXIMIN 550 MG TABLET PO SCH ×2 (10:37→21:20)
[2021-10-09] MEDS: busPIRone 15 MG TABLET PO SCH ×2 (10:37→21:19)
[2021-10-09] MEDS: 0.9 % SODIUM CHLORIDE 250 ML IV SCH (10:39)
[2021-10-09] MEDS ORDERED: PROPOFOL 200 MG/20 ML VIAL IV ONE (16:21)
[2021-10-09] MEDS ORDERED: MIDAZOLAM 2 MG/2 ML VIAL ONE (16:21)
[2021-10-09] MEDS: FAMOTIDINE 20 MG TABLET PO SCH (21:19)
[2021-10-09] MEDS: HEPARIN 5,000 UNIT/ML VIAL SQ SCH (21:20)
[2021-10-09] MEDS: Fluticasone-Umeclidin-Vilanter [Trelegy Ellipta] Inhaler INH SCH (21:21)
[2021-10-10] MEDS: oxyCODONE HCL 5 MG TABLET PO PRN (03:25)
--- NOTE | 2021-10-10 06:35 | Internal Med Progress Note ---
SUBJECTIVE Subjective Patient information: Note initiated : 10/10/21 at 6:25 am Service Date, if different from initiated Date: [] Patient: Caleb Kern 61 y/o F admitted on 09/30/21 for left arm pain, fall yesterday. Chief Complaint: [] Principal diagnosis: Severe hypervolemic hyponatremia Interval history: Ms. Kern is a 61 year old female with a past medical history not limited to SILVA, COPD, nocturnal hypoxia, vitamin B12 deficiency, degenerative disc disease, obesity, tobacco use disorder who presented to the emergency department after a fall at home for further evaluation of left wrist pain. X-ray of the l eft wrist showed an intraarticular fracture of the distal radius. The patient was noted to be hypervolemic in the emergency department, CBC and chemistry panel were ordered showing severe hyponatremia with a sodium level of 116. Additionally, labs showed a mild leukocytosis of 12.3, severe macrocytosis, thrombocytopenia, anion gap metabolic acidosis, bilirubin of 1.8 and ALT and AST elevated compared to the patient's prior labs from 2020. Patient also had a NT proBNP of 441, 1 view chest x-ray did not show any pulmonary vascular congestion. The patient had a markedly elevated D-dimer of 6.89. The patient has not been having any shortness of breath recently and was comfortable on room air in the emergency department. The patient received Lasix IV in the emergency department. Hospital medicine was consulted for admission and management of severe hyponatremia. The patient says that she has been experiencing intermittent bilateral lower extremity edema for some time and that they have always resolved. The current amount of edema is more severe than prior episodes. She denies recent dyspnea, has not noticed any significant changes in urination. Patient says that she has known about "fatty liver disease" for some time. She does drink a significant amount of alcohol which usually contains vodka on an almost daily basis. We discussed the goals of admission which include a gradual correction of her sodium level. We also discussed further work-up which will focus on cardiac, liver and renal pathologies that could explain hypovolemic hyponatremia. We discussed CODE STATUS in detail, the patient wishes to be full code. 3/ Urine protein creatinine ratio was normal, TSH and morning cortisol levels nikhil l. blood smear was not suggestive of a sinister hematologic process. Vitamin B12 level elevated, folate level normal. INR was 1.2. Sodium trended up to 120s and down to 119, the patient received 100 mL of 3% saline followed by increase in sodium to 122. Patient has not made significant urine after receiving a dose of Lasix 80 mg IV. Volume overloaded as on admission with bilateral lower extremity pitting edema. Abdominal ultrasound showed fatty liver, possible steatohepatitis or early stage cirrhosis, small to moderate amount of ascites was present, normal directional blood flow and hepatic and portal veins. Bilateral lower extremity venous duplex ultrasound was negative for DVT. Transthoracic echocardiogram report pending. 10/02 Creatinine increased, discontinued lasix and consulted nephrology. Nephrology started albumin, recommended holding on diuretics at this time. 10/03 TTE was fairly unremarkable, etiology for hyponatremia is likely a liver cirrhosis combined with alcohol use. Patient is more confused now, likely secondary to hepatic encephalopathy as ammonia has also been elevated. Hemoglobin trending down, started Protonix IV twice daily. Trending hemoglobin, will consider consulting general surgery for EGD if this trends down further. Sodium slightly improved now at 123. Renal function slightly improved, creatinine 1.3 today. 10/04 The patient is more alert and oriented today but still confused, ammonia level still elevated in spite of increase in lactulose. Hemoglobin trending up now, will continue Protonix IV BID for now and likely transition to oral PPI therapy in 1-2 days. The patient does have a history of peptic ulcer and had been taking Ibuprofen prior to admission but with hemoglobin trending up on a PPI and EGD may not be high yield. GI consult currently not available at [facility]. Nephrology started Octreotide and Midodrine in addition to Albumin IV. Renal function is about the same, sodium about the same as yesterday. The patient is still markedly hypervolemic. 10/05 Low urine output, nephrology started IV fluid, no longer on octreotide, midodrine and albumin IV. Urine output did improve somewhat today but still low relative to the patient's hypervolemic volume status. Ammonia increasing and the patient continues to be confused and having intermittent hallucinations. CIWA score was 10 but clinically does not appear to be in withdrawal and the patient does not feel like she is in alcohol withdrawal. Started lactulose enema every 6 hours. Started high-dose thiamine IV supplementation. abdomen pelvis without contrast showed moderate hepatomegaly with a large low attenuating region infiltrating the entire lateral right hepatic lobe and a smaller region in the lateral segment of the left hepatic lobe, may represent atypical fatty infiltration however hepatocellular carcinoma or liver metastasis could have a similar appearance. There was also developing liver cirrhosis with mild enlargement of the portal vein, moderate splenomegaly and moderate ascites. Radiology recommended an MRI of the abdomen. We will have to defer MRI of the abdomen until the patient is no longer encephalopathic. Alpha fetoprotein level was normal. 10/06 The patient is more confused overnight suspect the patient is withdrawing from alcohol. Receiving Ativan IV as needed per CIWA protocol. This have been blunted initially by hepatic encephalopathy and the patient was also taking home Ativan as needed. Ammonia improved after a couple lactulose enemas overnight. CT head without contrast did not show any acute changes. Renal function is similar to yesterday. Nephrology started dopamine, octreotide and albumin IV. Discussed anemia with general surgery, Dr. Curiel deferred EGD at this time as he felt it would not be a high yield work-up. 10/07 Vital stable overnight, less agitated today, CIWA scores have improved. Renal function has improved. Ammonia level 90, down from a high of 109. Hemoglobin about the same as yesterday, 8.8. We will get an abdominal ultrasound to evaluate the extent of ascites today. Peripheral blood smear ordered for anemia and macrocytosis. 10/08 Patient going through alcohol withdrawal but is awake and answering questions appropriately. Hemoglobin stable. Creatinine stable. Transaminitis stable. Patient only complains of headache. Per nurse 3 bowel movements yesterday but none overnight. Guaiac testing was not done will obtain for next BM. 10/09 Patient last got 2 mg of Ativan last night at 9:00. None since. No overnight issues. Schedule undergo EGD for evaluation for esophagus varices. Patient seems lethargic this morning. Makes eye contact is does not answer questions. Ammonia improved from yesterday. 10/10 Yesterday patient had MRI of liver pending results. EGD showed gastroparesis but no varices. Patient has mild headache and occasional nausea. No vomiting. A little bit more responsive today. Treating for C. difficile colitis as found out yesterday. Per discussion with the she has had diarrhea prior to admission. Review of Systems: denies fever/chills/nausea/vomiting/chest or abdominal pain/cough/dyspnea/diar kamila. Otherwise see above. Constitutional Vitals: Vital Signs Temp Pulse Resp BP Pulse Ox 98.2 F 92 H 10 L 100/58 96 10/10/21 03:02 10/09/21 16:47 10/10/21 06:01 10/10/21 06:01 10/10/21 06:01 Period Temp Pulse Resp BP Sys/Altman Pulse Ox Last 24 Hr 97.6 F-98.4 F 90-96 7-21 90-125/49-92 89-97 Intake and Output 10/09/21 10/10/21 10/10/21 21:59 05:59 13:59 Intake Total 270 Output Total 250 Balance 270 -250 Weight 93.128 kg Intake & Output: Intake & Output 10/09/21 10/10/21 10/10/21 21:59 05:59 13:59 Intake Total 270 Output Total 250 Balance 270 -250 Weight 93.128 kg Intake: IV 270 Potassium Chloride 40 Meq In 270 Dextrose 5% in Water 250 ml @ 67.5 mls/hr IV ONCE ONE Rx#: [id number] Oral 0 Output: Urine Catheter Amount 250 Other: Urine Appearance Sediment Cloudy Urine Color Light Isabel Dark Isabel Urine Odor Strong Exam: General: Awakens, No acute Distress Eyes/N/T: EOMI, scleral icterus Head/Neck: neck supple, CV: RRR, No murmurs, Pulm: Clear b/l, no wheezing/rhonchi/rales Abd: Distended abdomen, soft, nontender Ext: no clubbing/cyanosis, b/l LE mild edema Neuro: lethargic, makes eye contact but does not answer my questions, moves all extremities, follow commands Skin: warm/dry, Spider angiomas present in upper extremities, upper chest, upper back. OBJ DATA Labs CBC & Chem 7: 10/10/21 05:34 10/10/21 05:34 Labs: Abnormal Lab Results 10/09/21 10/09/21 10/09/21 05:14 05:10 05:10 RBC Hgb Hct MCV MCH RDW Plt Count MPV Neut % (Auto) Lymph % (Auto) Borden % (Auto) Lymph # (Auto) Borden # (Auto) Potassium 3.2 L Glucose Uric Acid Calcium 8.3 L Ferritin 1759.0 H Total Bilirubin Direct Bilirubin GGT AST ALT Alkaline Phosphatase Ammonia 78 H Lactate Dehydrogenase Total Protein Globulin 10/09/21 10/08/21 10/08/21 05:10 04:58 04:58 RBC 2.09 L Hgb 8.6 L 9.2 L Hct 25.7 L 26.6 L MCV 127.3 H MCH 44.0 H RDW 15.8 H Plt Count 137 L MPV 10.5 H Neut % (Auto) 79.3 H Lymph % (Auto) 8.4 L Borden % (Auto) Lymph # (Auto) 0.75 L Borden # (Auto) 0.97 H Potassium Glucose 126 H Uric Acid 11.2 H Calcium Ferritin Total Bilirubin 2.6 H Direct Bilirubin 1.7 H GGT 418 H AST 100 H ALT 47 H Alkaline Phosphatase 204 H Ammonia Lactate Dehydrogenase 702 H Total Protein 5.4 L Globulin 1.9 L 10/07/21 10/07/21 10/07/21 10:01 05:10 05:10 RBC 2.04 L Hgb 8.8 L Hct 26.0 L MCV 127.5 H MCH 43.1 H RDW 16.0 H Plt Count 133 L MPV 10.6 H Neut % (Auto) Lymph % (Auto) 9.1 L Borden % (Auto) 12.2 H Lymph # (Auto) 0.82 L Borden # (Auto) 1.10 H Potassium Glucose 118 H Uric Acid 13.1 H Calcium 8.2 L Ferritin Total Bilirubin 2.5 H Direct Bilirubin 1.7 H GGT 423 H AST 109 H ALT 53 H Alkaline Phosphatase 184 H Ammonia 90 H Lactate Dehydrogenase 682 H Total Protein 5.3 L Globulin 2.1 L Meds: Medications Acetaminophen (Acetaminophen 325 Mg Tablet) 325 mg PO Q6HP PRN; Protocol PRN Reason: Per Pain Protocol Last Admin: 10/08/21 13:01 Dose: 325 mg Documented by: Albuterol Sulfate (Albuterol Sulfate 200 Puff Inhaler) 1 puff INH Q4-6HP PRN PRN Reason: Shortness Of Breath Last Admin: 10/09/21 09:00 Dose: 1 puff Documented by: Benzonatate (Benzonatate 100 Mg Capsule) 100 mg PO TID PRN PRN Reason: cough Last Admin: 10/05/21 07:48 Dose: 100 mg Documented by: Buspirone HCl (Buspirone 15 Mg Tablet) 7.5 mg PO BID FRANK Last Admin: 10/09/21 21:19 Dose: 7.5 mg Documented by: Clotrimazole (Clotrimazole 10 Mg Yvette) 10 mg PO 5XD [facility] Last Admin: 10/09/21 21:19 Dose: 10 mg Documented by: Cyanocobalamin (Cyanocobalamin 1,000 Mcg/Ml Vial) 1,000 mcg IM Q2W [facility] Diphenhydramine HCl (Diphenhydramine 25 Mg Capsule) 25 mg PO Q6H PRN PRN Reason: Itching Last Admin: 10/07/21 17:42 Dose: 25 mg Documented by: Famotidine (Famotidine 20 Mg Tablet) 20 mg PO HS [facility] Last Admin: 10/09/21 21:19 Dose: 20 mg Documented by: Folic Acid (Folic Acid 1 Mg Tablet) 1 mg PO DAILY [facility] Last Admin: 10/09/21 08:48 Dose: 1 mg Documented by: Gabapentin (Gabapentin 300 Mg Capsule) 300 mg PO BID [facility] Last Admin: 10/09/21 21:19 Dose: 300 mg Documented by: Guaifenesin (Guaifenesin 600 Mg Tab.Sr.12h) 600 mg PO Q12H PRN PRN Reason: Congestion Last Admin: 10/05/21 21:24 Dose: 600 mg Documented by: Heparin Sodium (Porcine) (Heparin 5,000 Unit/Ml Vial) 5,000 unit SQ Q12 [facility] Last Admin: 10/09/21 21:20 Dose: 5,000 unit Documented by: Thiamine HCl 300 mg/ Sodium (Chloride) 153 mls @ 126.5 mls/hr IV DAILY [facility] Last Infusion: 10/09/21 10:30 Dose: Infused Documented by: Sodium Chloride (Sodium Chloride 0.9%) 250 mls @ 10 mls/hr IV .Q24H [facility] Last Admin: 10/09/21 10:39 Dose: Not Given Documented by: Lactulose (Lactulose 20 Gm/30 Ml Oral.Petra) 30 gm PO TID [facility] Last Admin: 10/09/21 21:20 Dose: 30 gm Documented by: Lactulose (Lactulose 20 Gm/30 Ml Oral.Petra) 30 gm PO TIDP PRN PRN Reason: constipation Lorazepam (Lorazepam 2 Mg/Ml Vial) 0 mg IV Q4HP PRN; Protocol PRN Reason: Alcohol Withdrawal Last Admin: 03/14/22 21:18 Dose: 2 mg Documented by: Midodrine (Midodrine 5 Mg Tablet) 10 mg PO Q8 [facility] Last Admin: 10/09/21 21:21 Dose: 10 mg Documented by: Nicotine (Nicotine 21 Mg Patch) 21 mg TOPICAL DAILY@1000 [facility] Last Admin: 10/09/21 08:48 Dose: 21 mg Documented by: Octreotide Acetate (Octreotide Acetate 100 Mcg/Ml Vial) 100 mcg SQ Q12H [facility] Last Admin: 10/09/21 19:25 Dose: 100 mcg Documented by: Ondansetron HCl (Ondansetron 4 Mg/2 Ml Vial) 4 mg IV Q4HP PRN; Protocol PRN Reason: Nausea And Vomiting Last Admin: 10/05/21 08:05 Dose: 4 mg Documented by: Oxycodone HCl (Oxycodone Hcl 5 Mg Tablet) 5 mg PO Q6HP PRN; Protocol PRN Reason: Per Pain Protocol Last Admin: 10/10/21 03:25 Dose: 5 mg Documented by: Emollient Combo No. [id number] (Bulk) [Custom Base Pcca] Cream 1 dose TOPICAL BID [facility] Last Admin: 10/09/21 21:20 Dose: 1 dose Documented by: Fluticasone- Umeclidin-Vilanter [ Trelegy Ellipta] Inhaler 1 dose INH Q24H [facility] Last Admin: 10/09/21 21:21 Dose: 1 dose Documented by: Senna (Sennosides 1 Tablet) 2 tab PO HS PRN PRN Reason: constipation Sodium Chloride (0.9 % Sodium Chloride 10 Ml Syringe) 10 ml IV Q8 [facility] Last Admin: 10/09/21 21:21 Dose: 10 ml Documented by: Sodium Chloride (0.9 % Sodium Chloride 10 Ml Syringe) 10 ml IV UD PRN PRN Reason: Central Line Maintence Spironolactone (Spironolactone 25 Mg Tablet) 100 mg PO DAILY [facility] Last Admin: 10/09/21 09:13 Dose: Not Given Documented by: Vancomycin HCl (Vancomycin Oral Petra 1,000 Mg/10 Ml Bottle) 125 mg PO QID [facility]; Protocol Last Admin: 10/09/21 21:20 Dose: 125 mg Documented by: ABG Interpretation ABG results: 10/03/21 16:16 ABG Methemoglobin 0.1 L VBG pH 7.43 H VBG pCO2 36.6 L VBG pO2 88.5 H VBG HCO3 23.7 L VBG Total CO2 24.8 L VBG O2 Saturation 91.2 H VBG Base Excess 0 A/P Narrative A/P Narrative: A: #Volume overload: Probably 2/2 liver cirrhosis. -TTE report was fairly unremarkable. -Initially refractory to IV Lasix as the patient developed acute kidney injury #Decompensated liver cirrhosis w/ascites: Likely 2/2 SILVA & alcohol use disorder -Ammonia elevated but improved after starting lactulose -MELD-Na score was about 25 on admit, now improving -Mildly elevated INR -EGD showing no varices but gastroparesis #Acute alcoholic hepatitis: Did not qualify for prednisolone based on MDF score #Encephalopathy: likely combined hepatic & alcohol withdrawal & now likely ICU delerium w/likely medication related when treated for etoh w/d -mild improvement today #C. difficile colitis: Diarrhea present on admission per history from #Liver mass versus atypical fatty infiltration on CT abdomen pelvis -Alpha fetoprotein level was normal -MRI showing #GASPER, concern for hepatorenal syndrome: resolved #Acute anemia: stable #Gastroparesis: #Macrocytosis: likely 2/2 alcohol use disorder -Vitamin B12 and folate normal #Hyponatremia, likely beer potomania + cirrhosis: resolved #Thrombocytopenia 2/2 cirrhosis: stable #Generalized weakness/deconditioning: #Chronic nocturnal hypoxia & COPD: #Degenerative disc disease: #Anxiety disorder: #Severe alcohol use disorder & withdrawal: #Tobacco use disorder: #Reported history of peptic ulcer disease #Obesity BMI 38 #Distal left intra-articular radius fracture: -Has splint on left wrist -discussed with Dr. Christopher: nonoperative fracture #Poor long-term prognosis Plan: -Oral Vanco x10 days -octreotide, midodrine vs dopamine, albumin, IV per nephrology -Nephrology following, -Monitoring renal function, diuretics - defer to Nephrology -Monitor volume status, urine output, renal function, electrolytes. -Continue lactulose, goal is 2-3 loose BMs per day; Rifaximin 550 mg BID. -prn paracentesis -GI following -abdominal MRI to evaluate liver lesions -hold ativan at this point, past etoh w/d phase -thiamine/folic acid/vitamin B12 supplementation -Remove IJ central line when no longer necessary. -PT consult -ST, and gastroparesis diet low fat and soluble fiber -Smoking cessation counseling -follow up with ortho in clinic for left radial fracture. -f/u with GI/[facility] [facility] for liver cirrhosis -ppx: SCDs/heparin / H2 CODE STATUS: Time Spent With Patient Time: Total time spent is greater than 50% in coordination of care (as documented) at patient's floor/unit and/or counseling patient: Total time spent with greater than 50% in coordination of care (as documented) at patient's floor/unit and/or counseling patient:: Greater than 35 minutes
[2021-10-10 07:00] LABS: INR 1.4 (0.9-1.1); Prothrombin Time 17.5 sec (11.9-14.5)
[2021-10-10 07:01] LABS: Basophils # (Auto) 0.04 K/mcL (0.00-0.30); Basophils % (Auto) 0.5 % (0.0-2.0); Eosinophils # (Auto) 0.14 K/mcL (0.00-0.70); Eosinophils % (Auto) 1.6 % (0.0-7.0); Hemoglobin 8.6 g/dL (11.2-15.7); Lymphocytes # (Auto) 1.18 K/mcL (1.50-4.80); Lymphocytes % (Auto) 13.6 % (15.5-49.0); Mean Cell Volume 132.4 fL (80.0-100.0); Mean Corpuscular HGB Conc 31.9 g/dL (31.0-36.0); Mean Platelet Volume 10.6 fL (7.4-10.4); Monocytes # (Auto) 0.72 K/mcL (0.10-0.90); Monocytes % (Auto) 8.3 % (1.0-12.0); Platelet Count 154 K/mcL (140-440); RBC 2.04 M/mcL (3.59-5.38); Red Cell Distribution Width 16.1 % (11.5-14.5); WBC 8.7 K/mcL (4.5-11.0)
[2021-10-10] MEDS: 0.9 % SODIUM CHLORIDE 10 ML SYRINGE IV SCH ×3 (07:07→21:21)
[2021-10-10] MEDS: MIDODRINE 5 MG TABLET PO SCH (07:07)
[2021-10-10 07:18] LABS: ALT/SGPT 39 U/L (<40); AST/SGOT 125 U/L (<32); Albumin 2.9 gm/dL (3.2-5.2); Albumin/Globulin Ratio 1.4 (1.0-2.3); Alkaline Phosphatase 171 U/L (39-117); Bilirubin,Direct 1.3 mg/dL (<0.3); Blood Urea Nitrogen 9 mg/dL (8-23); Calcium 8.3 mg/dL (8.6-10.4); Carbon Dioxide 27 mmol/L (22-30); Chloride 107 mmol/L (96-108); Globulin 2.1 gm/dL (2.2-3.7); Glomerular Filtration Rate 92; Glucose 88 mg/dL (70-105); Lactate Dehydrogenase 530 U/L (135-225); Phosphorous 2.4 mg/dL (2.5-4.5); Triglycerides 109 mg/dL (<150); Uric Acid 12.6 mg/dL (2.5-8.0)
[2021-10-10] MEDS: OCTREOTIDE ACETATE 100 MCG/ML VIAL SQ SCH (08:07)
--- NOTE | 2021-10-10 08:15 | Nephrology Progress Note ---
SUBJECTIVE Subjective Patient information: Note initiated : 10/10/21 at 8:10 am Service Date, if different from initiated Date: [] Patient: Caleb Kern 61 y/o F admitted on 09/30/21 for left arm pain, fall yesterday. Chief Complaint: [fx left wrist] Principal diagnosis: Severe hypervolemic hyponatremia Interval history: Still lethargic Alcoholic hepatitis supperimposed on chronic alcoholic fatty liver Cirrhotic physiology and portal HTN => ascites, edema, sodium avid state and oligoanuria Lasix => ARF Hyponatremia due to poor nutrition, excess free H2O intake in form of vodka Hyponatremia and ARF better with aldactone, colloid, midodrine and octreotide Today stop midodrine and octreotide, continue spironolactone and see what happens. Laboratory Tests 10/10/21 10/10/21 05:34 05:34 Sodium 143 Potassium 3.9 Chloride 107 Carbon Dioxide 27 Anion Gap 9.0 BUN 9 Creatinine 0.7 GFR Calculation 92 Glucose 88 Uric Acid 12.6 H Calcium 8.3 L Phosphorus 2.4 L Magnesium 1.4 L Direct Bilirubin 1.3 H GGT 331 H AST 125 H ALT 39 Alkaline Phosphatase 171 H Ammonia 68 H Lactate Dehydrogenase 530 H Albumin 2.9 L Globulin 2.1 L Albumin/Globulin Ratio 1.4 Serum Creatinine Serum Sodium Vital Signs Temp Pulse Resp BP Pulse Ox 10/10/21 10:01 11 L 113/68 96 10/10/21 10:00 13 98 10/10/21 09:01 10 L 108/64 95 10/10/21 08:02 11 L 94 10/10/21 08:01 36.8 C 9 L 107/64 95 10/10/21 08:00 17 94 10/10/21 07:01 10 L 107/73 97 10/10/21 06:02 10 L 96 10/10/21 06:01 10 L 100/58 96 10/10/21 05:01 10 L 101/59 97 10/10/21 04:38 12 116/70 96 10/10/21 03:02 36.8 C 10 L 105/66 96 10/10/21 02:01 13 92/65 89 L 10/10/21 01:00 10 L 108/68 96 10/10/21 00:01 36.6 C 8 L 109/65 97 10/09/21 23:01 9 L 111/72 97 10/09/21 22:01 10 L 115/66 97 10/09/21 21:01 7 L 113/76 97 10/09/21 20:01 36.6 C 8 L 111/76 97 10/09/21 19:46 7 L 117/81 97 10/09/21 19:41 8 L 125/70 97 10/09/21 18:01 8 L 95 10/09/21 18:00 9 L 105/72 95 10/09/21 17:47 8 L 94 10/09/21 17:46 17 110/74 93 10/09/21 17:31 36.8 C 16 124/80 93 10/09/21 17:01 15 120/92 94 10/09/21 16:53 12 116/69 91 10/09/21 16:50 36.7 C 15 98/49 91 10/09/21 16:47 92 H 12 92/61 94 10/09/21 16:42 90 10 L 94/54 96 10/09/21 16:37 92 H 10 L 103/59 97 10/09/21 16:34 96 H 14 91/54 96 10/09/21 16:01 36.9 C 9 L 112/69 94 10/09/21 16:00 8 L 94 10/09/21 15:02 9 L 95 10/09/21 15:01 9 L 108/63 95 10/09/21 14:01 10 L 100/60 96 10/09/21 14:00 21 95 10/09/21 13:01 16 102/83 97 10/09/21 12:03 17 95 10/09/21 12:02 36.4 C 18 106/72 93 10/09/21 12:00 13 96 Intake and Output 10/09/21 10/10/21 10/10/21 21:59 05:59 13:59 Intake Total 270 Output Total 250 Balance 270 -250 Intake: IV 270 Potassium Chloride 40 Meq In 270 Dextrose 5% in Water 250 ml @ 67.5 mls/hr IV ONCE ONE Rx#: [id number] Oral 0 Output: Urine Catheter Amount 250 Other: Urine Appearance Sediment Cloudy Urine Color Light Isabel Dark Isabel Urine Odor Strong Weight 93.128 kg Pertinent ROS: Nothing new Additional PMFSH (Level 3 Only): N/A Constitutional Vitals: Vital Signs Temp Pulse Resp BP Pulse Ox 36.8 C 92 H 10 L 100/58 96 10/10/21 03:02 10/09/21 16:47 10/10/21 06:01 10/10/21 06:01 10/10/21 06:01 Period Temp Pulse Resp BP Sys/Altman Pulse Ox Last 24 Hr 36.4 C-36.9 C 90-96 7-21 91-125/49-92 89-97 Intake and Output 10/09/21 10/10/21 10/10/21 21:59 05:59 13:59 Intake Total 270 Output Total 250 Balance 270 -250 Weight 93.128 kg Intake & Output: Intake & Output 10/09/21 10/10/21 10/10/21 21:59 05:59 13:59 Intake Total 270 Output Total 250 Balance 270 -250 Weight 93.128 kg Intake: IV 270 Potassium Chloride 40 Meq In 270 Dextrose 5% in Water 250 ml @ 67.5 mls/hr IV ONCE ONE Rx#: [id number] Oral 0 Output: Urine Catheter Amount 250 Other: Urine Appearance Sediment Cloudy Urine Color Light Isabel Dark Isabel Urine Odor Strong General appearance: mild distress and morbidly obese Exam: confused and lethargic Head Head exam: Present normocephalic Eye Eye exam: Present EOMI and PERRL; Absent scleral icterus ENT ENT exam: Present mucous membranes dry Neck Neck exam: Absent meningismus Respiratory Respiratory exam: Present decreased breath sounds and CTAB Cardiovascular Cardiovascular exam: Present RRR, +S1 and +S2; Absent gallop, JVD or +S3 GI/Abdominal GI/Abdominal exam: Present diminished bowel sounds, distended and organomegaly Extremities Exam Extremities exam: Present pedal edema Neurological Exam Neurological exam: Present altered and CN II-XII intact; Absent alert or oriented X3 Additional comments: Encephalopathy Psychiatric Additional comments: Encephalopathic Skin Skin exam: Present dry Additional comments: Scattered ecchymosis A/P Narrative A/P Narrative: A/P Assessment and plan (1) Cirrhosis with alcoholism: Assessment and plan: Looks like acute alcoholic hepatitis superimposed on alcoholic fatty liver...combo bad but neither seems life threatening. Acute alcoholic hepatitis not severe enough for steroids WILLIAMS will progress to cirrhosis and ESLD unless she stops all EtOH intake now (2) Oliguria and anuria: Assessment and plan: Urine Na of < 10 => poor renal perfusion / avoid loop diuretics / use ald actone only (3) ARF (acute renal failure): Assessment and plan: More loop diuretics in refractory ascites only leading to further decrease in GFR. Situation grave. Therapeutic benefit with octreotide/midodrine and aldactone. Now trial on a home regiment of just aldactone (4) Hyponatremia: Assessment and plan: Excess fluid with low protein stores Suspect most calories are from Vodka (5) Acquired hypophosphatemia: Assessment and plan: Replace with IV NaPO4 Narrative GFR improved Hyponatremia resolved Stop dopamine and midodrine Stop octreotide to BID dosing D/C albumin CONTINUE ONLY SPIRONOLACTONE - NO LASIX Time Spent With Patient Time: Total time spent is greater than 50% in coordination of care (as documented) at patient's floor/unit and/or counseling patient: Total time spent with greater than 50% in coordination of care (as documented) at patient's floor/unit and/or counseling patient:: 25 - 35 minutes
[2021-10-10] MEDS: CLOTRIMAZOLE 10 MG TROCHE PO SCH ×5 (08:17→21:23)
[2021-10-10] MEDS: HEPARIN 5,000 UNIT/ML VIAL SQ SCH ×2 (09:23→21:21)
[2021-10-10] MEDS: VANCOMYCIN ORAL SOL 1,000 MG/10 ML BOTTLE PO SCH ×4 (09:23→21:23)
[2021-10-10] MEDS: LACTULOSE 20 GM/30 ML ORAL.SOL PO SCH ×3 (09:24→21:21)
[2021-10-10] MEDS: RIFAXIMIN 550 MG TABLET PO SCH ×2 (09:24→21:22)
[2021-10-10] MEDS: GABAPENTIN 300 MG CAPSULE PO SCH ×2 (09:24→21:21)
[2021-10-10] MEDS: [UNRECOGNIZED DRUG - OTHER] TOPICAL SCH ×2 (09:24→21:23)
[2021-10-10] MEDS: busPIRone 15 MG TABLET PO SCH ×2 (09:24→21:22)
[2021-10-10] MEDS: THIAMINE IV SCH (09:25)
[2021-10-10] MEDS: SODIUM CHLORIDE 0.9% IV SCH (09:25)
[2021-10-10] MEDS: SPIRONOLACTONE 25 MG TABLET PO SCH (09:25)
[2021-10-10] MEDS: FOLIC ACID 1 MG TABLET PO SCH (09:25)
[2021-10-10] MEDS ORDERED: POTASSIUM PHOSPHATE 40 MEQ in DEXTROSE 5% IN WATER 500 ML IV ONE (09:59)
[2021-10-10] MEDS ORDERED: MAGNESIUM SULFATE 2 GM/50 ML BAG IV ONE (09:59)
[2021-10-10] MEDS: 0.9 % SODIUM CHLORIDE 250 ML IV SCH (11:02)
[2021-10-10] MEDS: NICOTINE 21 MG PATCH TOPICAL SCH (11:02)
--- NOTE | 2021-10-10 12:13 | EGD Procedure Note ---
EGD Procedure Notes Procedure Information Patient information: Note initiated : 10/10/21 at 12:09 pm Service Date: 10/09/21 Patient: Caleb Kern 61 y/o F admitted on 09/30/21 for Hyponatremia; cirrhosis. Pre-op diagnosis general: Portal hypertension. Post-Op Diagnosis general: No varices. Gastroparesis. Congestive gastropathy. Procedure: EGD with Bx Procedure Narrative: The procedure, alternatives and risks were discussed with the patient and the patient's questions were answered. With endoscopist-administered intravenous sedation, the Olympus video endoscope was introduced into the esophagus. The esophagus, stomach, and duodenum were examined sequentially. No varices were seen. There is no ulceration or esophagitis. Congestive gastropathy was noted. Food was seen in the body of the stomach. Antral biopsy was taken for OZZY test. The gastric mucosa, antrum, pyloric ring and duodenum were otherwise normal. The scope was withdrawn. Assessment: No varices. Gastroparesis. Congestive gastropathy. Her prognosis is poor. Continue lactulose and consider lactulose enemas. Continue Xifaxan. Avoid benzodiazepines.
--- NOTE | 2021-10-10 14:47 | Magnetic Resonance Report ---
INDICATION: evaluate liver lesions COMPARISON: CT 10/07/2021 FINDINGS: Multiplanar multisequence MR images were obtained of the abdomen before and after administration of gadolinium. Exam is limited significantly by patient motion artifact. The visualized kidneys, adrenals, pancreas, spleen are within normal limits. The patient is status post cholecystectomy. I do see a small amount of ascites. The liver is diffusely fatty infiltrated. In addition there is a large geographic area of depressed signal in the right hepatic lobe on all the fat-sat sequences. It does not abnormally enhance. In addition the architecture the liver is well maintained. The geographic area of low signal on the fat-sat sequences in the right hepatic lobe is 11 cm and 7 cm in the left hepatic lobe. These are compatible with focal fatty infiltration in the context of a fatty liver. IMPRESSION: Large geographic areas of focal fatty infiltration within the liver. There are not suspect at this point in time. Close clinical follow-up is advised with regards to LFTs. Repeat imaging may be needed based upon clinical scenario. Interpreted and Authenticated by: Ankit Lynn M.D. 10/10/21
[2021-10-10] MEDS: FAMOTIDINE 20 MG TABLET PO SCH (21:21)
[2021-10-10] MEDS: ALBUTEROL SULFATE 200 PUFF INHALER INH PRN (21:22)
[2021-10-10] MEDS: Fluticasone-Umeclidin-Vilanter [Trelegy Ellipta] Inhaler INH SCH (21:26)
[2021-10-11] MEDS: 0.9 % SODIUM CHLORIDE 10 ML SYRINGE IV PRN ×3 (05:24→19:10)
[2021-10-11] MEDS: 0.9 % SODIUM CHLORIDE 10 ML SYRINGE IV SCH ×3 (05:24→20:00)
[2021-10-11 07:00] LABS: ALT/SGPT 40 U/L (<40); AST/SGOT 124 U/L (<32); Albumin 2.9 gm/dL (3.2-5.2); Albumin/Globulin Ratio 1.3 (1.0-2.3); Alkaline Phosphatase 184 U/L (39-117); Bilirubin,Direct 1.2 mg/dL (<0.3); Bilirubin,Total 1.9 mg/dL (0.1-1.0); Blood Urea Nitrogen 8 mg/dL (8-23); Calcium 8.5 mg/dL (8.6-10.4); Carbon Dioxide 28 mmol/L (22-30); Chloride 110 mmol/L (96-108); Globulin 2.3 gm/dL (2.2-3.7); Glomerular Filtration Rate 97; Glucose 102 mg/dL (70-105); Lactate Dehydrogenase 570 U/L (135-225); Phosphorous 3.1 mg/dL (2.5-4.5); Triglycerides 99 mg/dL (<150); Uric Acid 11.5 mg/dL (2.5-8.0)
--- NOTE | 2021-10-11 08:13 | Internal Med Progress Note ---
SUBJECTIVE Subjective Patient information: Note initiated : 10/11/21 at 8:08 am Service Date, if different from initiated Date: [] Patient: Caleb Kern 61 y/o F admitted on 09/30/21 for left arm pain, fall yesterday. Chief Complaint: [] Principal diagnosis: Severe hypervolemic hyponatremia Interval history: Ms. Kern is a 61 year old female with a past medical history not limited to SILVA, COPD, nocturnal hypoxia, vitamin B12 deficiency, degenerative disc disease, obesity, tobacco use disorder who presented to the emergency department after a fall at home for further evaluation of left wrist pain. X-ray of the l eft wrist showed an intraarticular fracture of the distal radius. The patient was noted to be hypervolemic in the emergency department, CBC and chemistry panel were ordered showing severe hyponatremia with a sodium level of 116. Additionally, labs showed a mild leukocytosis of 12.3, severe macrocytosis, thrombocytopenia, anion gap metabolic acidosis, bilirubin of 1.8 and ALT and AST elevated compared to the patient's prior labs from 2020. Patient also had a NT proBNP of 441, 1 view chest x-ray did not show any pulmonary vascular congestion. The patient had a markedly elevated D-dimer of 6.89. The patient has not been having any shortness of breath recently and was comfortable on room air in the emergency department. The patient received Lasix IV in the emergency department. Hospital medicine was consulted for admission and management of severe hyponatremia. The patient says that she has been experiencing intermittent bilateral lower extremity edema for some time and that they have always resolved. The current amount of edema is more severe than prior episodes. She denies recent dyspnea, has not noticed any significant changes in urination. Patient says that she has known about "fatty liver disease" for some time. She does drink a significant amount of alcohol which usually contains vodka on an almost daily basis. We discussed the goals of admission which include a gradual correction of her sodium level. We also discussed further work-up which will focus on cardiac, liver and renal pathologies that could explain hypovolemic hyponatremia. We discussed CODE STATUS in detail, the patient wishes to be full code. 3/ Urine protein creatinine ratio was normal, TSH and morning cortisol levels nikhil l. blood smear was not suggestive of a sinister hematologic process. Vitamin B12 level elevated, folate level normal. INR was 1.2. Sodium trended up to 120s and down to 119, the patient received 100 mL of 3% saline followed by increase in sodium to 122. Patient has not made significant urine after receiving a dose of Lasix 80 mg IV. Volume overloaded as on admission with bilateral lower extremity pitting edema. Abdominal ultrasound showed fatty liver, possible steatohepatitis or early stage cirrhosis, small to moderate amount of ascites was present, normal directional blood flow and hepatic and portal veins. Bilateral lower extremity venous duplex ultrasound was negative for DVT. Transthoracic echocardiogram report pending. 10/02 Creatinine increased, discontinued lasix and consulted nephrology. Nephrology started albumin, recommended holding on diuretics at this time. 10/03 TTE was fairly unremarkable, etiology for hyponatremia is likely a liver cirrhosis combined with alcohol use. Patient is more confused now, likely secondary to hepatic encephalopathy as ammonia has also been elevated. Hemoglobin trending down, started Protonix IV twice daily. Trending hemoglobin, will consider consulting general surgery for EGD if this trends down further. Sodium slightly improved now at 123. Renal function slightly improved, creatinine 1.3 today. 10/04 The patient is more alert and oriented today but still confused, ammonia level still elevated in spite of increase in lactulose. Hemoglobin trending up now, will continue Protonix IV BID for now and likely transition to oral PPI therapy in 1-2 days. The patient does have a history of peptic ulcer and had been taking Ibuprofen prior to admission but with hemoglobin trending up on a PPI and EGD may not be high yield. GI consult currently not available at [facility]. Nephrology started Octreotide and Midodrine in addition to Albumin IV. Renal function is about the same, sodium about the same as yesterday. The patient is still markedly hypervolemic. 10/05 Low urine output, nephrology started IV fluid, no longer on octreotide, midodrine and albumin IV. Urine output did improve somewhat today but still low relative to the patient's hypervolemic volume status. Ammonia increasing and the patient continues to be confused and having intermittent hallucinations. CIWA score was 10 but clinically does not appear to be in withdrawal and the patient does not feel like she is in alcohol withdrawal. Started lactulose enema every 6 hours. Started high-dose thiamine IV supplementation. abdomen pelvis without contrast showed moderate hepatomegaly with a large low attenuating region infiltrating the entire lateral right hepatic lobe and a smaller region in the lateral segment of the left hepatic lobe, may represent atypical fatty infiltration however hepatocellular carcinoma or liver metastasis could have a similar appearance. There was also developing liver cirrhosis with mild enlargement of the portal vein, moderate splenomegaly and moderate ascites. Radiology recommended an MRI of the abdomen. We will have to defer MRI of the abdomen until the patient is no longer encephalopathic. Alpha fetoprotein level was normal. 10/06 The patient is more confused overnight suspect the patient is withdrawing from alcohol. Receiving Ativan IV as needed per CIWA protocol. This have been blunted initially by hepatic encephalopathy and the patient was also taking home Ativan as needed. Ammonia improved after a couple lactulose enemas overnight. CT head without contrast did not show any acute changes. Renal function is similar to yesterday. Nephrology started dopamine, octreotide and albumin IV. Discussed anemia with general surgery, Dr. Curiel deferred EGD at this time as he felt it would not be a high yield work-up. 10/07 Vital stable overnight, less agitated today, CIWA scores have improved. Renal function has improved. Ammonia level 90, down from a high of 109. Hemoglobin about the same as yesterday, 8.8. We will get an abdominal ultrasound to evaluate the extent of ascites today. Peripheral blood smear ordered for anemia and macrocytosis. 10/08 Patient going through alcohol withdrawal but is awake and answering questions appropriately. Hemoglobin stable. Creatinine stable. Transaminitis stable. Patient only complains of headache. Per nurse 3 bowel movements yesterday but none overnight. Guaiac testing was not done will obtain for next BM. 10/09 Patient last got 2 mg of Ativan last night at 9:00. None since. No overnight issues. Schedule undergo EGD for evaluation for esophagus varices. Patient seems lethargic this morning. Makes eye contact is does not answer questions. Ammonia improved from yesterday. 10/10 Yesterday patient had MRI of liver pending results. EGD showed gastroparesis but no varices. Patient has mild headache and occasional nausea. No vomiting. A little bit more responsive today. Treating for C. difficile colitis as found out yesterday. Per discussion with the she has had diarrhea prior to admission. 10/11 Little more talkative today but still confused. Diarrhea last night and on oral Vanco. Ammonia within normal limits today. Sodium elevated. Pending laboratory. PT OT. Large area of focal fatty infiltration of the liver on MRI, not suspicious at this point. Review of Systems: denies fever/chills/nausea/vomiting/chest or abdominal pain/cough/dyspnea/diarrhea. Otherwise see above. Constitutional Vitals: Vital Signs Temp Pulse Resp BP Pulse Ox 98.3 F 92 H 15 104/63 94 10/11/21 08:00 10/09/21 16:47 10/11/21 08:01 10/11/21 08:00 10/11/21 02:12 Period Temp Pulse Resp BP Sys/Altman Pulse Ox Last 24 Hr 96.9 F-98.3 F 9-19 96-129/50-85 93-100 Intake and Output 10/10/21 10/11/21 10/11/21 21:59 05:59 13:59 Intake Total 609.0909 Output Total 475 Balance 134.0909 Weight 91.682 kg Intake & Output: Intake & Output 10/10/21 10/11/21 10/11/21 21:59 05:59 13:59 Intake Total 609.0909 Output Total 475 Balance 134.0909 Weight 91.682 kg Intake: Nourishment/Supplement quantity 50 (ml) IV 509.0909 Potassium Phosphate 40 Meq In 509.0909 Dextrose 5% in Water 500 ml @ 127.273 mls/hr IV ONCE ONE Rx#: [id number] Oral 50 Output: Urine Catheter Amount 475 Other: Nourishment/Supplement name Nepro Urine Appearance Cloudy Sediment Urine Color Light Isabel Urine Odor Ammonia Stool Size Copious Stool Color Yellow Stool Consistency Liquid Watery Loose # of times incontinent of 1 Bowels Exam: General: Awakens, No acute Distress Eyes/N/T: EOMI, scleral icterus Head/Neck: neck supple, CV: RRR, No murmurs, Pulm: Clear b/l, no wheezing/rhonchi/rales Abd: Distended abdomen, soft, nontender Ext: no clubbing/cyanosis, b/l LE mild edema Neuro: lethargic, makes eye contact but does not answer my questions, moves all extremities, follow commands Skin: warm/dry, Spider angiomas present in upper extremities, upper chest, upper back. OBJ DATA Labs CBC & Chem 7: 10/10/21 05:34 10/11/21 05:38 Labs: Abnormal Lab Results 03/17/22 03/16/22 03/16/22 05:38 05:34 05:34 RBC Hgb Hct MCV MCH RDW MPV Lymph % (Auto) Lymph # (Auto) PT 17.5 H INR 1.4 H Sodium 148 H Potassium Chloride 110 H Uric Acid 11.5 H Calcium 8.5 L Phosphorus Magnesium Ferritin Total Bilirubin 1.9 H Direct Bilirubin 1.2 H GGT 343 H AST 124 H ALT 40 H Alkaline Phosphatase 184 H Ammonia 68 H Lactate Dehydrogenase 570 H Total Protein 5.2 L Albumin 2.9 L Globulin 10/10/21 10/10/21 10/09/21 05:34 05:34 05:14 RBC 2.04 L Hgb 8.6 L Hct 27.0 L MCV 132.4 H MCH 42.2 H RDW 16.1 H MPV 10.6 H Lymph % (Auto) 13.6 L Lymph # (Auto) 1.18 L PT INR Sodium Potassium Chloride Uric Acid 12.6 H Calcium 8.3 L Phosphorus 2.4 L Magnesium 1.4 L Ferritin 1759.0 H Total Bilirubin 2.0 H Direct Bilirubin 1.3 H GGT 331 H AST 125 H ALT Alkaline Phosphatase 171 H Ammonia Lactate Dehydrogenase 530 H Total Protein 5.0 L Albumin 2.9 L Globulin 2.1 L 10/09/21 10/09/21 10/09/21 05:10 05:10 05:10 RBC Hgb 8.6 L Hct 25.7 L MCV MCH RDW MPV Lymph % (Auto) Lymph # (Auto) PT INR Sodium Potassium 3.2 L Chloride Uric Acid Calcium 8.3 L Phosphorus Magnesium Ferritin Total Bilirubin Direct Bilirubin GGT AST ALT Alkaline Phosphatase Ammonia 78 H Lactate Dehydrogenase Total Protein Albumin Globulin Meds: Medications Acetaminophen (Acetaminophen 325 Mg Tablet) 325 mg PO Q6HP PRN; Protocol PRN Reason: Per Pain Protocol Last Admin: 10/08/21 13:01 Dose: 325 mg Documented by: Albuterol Sulfate (Albuterol Sulfate 200 Puff Inhaler) 1 puff INH Q4-6HP PRN PRN Reason: Shortness Of Breath Last Admin: 10/10/21 21:22 Dose: 1 puff Documented by: Benzonatate (Benzonatate 100 Mg Capsule) 100 mg PO TID PRN PRN Reason: cough Last Admin: 10/05/21 07:48 Dose: 100 mg Documented by: Buspirone HCl (Buspirone 15 Mg Tablet) 7.5 mg PO BID [facility] Last Admin: 10/10/21 21:22 Dose: 7.5 mg Documented by: Clotrimazole (Clotrimazole 10 Mg Yvette) 10 mg PO 5XD [facility] Last Admin: 10/10/21 21:23 Dose: 10 mg Documented by: Cyanocobalamin (Cyanocobalamin 1,000 Mcg/Ml Vial) 1,000 mcg IM Q2W [facility] Diphenhydramine HCl (Diphenhydramine 25 Mg Capsule) 25 mg PO Q6H PRN PRN Reason: Itching Last Admin: 10/07/21 17:42 Dose: 25 mg Documented by: Famotidine (Famotidine 20 Mg Tablet) 20 mg PO HS [facility] Last Admin: 10/10/21 21:21 Dose: 20 mg Documented by: Folic Acid (Folic Acid 1 Mg Tablet) 1 mg PO DAILY [facility] Last Admin: 10/10/21 09:25 Dose: 1 mg Documented by: Gabapentin (Gabapentin 300 Mg Capsule) 300 mg PO BID [facility] Last Admin: 10/10/21 21:21 Dose: 300 mg Documented by: Guaifenesin (Guaifenesin 600 Mg Tab.Sr.12h) 600 mg PO Q12H PRN PRN Reason: Congestion Last Admin: 10/05/21 21:24 Dose: 600 mg Documented by: Heparin Sodium (Porcine) (Heparin 5,000 Unit/Ml Vial) 5,000 unit SQ Q12 [facility] Last Admin: 10/10/21 21:21 Dose: 5,000 unit Documented by: Thiamine HCl 300 mg/ Sodium (Chloride) 153 mls @ 126.5 mls/hr IV DAILY [facility] Last Infusion: 10/10/21 10:38 Dose: Infused Documented by: Sodium Chloride (Sodium Chloride 0.9%) 250 mls @ 10 mls/hr IV .Q24H [facility] Last Admin: 10/10/21 11:02 Dose: Not Given Documented by: Lactulose (Lactulose 20 Gm/30 Ml Oral.Petra) 30 gm PO TID [facility] Last Admin: 10/10/21 21:21 Dose: 30 gm Documented by: Lactulose (Lactulose 20 Gm/30 Ml Oral.Petra) 30 gm PO TIDP PRN PRN Reason: constipation Lorazepam (Lorazepam 2 Mg/Ml Vial) 0 mg IV Q4HP PRN; Protocol PRN Reason: Alcohol Withdrawal Last Admin: 10/08/21 21:18 Dose: 2 mg Documented by: Nicotine (Nicotine 21 Mg Patch) 21 mg TOPICAL DAILY@1000 [facility] Last Admin: 10/10/21 11:02 Dose: 21 mg Documented by: Ondansetron HCl (Ondansetron 4 Mg/2 Ml Vial) 4 mg IV Q4HP PRN; Protocol PRN Reason: Nausea And Vomiting Last Admin: 10/05/21 08:05 Dose: 4 mg Documented by: Oxycodone HCl (Oxycodone Hcl 5 Mg Tablet) 5 mg PO Q6HP PRN; Protocol PRN Reason: Per Pain Protocol Last Admin: 10/10/21 03:25 Dose: 5 mg Documented by: Emollient Combo No. 59 (Bulk) [Custom Base Pcca] Cream 1 dose TOPICAL BID [facility] Last Admin: 10/10/21 21:23 Dose: Not Given Documented by: Fluticasone- Umeclidin-Vilanter [ Trelegy Ellipta] Inhaler 1 dose INH Q24H [facility] Last Admin: 10/10/21 21:26 Dose: 1 dose Documented by: Senna (Sennosides 1 Tablet) 2 tab PO HS PRN PRN Reason: constipation Sodium Chloride (0.9 % Sodium Chloride 10 Ml Syringe) 10 ml IV Q8 [facility] Last Admin: 10/11/21 05:24 Dose: 10 ml Documented by: Sodium Chloride (0.9 % Sodium Chloride 10 Ml Syringe) 10 ml IV UD PRN PRN Reason: Central Line Maintence Last Admin: 10/11/21 05:24 Dose: 10 ml Documented by: Spironolactone (Spironolactone 25 Mg Tablet) 100 mg PO DAILY [facility] Last Admin: 10/10/21 09:25 Dose: 100 mg Documented by: Vancomycin HCl (Vancomycin Oral Petra 1,000 Mg/10 Ml Bottle) 125 mg PO QID [facility]; Protocol Last Admin: 10/10/21 21:23 Dose: 125 mg Documented by: ABG Interpretation ABG results: 10/03/21 16:16 ABG Methemoglobin 0.1 L VBG pH 7.43 H VBG pCO2 36.6 L VBG pO2 88.5 H VBG HCO3 23.7 L VBG Total CO2 24.8 L VBG O2 Saturation 91.2 H VBG Base Excess 0 A/P Narrative A/P Narrative: A: #Decompensated liver cirrhosis w/ascites: Likely 2/2 SILVA & alcohol use disorder -Ammonia elevated but improved after starting lactulose -MELD-Na score was about 25 on admit, now improving -Mildly elevated INR -EGD showing no varices but gastroparesis #Acute alcoholic hepatitis: Did not qualify for prednisolone based on MDF score #Encephalopathy: combined hepatic & initially etoh w/d, now hepatic/ICU delerium/med from etoh w/d -mild improvement today #C. difficile colitis: Diarrhea present on admission per history from #Volume overload: Probably 2/2 liver cirrhosis -TTE report was fairly unremarkable. -Initially refractory to IV Lasix as the patient developed acute kidney injury #Fatty Liver: -MRI with large focal fatty region w/in liver, no suspicious lesion #GASPER, concern for hepatorenal syndrome: resolved #Acute anemia: stable #Gastroparesis: #Macrocytosis: likely 2/2 alcohol use disorder -Vitamin B12 and folate normal #Hyponatremia, likely beer potomania + cirrhosis: resolved -now Hypernatremia #Thrombocytopenia 2/2 cirrhosis: stable #Generalized weakness/deconditioning/critical care myopathy: #Chronic nocturnal hypoxia & COPD: #Degenerative disc disease: #Anxiety disorder: #Severe alcohol use disorder & withdrawal: #Tobacco use disorder: #Reported history of peptic ulcer disease #Obesity BMI 38 #Distal left intra-articular radius fracture: -Has splint on left wrist -discussed with Dr. Christopher: nonoperative fracture #Electrolyte imbalance: Plan: -Oral Vanco x10 days -octreotide, midodrine vs dopamine, albumin, IV per nephrology -Nephrology following, -Monitoring renal function, diuretics - defer to Nephrology -D5W until Na <145 -Monitor volume status, urine output, renal function, replete electrolytes. -Continue lactulose, goal is 2-3 loose BMs per day; Rifaximin 550 mg BID. -prn paracentesis -GI following -hold sedating meds -thiamine/folic acid/vitamin B12 supplementation -Remove IJ central line when no longer necessary. -PT consult -ST, and gastroparesis diet low fat and soluble fiber -Smoking cessation counseling -follow up with ortho in clinic for left radial fracture. -f/u with GI/Informatics Analyst for liver cirrhosis -ppx: SCDs/heparin / H2 CODE STATUS: Time Spent With Patient Time: Total time spent is greater than 50% in coordination of care (as documented) at patient's floor/unit and/or counseling patient: Total time spent with greater than 50% in coordination of care (as documented) at patient's floor/unit and/or counseling patient:: 35 - 50 minutes
[2021-10-11 09:09] LABS: POC Calcium, Ionized 1.12 mmEq/L (1.16-1.32); POC Creatinine 0.7 mg/dL (0.6-1.2); POC Potassium 3.9 mEql/L (3.3-5.1)
--- NOTE | 2021-10-11 09:11 | Nephrology Progress Note ---
SUBJECTIVE Subjective Patient information: Note initiated : 10/11/21 at 9:09 am Service Date, if different from initiated Date: [] Patient: Caleb Kern 61 y/o F admitted on 09/30/21 for left arm pain, fall yesterday. Chief Complaint: [fx wrist] Principal diagnosis: Severe hypervolemic hyponatremia Interval history: From a renal perspective, the severe hyponatremia, ARF with oligoanuria and hypophosphatemia are all resolved. The underlying cause of cirrhosis, portal HTN, cirrhotic physiology remains. Vital Signs Temp Resp BP Pulse Ox 10/11/21 08:01 15 10/11/21 08:00 36.8 C 15 104/63 10/11/21 07:00 16 102/64 10/11/21 06:00 15 107/59 10/11/21 05:01 15 97/50 10/11/21 04:10 36.7 C 11 L 112/52 10/11/21 03:01 36.7 C 18 10/11/21 02:12 15 99/73 94 10/11/21 01:00 19 96/74 94 10/11/21 00:01 36.8 C 16 110/64 93 10/10/21 23:01 14 115/64 94 10/10/21 22:01 11 L 108/63 96 10/10/21 21:01 12 129/70 100 10/10/21 20:00 36.5 C 12 121/71 97 10/10/21 19:00 12 120/65 97 10/10/21 18:01 12 113/65 96 10/10/21 17:01 10 L 101/57 95 10/10/21 16:01 36.2 C 16 115/61 97 10/10/21 16:00 11 L 97 10/10/21 15:01 15 114/85 95 10/10/21 14:02 10 L 94 10/10/21 14:01 14 120/67 95 10/10/21 14:00 19 94 10/10/21 13:00 9 L 103/60 96 10/10/21 12:02 10 L 95 10/10/21 12:01 36.1 C L 10 L 104/57 95 10/10/21 12:00 10 L 95 10/10/21 11:01 10 L 107/61 96 10/10/21 10:02 11 L 95 10/10/21 10:01 11 L 113/68 96 10/10/21 10:00 13 98 Intake and Output 10/10/21 10/11/21 10/11/21 21:59 05:59 13:59 Intake Total 609.0909 Output Total 475 Balance 134.0909 Intake: Nourishment/Supplement quantity 50 (ml) IV 509.0909 Potassium Phosphate 40 Meq In 509.0909 Dextrose 5% in Water 500 ml @ 127.273 mls/hr IV ONCE ONE Rx#: [id number] Oral 50 Output: Urine Catheter Amount 475 Other: Nourishment/Supplement name Nepro Urine Appearance Cloudy Sediment Urine Color Light Isabel Urine Odor Ammonia Stool Size Copious Moderate Stool Color Yellow Yellow Stool Consistency Liquid Liquid Watery Loose # of times incontinent of 1 1 Bowels Weight 91.682 kg Laboratory Tests 10/11/21 10/11/21 05:38 05:38 Sodium 148 H Potassium 4.0 Chloride 110 H Carbon Dioxide 28 Anion Gap 10.0 BUN 8 Creatinine 0.6 GFR Calculation 97 Glucose 102 Calcium 8.5 L Phosphorus 3.1 Magnesium 1.7 Direct Bilirubin 1.2 H GGT 343 H AST 124 H ALT 40 H Alkaline Phosphatase 184 H Ammonia 49 Lactate Dehydrogenase 570 H Albumin 2.9 L Globulin 2.3 Albumin/Globulin Ratio 1.3 Impression: Loose water stools => GI H2O loss => hypernatremia Increase free water intake and decrease lactulose If sodium worsens give "free water" in the form of D5W IV Continue spironolactone but try to avoid loop diuretics No NSAIDs, ACEi or ARBs Will sign off today. Pertinent ROS: N/A Additional PMFSH (Level 3 Only): N/A Constitutional Vitals: Vital Signs Temp Pulse Resp BP Pulse Ox 36.8 C 92 H 15 104/63 94 10/11/21 08:00 10/09/21 16:47 10/11/21 08:01 10/11/21 08:00 10/11/21 02:12 Period Temp Pulse Resp BP Sys/Altman Pulse Ox Last 24 Hr 36.1 C-36.8 C 9-19 96-129/50-85 93-100 Intake and Output 10/10/21 10/11/21 10/11/21 21:59 05:59 13:59 Intake Total 609.0909 Output Total 475 Balance 134.0909 Weight 91.682 kg Intake & Output: Intake & Output 10/10/21 10/11/21 10/11/21 21:59 05:59 13:59 Intake Total 609.0909 Output Total 475 Balance 134.0909 Weight 91.682 kg Intake: Nourishment/Supplement quantity 50 (ml) IV 509.0909 Potassium Phosphate 40 Meq In 509.0909 Dextrose 5% in Water 500 ml @ 127.273 mls/hr IV ONCE ONE Rx#: [id number] Oral 50 Output: Urine Catheter Amount 475 Other: Nourishment/Supplement name Nepro Urine Appearance Cloudy Sediment Urine Color Light Isabel Urine Odor Ammonia Stool Size Copious Moderate Stool Color Yellow Yellow Stool Consistency Liquid Liquid Watery Loose # of times incontinent of 1 1 Bowels General appearance: obese Exam: confused / encephalopathy Neck Neck exam: Absent meningismus Respiratory Respiratory exam: Present decreased breath sounds and CTAB Cardiovascular Cardiovascular exam: Present RRR, +S1 and +S2; Absent JVD GI/Abdominal GI/Abdominal exam: Present hypoactive bowel sounds and organomegaly Additional comments: liver span 10 cm Neurological Exam Neurological exam: Present altered and CN II-XII intact; Absent oriented X3 (person) Psychiatric Additional comments: altered MS Skin Skin exam: Present dry and mottled A/P Assessment and plan (1) Cirrhosis of liver with ascites: Status: Acute Comment: EtOH cessation therapy (2) Cirrhosis with alcoholism: Plan: as above Status: Chronic Comment: Stop all EtOH consumption EtOH rehab...[facility] has highest success rate No indication for steroids for acute alcoholic hepatitis (3) Oliguria and anuria: Status: Acute Comment: 10/06/2021: Colloid for ECF volume expansion 10/06/2021: Start Octreotide and dopamine for HRS / diuretic resistance in cirrhosis 10/07/2021: Start high dose aldactone 100 mg po qD (4) ARF (acute renal failure): Assessment and plan: Resolved Status: Acute Comment: Diuretic related in a patient with reduced effective cirrulating volume (5) Hyponatremia: Assessment and plan: Resolved Status: Chronic Comment: PO fluid restrict Increase protein intake For now, volume expand with colloid...hold diuretics till => aldactone 100 mg/day Low sodium intake Plan A/P Assessment and plan (1) Cirrhosis with alcoholism: Assessment and plan: Looks like acute alcoholic hepatitis superimposed on alcoholic fatty liver...combo bad but neither seems life threatening. Acute alcoholic hepatitis not severe enough for steroids WILLIAMS will progress to cirrhosis and ESLD unless she stops all EtOH intake now (2) Oliguria and anuria: Assessment and plan: Urine Na of < 10 => poor renal perfusion / avoid loop diuretics / use aldactone only (3) ARF (acute renal failure): Assessment and plan: More loop diuretics in refractory ascites only leading to further decrease in GFR. Situation grave. Therapeutic benefit with octreotide/midodrine and aldactone. Now trial on a home regiment of just aldactone (4) Hyponatremia: Assessment and plan: Excess fluid with low protein stores Suspect most calories are from Vodka (5) Acquired hypophosphatemia: Assessment and plan: Replace with IV NaPO4 Narrative GFR improved Hyponatremia resolved Stop dopamine and midodrine Stop octreotide to BID dosing D/C albumin CONTINUE ONLY SPIRONOLACTONE - NO LASIX Narrative A/P Narrative: Liberalize po fluids but if she cannot drink adequate liquids (evidenced by rising serum sodium) the give free H2O as D5W IV Lactulose and ? c diff are an ongoing cause of water loss via diarrhea Plan of Treatment: Signing off See recomendation above This patient needs help stopping the consumption of EtOH, otherwise it is a lost cause Time Spent With Patient Time: Total time spent is greater than 50% in coordination of care (as documented) at patient's floor/unit and/or counseling patient:
[2021-10-11] MEDS: DEXTROSE 5% IN WATER 1,000 ML IV SCH ×2 (09:16→17:42)
[2021-10-11] MEDS: SPIRONOLACTONE 25 MG TABLET PO SCH (09:20)
[2021-10-11] MEDS: VANCOMYCIN ORAL SOL 1,000 MG/10 ML BOTTLE PO SCH ×3 (09:20→17:43)
[2021-10-11] MEDS: HEPARIN 5,000 UNIT/ML VIAL SQ SCH ×2 (09:20→20:41)
[2021-10-11] MEDS: FOLIC ACID 1 MG TABLET PO SCH (09:21)
[2021-10-11] MEDS: CLOTRIMAZOLE 10 MG TROCHE PO SCH ×5 (09:21→19:59)
[2021-10-11] MEDS: SODIUM CHLORIDE 0.9% IV SCH (09:21)
[2021-10-11] MEDS: ALBUTEROL SULFATE 200 PUFF INHALER INH PRN (09:21)
[2021-10-11] MEDS: THIAMINE IV SCH (09:21)
[2021-10-11] MEDS: GABAPENTIN 300 MG CAPSULE PO SCH (09:21)
[2021-10-11] MEDS: busPIRone 15 MG TABLET PO SCH (09:26)
[2021-10-11] MEDS: RIFAXIMIN 550 MG TABLET PO SCH (09:30)
[2021-10-11] MEDS: [UNRECOGNIZED DRUG - OTHER] TOPICAL SCH ×2 (09:31→21:24)
[2021-10-11] MEDS: LACTULOSE 20 GM/30 ML ORAL.SOL PO SCH ×3 (10:17→21:24)
[2021-10-11] MEDS: NICOTINE 21 MG PATCH TOPICAL SCH (10:17)
[2021-10-11 15:16] LABS: POC Calcium, Ionized 1.13 mmEq/L (1.16-1.32); POC Creatinine 0.6 mg/dL (0.6-1.2); POC Potassium 3.3 mEql/L (3.3-5.1)
[2021-10-11] MEDS ORDERED: POTASSIUM CHLORIDE 20 MEQ TABLET PO ONE (18:38)
[2021-10-11] MEDS ORDERED: HALOPERIDOL LACTATE 5 MG/ML VIAL IV ONE (19:05)
[2021-10-11] MEDS ORDERED: HALOPERIDOL LACTATE 5 MG/ML VIAL ONE (19:14)
[2021-10-11] MEDS ORDERED: OLANZapine 10 MG VIAL IM ONE (19:32)
[2021-10-11] MEDS: OLANZapine 10 MG VIAL IM PRN (19:40)
[2021-10-11] MEDS: LORazepam 2 MG/ML VIAL IV PRN (20:42)
[2021-10-11] MEDS: Fluticasone-Umeclidin-Vilanter [Trelegy Ellipta] Inhaler INH SCH (21:25)
[2021-10-12] MEDS: busPIRone 15 MG TABLET PO SCH ×3 (00:06→21:09)
[2021-10-12] MEDS: GABAPENTIN 300 MG CAPSULE PO SCH ×3 (00:07→21:09)
[2021-10-12] MEDS: FAMOTIDINE 20 MG TABLET PO SCH ×2 (00:07→21:09)
[2021-10-12] MEDS: VANCOMYCIN ORAL SOL 1,000 MG/10 ML BOTTLE PO SCH ×5 (00:08→21:09)
[2021-10-12] MEDS: RIFAXIMIN 550 MG TABLET PO SCH ×3 (00:09→21:08)
[2021-10-12] MEDS: 0.9 % SODIUM CHLORIDE 10 ML SYRINGE IV PRN ×2 (05:15→19:32)
[2021-10-12] MEDS: 0.9 % SODIUM CHLORIDE 10 ML SYRINGE IV SCH ×3 (05:20→22:30)
[2021-10-12 07:04] LABS: ALT/SGPT 38 U/L (<40); AST/SGOT 109 U/L (<32); Albumin/Globulin Ratio 1.3 (1.0-2.3); Alkaline Phosphatase 160 U/L (39-117); Bilirubin,Direct 1.2 mg/dL (<0.3); Bilirubin,Total 2.1 mg/dL (0.1-1.0); Blood Urea Nitrogen 6 mg/dL (8-23); Calcium 8.3 mg/dL (8.6-10.4); Carbon Dioxide 26 mmol/L (22-30); Chloride 105 mmol/L (96-108); Globulin 2.3 gm/dL (2.2-3.7); Glomerular Filtration Rate 97; Glucose 86 mg/dL (70-105); Lactate Dehydrogenase 595 U/L (135-225); Phosphorous 2.8 mg/dL (2.5-4.5); Triglycerides 103 mg/dL (<150); Uric Acid 10.1 mg/dL (2.5-8.0)
--- NOTE | 2021-10-12 07:31 | Internal Med Progress Note ---
SUBJECTIVE Subjective Patient information: Note initiated : 10/12/21 at 7:28 am Service Date, if different from initiated Date: [] Patient: Caleb Kern 61 y/o F admitted on 09/30/21 for left arm pain, fall yesterday. Chief Complaint: [] Principal diagnosis: Severe hypervolemic hyponatremia Interval history: Ms. Kern is a 61 year old female with a past medical history not limited to SILVA, COPD, nocturnal hypoxia, vitamin B12 deficiency, degenerative disc disease, obesity, tobacco use disorder who presented to the emergency department after a fall at home for further evaluation of left wrist pain. X-ray of the l eft wrist showed an intraarticular fracture of the distal radius. The patient was noted to be hypervolemic in the emergency department, CBC and chemistry panel were ordered showing severe hyponatremia with a sodium level of 116. Additionally, labs showed a mild leukocytosis of 12.3, severe macrocytosis, thrombocytopenia, anion gap metabolic acidosis, bilirubin of 1.8 and ALT and AST elevated compared to the patient's prior labs from 2020. Patient also had a NT proBNP of 441, 1 view chest x-ray did not show any pulmonary vascular congestion. The patient had a markedly elevated D-dimer of 6.89. The patient has not been having any shortness of breath recently and was comfortable on room air in the emergency department. The patient received Lasix IV in the emergency department. Hospital medicine was consulted for admission and management of severe hyponatremia. The patient says that she has been experiencing intermittent bilateral lower extremity edema for some time and that they have always resolved. The current amount of edema is more severe than prior episodes. She denies recent dyspnea, has not noticed any significant changes in urination. Patient says that she has known about "fatty liver disease" for some time. She does drink a significant amount of alcohol which usually contains vodka on an almost daily basis. We discussed the goals of admission which include a gradual correction of her sodium level. We also discussed further work-up which will focus on cardiac, liver and renal pathologies that could explain hypovolemic hyponatremia. We discussed CODE STATUS in detail, the patient wishes to be full code. 3/ Urine protein creatinine ratio was normal, TSH and morning cortisol levels nikhil l. blood smear was not suggestive of a sinister hematologic process. Vitamin B12 level elevated, folate level normal. INR was 1.2. Sodium trended up to 120s and down to 119, the patient received 100 mL of 3% saline followed by increase in sodium to 122. Patient has not made significant urine after receiving a dose of Lasix 80 mg IV. Volume overloaded as on admission with bilateral lower extremity pitting edema. Abdominal ultrasound showed fatty liver, possible steatohepatitis or early stage cirrhosis, small to moderate amount of ascites was present, normal directional blood flow and hepatic and portal veins. Bilateral lower extremity venous duplex ultrasound was negative for DVT. Transthoracic echocardiogram report pending. 10/02 Creatinine increased, discontinued lasix and consulted nephrology. Nephrology started albumin, recommended holding on diuretics at this time. 10/03 TTE was fairly unremarkable, etiology for hyponatremia is likely a liver cirrhosis combined with alcohol use. Patient is more confused now, likely secondary to hepatic encephalopathy as ammonia has also been elevated. Hemoglobin trending down, started Protonix IV twice daily. Trending hemoglobin, will consider consulting general surgery for EGD if this trends down further. Sodium slightly improved now at 123. Renal function slightly improved, creatinine 1.3 today. 10/04 The patient is more alert and oriented today but still confused, ammonia level still elevated in spite of increase in lactulose. Hemoglobin trending up now, will continue Protonix IV BID for now and likely transition to oral PPI therapy in 1-2 days. The patient does have a history of peptic ulcer and had been taking Ibuprofen prior to admission but with hemoglobin trending up on a PPI and EGD may not be high yield. GI consult currently not available at [facility]. Nephrology started Octreotide and Midodrine in addition to Albumin IV. Renal function is about the same, sodium about the same as yesterday. The patient is still markedly hypervolemic. 10/05 Low urine output, nephrology started IV fluid, no longer on octreotide, midodrine and albumin IV. Urine output did improve somewhat today but still low relative to the patient's hypervolemic volume status. Ammonia increasing and the patient continues to be confused and having intermittent hallucinations. CIWA score was 10 but clinically does not appear to be in withdrawal and the patient does not feel like she is in alcohol withdrawal. Started lactulose enema every 6 hours. Started high-dose thiamine IV supplementation. abdomen pelvis without contrast showed moderate hepatomegaly with a large low attenuating region infiltrating the entire lateral right hepatic lobe and a smaller region in the lateral segment of the left hepatic lobe, may represent atypical fatty infiltration however hepatocellular carcinoma or liver metastasis could have a similar appearance. There was also developing liver cirrhosis with mild enlargement of the portal vein, moderate splenomegaly and moderate ascites. Radiology recommended an MRI of the abdomen. We will have to defer MRI of the abdomen until the patient is no longer encephalopathic. Alpha fetoprotein level was normal. 10/06 The patient is more confused overnight suspect the patient is withdrawing from alcohol. Receiving Ativan IV as needed per CIWA protocol. This have been blunted initially by hepatic encephalopathy and the patient was also taking home Ativan as needed. Ammonia improved after a couple lactulose enemas overnight. CT head without contrast did not show any acute changes. Renal function is similar to yesterday. Nephrology started dopamine, octreotide and albumin IV. Discussed anemia with general surgery, Dr. Curiel deferred EGD at this time as he felt it would not be a high yield work-up. 10/07 Vital stable overnight, less agitated today, CIWA scores have improved. Renal function has improved. Ammonia level 90, down from a high of 109. Hemoglobin about the same as yesterday, 8.8. We will get an abdominal ultrasound to evaluate the extent of ascites today. Peripheral blood smear ordered for anemia and macrocytosis. 10/08 Patient going through alcohol withdrawal but is awake and answering questions appropriately. Hemoglobin stable. Creatinine stable. Transaminitis stable. Patient only complains of headache. Per nurse 3 bowel movements yesterday but none overnight. Guaiac testing was not done will obtain for next BM. 10/09 Patient last got 2 mg of Ativan last night at 9:00. None since. No overnight issues. Schedule undergo EGD for evaluation for esophagus varices. Patient seems lethargic this morning. Makes eye contact is does not answer questions. Ammonia improved from yesterday. 10/10 Yesterday patient had MRI of liver pending results. EGD showed gastroparesis but no varices. Patient has mild headache and occasional nausea. No vomiting. A little bit more responsive today. Treating for C. difficile colitis as found out yesterday. Per discussion with the she has had diarrhea prior to admission. 10/11 Little more talkative today but still confused. Diarrhea last night and on oral Vanco. Ammonia within normal limits today. Sodium elevated. Pending laboratory. PT OT. Large area of focal fatty infiltration of the liver on MRI, not suspicious at this point. 10/12 Patient became quite agitated last night requiring Haldol. This morning she is sleeping. Hypotonic infusion for hypernatremia yesterday. Provide hypotonic solution today while poor oral intake. Review of Systems: denies fever/chills/nausea/vomiting/chest or abdominal pain/cough/dyspnea/diarrhea. Otherwise see above. Constitutional Vitals: Vital Signs Temp Pulse Resp BP Pulse Ox 99.3 F H 92 H 21 104/52 97 10/12/21 03:00 10/09/21 16:47 10/12/21 06:00 10/12/21 06:00 10/12/21 06:00 Period Temp Pulse Resp BP Sys/Altman Pulse Ox Last 24 Hr 97.9 F-99.5 F 13-27 84-153/33-109 82-97 Intake and Output 10/11/21 10/12/21 10/12/21 21:59 05:59 13:59 Intake Total 1215 100 Output Total 200 550 Balance 1015 -450 Weight 90.718 kg Intake & Output: Intake & Output 10/11/21 10/12/21 10/12/21 21:59 05:59 13:59 Intake Total 1215 100 Output Total 200 550 Balance 1015 -450 Weight 90.718 kg Intake: IV 1115 Dextrose 5% in Water 1,000 ml @ 1115 125 mls/hr IV .Q8H [facility] Rx#: [id number] Oral 100 100 Output: Urine Catheter Amount 200 550 Other: Meal Dinner Percent of Meal Consumed Refused Feeding Ability Total Assistance Urine Appearance Clear Clear Uretheral (Gama) Clear Clear Urine Color Dark Yellow Bright Yellow Uretheral (Gama) Dark Yellow Bright Yellow Urine Odor Normal Normal Stool Size Large Stool Color Brown Yellow Stool Consistency Loose # of times incontinent of 1 Bowels Exam: General: Sleeping no acute Distress Eyes/N/T: , scleral icterus Head/Neck: neck supple, CV: RRR, No murmurs, Pulm: Clear b/l, no wheezing/rhonchi/rales Abd: Distended abdomen, soft, nontender Ext: no clubbing/cyanosis, b/l LE mild edema Neuro: Sleeping, moves all extremities continuously, Skin: warm/dry, Spider angiomas present in upper extremities, upper chest, upper back. OBJ DATA Labs CBC & Chem 7: 10/10/21 05:34 10/12/21 05:08 Labs: Abnormal Lab Results 10/12/21 10/11/21 10/11/21 05:08 15:09 08:50 RBC Hgb Hct POC Hct 24 L 31 L MCV MCH RDW MPV Lymph % (Auto) Lymph # (Auto) PT INR POC Sodium 147 H Sodium Chloride BUN 6 L POC Glucose 111 H Uric Acid 10.1 H Calcium 8.3 L POC WB Ioniz Calcium 1.13 L 1.12 L Phosphorus Magnesium 1.3 L Transferrin Total Bilirubin 2.1 H Direct Bilirubin 1.2 H GGT 297 H AST 109 H ALT Alkaline Phosphatase 160 H Ammonia Lactate Dehydrogenase 595 H Total Protein 5.3 L Albumin 3.0 L Globulin 10/11/21 10/10/21 10/10/21 05:38 05:34 05:34 RBC Hgb Hct POC Hct MCV MCH RDW MPV Lymph % (Auto) Lymph # (Auto) PT 17.5 H INR 1.4 H POC Sodium Sodium 148 H Chloride 110 H BUN POC Glucose Uric Acid 11.5 H Calcium 8.5 L POC WB Ioniz Calcium Phosphorus Magnesium Transferrin Total Bilirubin 1.9 H Direct Bilirubin 1.2 H GGT 343 H AST 124 H ALT 40 H Alkaline Phosphatase 184 H Ammonia 68 H Lactate Dehydrogenase 570 H Total Protein 5.2 L Albumin 2.9 L Globulin 10/10/21 10/10/21 10/09/21 05:34 05:34 05:14 RBC 2.04 L Hgb 8.6 L Hct 27.0 L POC Hct MCV 132.4 H MCH 42.2 H RDW 16.1 H MPV 10.6 H Lymph % (Auto) 13.6 L Lymph # (Auto) 1.18 L PT INR POC Sodium Sodium Chloride BUN POC Glucose Uric Acid 12.6 H Calcium 8.3 L POC WB Ioniz Calcium Phosphorus 2.4 L Magnesium 1.4 L Transferrin 62 L Total Bilirubin 2.0 H Direct Bilirubin 1.3 H GGT 331 H AST 125 H ALT Alkaline Phosphatase 171 H Ammonia Lactate Dehydrogenase 530 H Total Protein 5.0 L Albumin 2.9 L Globulin 2.1 L Meds: Medications Acetaminophen (Acetaminophen 325 Mg Tablet) 325 mg PO Q6HP PRN; Protocol PRN Reason: Per Pain Protocol Last Admin: 10/08/21 13:01 Dose: 325 mg Documented by: Albuterol Sulfate (Albuterol Sulfate 200 Puff Inhaler) 1 puff INH Q4-6HP PRN PRN Reason: Shortness Of Breath Last Admin: 10/11/21 09:21 Dose: 1 puff Documented by: Benzonatate (Benzonatate 100 Mg Capsule) 100 mg PO TID PRN PRN Reason: cough Last Admin: 10/05/21 07:48 Dose: 100 mg Documented by: Buspirone HCl (Buspirone 15 Mg Tablet) 7.5 mg PO BID [facility] Last Admin: 10/12/21 00:06 Dose: Not Given Documented by: Clotrimazole (Clotrimazole 10 Mg Yvette) 10 mg PO 5XD [facility] Last Admin: 10/11/21 19:59 Dose: Not Given Documented by: Cyanocobalamin (Cyanocobalamin 1,000 Mcg/Ml Vial) 1,000 mcg IM Q2W [facility] Diphenhydramine HCl (Diphenhydramine 25 Mg Capsule) 25 mg PO Q6H PRN PRN Reason: Itching Last Admin: 10/07/21 17:42 Dose: 25 mg Documented by: Famotidine (Famotidine 20 Mg Tablet) 20 mg PO HS [facility] Last Admin: 10/12/21 00:07 Dose: Not Given Documented by: Folic Acid (Folic Acid 1 Mg Tablet) 1 mg PO DAILY [facility] Last Admin: 10/11/21 09:21 Dose: 1 mg Documented by: Gabapentin (Gabapentin 300 Mg Capsule) 300 mg PO BID [facility] Last Admin: 10/12/21 00:07 Dose: Not Given Documented by: Guaifenesin (Guaifenesin 600 Mg Tab.Sr.12h) 600 mg PO Q12H PRN PRN Reason: Congestion Last Admin: 10/05/21 21:24 Dose: 600 mg Documented by: Heparin Sodium (Porcine) (Heparin 5,000 Unit/Ml Vial) 5,000 unit SQ Q12 [facility] Last Admin: 10/11/21 20:41 Dose: 5,000 unit Documented by: Thiamine HCl 300 mg/ Sodium (Chloride) 153 mls @ 126.5 mls/hr IV DAILY [facility] Last Infusion: 10/11/21 10:43 Dose: Infused Documented by: Lactulose (Lactulose 20 Gm/30 Ml Oral.Petra) 30 gm PO TID [facility] Last Admin: 10/11/21 21:24 Dose: Not Given Documented by: Lactulose (Lactulose 20 Gm/30 Ml Oral.Petra) 30 gm PO TIDP PRN PRN Reason: constipation Lorazepam (Lorazepam 2 Mg/Ml Vial) 0 mg IV Q4HP PRN; Protocol PRN Reason: Alcohol Withdrawal Last Admin: 10/11/21 20:42 Dose: 4 mg Documented by: Nicotine (Nicotine 21 Mg Patch) 21 mg TOPICAL DAILY@1000 [facility] Last Admin: 10/11/21 10:17 Dose: 21 mg Documented by: Olanzapine (Olanzapine 10 Mg Vial) 5 mg IM Q8HP PRN PRN Reason: Agitation Last Admin: 10/11/21 19:40 Dose: 5 mg Documented by: Ondansetron HCl (Ondansetron 4 Mg/2 Ml Vial) 4 mg IV Q4HP PRN; Protocol PRN Reason: Nausea And Vomiting Last Admin: 10/05/21 08:05 Dose: 4 mg Documented by: Oxycodone HCl (Oxycodone Hcl 5 Mg Tablet) 5 mg PO Q6HP PRN; Protocol PRN Reason: Per Pain Protocol Last Admin: 10/10/21 03:25 Dose: 5 mg Documented by: Emollient Combo No. 59 (Bulk) [Custom Base Pcca] Cream 1 dose TOPICAL BID [facility] Last Admin: 10/11/21 21:24 Dose: Not Given Documented by: Fluticasone- Umeclidin-Vilanter [ Trelegy Ellipta] Inhaler 1 dose INH Q24H [facility] Last Admin: 10/11/21 21:25 Dose: Not Given Documented by: Senna (Sennosides 1 Tablet) 2 tab PO HS PRN PRN Reason: constipation Sodium Chloride (0.9 % Sodium Chloride 10 Ml Syringe) 10 ml IV Q8 FRANK Last Admin: 10/12/21 05:20 Dose: 10 ml Documented by: Sodium Chloride (0.9 % Sodium Chloride 10 Ml Syringe) 10 ml IV UD PRN PRN Reason: Central Line Maintence Last Admin: 10/12/21 05:15 Dose: 10 ml Documented by: Spironolactone (Spironolactone 25 Mg Tablet) 100 mg PO DAILY [facility] Last Admin: 10/11/21 09:20 Dose: 100 mg Documented by: Vancomycin HCl (Vancomycin Oral Petra 1,000 Mg/10 Ml Bottle) 125 mg PO QID [facility]; Protocol Last Admin: 10/12/21 00:08 Dose: Not Given Documented by: ABG Interpretation ABG results: 10/03/21 16:16 ABG Methemoglobin 0.1 L VBG pH 7.43 H VBG pCO2 36.6 L VBG pO2 88.5 H VBG HCO3 23.7 L VBG Total CO2 24.8 L VBG O2 Saturation 91.2 H VBG Base Excess 0 A/P Narrative A/P Narrative: A: #Decompensated liver cirrhosis w/ascites: Likely 2/2 SILVA & alcohol use disorder -Ammonia elevated but improved after starting lactulose -MELD-Na score was about 25 on admit, now improving -Mildly elevated INR -EGD showing no varices but gastroparesis #Acute alcoholic hepatitis: Did not qualify for prednisolone based on MDF score #Encephalopathy: combined hepatic & initially etoh w/d, now hepatic/ICU delerium/med from etoh w/d -CT brain mild atrophy and chronic ischemic changes -gradual improvement, but quite agitated last night requiring haldol x1 #C. difficile colitis: Diarrhea present on admission per history from #Volume overload: Probably 2/2 liver cirrhosis -TTE report was fairly unremarkable. -Initially refractory to IV Lasix as the patient developed acute kidney injury #Fatty Liver: -MRI with large focal fatty region w/in liver, no suspicious lesion #GASPER, concern for hepatorenal syndrome: resolved #Acute anemia: stable #Gastroparesis: #Macrocytosis: likely 2/2 alcohol use disorder -Vitamin B12 and folate normal #Hyponatremia, likely beer potomania + cirrhosis: resolved -Hypernatremia 2/2 c.diff/lactulose, resolved with water infusion #Thrombocytopenia 2/2 cirrhosis: stable #Generalized weakness/deconditioning/critical care myopathy: #Chronic nocturnal hypoxia & COPD: #Degenerative disc disease: #Anxiety disorder: #Severe alcohol use disorder & withdrawal: #Tobacco use disorder: #Reported history of peptic ulcer disease #Obesity BMI 38 #Distal left intra-articular radius fracture: -Has splint on left wrist -discussed with Dr. Christopher: nonoperative fracture #Electrolyte imbalance: Plan: -awaiting clearing of mentation -Oral Vanco x10 days -Nephrology signing off, cont spironolactone, no lasix -hypotonic IVF today, encourage oral intake -Monitor volume status, urine output, renal function, Replete electrolytes. -Continue lactulose, goal is 2-3 loose BMs per day; Rifaximin 550 mg BID. -prn paracentesis -GI following -hold sedating meds -thiamine/folic acid/vitamin B12 supplementation -Remove IJ central line when no longer necessary. -PT consult -ST, and gastroparesis diet low fat and soluble fiber -Smoking cessation counseling -follow up with ortho in clinic for left radial fracture. -f/u with GI/User Support Analyst for liver cirrhosis -ppx: heparin / H2 CODE STATUS: Time Spent With Patient Time: Total time spent is greater than 50% in coordination of care (as documented) at patient's floor/unit and/or counseling patient: Total time spent with greater than 50% in coordination of care (as documented) at patient's floor/unit and/or counseling patient:: 25 - 35 minutes
[2021-10-12] MEDS ORDERED: MAGNESIUM SULFATE 2 GM/50 ML BAG IV ONE ×2 (07:32→15:15)
[2021-10-12] MEDS ORDERED: [UNRECOGNIZED DRUG - OTHER] IV ONE (07:33)
[2021-10-12] MEDS ORDERED: DEXTROSE 5% IV ONE ×2 (07:33→07:38)
[2021-10-12] MEDS ORDERED: [UNRECOGNIZED DRUG - OTHER] IV ONE (07:38)
[2021-10-12] MEDS: CLOTRIMAZOLE 10 MG TROCHE PO SCH ×5 (08:46→21:11)
[2021-10-12] MEDS: THIAMINE IV SCH (08:46)
[2021-10-12] MEDS: SODIUM CHLORIDE 0.9% IV SCH (08:46)
[2021-10-12] MEDS: LACTULOSE 20 GM/30 ML ORAL.SOL PO SCH ×3 (08:52→21:10)
[2021-10-12] MEDS: SPIRONOLACTONE 25 MG TABLET PO SCH (08:53)
[2021-10-12] MEDS: FOLIC ACID 1 MG TABLET PO SCH (08:54)
[2021-10-12] MEDS: HEPARIN 5,000 UNIT/ML VIAL SQ SCH ×2 (08:54→21:09)
[2021-10-12] MEDS: NICOTINE 21 MG PATCH TOPICAL SCH (08:54)
[2021-10-12] MEDS: [UNRECOGNIZED DRUG - OTHER] TOPICAL SCH ×2 (08:58→19:45)
[2021-10-12] MEDS: ALBUTEROL SULFATE 200 PUFF INHALER INH PRN ×2 (11:41→18:07)
[2021-10-12] MEDS: oxyCODONE HCL 5 MG TABLET PO PRN (11:56)
[2021-10-12] MEDS: LORazepam 2 MG/ML VIAL IV PRN ×2 (12:12→19:33)
[2021-10-12] MEDS ORDERED: HALOPERIDOL LACTATE 5 MG/ML VIAL IV PRN (15:16)
[2021-10-12] MEDS ORDERED: MAGNESIUM SULFATE 2 GM/50 ML BAG IV PRN (15:45)
[2021-10-12 16:41] LABS: Alpha 1 Anti-Trypsin 220 mg/dL (83-199)
[2021-10-12] MEDS: diphenhydrAMINE 25 MG CAPSULE PO PRN (19:45)
[2021-10-12] MEDS: Fluticasone-Umeclidin-Vilanter [Trelegy Ellipta] Inhaler INH SCH (21:30)
[2021-10-13] MEDS: LORazepam 2 MG/ML VIAL IV PRN (01:19)
[2021-10-13] MEDS: oxyCODONE HCL 5 MG TABLET PO PRN ×3 (03:42→20:04)
[2021-10-13] MEDS: 0.9 % SODIUM CHLORIDE 10 ML SYRINGE IV PRN (05:15)
[2021-10-13] MEDS: 0.9 % SODIUM CHLORIDE 10 ML SYRINGE IV SCH ×3 (05:20→20:24)
[2021-10-13 06:40] LABS: Basophils # (Auto) 0.04 K/mcL (0.00-0.30); Basophils % (Auto) 0.4 % (0.0-2.0); Eosinophils # (Auto) 0.11 K/mcL (0.00-0.70); Eosinophils % (Auto) 1.1 % (0.0-7.0); Hemoglobin 8.3 g/dL (11.2-15.7); Lymphocytes # (Auto) 1.14 K/mcL (1.50-4.80); Lymphocytes % (Auto) 11.7 % (15.5-49.0); Mean Cell Volume 130.9 fL (80.0-100.0); Mean Corpuscular HGB Conc 33.2 g/dL (31.0-36.0); Mean Platelet Volume 11.9 fL (7.4-10.4); Monocytes # (Auto) 0.62 K/mcL (0.10-0.90); Monocytes % (Auto) 6.4 % (1.0-12.0); Neutrophils % (Auto) 80.4 % (38.0-78.0); Platelet Count 134 K/mcL (140-440); RBC 1.91 M/mcL (3.59-5.38); Red Cell Distribution Width 16.4 % (11.5-14.5); WBC 9.8 K/mcL (4.5-11.0)
[2021-10-13 07:01] LABS: ALT/SGPT 37 U/L (<40); AST/SGOT 110 U/L (<32); Albumin 2.8 gm/dL (3.2-5.2); Albumin/Globulin Ratio 1.1 (1.0-2.3); Alkaline Phosphatase 157 U/L (39-117); Bilirubin,Total 2.3 mg/dL (0.1-1.0); Blood Urea Nitrogen 5 mg/dL (8-23); Calcium 8.2 mg/dL (8.6-10.4); Carbon Dioxide 26 mmol/L (22-30); Chloride 109 mmol/L (96-108); Globulin 2.5 gm/dL (2.2-3.7); Glomerular Filtration Rate 103; Glucose 98 mg/dL (70-105)
[2021-10-13] MEDS: [UNRECOGNIZED DRUG - OTHER] TOPICAL SCH ×2 (08:29→20:06)
--- NOTE | 2021-10-13 08:43 | Internal Med Progress Note ---
SUBJECTIVE Subjective Patient information: Note initiated : 10/13/21 at 8:41 am Service Date, if different from initiated Date: [] Patient: Caleb Kern 61 y/o F admitted on 09/30/21 for left arm pain, fall yesterday. Chief Complaint: [] Principal diagnosis: Severe hypervolemic hyponatremia Interval history: Ms. Kern is a 61 year old female with a past medical history not limited to SILVA, COPD, nocturnal hypoxia, vitamin B12 deficiency, degenerative disc disease, obesity, tobacco use disorder who presented to the emergency department after a fall at home for further evaluation of left wrist pain. X-ray of the l eft wrist showed an intraarticular fracture of the distal radius. The patient was noted to be hypervolemic in the emergency department, CBC and chemistry panel were ordered showing severe hyponatremia with a sodium level of 116. Additionally, labs showed a mild leukocytosis of 12.3, severe macrocytosis, thrombocytopenia, anion gap metabolic acidosis, bilirubin of 1.8 and ALT and AST elevated compared to the patient's prior labs from 2020. Patient also had a NT proBNP of 441, 1 view chest x-ray did not show any pulmonary vascular congestion. The patient had a markedly elevated D-dimer of 6.89. The patient has not been having any shortness of breath recently and was comfortable on room air in the emergency department. The patient received Lasix IV in the emergency department. Hospital medicine was consulted for admission and management of severe hyponatremia. The patient says that she has been experiencing intermittent bilateral lower extremity edema for some time and that they have always resolved. The current amount of edema is more severe than prior episodes. She denies recent dyspnea, has not noticed any significant changes in urination. Patient says that she has known about "fatty liver disease" for some time. She does drink a significant amount of alcohol which usually contains vodka on an almost daily basis. We discussed the goals of admission which include a gradual correction of her sodium level. We also discussed further work-up which will focus on cardiac, liver and renal pathologies that could explain hypovolemic hyponatremia. We discussed CODE STATUS in detail, the patient wishes to be full code. 3/ Urine protein creatinine ratio was normal, TSH and morning cortisol levels nikhil l. blood smear was not suggestive of a sinister hematologic process. Vitamin B12 level elevated, folate level normal. INR was 1.2. Sodium trended up to 120s and down to 119, the patient received 100 mL of 3% saline followed by increase in sodium to 122. Patient has not made significant urine after receiving a dose of Lasix 80 mg IV. Volume overloaded as on admission with bilateral lower extremity pitting edema. Abdominal ultrasound showed fatty liver, possible steatohepatitis or early stage cirrhosis, small to moderate amount of ascites was present, normal directional blood flow and hepatic and portal veins. Bilateral lower extremity venous duplex ultrasound was negative for DVT. Transthoracic echocardiogram report pending. 10/02 Creatinine increased, discontinued lasix and consulted nephrology. Nephrology started albumin, recommended holding on diuretics at this time. 10/03 TTE was fairly unremarkable, etiology for hyponatremia is likely a liver cirrhosis combined with alcohol use. Patient is more confused now, likely secondary to hepatic encephalopathy as ammonia has also been elevated. Hemoglobin trending down, started Protonix IV twice daily. Trending hemoglobin, will consider consulting general surgery for EGD if this trends down further. Sodium slightly improved now at 123. Renal function slightly improved, creatinine 1.3 today. 10/04 The patient is more alert and oriented today but still confused, ammonia level still elevated in spite of increase in lactulose. Hemoglobin trending up now, will continue Protonix IV BID for now and likely transition to oral PPI therapy in 1-2 days. The patient does have a history of peptic ulcer and had been taking Ibuprofen prior to admission but with hemoglobin trending up on a PPI and EGD may not be high yield. GI consult currently not available at [facility]. Nephrology started Octreotide and Midodrine in addition to Albumin IV. Renal function is about the same, sodium about the same as yesterday. The patient is still markedly hypervolemic. 10/05 Low urine output, nephrology started IV fluid, no longer on octreotide, midodrine and albumin IV. Urine output did improve somewhat today but still low relative to the patient's hypervolemic volume status. Ammonia increasing and the patient continues to be confused and having intermittent hallucinations. CIWA score was 10 but clinically does not appear to be in withdrawal and the patient does not feel like she is in alcohol withdrawal. Started lactulose enema every 6 hours. Started high-dose thiamine IV supplementation. abdomen pelvis without contrast showed moderate hepatomegaly with a large low attenuating region infiltrating the entire lateral right hepatic lobe and a smaller region in the lateral segment of the left hepatic lobe, may represent atypical fatty infiltration however hepatocellular carcinoma or liver metastasis could have a similar appearance. There was also developing liver cirrhosis with mild enlargement of the portal vein, moderate splenomegaly and moderate ascites. Radiology recommended an MRI of the abdomen. We will have to defer MRI of the abdomen until the patient is no longer encephalopathic. Alpha fetoprotein level was normal. 10/06 The patient is more confused overnight suspect the patient is withdrawing from alcohol. Receiving Ativan IV as needed per CIWA protocol. This have been blunted initially by hepatic encephalopathy and the patient was also taking home Ativan as needed. Ammonia improved after a couple lactulose enemas overnight. CT head without contrast did not show any acute changes. Renal function is similar to yesterday. Nephrology started dopamine, octreotide and albumin IV. Discussed anemia with general surgery, Dr. Curiel deferred EGD at this time as he felt it would not be a high yield work-up. 10/07 Vital stable overnight, less agitated today, CIWA scores have improved. Renal function has improved. Ammonia level 90, down from a high of 109. Hemoglobin about the same as yesterday, 8.8. We will get an abdominal ultrasound to evaluate the extent of ascites today. Peripheral blood smear ordered for anemia and macrocytosis. 10/08 Patient going through alcohol withdrawal but is awake and answering questions appropriately. Hemoglobin stable. Creatinine stable. Transaminitis stable. Patient only complains of headache. Per nurse 3 bowel movements yesterday but none overnight. Guaiac testing was not done will obtain for next BM. 10/09 Patient last got 2 mg of Ativan last night at 9:00. None since. No overnight issues. Schedule undergo EGD for evaluation for esophagus varices. Patient seems lethargic this morning. Makes eye contact is does not answer questions. Ammonia improved from yesterday. 10/10 Yesterday patient had MRI of liver pending results. EGD showed gastroparesis but no varices. Patient has mild headache and occasional nausea. No vomiting. A little bit more responsive today. Treating for C. difficile colitis as found out yesterday. Per discussion with the she has had diarrhea prior to admission. 10/11 Little more talkative today but still confused. Diarrhea last night and on oral Vanco. Ammonia within normal limits today. Sodium elevated. Pending laboratory. PT OT. Large area of focal fatty infiltration of the liver on MRI, not suspicious at this point. 10/12 Patient became quite agitated last night requiring Haldol. This morning she is sleeping. Hypotonic infusion for hypernatremia yesterday. Provide hypotonic solution today while poor oral intake. 10/13: CIWA score 11 overnight. Poor oral intake due to poor appetite. No bowel movement yet today. No bowel movement yet today. Ammonia level 53 this morning. Continue Lactulose and Rifaximin for cirrhosis and hepatic encephalopathy, as well as Vancomycin PO for C diff colitis. Poor overall prognosis. Constitutional Vitals: Vital Signs Temp Pulse Resp BP Pulse Ox 37.2 C 92 H 15 101/63 96 10/13/21 04:01 10/13/21 06:12 10/13/21 06:12 10/13/21 06:01 10/13/21 06:12 Period Temp Pulse Resp BP Sys/Altman Pulse Ox Last 24 Hr 36.8 C-37.2 C 92 15-30 87-130/47-81 92-100 Intake and Output 10/12/21 10/13/21 10/13/21 21:59 05:59 13:59 Intake Total 920 Output Total 460 350 Balance 460 -350 Weight 90.492 kg Intake & Output: Intake & Output 10/12/21 10/13/21 10/13/21 21:59 05:59 13:59 Intake Total 920 Output Total 460 350 Balance 460 -350 Weight 90.492 kg Intake: Nourishment/Supplement quantity 120 (ml) IV 500 Dextrose 5%-Sod Chloride 0.2% 500 500 ml @ 84 mls/hr IV .[id number] ONE Rx#:[id number] Oral 300 Output: Urine Catheter Amount 430 250 Stool 30 100 Other: Meal Nourishment/Supplement Percent of Meal Consumed 0% Feeding Ability Total Assistance Nourishment/Supplement name Ensure Clear Urine Appearance Clear Cloudy Uretheral ([place]ama) Clear Urine Color Dark Yellow Dark Yellow Uretheral ([place]) Dark Yellow Urine Odor Normal Foul Stool Size Large Moderate Stool Color Brown Brown Yellow Yellow Stool Consistency Liquid Liquid Loose # Bowel Movements 1 # of times incontinent of 1 1 Bowels General appearance: obese Exam: Lethargic Head Head exam: Present atraumatic and normal inspection Eye Eye exam: Present normal appearance ENT ENT exam: Present mucous membranes moist, normal exam and normal external ear exam Neck Neck exam: Present normal inspection Respiratory Respiratory exam: Present normal respiratory exam Cardiovascular Cardiovascular exam: Present normal rate and rhythm GI/Abdominal GI/Abdominal exam: Present diminished bowel sounds and distended Back Exam Back exam: Present normal inspection Neurological Exam Neurological exam: Present motor sensory deficit Additional comments: Lethargic Skin Skin exam: Present intact and warm OBJ DATA Labs CBC & Chem 7: 10/13/21 05:16 10/13/21 05:16 Labs: Abnormal Lab Results 10/13/21 10/13/21 10/13/21 05:16 05:16 05:16 RBC 1.91 L Hgb 8.3 L Hct 25.0 L POC Hct MCV 130.9 H MCH 43.5 H RDW 16.4 H Plt Count 134 L MPV 11.9 H Neut % (Auto) 80.4 H Lymph % (Auto) 11.7 L Lymph # (Auto) 1.14 L POC Sodium Sodium Chloride 109 H BUN 5 L Creatinine 0.5 L POC Glucose Uric Acid Calcium 8.2 L POC WB Ioniz Calcium Magnesium Transferrin Total Bilirubin 2.3 H Direct Bilirubin GGT AST 110 H ALT Alkaline Phosphatase 157 H Ammonia 53 H Lactate Dehydrogenase Total Protein 5.3 L Albumin 2.8 L [id number] 10/12/21 10/11/21 10/11/21 05:08 15:09 08:50 RBC Hgb Hct POC Hct 24 L 31 L MCV MCH RDW Plt Count MPV Neut % (Auto) Lymph % (Auto) Lymph # (Auto) POC Sodium 147 H Sodium Chloride BUN 6 L Creatinine POC Glucose 111 H Uric Acid 10.1 H Calcium 8.3 L POC WB Ioniz Calcium 1.13 L 1.12 L Magnesium 1.3 L Transferrin Total Bilirubin 2.1 H Direct Bilirubin 1.2 H GGT 297 H AST 109 H ALT Alkaline Phosphatase 160 H Ammonia Lactate Dehydrogenase 595 H Total Protein 5.3 L Albumin 3.0 L [id number] 10/11/21 10/09/21 05:38 05:14 RBC Hgb Hct POC Hct MCV MCH RDW Plt Count MPV Neut % (Auto) Lymph % (Auto) Lymph # (Auto) POC Sodium Sodium 148 H Chloride 110 H BUN Creatinine POC Glucose Uric Acid 11.5 H Calcium 8.5 L POC WB Ioniz Calcium Magnesium Transferrin 62 L Total Bilirubin 1.9 H Direct Bilirubin 1.2 H GGT 343 H AST 124 H ALT 40 H Alkaline Phosphatase 184 H Ammonia Lactate Dehydrogenase 570 H Total Protein 5.2 L Albumin 2.9 L [id number] 220 H Meds: Medications Acetaminophen (Acetaminophen 325 Mg Tablet) 325 mg PO Q6HP PRN; Protocol PRN Reason: Per Pain Protocol Last Admin: 10/08/21 13:01 Dose: 325 mg Documented by: Albuterol Sulfate (Albuterol Sulfate 200 Puff Inhaler) 1 puff INH Q4-6HP PRN PRN Reason: Shortness Of Breath Last Admin: 10/12/21 18:07 Dose: 1 puff Documented by: Benzonatate (Benzonatate 100 Mg Capsule) 100 mg PO TID PRN PRN Reason: cough Last Admin: 10/05/21 07:48 Dose: 100 mg Documented by: Buspirone HCl (Buspirone 15 Mg Tablet) 7.5 mg PO BID [facility] Last Admin: 10/12/21 21:09 Dose: 7.5 mg Documented by: Clotrimazole (Clotrimazole 10 Mg Yvette) 10 mg PO 5XD [facility] Last Admin: 10/12/21 21:11 Dose: 10 mg Documented by: Cyanocobalamin (Cyanocobalamin 1,000 Mcg/Ml Vial) 1,000 mcg IM Q2W [facility] Diphenhydramine HCl (Diphenhydramine 25 Mg Capsule) 25 mg PO Q6H PRN PRN Reason: Itching Last Admin: 10/12/21 19:45 Dose: 25 mg Documented by: Famotidine (Famotidine 20 Mg Tablet) 20 mg PO HS [facility] Last Admin: 10/12/21 21:09 Dose: 20 mg Documented by: Folic Acid (Folic Acid 1 Mg Tablet) 1 mg PO DAILY [facility] Last Admin: 10/12/21 08:54 Dose: 1 mg Documented by: Gabapentin (Gabapentin 300 Mg Capsule) 300 mg PO BID [facility] Last Admin: 10/12/21 21:09 Dose: 300 mg Documented by: Guaifenesin (Guaifenesin 600 Mg Tab.Sr.12h) 600 mg PO Q12H PRN PRN Reason: Congestion Last Admin: 10/05/21 21:24 Dose: 600 mg Documented by: Haloperidol Lactate (Haloperidol Lactate 5 Mg/Ml Vial) 2 mg IV Q4HP PRN PRN Reason: Psychosis Heparin Sodium (Porcine) (Heparin 5,000 Unit/Ml Vial) 5,000 unit SQ Q12 [facility] Last Admin: 10/12/21 21:09 Dose: 5,000 unit Documented by: Lactulose (Lactulose 20 Gm/30 Ml Oral.Petra) 30 gm PO TID [facility] Last Admin: 10/12/21 21:10 Dose: Not Given Documented by: Lactulose (Lactulose 20 Gm/30 Ml Oral.Petra) 30 gm PO TIDP PRN PRN Reason: constipation Lorazepam (Lorazepam 2 Mg/Ml Vial) 0 mg IV Q4HP PRN; Protocol PRN Reason: Alcohol Withdrawal Last Admin: 10/13/21 01:19 Dose: 2 mg Documented by: Nicotine (Nicotine 21 Mg Patch) 21 mg TOPICAL DAILY@1000 [facility] Last Admin: 10/12/21 08:54 Dose: 21 mg Documented by: Olanzapine (Olanzapine 10 Mg Vial) 5 mg IM Q8HP PRN PRN Reason: Agitation Last Admin: 10/11/21 19:40 Dose: 5 mg Documented by: Ondansetron HCl (Ondansetron 4 Mg/2 Ml Vial) 4 mg IV Q4HP PRN; Protocol PRN Reason: Nausea And Vomiting Last Admin: 10/05/21 08:05 Dose: 4 mg Documented by: Oxycodone HCl (Oxycodone Hcl 5 Mg Tablet) 5 mg PO Q6HP PRN; Protocol PRN Reason: Per Pain Protocol Last Admin: 10/13/21 03:42 Dose: 5 mg Documented by: Emollient Combo No. [id number] (Bulk) [Custom Base Pcca] Cream 1 dose TOPICAL BID [facility] Last Admin: 10/12/21 19:45 Dose: 1 dose Documented by: Fluticasone- Umeclidin-Vilanter [ Trelegy Ellipta] Inhaler 1 dose INH Q24H [facility] Last Admin: 10/12/21 21:30 Dose: 1 dose Documented by: Senna (Sennosides 1 Tablet) 2 tab PO HS PRN PRN Reason: constipation Sodium Chloride (0.9 % Sodium Chloride 10 Ml Syringe) 10 ml IV Q8 [facility] Last Admin: 10/13/21 05:20 Dose: 10 ml Documented by: Sodium Chloride (0.9 % Sodium Chloride 10 Ml Syringe) 10 ml IV UD PRN PRN Reason: Central Line Maintence Last Admin: 10/13/21 05:15 Dose: 10 ml Documented by: Spironolactone (Spironolactone 25 Mg Tablet) 100 mg PO DAILY [facility] Last Admin: 10/12/21 08:53 Dose: 100 mg Documented by: Thiamine HCl (Thiamine 100 Mg Tablet) 100 mg PO DAILY [facility] Vancomycin HCl (Vancomycin Oral Petra 1,000 Mg/10 Ml Bottle) 125 mg PO QID [facility]; Protocol Last Admin: 10/12/21 21:09 Dose: 125 mg Documented by: ABG Interpretation ABG results: 10/03/21 16:16 ABG Methemoglobin 0.1 L VBG pH 7.43 H VBG pCO2 36.6 L VBG pO2 88.5 H VBG HCO3 23.7 L VBG Total CO2 24.8 L VBG O2 Saturation 91.2 H VBG Base Excess 0 A/P Assessment and plan (1) C. difficile colitis: Status: Acute (2) Hepatic encephalopathy: Status: Acute (3) Hypomagnesemia: Status: Acute (4) Closed left radial fracture: Status: Acute (5) Anemia, macrocytic: Status: Acute (6) Cirrhosis of liver with ascites: Status: Acute Comment: EtOH cessation therapy (7) Gastroparesis: Status: Acute (8) Smoker: Status: Chronic Narrative A/P Narrative: Assessment and Plans: 1. Alcoholic cirrhosis with encephalopathy: Inpatient PCU with telemetry [facility] protocol for alcohol withdrawal symptoms management Lactulose titrate to achieve 3 large bowel movement/day Rifaximin Aldactone Stock Tracer patient on quitting drinking CMP, INR daily to trend MELD-Na score for prognosis estimate, overall poor prognosis Haldol IV PRN psychosis 2. Gastroparesis: EGD showed gastroparesis but no esophageal varices Advance diet as tolerated Zofran IV PRN nausea/vomiting 3. Macrocytic hyperchromic anemia: Thiamine, folate, and Vitamin B12 supplement cbc w/ auto diff daily to trend H/H 4. Hypomagnesemia: Magnesium supplement as needed Daily serum Mg level 5. Cigarette smoker status: Nicotine replacement therapy. Will general counselor patient on quitting cigarette smoking when patient is ready GI ppx: Pepcid DVT ppx: Lovenox Code status: Full Prognosis: Poor Disposition: inpatient PCU telemetry Time Spent With Patient Time: Total time spent is greater than 50% in coordination of care (as documented) at patient's floor/unit and/or counseling patient: Total time spent with greater than 50% in coordination of care (as documented) at patient's floor/unit and/or counseling patient:: 50 - 70 minutes
[2021-10-13] MEDS: VANCOMYCIN ORAL SOL 1,000 MG/10 ML BOTTLE PO SCH ×4 (08:52→20:05)
[2021-10-13] MEDS: LACTULOSE 20 GM/30 ML ORAL.SOL PO SCH ×3 (09:03→20:05)
[2021-10-13] MEDS: FOLIC ACID 1 MG TABLET PO SCH (09:04)
[2021-10-13] MEDS: SPIRONOLACTONE 25 MG TABLET PO SCH (09:04)
[2021-10-13] MEDS: NICOTINE 21 MG PATCH TOPICAL SCH (09:04)
[2021-10-13] MEDS: GABAPENTIN 300 MG CAPSULE PO SCH ×2 (09:04→20:04)
[2021-10-13] MEDS: THIAMINE 100 MG TABLET PO SCH (09:04)
[2021-10-13] MEDS: ALBUTEROL SULFATE 200 PUFF INHALER INH PRN (09:05)
[2021-10-13] MEDS: CLOTRIMAZOLE 10 MG TROCHE PO SCH ×5 (09:05→20:03)
--- NOTE | 2021-10-13 09:10 | Internal Med Progress Note ---
SUBJECTIVE Subjective Patient information: Note initiated : 10/13/21 at 9:08 am Service Date, if different from initiated Date: [] Patient: Caleb Kern 61 y/o F admitted on 09/30/21 for left arm pain, fall yesterday. Chief Complaint: [] Principal diagnosis: Severe hypervolemic hyponatremia Interval history: Ms. Kern is a 61 year old female with a past medical history not limited to SILVA, COPD, nocturnal hypoxia, vitamin B12 deficiency, degenerative disc disease, obesity, tobacco use disorder who presented to the emergency department after a fall at home for further evaluation of left wrist pain. X-ray of the l eft wrist showed an intraarticular fracture of the distal radius. The patient was noted to be hypervolemic in the emergency department, CBC and chemistry panel were ordered showing severe hyponatremia with a sodium level of 116. Additionally, labs showed a mild leukocytosis of 12.3, severe macrocytosis, thrombocytopenia, anion gap metabolic acidosis, bilirubin of 1.8 and ALT and AST elevated compared to the patient's prior labs from 2020. Patient also had a NT proBNP of 441, 1 view chest x-ray did not show any pulmonary vascular congestion. The patient had a markedly elevated D-dimer of 6.89. The patient has not been having any shortness of breath recently and was comfortable on room air in the emergency department. The patient received Lasix IV in the emergency department. Hospital medicine was consulted for admission and management of severe hyponatremia. The patient says that she has been experiencing intermittent bilateral lower extremity edema for some time and that they have always resolved. The current amount of edema is more severe than prior episodes. She denies recent dyspnea, has not noticed any significant changes in urination. Patient says that she has known about "fatty liver disease" for some time. She does drink a significant amount of alcohol which usually contains vodka on an almost daily basis. We discussed the goals of admission which include a gradual correction of her sodium level. We also discussed further work-up which will focus on cardiac, liver and renal pathologies that could explain hypovolemic hyponatremia. We discussed CODE STATUS in detail, the patient wishes to be full code. 3/ Urine protein creatinine ratio was normal, TSH and morning cortisol levels nikhil l. blood smear was not suggestive of a sinister hematologic process. Vitamin B12 level elevated, folate level normal. INR was 1.2. Sodium trended up to 120s and down to 119, the patient received 100 mL of 3% saline followed by increase in sodium to 122. Patient has not made significant urine after receiving a dose of Lasix 80 mg IV. Volume overloaded as on admission with bilateral lower extremity pitting edema. Abdominal ultrasound showed fatty liver, possible steatohepatitis or early stage cirrhosis, small to moderate amount of ascites was present, normal directional blood flow and hepatic and portal veins. Bilateral lower extremity venous duplex ultrasound was negative for DVT. Transthoracic echocardiogram report pending. 10/02 Creatinine increased, discontinued lasix and consulted nephrology. Nephrology started albumin, recommended holding on diuretics at this time. 10/03 TTE was fairly unremarkable, etiology for hyponatremia is likely a liver cirrhosis combined with alcohol use. Patient is more confused now, likely secondary to hepatic encephalopathy as ammonia has also been elevated. Hemoglobin trending down, started Protonix IV twice daily. Trending hemoglobin, will consider consulting general surgery for EGD if this trends down further. Sodium slightly improved now at 123. Renal function slightly improved, creatinine 1.3 today. 10/04 The patient is more alert and oriented today but still confused, ammonia level still elevated in spite of increase in lactulose. Hemoglobin trending up now, will continue Protonix IV BID for now and likely transition to oral PPI therapy in 1-2 days. The patient does have a history of peptic ulcer and had been taking Ibuprofen prior to admission but with hemoglobin trending up on a PPI and EGD may not be high yield. GI consult currently not available at [facility]. Nephrology started Octreotide and Midodrine in addition to Albumin IV. Renal function is about the same, sodium about the same as yesterday. The patient is still markedly hypervolemic. 10/05 Low urine output, nephrology started IV fluid, no longer on octreotide, midodrine and albumin IV. Urine output did improve somewhat today but still low relative to the patient's hypervolemic volume status. Ammonia increasing and the patient continues to be confused and having intermittent hallucinations. CIWA score was 10 but clinically does not appear to be in withdrawal and the patient does not feel like she is in alcohol withdrawal. Started lactulose enema every 6 hours. Started high-dose thiamine IV supplementation. abdomen pelvis without contrast showed moderate hepatomegaly with a large low attenuating region infiltrating the entire lateral right hepatic lobe and a smaller region in the lateral segment of the left hepatic lobe, may represent atypical fatty infiltration however hepatocellular carcinoma or liver metastasis could have a similar appearance. There was also developing liver cirrhosis with mild enlargement of the portal vein, moderate splenomegaly and moderate ascites. Radiology recommended an MRI of the abdomen. We will have to defer MRI of the abdomen until the patient is no longer encephalopathic. Alpha fetoprotein level was normal. 10/06 The patient is more confused overnight suspect the patient is withdrawing from alcohol. Receiving Ativan IV as needed per CIWA protocol. This have been blunted initially by hepatic encephalopathy and the patient was also taking home Ativan as needed. Ammonia improved after a couple lactulose enemas overnight. CT head without contrast did not show any acute changes. Renal function is similar to yesterday. Nephrology started dopamine, octreotide and albumin IV. Discussed anemia with general surgery, Dr. Curiel deferred EGD at this time as he felt it would not be a high yield work-up. 10/07 Vital stable overnight, less agitated today, CIWA scores have improved. Renal function has improved. Ammonia level 90, down from a high of 109. Hemoglobin about the same as yesterday, 8.8. We will get an abdominal ultrasound to evaluate the extent of ascites today. Peripheral blood smear ordered for anemia and macrocytosis. 10/08 Patient going through alcohol withdrawal but is awake and answering questions appropriately. Hemoglobin stable. Creatinine stable. Transaminitis stable. Patient only complains of headache. Per nurse 3 bowel movements yesterday but none overnight. Guaiac testing was not done will obtain for next BM. 10/09 Patient last got 2 mg of Ativan last night at 9:00. None since. No overnight issues. Schedule undergo EGD for evaluation for esophagus varices. Patient seems lethargic this morning. Makes eye contact is does not answer questions. Ammonia improved from yesterday. 10/10 Yesterday patient had MRI of liver pending results. EGD showed gastroparesis but no varices. Patient has mild headache and occasional nausea. No vomiting. A little bit more responsive today. Treating for C. difficile colitis as found out yesterday. Per discussion with the she has had diarrhea prior to admission. 10/11 Little more talkative today but still confused. Diarrhea last night and on oral Vanco. Ammonia within normal limits today. Sodium elevated. Pending laboratory. PT OT. Large area of focal fatty infiltration of the liver on MRI, not suspicious at this point. 10/12 Patient became quite agitated last night requiring Haldol. This morning she is sleeping. Hypotonic infusion for hypernatremia yesterday. Provide hypotonic solution today while poor oral intake. 10/13: CIWA score 11 overnight. Poor oral intake due to poor appetite. No bowel movement yet today. No bowel movement yet today. Ammonia level 53 this morning. Continue Lactulose and Rifaximin for cirrhosis and hepatic encephalopathy, as well as Vancomycin PO for C diff colitis. Poor overall prognosis. Constitutional Vitals: Vital Signs Temp Pulse Resp BP Pulse Ox 37.2 C 92 H 15 101/63 96 10/13/21 04:01 10/13/21 06:12 10/13/21 06:12 10/13/21 06:01 10/13/21 06:12 Period Temp Pulse Resp BP Sys/Altman Pulse Ox Last 24 Hr 36.8 C-37.2 C 92 15-30 94-130/51-81 92-100 Intake and Output 10/12/21 10/13/21 10/13/21 21:59 05:59 13:59 Intake Total 920 Output Total 460 350 Balance 460 -350 Weight 90.492 kg Intake & Output: Intake & Output 10/12/21 10/13/21 10/13/21 21:59 05:59 13:59 Intake Total 920 Output Total 460 350 Balance 460 -350 Weight 90.492 kg Intake: Nourishment/Supplement quantity 120 (ml) IV 500 Dextrose 5%-Sod Chloride 0.2% 500 500 ml @ 84 mls/hr IV .[id number] ONE Rx#:[id number] Oral 300 Output: Urine Catheter Amount 430 250 Stool 30 100 Other: Meal Nourishment/Supplement Percent of Meal Consumed 0% Feeding Ability Total Assistance Nourishment/Supplement name Ensure Clear Urine Appearance Clear Cloudy Uretheral (Gama) Clear Urine Color Dark Yellow Dark Yellow Uretheral ([place]ama) Dark Yellow Urine Odor Normal Foul Stool Size Large Moderate Stool Color Brown Brown Yellow Yellow Stool Consistency Liquid Liquid Loose # Bowel Movements 1 # of times incontinent of 1 1 Bowels General appearance: obese Exam: Lethargic Head Head exam: Present atraumatic and normal inspection Eye Eye exam: Present normal appearance ENT ENT exam: Present mucous membranes moist, normal exam and normal external ear exam Neck Neck exam: Present normal inspection Respiratory Respiratory exam: Present normal respiratory exam Cardiovascular Cardiovascular exam: Present normal rate and rhythm GI/Abdominal GI/Abdominal exam: Present normal bowel sounds Extremities Exam Extremities exam: Absent full ROM or normal inspection Additional comments: Left wrist splint in place Back Exam Back exam: Present normal inspection Neurological Exam Neurological exam: Absent alert or oriented X3 Additional comments: Lethargic Skin Skin exam: Present intact and warm OBJ DATA Labs CBC & Chem 7: 10/13/21 05:16 10/13/21 05:16 Labs: Abnormal Lab Results 10/13/21 10/13/21 10/13/21 05:16 05:16 05:16 RBC 1.91 L Hgb 8.3 L Hct 25.0 L POC Hct MCV 130.9 H MCH 43.5 H RDW 16.4 H Plt Count 134 L MPV 11.9 H Neut % (Auto) 80.4 H Lymph % (Auto) 11.7 L Lymph # (Auto) 1.14 L POC Sodium Sodium Chloride 109 H BUN 5 L Creatinine 0.5 L POC Glucose Uric Acid Calcium 8.2 L POC WB Ioniz Calcium Magnesium Transferrin Total Bilirubin 2.3 H Direct Bilirubin GGT AST 110 H ALT Alkaline Phosphatase 157 H Ammonia 53 H Lactate Dehydrogenase Total Protein 5.3 L Albumin 2.8 L [id number] 10/12/21 10/11/21 10/11/21 05:08 15:09 08:50 RBC Hgb Hct POC Hct 24 L 31 L MCV MCH RDW Plt Count MPV Neut % (Auto) Lymph % (Auto) Lymph # (Auto) POC Sodium 147 H Sodium Chloride BUN 6 L Creatinine POC Glucose 111 H Uric Acid 10.1 H Calcium 8.3 L POC WB Ioniz Calcium 1.13 L 1.12 L Magnesium 1.3 L Transferrin Total Bilirubin 2.1 H Direct Bilirubin 1.2 H GGT 297 H AST 109 H ALT Alkaline Phosphatase 160 H Ammonia Lactate Dehydrogenase 595 H Total Protein 5.3 L Albumin 3.0 L [id number] 10/11/21 10/09/21 05:38 05:14 RBC Hgb Hct POC Hct MCV MCH RDW Plt Count MPV Neut % (Auto) Lymph % (Auto) Lymph # (Auto) POC Sodium Sodium 148 H Chloride 110 H BUN Creatinine POC Glucose Uric Acid 11.5 H Calcium 8.5 L POC WB Ioniz Calcium Magnesium Transferrin 62 L Total Bilirubin 1.9 H Direct Bilirubin 1.2 H GGT 343 H AST 124 H ALT 40 H Alkaline Phosphatase 184 H Ammonia Lactate Dehydrogenase 570 H Total Protein 5.2 L Albumin 2.9 L [id number] 220 H Meds: Medications Acetaminophen (Acetaminophen 325 Mg Tablet) 325 mg PO Q6HP PRN; Protocol PRN Reason: Per Pain Protocol Last Admin: 10/08/21 13:01 Dose: 325 mg Documented by: Albuterol Sulfate (Albuterol Sulfate 200 Puff Inhaler) 1 puff INH Q4-6HP PRN PRN Reason: Shortness Of Breath Last Admin: 10/13/21 09:05 Dose: 1 puff Documented by: Benzonatate (Benzonatate 100 Mg Capsule) 100 mg PO TID PRN PRN Reason: cough Last Admin: 10/05/21 07:48 Dose: 100 mg Documented by: Buspirone HCl (Buspirone 15 Mg Tablet) 7.5 mg PO BID [facility] Last Admin: 10/12/21 21:09 Dose: 7.5 mg Documented by: Clotrimazole (Clotrimazole 10 Mg Yvette) 10 mg PO 5XD [facility] Last Admin: 10/13/21 09:05 Dose: 10 mg Documented by: Cyanocobalamin (Cyanocobalamin 1,000 Mcg/Ml Vial) 1,000 mcg IM Q2W [facility] Diphenhydramine HCl (Diphenhydramine 25 Mg Capsule) 25 mg PO Q6H PRN PRN Reason: Itching Last Admin: 10/12/21 19:45 Dose: 25 mg Documented by: Enoxaparin Sodium (Enoxaparin 40 Mg/0.4 Ml Syringe) 40 mg SQ DAILY [facility] Famotidine (Famotidine 20 Mg Tablet) 20 mg PO HS [facility] Last Admin: 10/12/21 21:09 Dose: 20 mg Documented by: Folic Acid (Folic Acid 1 Mg Tablet) 1 mg PO DAILY [facility] Last Admin: 10/13/21 09:04 Dose: 1 mg Documented by: Gabapentin (Gabapentin 300 Mg Capsule) 300 mg PO BID [facility] Last Admin: 10/13/21 09:04 Dose: 300 mg Documented by: Guaifenesin (Guaifenesin 600 Mg Tab.Sr.12h) 600 mg PO Q12H PRN PRN Reason: Congestion Last Admin: 10/05/21 21:24 Dose: 600 mg Documented by: Haloperidol Lactate (Haloperidol Lactate 5 Mg/Ml Vial) 2 mg IV Q4HP PRN PRN Reason: Psychosis Lactulose (Lactulose 20 Gm/30 Ml Oral.Petra) 30 gm PO TID [facility] Last Admin: 10/13/21 09:03 Dose: 30 gm Documented by: Lactulose (Lactulose 20 Gm/30 Ml Oral.Petra) 30 gm PO TIDP PRN PRN Reason: constipation Lorazepam (Lorazepam 2 Mg/Ml Vial) 0 mg IV Q4HP PRN; Protocol PRN Reason: Alcohol Withdrawal Last Admin: 10/13/21 01:19 Dose: 2 mg Documented by: Nicotine (Nicotine 21 Mg Patch) 21 mg TOPICAL DAILY@1000 [facility] Last Admin: 10/13/21 09:04 Dose: 21 mg Documented by: Olanzapine (Olanzapine 10 Mg Vial) 5 mg IM Q8HP PRN PRN Reason: Agitation Last Admin: 10/11/21 19:40 Dose: 5 mg Documented by: Ondansetron HCl (Ondansetron 4 Mg/2 Ml Vial) 4 mg IV Q4HP PRN; Protocol PRN Reason: Nausea And Vomiting Last Admin: 10/05/21 08:05 Dose: 4 mg Documented by: Oxycodone HCl (Oxycodone Hcl 5 Mg Tablet) 5 mg PO Q6HP PRN; Protocol PRN Reason: Per Pain Protocol Last Admin: 10/13/21 03:42 Dose: 5 mg Documented by: Emollient Combo No. 59 (Bulk) [Custom Base Pcca] Cream 1 dose TOPICAL BID [facility] Last Admin: 10/12/21 19:45 Dose: 1 dose Documented by: Fluticasone- Umeclidin-Vilanter [ Trelegy Ellipta] Inhaler 1 dose INH Q24H [facility] Last Admin: 10/12/21 21:30 Dose: 1 dose Documented by: Senna (Sennosides 1 Tablet) 2 tab PO HS PRN PRN Reason: constipation Sodium Chloride (0.9 % Sodium Chloride 10 Ml Syringe) 10 ml IV Q8 [facility] Last Admin: 10/13/21 05:20 Dose: 10 ml Documented by: Sodium Chloride (0.9 % Sodium Chloride 10 Ml Syringe) 10 ml IV UD PRN PRN Reason: Central Line Maintence Last Admin: 10/13/21 05:15 Dose: 10 ml Documented by: Spironolactone (Spironolactone 25 Mg Tablet) 100 mg PO DAILY [facility] Last Admin: 10/13/21 09:04 Dose: 100 mg Documented by: Thiamine HCl (Thiamine 100 Mg Tablet) 100 mg PO DAILY [facility] Last Admin: 10/13/21 09:04 Dose: 100 mg Documented by: Vancomycin HCl (Vancomycin Oral Petra 1,000 Mg/10 Ml Bottle) 125 mg PO QID [facility]; Protocol Last Admin: 10/13/21 08:52 Dose: 125 mg Documented by: ABG Interpretation ABG results: 10/03/21 16:16 ABG Methemoglobin 0.1 L VBG pH 7.43 H VBG pCO2 36.6 L VBG pO2 88.5 H VBG HCO3 23.7 L VBG Total CO2 24.8 L VBG O2 Saturation 91.2 H VBG Base Excess 0 A/P Assessment and plan (1) C. difficile colitis: Status: Acute (2) Hepatic encephalopathy: Status: Acute (3) Hypomagnesemia: Status: Acute (4) Closed left radial fracture: Status: Acute (5) Anemia, macrocytic: Status: Acute (6) Cirrhosis of liver with ascites: Status: Acute Comment: EtOH cessation therapy (7) Gastroparesis: Status: Acute (8) Smoker: Status: Chronic Narrative A/P Narrative: Assessment and Plans: 1. 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 Gastroparesis: EGD showed gastroparesis but no esophageal varices Advance diet as tolerated Zofran IV PRN nausea/vomiting 3. Macrocytic hyperchromic anemia: Thiamine, folate, and Vitamin B12 supplement cbc w/ auto diff daily to trend H/H 4. Hypomagnesemia: Magnesium supplement as needed Daily serum Mg level 5. Cigarette smoker status: Nicotine replacement therapy. 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 Left distal wrist fracture: As per orthopedic surgery, patient is not a surgical candidate. Keep splint on. Focus on symptoms control for the time being 7. C diff colitis: Continue Day 12/04 PO Vancomycin Contact isolation GI ppx: Pepcid DVT ppx: Lovenox Code status: Full Prognosis: Poor Disposition: inpatient PCU telemetry Time Spent With Patient Time: Total time spent is greater than 50% in coordination of care (as documented) at patient's floor/unit and/or counseling patient: Total time spent with greater than 50% in coordination of care (as documented) at patient's floor/unit and/or counseling patient:: 35 - 50 minutes
[2021-10-13] MEDS: busPIRone 15 MG TABLET PO SCH ×2 (09:38→20:04)
[2021-10-13] MEDS: RIFAXIMIN 550 MG TABLET PO SCH ×2 (09:39→20:03)
[2021-10-13 09:53] LABS: INR 1.5 (0.9-1.1); Prothrombin Time 19.1 sec (11.9-14.5)
[2021-10-13 09:56] LABS: Phosphorous 3.9 mg/dL (2.5-4.5)
[2021-10-13] MEDS: ENOXAPARIN 40 MG/0.4 ML SYRINGE SQ SCH (10:06)
[2021-10-13] MEDS ORDERED: MAGNESIUM SULFATE 2 GM/50 ML BAG IV ONE (18:00)
[2021-10-13] MEDS ORDERED: LORazepam 2 MG/ML VIAL IV PRN (19:19)
[2021-10-13] MEDS: FAMOTIDINE 20 MG TABLET PO SCH (20:04)
[2021-10-13] MEDS: Fluticasone-Umeclidin-Vilanter [Trelegy Ellipta] Inhaler INH SCH (20:07)
[2021-10-13 23:41] LABS: Complement C3C 79 mg/dL (83-193); Complement C4C 6 mg/dL (15-57); Rheumatoid Factor 18 IU/mL (<14)
[2021-10-13 23:56] LABS: Actin (Smooth Muscle)AB IGG-SO <20 U
[2021-10-14 02:42] LABS: Appearance,Urine Cloudy (Clear); Bacteria,Urine FEW /hpf (0); Bilirubin,Urine Small mg/dL (Negative); Color,Urine Yellow; Culture Indicated,Urine yes; Glucose,Urine (UA) Negative (Negative); Ketones,Urine Trace mg/dL (Negative); Leukocyte Esterase,Urine Small /uL (Negative); Mucus,Urine MANY /hpf; Nitrate,Urine Positive (Negative); PH,Urine >= 9.0 (5.0-9.0); Triple Phosphate Crystal,Urine MOD /hpf; Urine Blood Trace-intact ery/mcL (Negative); Urine Hyaline Cast 26 /lph (0-2); Urine RBC 2 /hpf (0-3); Urine Squamous Epithelial Cell 0 /hpf (0-4); Urine WBC 118 /hpf (0-4); Urobilinogen,Urine Normal
[2021-10-14] MEDS: OLANZapine 10 MG VIAL IM PRN ×2 (07:03→21:42)
[2021-10-14 07:23] LABS: ALT/SGPT 35 U/L (<40); AST/SGOT 111 U/L (<32); Albumin 2.8 gm/dL (3.2-5.2); Albumin/Globulin Ratio 1.2 (1.0-2.3); Alkaline Phosphatase 149 U/L (39-117); Bilirubin,Total 2.5 mg/dL (0.1-1.0); Blood Urea Nitrogen 6 mg/dL (8-23); Calcium 7.9 mg/dL (8.6-10.4); Carbon Dioxide 26 mmol/L (22-30); Chloride 107 mmol/L (96-108); Globulin 2.4 gm/dL (2.2-3.7); Glomerular Filtration Rate 103; Glucose 83 mg/dL (70-105); Phosphorous 3.5 mg/dL (2.5-4.5)
[2021-10-14] MEDS: 0.9 % SODIUM CHLORIDE 10 ML SYRINGE IV SCH ×3 (07:25→21:54)
[2021-10-14 07:39] LABS: Basophils # (Auto) 0.04 K/mcL (0.00-0.30); Basophils % (Auto) 0.5 % (0.0-2.0); Eosinophils # (Auto) 0.17 K/mcL (0.00-0.70); Eosinophils % (Auto) 2.2 % (0.0-7.0); Hematocrit 25.1 % (34.1-44.9); Hemoglobin 8.1 g/dL (11.2-15.7); Lymphocytes # (Auto) 1.06 K/mcL (1.50-4.80); Lymphocytes % (Auto) 13.5 % (15.5-49.0); Mean Cell Volume 132.1 fL (80.0-100.0); Mean Corpuscular HGB Conc 32.3 g/dL (31.0-36.0); Mean Platelet Volume 11.9 fL (7.4-10.4); Monocytes # (Auto) 0.58 K/mcL (0.10-0.90); Monocytes % (Auto) 7.4 % (1.0-12.0); Neutrophils % (Auto) 76.4 % (38.0-78.0); Platelet Count 114 K/mcL (140-440); Red Cell Distribution Width 15.9 % (11.5-14.5); WBC 7.9 K/mcL (4.5-11.0)
[2021-10-14 08:05] LABS: INR 1.6 (0.9-1.1); Prothrombin Time 19.8 sec (11.9-14.5)
[2021-10-14] MEDS: FOLIC ACID 1 MG TABLET PO SCH (08:13)
[2021-10-14] MEDS: THIAMINE 100 MG TABLET PO SCH (08:13)
[2021-10-14] MEDS: SPIRONOLACTONE 25 MG TABLET PO SCH (08:13)
[2021-10-14] MEDS: ENOXAPARIN 40 MG/0.4 ML SYRINGE SQ SCH (08:14)
[2021-10-14] MEDS: GABAPENTIN 300 MG CAPSULE PO SCH ×2 (08:14→19:48)
[2021-10-14] MEDS: LACTULOSE 20 GM/30 ML ORAL.SOL PO SCH ×3 (08:14→19:47)
[2021-10-14] MEDS: busPIRone 15 MG TABLET PO SCH ×2 (08:20→19:57)
[2021-10-14] MEDS: RIFAXIMIN 550 MG TABLET PO SCH (08:20)
[2021-10-14] MEDS: VANCOMYCIN ORAL SOL 1,000 MG/10 ML BOTTLE PO SCH ×4 (08:52→19:49)
[2021-10-14] MEDS: NICOTINE 21 MG PATCH TOPICAL SCH (08:52)
[2021-10-14] MEDS: CLOTRIMAZOLE 10 MG TROCHE PO SCH ×5 (08:52→19:00)
[2021-10-14] MEDS: [UNRECOGNIZED DRUG - OTHER] TOPICAL SCH ×2 (09:24→19:47)
--- NOTE | 2021-10-14 09:24 | Internal Med Progress Note ---
SUBJECTIVE Subjective Patient information: Note initiated : 10/14/21 at 9:21 am Service Date, if different from initiated Date: [] Patient: Caleb Kern 61 y/o F admitted on 09/30/21 for left arm pain, fall yesterday. Chief Complaint: [] Principal diagnosis: Severe hypervolemic hyponatremia Interval history: Ms. Kern is a 61 year old female with a past medical history not limited to SILVA, COPD, nocturnal hypoxia, vitamin B12 deficiency, degenerative disc disease, obesity, tobacco use disorder who presented to the emergency department after a fall at home for further evaluation of left wrist pain. X-ray of the l eft wrist showed an intraarticular fracture of the distal radius. The patient was noted to be hypervolemic in the emergency department, CBC and chemistry panel were ordered showing severe hyponatremia with a sodium level of 116. Additionally, labs showed a mild leukocytosis of 12.3, severe macrocytosis, thrombocytopenia, anion gap metabolic acidosis, bilirubin of 1.8 and ALT and AST elevated compared to the patient's prior labs from 2020. Patient also had a NT proBNP of 441, 1 view chest x-ray did not show any pulmonary vascular congestion. The patient had a markedly elevated D-dimer of 6.89. The patient has not been having any shortness of breath recently and was comfortable on room air in the emergency department. The patient received Lasix IV in the emergency department. Hospital medicine was consulted for admission and management of severe hyponatremia. The patient says that she has been experiencing intermittent bilateral lower extremity edema for some time and that they have always resolved. The current amount of edema is more severe than prior episodes. She denies recent dyspnea, has not noticed any significant changes in urination. Patient says that she has known about "fatty liver disease" for some time. She does drink a significant amount of alcohol which usually contains vodka on an almost daily basis. We discussed the goals of admission which include a gradual correction of her sodium level. We also discussed further work-up which will focus on cardiac, liver and renal pathologies that could explain hypovolemic hyponatremia. We discussed CODE STATUS in detail, the patient wishes to be full code. 3/ Urine protein creatinine ratio was normal, TSH and morning cortisol levels nikhil l. blood smear was not suggestive of a sinister hematologic process. Vitamin B12 level elevated, folate level normal. INR was 1.2. Sodium trended up to 120s and down to 119, the patient received 100 mL of 3% saline followed by increase in sodium to 122. Patient has not made significant urine after receiving a dose of Lasix 80 mg IV. Volume overloaded as on admission with bilateral lower extremity pitting edema. Abdominal ultrasound showed fatty liver, possible steatohepatitis or early stage cirrhosis, small to moderate amount of ascites was present, normal directional blood flow and hepatic and portal veins. Bilateral lower extremity venous duplex ultrasound was negative for DVT. Transthoracic echocardiogram report pending. 10/02 Creatinine increased, discontinued lasix and consulted nephrology. Nephrology started albumin, recommended holding on diuretics at this time. 10/03 TTE was fairly unremarkable, etiology for hyponatremia is likely a liver cirrhosis combined with alcohol use. Patient is more confused now, likely secondary to hepatic encephalopathy as ammonia has also been elevated. Hemoglobin trending down, started Protonix IV twice daily. Trending hemoglobin, will consider consulting general surgery for EGD if this trends down further. Sodium slightly improved now at 123. Renal function slightly improved, creatinine 1.3 today. 10/04 The patient is more alert and oriented today but still confused, ammonia level still elevated in spite of increase in lactulose. Hemoglobin trending up now, will continue Protonix IV BID for now and likely transition to oral PPI therapy in 1-2 days. The patient does have a history of peptic ulcer and had been taking Ibuprofen prior to admission but with hemoglobin trending up on a PPI and EGD may not be high yield. GI consult currently not available at [facility]. Nephrology started Octreotide and Midodrine in addition to Albumin IV. Renal function is about the same, sodium about the same as yesterday. The patient is still markedly hypervolemic. 10/05 Low urine output, nephrology started IV fluid, no longer on octreotide, midodrine and albumin IV. Urine output did improve somewhat today but still low relative to the patient's hypervolemic volume status. Ammonia increasing and the patient continues to be confused and having intermittent hallucinations. CIWA score was 10 but clinically does not appear to be in withdrawal and the patient does not feel like she is in alcohol withdrawal. Started lactulose enema every 6 hours. Started high-dose thiamine IV supplementation. abdomen pelvis without contrast showed moderate hepatomegaly with a large low attenuating region infiltrating the entire lateral right hepatic lobe and a smaller region in the lateral segment of the left hepatic lobe, may represent atypical fatty infiltration however hepatocellular carcinoma or liver metastasis could have a similar appearance. There was also developing liver cirrhosis with mild enlargement of the portal vein, moderate splenomegaly and moderate ascites. Radiology recommended an MRI of the abdomen. We will have to defer MRI of the abdomen until the patient is no longer encephalopathic. Alpha fetoprotein level was normal. 10/06 The patient is more confused overnight suspect the patient is withdrawing from alcohol. Receiving Ativan IV as needed per CIWA protocol. This have been blunted initially by hepatic encephalopathy and the patient was also taking home Ativan as needed. Ammonia improved after a couple lactulose enemas overnight. CT head without contrast did not show any acute changes. Renal function is similar to yesterday. Nephrology started dopamine, octreotide and albumin IV. Discussed anemia with general surgery, Dr. Curiel deferred EGD at this time as he felt it would not be a high yield work-up. 10/07 Vital stable overnight, less agitated today, CIWA scores have improved. Renal function has improved. Ammonia level 90, down from a high of 109. Hemoglobin about the same as yesterday, 8.8. We will get an abdominal ultrasound to evaluate the extent of ascites today. Peripheral blood smear ordered for anemia and macrocytosis. 10/08 Patient going through alcohol withdrawal but is awake and answering questions appropriately. Hemoglobin stable. Creatinine stable. Transaminitis stable. Patient only complains of headache. Per nurse 3 bowel movements yesterday but none overnight. Guaiac testing was not done will obtain for next BM. 10/09 Patient last got 2 mg of Ativan last night at 9:00. None since. No overnight issues. Schedule undergo EGD for evaluation for esophagus varices. Patient seems lethargic this morning. Makes eye contact is does not answer questions. Ammonia improved from yesterday. 10/10 Yesterday patient had MRI of liver pending results. EGD showed gastroparesis but no varices. Patient has mild headache and occasional nausea. No vomiting. A little bit more responsive today. Treating for C. difficile colitis as found out yesterday. Per discussion with the she has had diarrhea prior to admission. 10/11 Little more talkative today but still confused. Diarrhea last night and on oral Vanco. Ammonia within normal limits today. Sodium elevated. Pending laboratory. PT OT. Large area of focal fatty infiltration of the liver on MRI, not suspicious at this point. 10/12 Patient became quite agitated last night requiring Haldol. This morning she is sleeping. Hypotonic infusion for hypernatremia yesterday. Provide hypotonic solution today while poor oral intake. 10/13: CIWA score 11 overnight. Poor oral intake due to poor appetite. No bowel movement yet today. No bowel movement yet today. Ammonia level 53 this morning. Continue Lactulose and Rifaximin for cirrhosis and hepatic encephalopathy, as well as Vancomycin PO for C diff colitis. Poor overall prognosis. 10/14: CIWA score of 8 this morning. Improving oral intake. She has bowel movement overnight/this morning. Continue Lactulose and Rifaximin for cirrhosis and hepatic encephalopathy, as well as Vancomycin PO for C diff colitis. d/c Gama catheter and also to obtain UA/urine cultures. Poor overall prognosis. SNF placement once medically cleared. Downgrade to med/surg. Constitutional Vitals: Vital Signs Temp Pulse Resp BP Pulse Ox 36.2 C 92 H 13 110/62 96 10/14/21 04:01 10/14/21 05:50 10/14/21 06:00 10/14/21 06:00 10/14/21 06:00 Period Temp Pulse Resp BP Sys/Altman Pulse Ox Last 24 Hr 36.2 C-37.3 C 92 13-27 97-124/57-78 91-100 Intake and Output 10/13/21 10/14/21 10/14/21 21:59 05:59 13:59 Intake Total 250 Output Total 250 Balance 250 -250 Weight 87.815 kg Intake & Output: Intake & Output 10/13/21 10/14/21 10/14/21 21:59 05:59 13:59 Intake Total 250 Output Total 250 Balance 250 -250 Weight 87.815 kg Intake: IV 50 Oral 200 Output: Urine Catheter Amount 250 Other: Meal Dinner Percent of Meal Consumed 25% Feeding Ability Total Assistance Urine Appearance Cloudy Sediment Uretheral (Gama) Cloudy Sediment Urine Color Dark Yellow Uretheral (Gama) Dark Yellow Urine Odor Foul General appearance: disheveled, no acute distress and obese Exam: Lethargic Head Head exam: Present atraumatic and normal inspection Eye Eye exam: Present normal appearance ENT ENT exam: Present mucous membranes moist, normal exam and normal external ear exam Additional comments: Nasal cannula in place Neck Neck exam: Present normal inspection Respiratory Respiratory exam: Present normal respiratory exam Cardiovascular Cardiovascular exam: Present normal rate and rhythm GI/Abdominal GI/Abdominal exam: Present normal bowel sounds Extremities Exam Additional comments: Left wrist splint in place Back Exam Back exam: Present normal inspection Neurological Exam Neurological exam: Present alert and altered; Absent oriented X3 Additional comments: oriented X2 to person and place only. Skin Skin exam: Present intact and warm OBJ DATA Labs CBC & Chem 7: 10/14/21 05:08 10/14/21 05:05 Labs: Abnormal Lab Results 10/14/21 10/14/21 10/14/21 05:08 05:08 05:05 RBC 1.90 L Hgb 8.1 L Hct 25.1 L POC Hct MCV 132.1 H MCH 42.6 H RDW 15.9 H Plt Count 114 L MPV 11.9 H Neut % (Auto) Lymph % (Auto) 13.5 L Lymph # (Auto) 1.06 L PT 19.8 H INR 1.6 H Chloride BUN 6 L Creatinine 0.5 L POC Glucose Uric Acid Calcium 7.9 L POC WB Ioniz Calcium Magnesium Transferrin Total Bilirubin 2.5 H Direct Bilirubin GGT AST 111 H Alkaline Phosphatase 149 H Ammonia Lactate Dehydrogenase Total Protein 5.2 L Albumin 2.8 L Qiyve-3-Kodaijdwjhd Urine Appearance Urine Protein Urine Ketones Urine Occult Blood Urine Nitrate Urine Bilirubin Ur Leukocyte Esterase Urine WBC Triple Phos Crystals Urine Bacteria Hyaline Casts Urine Mucus Rheumatoid Factor Complement C3c Complement C4c 10/14/21 10/13/21 10/13/21 02:10 09:17 09:17 RBC Hgb Hct POC Hct MCV MCH RDW Plt Count MPV Neut % (Auto) Lymph % (Auto) Lymph # (Auto) PT 19.1 H INR 1.5 H Chloride BUN Creatinine POC Glucose Uric Acid Calcium POC WB Ioniz Calcium Magnesium 1.4 L Transferrin Total Bilirubin Direct Bilirubin GGT AST Alkaline Phosphatase Ammonia Lactate Dehydrogenase Total Protein Albumin Liqow-1-Tlnxhbsnpqb Urine Appearance Cloudy A Urine Protein 100 mg/dl A Urine Ketones Trace A Urine Occult Blood Trace-intact A Urine Nitrate Positive A Urine Bilirubin Small A Ur Leukocyte Esterase Small A Urine WBC 118 H Triple Phos Crystals Mod A Urine Bacteria Few A Hyaline Casts 26 H Urine Mucus Many A Rheumatoid Factor Complement C3c Complement C4c 10/13/21 10/13/21 10/13/21 05:16 05:16 05:16 RBC 1.91 L Hgb 8.3 L Hct 25.0 L POC Hct MCV 130.9 H MCH 43.5 H RDW 16.4 H Plt Count 134 L MPV 11.9 H Neut % (Auto) 80.4 H Lymph % (Auto) 11.7 L Lymph # (Auto) 1.14 L PT INR Chloride 109 H BUN 5 L Creatinine 0.5 L POC Glucose Uric Acid Calcium 8.2 L POC WB Ioniz Calcium Magnesium Transferrin Total Bilirubin 2.3 H Direct Bilirubin GGT AST 110 H Alkaline Phosphatase 157 H Ammonia 53 H Lactate Dehydrogenase Total Protein 5.3 L Albumin 2.8 L Rkoar-2-Syelbutralc Urine Appearance Urine Protein Urine Ketones Urine Occult Blood Urine Nitrate Urine Bilirubin Ur Leukocyte Esterase Urine WBC Triple Phos Crystals Urine Bacteria Hyaline Casts Urine Mucus Rheumatoid Factor Complement C3c Complement C4c 10/12/21 10/11/21 10/09/21 05:08 15:09 05:14 RBC Hgb Hct POC Hct 24 L MCV MCH RDW Plt Count MPV Neut % (Auto) Lymph % (Auto) Lymph # (Auto) PT INR Chloride BUN 6 L Creatinine POC Glucose 111 H Uric Acid 10.1 H Calcium 8.3 L POC WB Ioniz Calcium 1.13 L Magnesium 1.3 L Transferrin 62 L Total Bilirubin 2.1 H Direct Bilirubin 1.2 H GGT 297 H AST 109 H Alkaline Phosphatase 160 H Ammonia Lactate Dehydrogenase 595 H Total Protein 5.3 L Albumin 3.0 L Sreix-3-Bysakhdaqej 220 H Urine Appearance Urine Protein Urine Ketones Urine Occult Blood Urine Nitrate Urine Bilirubin Ur Leukocyte Esterase Urine WBC Triple Phos Crystals Urine Bacteria Hyaline Casts Urine Mucus Rheumatoid Factor Complement C3c Complement C4c 10/08/21 19:59 RBC Hgb Hct POC Hct MCV MCH RDW Plt Count MPV Neut % (Auto) Lymph % (Auto) Lymph # (Auto) PT INR Chloride BUN Creatinine POC Glucose Uric Acid Calcium POC WB Ioniz Calcium Magnesium Transferrin Total Bilirubin Direct Bilirubin GGT AST Alkaline Phosphatase Ammonia Lactate Dehydrogenase Total Protein Albumin Qmvoc-7-Khjzqvucukh Urine Appearance Urine Protein Urine Ketones Urine Occult Blood Urine Nitrate Urine Bilirubin Ur Leukocyte Esterase Urine WBC Triple Phos Crystals Urine Bacteria Hyaline Casts Urine Mucus Rheumatoid Factor 18 H Complement C3c 79 L Complement C4c 6 L Meds: Medications Acetaminophen (Acetaminophen 325 Mg Tablet) 325 mg PO Q6HP PRN; Protocol PRN Reason: Per Pain Protocol Last Admin: 10/08/21 13:01 Dose: 325 mg Documented by: Albuterol Sulfate (Albuterol Sulfate 200 Puff Inhaler) 1 puff INH Q4-6HP PRN PRN Reason: Shortness Of Breath Last Admin: 10/13/21 09:05 Dose: 1 puff Documented by: Benzonatate (Benzonatate 100 Mg Capsule) 100 mg PO TID PRN PRN Reason: cough Last Admin: 10/05/21 07:48 Dose: 100 mg Documented by: Buspirone HCl (Buspirone 15 Mg Tablet) 7.5 mg PO BID [facility] Last Admin: 10/14/21 08:20 Dose: 7.5 mg Documented by: Clotrimazole (Clotrimazole 10 Mg Yvette) 10 mg PO 5XD [facility] Last Admin: 10/14/21 08:52 Dose: 10 mg Documented by: Cyanocobalamin (Cyanocobalamin 1,000 Mcg/Ml Vial) 1,000 mcg IM Q2W [facility] Diphenhydramine HCl (Diphenhydramine 25 Mg Capsule) 25 mg PO Q6H PRN PRN Reason: Itching Last Admin: 10/12/21 19:45 Dose: 25 mg Documented by: Enoxaparin Sodium (Enoxaparin 40 Mg/0.4 Ml Syringe) 40 mg SQ DAILY [facility] Last Admin: 10/14/21 08:14 Dose: 40 mg Documented by: Famotidine (Famotidine 20 Mg Tablet) 20 mg PO HS [facility] Last Admin: 10/13/21 20:04 Dose: 20 mg Documented by: Folic Acid (Folic Acid 1 Mg Tablet) 1 mg PO DAILY [facility] Last Admin: 10/14/21 08:13 Dose: 1 mg Documented by: Gabapentin (Gabapentin 300 Mg Capsule) 300 mg PO BID [facility] Last Admin: 10/14/21 08:14 Dose: 300 mg Documented by: Guaifenesin (Guaifenesin 600 Mg Tab.Sr.12h) 600 mg PO Q12H PRN PRN Reason: Congestion Last Admin: 10/05/21 21:24 Dose: 600 mg Documented by: Haloperidol Lactate (Haloperidol Lactate 5 Mg/Ml Vial) 2 mg IV Q4HP PRN PRN Reason: Psychosis Lactulose (Lactulose 20 Gm/30 Ml Oral.Petra) 30 gm PO TID [facility] Last Admin: 10/14/21 08:14 Dose: 30 gm Documented by: Lactulose (Lactulose 20 Gm/30 Ml Oral.Petra) 30 gm PO TIDP PRN PRN Reason: constipation Lorazepam (Lorazepam 2 Mg/Ml Vial) 0 mg IV Q4HP PRN; Protocol PRN Reason: Alcohol Withdrawal Last Admin: 10/13/21 20:31 Dose: 1 mg Documented by: Nicotine (Nicotine 21 Mg Patch) 21 mg TOPICAL DAILY@1000 [facility] Last Admin: 10/14/21 08:52 Dose: 21 mg Documented by: Olanzapine (Olanzapine 10 Mg Vial) 5 mg IM Q8HP PRN PRN Reason: Agitation Last Admin: 10/14/21 07:03 Dose: 5 mg Documented by: Ondansetron HCl (Ondansetron 4 Mg/2 Ml Vial) 4 mg IV Q4HP PRN; Protocol PRN Reason: Nausea And Vomiting Last Admin: 10/05/21 08:05 Dose: 4 mg Documented by: Oxycodone HCl (Oxycodone Hcl 5 Mg Tablet) 5 mg PO Q6HP PRN; Protocol PRN Reason: Per Pain Protocol Last Admin: 10/13/21 20:04 Dose: 5 mg Documented by: Emollient Combo No. [id number] (Bulk) [Custom Base Pcca] Cream 1 dose TOPICAL BID [facility] Last Admin: 10/13/21 20:06 Dose: 1 dose Documented by: Fluticasone- Umeclidin-Vilanter [ Trelegy Ellipta] Inhaler 1 dose INH Q24H [facility] Last Admin: 10/13/21 20:07 Dose: 1 dose Documented by: Senna (Sennosides 1 Tablet) 2 tab PO HS PRN PRN Reason: constipation Sodium Chloride (0.9 % Sodium Chloride 10 Ml Syringe) 10 ml IV Q8 [facility] Last Admin: 10/14/21 07:25 Dose: 10 ml Documented by: Sodium Chloride (0.9 % Sodium Chloride 10 Ml Syringe) 10 ml IV UD PRN PRN Reason: Central Line Maintence Last Admin: 10/13/21 05:15 Dose: 10 ml Documented by: Spironolactone (Spironolactone 25 Mg Tablet) 100 mg PO DAILY [facility] Last Admin: 10/14/21 08:13 Dose: 100 mg Documented by: Thiamine HCl (Thiamine 100 Mg Tablet) 100 mg PO DAILY [facility] Last Admin: 10/14/21 08:13 Dose: 100 mg Documented by: Vancomycin HCl (Vancomycin Oral Petra 1,000 Mg/10 Ml Bottle) 125 mg PO QID FRANK; P rotocol Last Admin: 10/14/21 08:52 Dose: 125 mg Documented by: ABG Interpretation ABG results: 10/03/21 16:16 ABG Methemoglobin 0.1 L VBG pH 7.43 H VBG pCO2 36.6 L VBG pO2 88.5 H VBG HCO3 23.7 L VBG Total CO2 24.8 L VBG O2 Saturation 91.2 H VBG Base Excess 0 A/P Assessment and plan (1) C. difficile colitis: Status: Acute (2) Hepatic encephalopathy: Status: Acute (3) Hypomagnesemia: Status: Acute (4) Closed left radial fracture: Status: Acute (5) Anemia, macrocytic: Status: Acute (6) Cirrhosis of liver with ascites: Status: Acute Comment: EtOH cessation therapy (7) Gastroparesis: Status: Acute (8) Smoker: Status: Chronic Narrative A/P Narrative: Assessment and Plans: 1. Alcoholic cirrhosis with encephalopathy: Inpatient med surg with telemetry [facility] protocol for alcohol withdrawal symptoms management Lactulose titrate to achieve 3 large bowel movement/day Rifaximin Aldactone Drafter Topographical patient on quitting drinking CMP, INR daily to trend MELD-Na score for prognosis estimate, overall poor prognosis. MELD-NA score of 15, <2% estimated 90 day mortality Haldol IV PRN psychosis 2. Gastroparesis: EGD showed gastroparesis but no esophageal varices Currently tolerating regular diet Zofran IV PRN nausea/vomiting 3. Macrocytic hyperchromic anemia: Thiamine, folate, and Vitamin B12 supplement cbc w/ auto diff daily to trend H/H 4. Hypomagnesemia: RESOLVED Magnesium supplement as needed Daily serum Mg level 5. Cigarette smoker status: Nicotine replacement therapy. 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 Left distal wrist fracture: As per orthopedic surgery, patient is not a surgical candidate. Keep splint on. Focus on symptoms control for the time being 7. C diff colitis: Continue Day 01/04 PO Vancomycin Contact isolation GI ppx: Pepcid DVT ppx: Lovenox Code status: Full Prognosis: Poor Disposition: inpatient med surg telemetry Time Spent With Patient Time: Total time spent is greater than 50% in coordination of care (as documented) at patient's floor/unit and/or counseling patient: Total time spent with greater than 50% in coordination of care (as documented) at patient's floor/unit and/or counseling patient:: 35 - 50 minutes
[2021-10-14] MEDS: ALBUTEROL SULFATE 200 PUFF INHALER INH PRN (12:33)
[2021-10-14] MEDS: 0.9 % SODIUM CHLORIDE 10 ML SYRINGE IV PRN (13:29)
[2021-10-14] MEDS: oxyCODONE HCL 5 MG TABLET PO PRN ×2 (13:30→19:48)
[2021-10-14] MEDS ORDERED: MAGNESIUM SULFATE 2 GM/50 ML BAG IV ONE (14:45)
[2021-10-14] MEDS: cefTRIAXone 1 GM VIAL IV SCH (15:11)
[2021-10-14] MEDS: LORazepam 2 MG/ML VIAL IV PRN (19:28)
[2021-10-14] MEDS: Fluticasone-Umeclidin-Vilanter [Trelegy Ellipta] Inhaler INH SCH (19:47)
[2021-10-14] MEDS: FAMOTIDINE 20 MG TABLET PO SCH (19:48)
[2021-10-15 06:43] LABS: Basophils # (Auto) 0.04 K/mcL (0.00-0.30); Basophils % (Auto) 0.6 % (0.0-2.0); Eosinophils # (Auto) 0.16 K/mcL (0.00-0.70); Eosinophils % (Auto) 2.3 % (0.0-7.0); Hematocrit 23.7 % (34.1-44.9); Hemoglobin 7.9 g/dL (11.2-15.7); Lymphocytes # (Auto) 1.01 K/mcL (1.50-4.80); Lymphocytes % (Auto) 14.8 % (15.5-49.0); Mean Cell Volume 131.7 fL (80.0-100.0); Mean Corpuscular HGB Conc 33.3 g/dL (31.0-36.0); Mean Platelet Volume 11.6 fL (7.4-10.4); Monocytes # (Auto) 0.53 K/mcL (0.10-0.90); Monocytes % (Auto) 7.8 % (1.0-12.0); Neutrophils % (Auto) 74.5 % (38.0-78.0); Platelet Count 108 K/mcL (140-440); Red Cell Distribution Width 15.8 % (11.5-14.5); WBC 6.8 K/mcL (4.5-11.0)
[2021-10-15 06:57] LABS: INR 1.7 (0.9-1.1); Prothrombin Time 21.2 sec (11.9-14.5)
[2021-10-15 07:01] LABS: ALT/SGPT 33 U/L (<40); AST/SGOT 106 U/L (<32); Albumin 2.4 gm/dL (3.2-5.2); Alkaline Phosphatase 144 U/L (39-117); Bilirubin,Total 2.1 mg/dL (0.1-1.0); Blood Urea Nitrogen 6 mg/dL (8-23); Calcium 8.2 mg/dL (8.6-10.4); Carbon Dioxide 26 mmol/L (22-30); Chloride 109 mmol/L (96-108); Globulin 2.5 gm/dL (2.2-3.7); Glomerular Filtration Rate 103; Glucose 90 mg/dL (70-105); Phosphorous 3.2 mg/dL (2.5-4.5)
[2021-10-15] MEDS: 0.9 % SODIUM CHLORIDE 10 ML SYRINGE IV SCH ×3 (08:12→22:04)
[2021-10-15] MEDS: cefTRIAXone 1 GM VIAL IV SCH (08:12)
[2021-10-15] MEDS: SPIRONOLACTONE 25 MG TABLET PO SCH (08:13)
[2021-10-15] MEDS: VANCOMYCIN ORAL SOL 1,000 MG/10 ML BOTTLE PO SCH ×4 (08:13→22:00)
[2021-10-15] MEDS: THIAMINE 100 MG TABLET PO SCH (08:13)
[2021-10-15] MEDS: FOLIC ACID 1 MG TABLET PO SCH (08:13)
[2021-10-15] MEDS: GABAPENTIN 300 MG CAPSULE PO SCH ×2 (08:13→18:59)
[2021-10-15] MEDS: CLOTRIMAZOLE 10 MG TROCHE PO SCH ×5 (08:14→19:00)
[2021-10-15] MEDS: ENOXAPARIN 40 MG/0.4 ML SYRINGE SQ SCH (08:14)
[2021-10-15] MEDS: LACTULOSE 20 GM/30 ML ORAL.SOL PO SCH ×3 (08:14→21:59)
[2021-10-15] MEDS: [UNRECOGNIZED DRUG - OTHER] TOPICAL SCH ×2 (08:15→22:03)
[2021-10-15] MEDS: NICOTINE 21 MG PATCH TOPICAL SCH (10:08)
[2021-10-15] MEDS: busPIRone 15 MG TABLET PO SCH ×3 (10:08→21:59)
[2021-10-15] MEDS: POTASSIUM CHLORIDE 20 MEQ in DEXTROSE 5% IN WATER 250 ML IV PRN (11:37)
--- NOTE | 2021-10-15 11:46 | Internal Med Progress Note ---
SUBJECTIVE Subjective Patient information: Note initiated : 10/15/21 at 11:26 am Service Date, if different from initiated Date: [] Patient: Caleb Kern 61 y/o F admitted on 09/30/21 for left arm pain, fall yesterday. Chief Complaint: [] Principal diagnosis: Severe hypervolemic hyponatremia Interval history: Ms. Kern is a 61 year old female with a past medical history not limited to SILVA, COPD, nocturnal hypoxia, vitamin B12 deficiency, degenerative disc disease, obesity, tobacco use disorder who presented to the emergency department after a fall at home for further evaluation of left wrist pain. X-ray of the left wrist showed an intraarticular fracture of the distal radius. The patient was noted to be hypervolemic in the emergency department, CBC and chemistry panel were ordered showing severe hyponatremia with a sodium level of 116. Additionally, labs showed a mild leukocytosis of 12.3, severe macrocytosis, thrombocytopenia, anion gap metabolic acidosis, bilirubin of 1.8 and ALT and AST elevated compared to the patient's prior labs from 2020. Patient also had a NT proBNP of 441, 1 view chest x-ray did not show any pulmonary vascular congestion. The patient had a markedly elevated D-dimer of 6.89. The patient has not been having any shortness of breath recently and was comfortable on room air in the emergency department. The patient received Lasix IV in the emergency department. Hospital medicine was consulted for admission and management of severe hyponatremia. The patient says that she has been experiencing intermittent bilateral lower extremity edema for some time and that they have always resolved. The current amount of edema is more severe than prior episodes. She denies recent dyspnea, has not noticed any significant changes in urination. Patient says that she has known about "fatty liver disease" for some time. She does drink a significant amount of alcohol which us ually contains vodka on an almost daily basis. We discussed the goals of admission which include a gradual correction of her sodium level. We also discussed further work-up which will focus on cardiac, liver and renal pathologies that could explain hypovolemic hyponatremia. We discussed CODE STAT US in detail, the patient wishes to be full code. 10/01 Urine protein creatinine ratio was normal, TSH and morning cortisol levels nikhil l. blood smear was not suggestive of a sinister hematologic process. Vitamin B12 level elevated, folate level normal. INR was 1.2. Sodium trended up to 120s and down to 119, the patient received 100 mL of 3% saline followed by increase in sodium to 122. Patient has not made significant urine after receiving a dose of Lasix 80 mg IV. Volume overloaded as on admission with bilateral lower extremity pitting edema. Abdominal ultrasound showed fatty liver, possible steatohepatitis or early stage cirrhosis, small to moderate amount of ascites was present, normal directional blood flow and hepatic and portal veins. Bilateral lower extremity venous duplex ultrasound was negative for DVT. Transthoracic echocardiogram report pending. 10/02 Creatinine increased, discontinued lasix and consulted nephrology. Nephrology started albumin, recommended holding on diuretics at this time. 10/03 TTE was fairly unremarkable, etiology for hyponatremia is likely a liver cirrhosis combined with alcohol use. Patient is more confused now, likely secondary to hepatic encephalopathy as ammonia has also been elevated. Hemoglobin trending down, started Protonix IV twice daily. Trending hemoglobin, will consider consulting general surgery for EGD if this trends down further. Sodium slightly improved now at 123. Renal function slightly improved, creatinine 1.3 today. 10/04 The patient is more alert and oriented today but still confused, ammonia level still elevated in spite of increase in lactulose. Hemoglobin trending up now, will continue Protonix IV BID for now and likely transition to oral PPI therapy in 1-2 days. The patient does have a history of peptic ulcer and had been taking Ibuprofen prior to admission but with hemoglobin trending up on a PPI and EGD may not be high yield. GI consult currently not available at [facility]. Nephrology started Octreotide and Midodrine in addition to Albumin IV. Renal function is about the same, sodium about the same as yesterday. The patient is still markedly hypervolemic. 10/05 Low urine output, nephrology started IV fluid, no longer on octreotide, midodrine and albumin IV. Urine output did improve somewhat today but still low relative to the patient's hypervolemic volume status. Ammonia increasing and the patient continues to be confused and having intermittent hallucinations. CIWA score was 10 but clinically does not appear to be in withdrawal and the patient does not feel like she is in alcohol withdrawal. Started lactulose enema every 6 hours. Started high-dose thiamine IV supplementation. abdomen pelvis without contrast showed moderate hepatomegaly with a large low attenuating region infiltrating the entire lateral right hepatic lobe and a smaller region in the lateral segment of the left hepatic lobe, may represent atypical fatty infiltration however hepatocellular carcinoma or liver metastasis could have a similar appearance. There was also developing liver cirrhosis with mild enlargement of the portal vein, moderate splenomegaly and moderate ascites. Radiology recommended an MRI of the abdomen. We will have to defer MRI of the abdomen until the patient is no longer encephalopathic. Alpha fetoprotein level was normal. 10/06 The patient is more confused overnight suspect the patient is withdrawing from alcohol. Receiving Ativan IV as needed per CIWA protocol. This have been blunted initially by hepatic encephalopathy and the patient was also taking home Ativan as needed. Ammonia improved after a couple lactulose enemas overnight. CT head without contrast did not show any acute changes. Renal function is similar to yesterday. Nephrology started dopamine, octreotide and albumin IV. Discussed anemia with general surgery, Dr. Curiel deferred EGD at this time as he felt it would not be a high yield work-up. 10/07 Vital stable overnight, less agitated today, CIWA scores have improved. Renal function has improved. Ammonia level 90, down from a high of 109. Hemoglobin about the same as yesterday, 8.8. We will get an abdominal ultrasound to evaluate the extent of ascites today. Peripheral blood smear ordered for anemia and macrocytosis. 10/08 Patient going through alcohol withdrawal but is awake and answering questions appropriately. Hemoglobin stable. Creatinine stable. Transaminitis stable. Patient only complains of headache. Per nurse 3 bowel movements yesterday but none overnight. Guaiac testing was not done will obtain for next BM. 10/09 Patient last got 2 mg of Ativan last night at 9:00. None since. No overnight issues. Schedule undergo EGD for evaluation for esophagus varices. Patient seems lethargic this morning. Makes eye contact is does not answer questions. Ammonia improved from yesterday. 10/10 Yesterday patient had MRI of liver pending results. EGD showed gastroparesis but no varices. Patient has mild headache and occasional nausea. No vomiting. A little bit more responsive today. Treating for C. difficile colitis as found out yesterday. Per discussion with the she has had diarrhea prior to admission. 10/11 Little more talkative today but still confused. Diarrhea last night and on oral Vanco. Ammonia within normal limits today. Sodium elevated. Pending laboratory. PT OT. Large area of focal fatty infiltration of the liver on MRI, not suspicious at this point. 10/12 Patient became quite agitated last night requiring Haldol. This morning she is sleeping. Hypotonic infusion for hypernatremia yesterday. Provide hypotonic solution today while poor oral intake. 10/13: CIWA score 11 overnight. Poor oral intake due to poor appetite. No bowel movement yet today. No bowel movement yet today. Ammonia level 53 this morning. Continue Lactulose and Rifaximin for cirrhosis and hepatic encephalopathy, as well as Vancomycin PO for C diff colitis. Poor overall prognosis. 10/14: CIWA score of 8 this morning. Improving oral intake. She has bowel movement overnight/this morning. Continue Lactulose and Rifaximin for cirrhosis and hepatic encephalopathy, as well as Vancomycin PO for C diff colitis. d/c Gama catheter and also to obtain UA/urine cultures. Poor overall prognosis. SNF placement once medically cleared. Downgrade to med/surg. 10/15: No longer checking CIWA score. Urine culture growing gram negative bacillus. Blood culture no growth to date. Afebrile overnight. A and O times [address] only[address] Continue Rocephin for UTI. Continue Lactulose and Rocephin for cirrhosis and hepatic encephalopathy, as well as Vancomycin PO for C diff colitis. Poor overall prognosis. SNF placement once medically cleared. Constitutional Vitals: Vital Signs Temp Pulse Resp BP Pulse Ox 36.8 C 92 H 22 132/67 93 10/15/21 08:00 10/15/21 05:50 10/15/21 08:01 10/15/21 08:00 10/15/21 08:01 Period Temp Pulse Resp BP Sys/Altman Pulse Ox Last 24 Hr 36.8 C-37.3 C 92 11-27 93-132/54-73 91-99 Intake and Output 10/14/21 10/15/21 10/15/21 21:59 05:59 13:59 Intake Total 650 Output Total 1 325 Balance 649 -325 Weight 87.498 kg Intake & Output: Intake & Output 10/14/21 10/15/21 10/15/21 21:59 05:59 13:59 Intake Total 650 Output Total 1 325 Balance 649 -325 Weight 87.498 kg Intake: IV 50 Oral 600 Output: # of times incontinent of urine 1 Urine/Stool Mix 325 Other: Meal Dinner Breakfast Percent of Meal Consumed 50% 50% Feeding Ability Needs Supervision Total Assistance Stool Size Moderate Stool Color Brown Stool Consistency Liquid Watery Loose # Voids 1 # Bowel Movements 1 # of times incontinent of 1 Bowels General appearance: average body habitus, disheveled and no acute distress; no cooperative Exam: Lethargic Head Head exam: Present atraumatic and normal inspection Eye Eye exam: Present normal appearance ENT ENT exam: Present mucous membranes moist, normal exam and normal external ear exam Neck Neck exam: Present normal inspection Respiratory Respiratory exam: Present normal respiratory exam Cardiovascular Cardiovascular exam: Present normal rate and rhythm GI/Abdominal GI/Abdominal exam: Present normal bowel sounds Extremities Exam Extremities exam: Absent full ROM or normal inspection Additional comments: Left wrist splint in place Back Exam Back exam: Present normal inspection Neurological Exam Neurological exam: Present alert and altered; Absent oriented X3 Additional comments: oriented X2 to person and place only Skin Skin exam: Present intact and warm OBJ DATA Labs CBC & Chem 7: 10/15/21 05:26 10/15/21 05:26 Labs: Abnormal Lab Results 10/15/21 10/15/21 10/15/21 05:26 05:26 05:25 RBC 1.80 L Hgb 7.9 L Hct 23.7 L MCV 131.7 H MCH 43.9 H RDW 15.8 H Plt Count 108 L MPV 11.6 H Neut % (Auto) Lymph % (Auto) 14.8 L Lymph # (Auto) 1.01 L PT 21.2 H INR 1.7 H Potassium 3.2 L Chloride 109 H BUN 6 L Creatinine 0.5 L Calcium 8.2 L Magnesium Total Bilirubin 2.1 H AST 106 H Alkaline Phosphatase 144 H Ammonia Total Protein 4.9 L Albumin 2.4 L Sfuxa-3-Cyryujozoio Urine Appearance Urine Protein Urine Ketones Urine Occult Blood Urine Nitrate Urine Bilirubin Ur Leukocyte Esterase Urine WBC Triple Phos Crystals Urine Bacteria Hyaline Casts Urine Mucus Rheumatoid Factor Complement C3c Complement C4c 10/14/21 10/14/21 10/14/21 05:08 05:08 05:05 RBC 1.90 L Hgb 8.1 L Hct 25.1 L MCV 132.1 H MCH 42.6 H RDW 15.9 H Plt Count 114 L MPV 11.9 H Neut % (Auto) Lymph % (Auto) 13.5 L Lymph # (Auto) 1.06 L PT 19.8 H INR 1.6 H Potassium Chloride BUN 6 L Creatinine 0.5 L Calcium 7.9 L Magnesium Total Bilirubin 2.5 H AST 111 H Alkaline Phosphatase 149 H Ammonia Total Protein 5.2 L Albumin 2.8 L Wvfan-9-Ichvdoqzdik Urine Appearance Urine Protein Urine Ketones Urine Occult Blood Urine Nitrate Urine Bilirubin Ur Leukocyte Esterase Urine WBC Triple Phos Crystals Urine Bacteria Hyaline Casts Urine Mucus Rheumatoid Factor Complement C3c Complement C4c 10/14/21 10/13/21 10/13/21 02:10 09:17 09:17 RBC Hgb Hct MCV MCH RDW Plt Count MPV Neut % (Auto) Lymph % (Auto) Lymph # (Auto) PT 19.1 H INR 1.5 H Potassium Chloride BUN Creatinine Calcium Magnesium 1.4 L Total Bilirubin AST Alkaline Phosphatase Ammonia Total Protein Albumin Ttbjz-5-Oupcbbqlvpz Urine Appearance Cloudy A Urine Protein 100 mg/dl A Urine Ketones Trace A Urine Occult Blood Trace-intact A Urine Nitrate Positive A Urine Bilirubin Small A Ur Leukocyte Esterase Small A Urine WBC 118 H Triple Phos Crystals Mod A Urine Bacteria Few A Hyaline Casts 26 H Urine Mucus Many A Rheumatoid Factor Complement C3c Complement C4c 10/13/21 10/13/21 10/13/21 05:16 05:16 05:16 RBC 1.91 L Hgb 8.3 L Hct 25.0 L MCV 130.9 H MCH 43.5 H RDW 16.4 H Plt Count 134 L MPV 11.9 H Neut % (Auto) 80.4 H Lymph % (Auto) 11.7 L Lymph # (Auto) 1.14 L PT INR Potassium Chloride 109 H BUN 5 L Creatinine 0.5 L Calcium 8.2 L Magnesium Total Bilirubin 2.3 H AST 110 H Alkaline Phosphatase 157 H Ammonia 53 H Total Protein 5.3 L Albumin 2.8 L Woplt-6-Jzpkgwadhpt Urine Appearance Urine Protein Urine Ketones Urine Occult Blood Urine Nitrate Urine Bilirubin Ur Leukocyte Esterase Urine WBC Triple Phos Crystals Urine Bacteria Hyaline Casts Urine Mucus Rheumatoid Factor Complement C3c Complement C4c 10/09/21 10/08/21 05:14 19:59 RBC Hgb Hct MCV MCH RDW Plt Count MPV Neut % (Auto) Lymph % (Auto) Lymph # (Auto) PT INR Potassium Chloride BUN Creatinine Calcium Magnesium Total Bilirubin AST Alkaline Phosphatase Ammonia Total Protein Albumin Duqwz-4-Lkudxfcyfsm 220 H Urine Appearance Urine Protein Urine Ketones Urine Occult Blood Urine Nitrate Urine Bilirubin Ur Leukocyte Esterase Urine WBC Triple Phos Crystals Urine Bacteria Hyaline Casts Urine Mucus Rheumatoid Factor 18 H Complement C3c 79 L Complement C4c 6 L Meds: Medications Acetaminophen (Acetaminophen 325 Mg Tablet) 325 mg PO Q6HP PRN; Protocol PRN Reason: Per Pain Protocol Last Admin: 10/08/21 13:01 Dose: 325 mg Documented by: Albuterol Sulfate (Albuterol Sulfate 200 Puff Inhaler) 1 puff INH Q4-6HP PRN PRN Reason: Shortness Of Breath Last Admin: 10/14/21 12:33 Dose: 1 puff Documented by: Benzonatate (Benzonatate 100 Mg Capsule) 100 mg PO TID PRN PRN Reason: cough Last Admin: 10/05/21 07:48 Dose: 100 mg Documented by: Buspirone HCl (Buspirone 15 Mg Tablet) 7.5 mg PO BID [facility] Last Admin: 10/15/21 10:08 Dose: 7.5 mg Documented by: Ceftriaxone Sodium (Ceftriaxone 1 Gm Vial) 1 gm IV DAILY [facility]; Protocol Last Admin: 10/15/21 08:12 Dose: 1 gm Documented by: Clotrimazole (Clotrimazole 10 Mg Yvette) 10 mg PO 5XD [facility] Last Admin: 10/15/21 08:14 Dose: 10 mg Documented by: Cyanocobalamin (Cyanocobalamin 1,000 Mcg/Ml Vial) 1,000 mcg IM Q2W [facility] Diphenhydramine HCl (Diphenhydramine 25 Mg Capsule) 25 mg PO Q6H PRN PRN Reason: Itching Last Admin: 10/12/21 19:45 Dose: 25 mg Documented by: Enoxaparin Sodium (Enoxaparin 40 Mg/0.4 Ml Syringe) 40 mg SQ DAILY [facility] Last Admin: 10/15/21 08:14 Dose: 40 mg Documented by: Famotidine (Famotidine 20 Mg Tablet) 20 mg PO HS [facility] Last Admin: 10/14/21 19:48 Dose: 20 mg Documented by: Folic Acid (Folic Acid 1 Mg Tablet) 1 mg PO DAILY [facility] Last Admin: 10/15/21 08:13 Dose: 1 mg Documented by: Gabapentin (Gabapentin 300 Mg Capsule) 300 mg PO BID [facility] Last Admin: 10/15/21 08:13 Dose: 300 mg Documented by: Guaifenesin (Guaifenesin 600 Mg Tab.Sr.12h) 600 mg PO Q12H PRN PRN Reason: Congestion Last Admin: 10/05/21 21:24 Dose: 600 mg Documented by: Haloperidol Lactate (Haloperidol Lactate 5 Mg/Ml Vial) 2 mg IV Q4HP PRN PRN Reason: Psychosis Potassium Chloride 20 meq/ (Dextrose) 260 mls @ 130 mls/hr IV UD PRN PRN Reason: hypokalemia Lactulose (Lactulose 20 Gm/30 Ml Oral.Petra) 30 gm PO TID [facility] Last Admin: 10/15/21 08:14 Dose: 30 gm Documented by: Lactulose (Lactulose 20 Gm/30 Ml Oral.Petra) 30 gm PO TIDP PRN PRN Reason: constipation Lorazepam (Lorazepam 2 Mg/Ml Vial) 1 mg IV Q4HP PRN PRN Reason: ANXIETY/SEDATION Last Admin: 10/14/21 19:28 Dose: 1 mg Documented by: Nicotine (Nicotine 21 Mg Patch) 21 mg TOPICAL DAILY@1000 [facility] Last Admin: 10/15/21 10:08 Dose: 21 mg Documented by: Olanzapine (Olanzapine 10 Mg Vial) 5 mg IM Q8HP PRN PRN Reason: Agitation Last Admin: 10/14/21 21:42 Dose: 5 mg Documented by: Ondansetron HCl (Ondansetron 4 Mg/2 Ml Vial) 4 mg IV Q4HP PRN; Protocol PRN Reason: Nausea And Vomiting Last Admin: 10/05/21 08:05 Dose: 4 mg Documented by: Oxycodone HCl (Oxycodone Hcl 5 Mg Tablet) 5 mg PO Q6HP PRN; Protocol PRN Reason: Per Pain Protocol Last Admin: 10/14/21 19:48 Dose: 5 mg Documented by: Emollient Combo No. [id number] (Bulk) [Custom Base Pcca] Cream 1 dose TOPICAL BID [facility] Last Admin: 10/15/21 08:15 Dose: 1 dose Documented by: Fluticasone- Umeclidin-Vilanter [ Trelegy Ellipta] Inhaler 1 dose INH Q24H [facility] Last Admin: 10/14/21 19:47 Dose: 1 dose Documented by: Potassium Chloride (Potassium Chloride 20 Meq Tablet) 20 meq PO BIDCC [facility] Senna (Sennosides 1 Tablet) 2 tab PO HS PRN PRN Reason: constipation Sodium Chloride (0.9 % Sodium Chloride 10 Ml Syringe) 10 ml IV Q8 [facility] Last Admin: 10/15/21 08:12 Dose: 10 ml Documented by: Sodium Chloride (0.9 % Sodium Chloride 10 Ml Syringe) 10 ml IV UD PRN PRN Reason: Central Line Maintence Last Admin: 10/14/21 13:29 Dose: 10 ml Documented by: Spironolactone (Spironolactone 25 Mg Tablet) 100 mg PO DAILY [facility] Last Admin: 10/15/21 08:13 Dose: 100 mg Documented by: Thiamine HCl (Thiamine 100 Mg Tablet) 100 mg PO DAILY [facility] Last Admin: 10/15/21 08:13 Dose: 100 mg Documented by: Vancomycin HCl (Vancomycin Oral Petra 1,000 Mg/10 Ml Bottle) 125 mg PO QID [facility]; Protocol Last Admin: 10/15/21 08:13 Dose: 125 mg Documented by: ABG Interpretation ABG results: 10/03/21 16:16 ABG Methemoglobin 0.1 L VBG pH 7.43 H VBG pCO2 36.6 L VBG pO2 88.5 H VBG HCO3 23.7 L VBG Total CO2 24.8 L VBG O2 Saturation 91.2 H VBG Base Excess 0 A/P Assessment and plan (1) C. difficile colitis: Status: Acute (2) Hepatic encephalopathy: Status: Acute (3) Hypomagnesemia: Status: Acute (4) Closed left radial fracture: Status: Acute (5) Anemia, macrocytic: Status: Acute (6) Cirrhosis of liver with ascites: Status: Acute Comment: EtOH cessation therapy (7) Gastroparesis: Status: Acute (8) Smoker: Status: Chronic (9) Hypokalemia: Status: Acute Narrative A/P Narrative: Assessment and Plans: 1. 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 MELD-NA score of 15, <2% estimated 90 day mortality Haldol IV PRN psychosis 2. Gastroparesis: EGD showed gastroparesis but no esophageal varices Currently tolerating regular diet Zofran IV PRN nausea/vomiting 3. Macrocytic hyperchromic anemia: Thiamine, folate, and Vitamin B12 supplement cbc w/ auto diff daily to trend H/H 4. Hypokalemia/hypomagnesemia: Potassium chloride oral replacement, as well as K rider CMP in the morning to trend serum potassium level Also check serum Mg level and replace as needed 5. Cigarette smoker status: Nicotine replacement therapy. Will eligibility counselor patient on quitting cigarette smoking when patient is ready 6. Left distal wrist fracture: As per orthopedic surgery, patient is not a surgical candidate. Keep splint on. Focus on symptoms control for the time being Will consult Dr. Dickerson for re-assessment 7. C diff colitis: Continue Day 02/03 PO Vancomycin Contact isolation GI ppx: Pepcid DVT ppx: Lovenox Code status: Full Prognosis: Poor Disposition: inpatient med surg telemetry Time Spent With Patient Time: Total time spent is greater than 50% in coordination of care (as documented) at patient's floor/unit and/or counseling patient: Total time spent with greater than 50% in coordination of care (as documented) at patient's floor/unit and/or counseling patient:: 35 - 50 minutes
[2021-10-15] MEDS: ACETAMINOPHEN 325 MG TABLET PO PRN (16:07)
[2021-10-15] MEDS: POTASSIUM CHLORIDE 20 MEQ TABLET PO SCH (17:07)
[2021-10-15] MEDS: LORazepam 2 MG/ML VIAL IV PRN ×2 (18:35→23:00)
[2021-10-15] MEDS: OLANZapine 10 MG VIAL IM PRN (18:39)
[2021-10-15] MEDS: FAMOTIDINE 20 MG TABLET PO SCH (19:00)
[2021-10-15] MEDS: Fluticasone-Umeclidin-Vilanter [Trelegy Ellipta] Inhaler INH SCH (22:03)
[2021-10-15] MEDS: oxyCODONE HCL 5 MG TABLET PO PRN (22:32)
[2021-10-16] MEDS: 0.9 % SODIUM CHLORIDE 10 ML SYRINGE IV SCH ×4 (05:22→21:26)
--- NOTE | 2021-10-16 06:45 | Orthopedic Consult Note ---
HPI Data of Consult Consult date: 10/16/21 Primary Care Provider: Nikolas Sanchez Consult Narrative Chief complaint: left wrist pain Reason for consult: left wrist pain, non-displaced distal radius fracture cc:: CC: Shaun Caraballo MD Review of Systems ROS unobtainable: due to mental status PFSH PFSH All Active Problems Hypokalemia (Acute) Gastroparesis (Acute) Anemia, macrocytic (Acute) Closed left radial fracture (Acute) C. difficile colitis (Acute) Hepatic encephalopathy (Acute) Hypomagnesemia (Acute) Back pain (Chronic) Thoracic back pain (Chronic) Muscle spasm (Chronic) Wrist injury (Chronic) Wrist fracture (Chronic) Depression (Chronic) Chronic pain (Chronic) Hypertension (Chronic) Anxiety (Chronic) History of surgery (Chronic) Spondylosis of thoracic spine with radiculopathy (Chronic) Radiculopathy, thoracic region (Chronic) Contusion of right wrist (Chronic) Acute myofascial pain (Chronic) COPD (chronic obstructive pulmonary disease) (Chronic) GERD (gastroesophageal reflux disease) (Chronic) Smoker (Chronic) Abnormal liver enzymes (Chronic) Avascular necrosis of bone (Chronic) Folic acid deficiency (Chronic) Cobalamin deficiency (Chronic) Insomnia (Chronic) Abdominal pain (Chronic) Osteopenia (Chronic) Vitamin D deficiency (Chronic) Fever (Chronic) Osteoarthritis (Chronic) Nonalcoholic steatohepatitis (Chronic) Homocystinemia (Chronic) Hyperlipidemia (Chronic) Diarrhea (Chronic) Renal colic (Chronic) Spinal stenosis (Chronic) Pernicious anemia (Chronic) Urge incontinence of urine (Chronic) Reactive airway disease (Chronic) Kidney stones (Chronic) Colon polyps (Chronic) Acute upper respiratory infection (Chronic) Cough (Chronic) Exposure to COVID-19 virus (Chronic) SOB (shortness of breath) (Chronic) Pulmonary vascular congestion (Chronic) Cardiomegaly (Chronic) Chest pain (Chronic) Bronchospasm (Chronic) Hyperventilation (Chronic) Macrocytosis (Chronic) Weight loss (Chronic) Myofascial pain syndrome (Chronic) Nocturnal hypoxia (Chronic) Elevated hemidiaphragm (Chronic) Acute hyponatremia (Acute) Macrocytosis (Acute) Left wrist fracture (Acute) Elevated liver function tests (Acute) Oliguria and anuria (Acute) Cirrhosis with alcoholism (Chronic) ARF (acute renal failure) (Acute) Hyponatremia (Chronic) Acquired hypophosphatemia (Acute) Cirrhosis of liver with ascites (Acute) Medical History Abdominal pain Abnormal liver enzymes Acute myofascial pain Acute upper respiratory infection Anxiety Avascular necrosis of bone Back pain Bronchospasm Cardiomegaly Chest pain Chronic pain Cobalamin deficiency Colon polyps COPD (chronic obstructive pulmonary disease) Cough Depression Diarrhea Elevated hemidiaphragm Right Exposure to COVID-19 virus Fever Folic acid deficiency GERD (gastroesophageal reflux disease) Homocystinemia Hyperlipidemia Hypertension Hyperventilation Insomnia Kidney stones Macrocytosis Muscle spasm Myofascial pain syndrome Nocturnal hypoxia Nonalcoholic steatohepatitis Osteoarthritis Osteopenia Pernicious anemia Pulmonary vascular congestion Reactive airway disease Renal colic Smoker SOB (shortness of breath) Spinal stenosis Thoracic back pain Urge incontinence of urine Vitamin D deficiency Weight loss Wrist fracture Wrist injury Surgical History History of appendectomy (~1974) History of cholecystectomy (~1989) History of foot surgery (~2007) Right foot sebaceous cyst removal History of foot surgery (~1992) Right foot fracture repair History of hip surgery (~2012) Right Hip IT Band History of hip surgery (~2010) Right hip modification History of surgery TESI #1 T4-5 w/sed History of total abdominal hysterectomy and bilateral salpingo-oophorectomy (~2000) History of total hip replacement (~2012) History of total left hip replacement (~2008) History of total right hip replacement (~2009) History of tubal ligation (~1980) History of wisdom tooth extraction (~1984) x2 Family History Grandfather Heart disease Paternal Grandmother Type 2 diabetes mellitus Maternal Father , : 65 Lung cancer Alcohol abuse Mother Scoliosis Brother Breathing problem Sister Anxiety Back problem Other CAD (coronary artery disease) Social History marital status: occupational status: employed 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 smoking status: Current every day smoker alcohol intake frequency: 2+ drinks per day substance use type: marijuana and other details: THC MEDS/ALLERGIES Home Medications and Allergies Home Medications Medication Instructions Recorded Confirmed Type gabapentin 300 mg capsule 300 mg PO BID 06/09/19 10/02/21 History zolpidem 5 mg tablet 5 mg PO HS 06/09/19 10/02/21 History albuterol sulfate 2.5 mg/0.5 mL 2.5 mg INHALATION QID PRN ea 05/02/21 10/02/21 History solution for nebulization diphenhydramine HCl 25 mg capsule 25 mg PO Q6H PRN 05/02/21 10/02/21 History (Benadryl) guaifenesin 600 mg tablet, 600 mg PO Q12H PRN 05/02/21 10/02/21 History extended release 12 hr (Mucinex) emollient combo no.59 (bulk) See Rx Instructions TOPICAL BID 06/18/21 10/02/21 Rx (Custom Base Pcca Lipoderm) #60 g buspirone 15 mg tablet 7.5 mg PO BID tab 06/28/21 10/02/21 History famotidine 40 mg tablet 40 mg PO QHS 08/14/21 10/02/21 History ipratropium 20 mcg-albuterol 100 2 puff INHALATION QID g 08/14/21 10/02/21 History mcg/actuation mist for inhalation (Combivent Respimat) cyclobenzaprine 5 mg tablet 5 mg PO TID PRN #15 tab 09/17/21 10/02/21 Rx fluticasone fur. 100 mcg-umeclid 1 inh INHALATION Q24H #60 ea 09/27/21 10/02/21 Rx 62.5 mcg-vilant 25 mcg inhalat.powder (Trelegy Ellipta) benzonatate 100 mg capsule 200 mg PO TID PRN 09/30/21 10/02/21 History clotrimazole 10 mg edwardo 10 mg MUCOUS MEMBRANE 5XD 10/01/21 10/02/21 History cyanocobalamin (vitamin B-12) 1 ml IM Q2W 10/02/21 10/02/21 History 1,000 mcg/mL injection solution furosemide 20 mg tablet 20 mg PO QAM 10/02/21 10/02/21 History hydrocodone 5 mg-acetaminophen 325 1 tab PO BID PRN 10/02/21 10/02/21 History mg tablet lorazepam 0.5 mg tablet 0.5 mg PO QDAY 10/02/21 10/02/21 History spironolactone 50 mg tablet 50 mg PO QDAY 10/02/21 10/02/21 History (Aldactone) Allergies Allergy/AdvReac Type Severity Reaction Status Date / Time Penicillins Allergy Severe Difficulty Verified 09/30/21 20:47 Breathing prednisone Allergy Severe Difficulty Verified 09/30/21 21:17 Breathing trospium Allergy Intermediate Facial Verified 09/30/21 21:17 swelling, itching, rash Influenza Virus Vaccines AdvReac Intermediate Burning Verified 09/30/21 21:17 sensation in hands and feet codeine AdvReac Mild Nausea Verified 09/30/21 21:17 metoclopramide [From Reglan] AdvReac Mild Anxiety Verified 09/30/21 21:17 omeprazole AdvReac Mild Vomiting Verified 09/30/21 21:17 Physical Examination Narrative Narrative: Narrative: A/P Narrative A/P Narrative: Assessment: Ms. Kern is a 61 year old female with a past medical history not limited to SILVA, COPD, nocturnal hypoxia, vitamin B12 deficiency, degenerative disc disease, obesity, tobacco use disorder who presented to the emergency department on 09/30/2021 after a fall at home for further evaluation of left wrist pain. X-ray of the left wrist on 09/30/2021 showed a non displaced intraarticular fracture of the distal radius. Patient was admitted to the ICU for severe hypervolemia, hyponatremia, elevated D-dimer and liver abnormalities. Orthopedics was consulted for treatment options of left wrist fracture. Plan of Treatment: Plan: on exam patient is restign comfortably non-arousable an dunable to answer questions. Left wrist is immobilized with a cock-up splint and wrapped in chato wrap and mitts. left arm is warm and well perfused with capillary refill less than 2 seconds I am unable to evaluate for pain or discomfort due to patient condition but there is no noxious response to ROM. I will place the patient in a thumb spica brace obtained from the ED and obtain new x-ray imaging, plan is for non-operative management at this time. She is Non-weightbearing with left upper extremity. Time Spent With Patient Time: Total time spent is greater than 50% in coordination of care (as documented) at patient's floor/unit and/or counseling patient:
[2021-10-16 07:05] LABS: Basophils # (Auto) 0.03 K/mcL (0.00-0.30); Basophils % (Auto) 0.5 % (0.0-2.0); Eosinophils # (Auto) 0.16 K/mcL (0.00-0.70); Eosinophils % (Auto) 2.8 % (0.0-7.0); Hematocrit 24.4 % (34.1-44.9); Hemoglobin 7.7 g/dL (11.2-15.7); Lymphocytes # (Auto) 1.09 K/mcL (1.50-4.80); Lymphocytes % (Auto) 19.3 % (15.5-49.0); Mean Cell Volume 133.3 fL (80.0-100.0); Mean Corpuscular HGB Conc 31.6 g/dL (31.0-36.0); Mean Platelet Volume 12.2 fL (7.4-10.4); Monocytes # (Auto) 0.52 K/mcL (0.10-0.90); Monocytes % (Auto) 9.2 % (1.0-12.0); Neutrophils % (Auto) 68.2 % (38.0-78.0); Platelet Count 91 K/mcL (140-440); RBC 1.83 M/mcL (3.59-5.38); Red Cell Distribution Width 15.5 % (11.5-14.5); WBC 5.7 K/mcL (4.5-11.0)
[2021-10-16 07:11] LABS: INR 1.6 (0.9-1.1); Prothrombin Time 19.9 sec (11.9-14.5)
[2021-10-16 07:27] LABS: ALT/SGPT 32 U/L (<40); AST/SGOT 112 U/L (<32); Albumin 2.5 gm/dL (3.2-5.2); Alkaline Phosphatase 147 U/L (39-117); Bilirubin,Total 1.9 mg/dL (0.1-1.0); Blood Urea Nitrogen 6 mg/dL (8-23); Calcium 8.3 mg/dL (8.6-10.4); Carbon Dioxide 26 mmol/L (22-30); Chloride 113 mmol/L (96-108); Globulin 2.6 gm/dL (2.2-3.7); Glomerular Filtration Rate 103; Glucose 89 mg/dL (70-105); Phosphorous 3.4 mg/dL (2.5-4.5)
--- NOTE | 2021-10-16 08:26 | XRay Report ---
HISTORY: Recent fracture of the distal left radius and patient fell again yesterday FINDINGS: There is a nondisplaced obliquely oriented intra-articular fracture the distal radius. This is beginning to heal. The alignment is unchanged the prior x-ray done on 09/30/21. No new fracture is present. There are stable periarticular soft tissue calcifications adjacent to the trapezium and radial styloid process. IMPRESSION: Nondisplaced healing fracture the distal radius and no new bone injury Interpreted and Authenticated by: Juan Cole 10/16/21
[2021-10-16] MEDS: CLOTRIMAZOLE 10 MG TROCHE PO SCH ×5 (08:31→21:24)
[2021-10-16] MEDS: VANCOMYCIN ORAL SOL 1,000 MG/10 ML BOTTLE PO SCH ×4 (08:31→21:23)
[2021-10-16] MEDS: LACTULOSE 20 GM/30 ML ORAL.SOL PO SCH ×3 (08:32→19:28)
[2021-10-16] MEDS: ENOXAPARIN 40 MG/0.4 ML SYRINGE SQ SCH (08:32)
[2021-10-16] MEDS: busPIRone 15 MG TABLET PO SCH ×2 (08:32→20:30)
[2021-10-16] MEDS: SPIRONOLACTONE 25 MG TABLET PO SCH (08:33)
[2021-10-16] MEDS: FOLIC ACID 1 MG TABLET PO SCH (08:33)
[2021-10-16] MEDS: THIAMINE 100 MG TABLET PO SCH (08:33)
[2021-10-16] MEDS: GABAPENTIN 300 MG CAPSULE PO SCH ×2 (08:33→20:29)
[2021-10-16] MEDS: POTASSIUM CHLORIDE 20 MEQ TABLET PO SCH ×2 (08:33→16:27)
[2021-10-16] MEDS: cefTRIAXone 1 GM VIAL IV SCH (08:34)
[2021-10-16] MEDS: [UNRECOGNIZED DRUG - OTHER] TOPICAL SCH ×2 (09:37→21:24)
[2021-10-16] MEDS: POTASSIUM CHLORIDE 20 MEQ in DEXTROSE 5% IN WATER 250 ML IV PRN (10:17)
[2021-10-16] MEDS: NICOTINE 21 MG PATCH TOPICAL SCH (10:25)
--- NOTE | 2021-10-16 10:57 | Internal Med Progress Note ---
SUBJECTIVE Subjective Patient information: Note initiated : 10/16/21 at 10:44 am Service Date, if different from initiated Date: [] Patient: Caleb Kern 61 y/o F admitted on 09/30/21 for left arm pain, fall yesterday. Chief Complaint: [] Principal diagnosis: Severe hypervolemic hyponatremia Interval history: Ms. Kern is a 61 year old female with a past medical history not limited to SILVA, COPD, nocturnal hypoxia, vitamin B12 deficiency, degenerative disc disease, obesity, tobacco use disorder who presented to the emergency department after a fall at home for further evaluation of left wrist pain. X-ray of the left wrist showed an intraarticular fracture of the distal radius. The patient was noted to be hypervolemic in the emergency department, CBC and chemistry panel were ordered showing severe hyponatremia with a sodium level of 116. Additionally, labs showed a mild leukocytosis of 12.3, severe macrocytosis, thrombocytopenia, anion gap metabolic acidosis, bilirubin of 1.8 and ALT and AST elevated compared to the patient's prior labs from 2020. Patient also had a NT proBNP of 441, 1 view chest x-ray did not show any pulmonary vascular congestion. The patient had a markedly elevated D-dimer of 6.89. The patient has not been having any shortness of breath recently and was comfortable on room air in the emergency department. The patient received Lasix IV in the emergency department. Hospital medicine was consulted for admission and management of severe hyponatremia. The patient says that she has been experiencing intermittent bilateral lower extremity edema for some time and that they have always resolved. The current amount of edema is more severe than prior episodes. She denies recent dyspnea, has not noticed any significant changes in urination. Patient says that she has known about "fatty liver disease" for some time. She does drink a significant amount of alcohol which us ually contains vodka on an almost daily basis. We discussed the goals of admission which include a gradual correction of her sodium level. We also discussed further work-up which will focus on cardiac, liver and renal pathologies that could explain hypovolemic hyponatremia. We discussed CODE STAT US in detail, the patient wishes to be full code. 10/01 Urine protein creatinine ratio was normal, TSH and morning cortisol levels nikhil l. blood smear was not suggestive of a sinister hematologic process. Vitamin B12 level elevated, folate level normal. INR was 1.2. Sodium trended up to 120s and down to 119, the patient received 100 mL of 3% saline followed by increase in sodium to 122. Patient has not made significant urine after receiving a dose of Lasix 80 mg IV. Volume overloaded as on admission with bilateral lower extremity pitting edema. Abdominal ultrasound showed fatty liver, possible steatohepatitis or early stage cirrhosis, small to moderate amount of ascites was present, normal directional blood flow and hepatic and portal veins. Bilateral lower extremity venous duplex ultrasound was negative for DVT. Transthoracic echocardiogram report pending. 10/02 Creatinine increased, discontinued lasix and consulted nephrology. Nephrology started albumin, recommended holding on diuretics at this time. 10/03 TTE was fairly unremarkable, etiology for hyponatremia is likely a liver cirrhosis combined with alcohol use. Patient is more confused now, likely secondary to hepatic encephalopathy as ammonia has also been elevated. Hemoglobin trending down, started Protonix IV twice daily. Trending hemoglobin, will consider consulting general surgery for EGD if this trends down further. Sodium slightly improved now at 123. Renal function slightly improved, creatinine 1.3 today. 10/04 The patient is more alert and oriented today but still confused, ammonia level still elevated in spite of increase in lactulose. Hemoglobin trending up now, will continue Protonix IV BID for now and likely transition to oral PPI therapy in 1-2 days. The patient does have a history of peptic ulcer and had been taking Ibuprofen prior to admission but with hemoglobin trending up on a PPI and EGD may not be high yield. GI consult currently not available at [facility]. Nephrology started Octreotide and Midodrine in addition to Albumin IV. Renal function is about the same, sodium about the same as yesterday. The patient is still markedly hypervolemic. 10/05 Low urine output, nephrology started IV fluid, no longer on octreotide, midodrine and albumin IV. Urine output did improve somewhat today but still low relative to the patient's hypervolemic volume status. Ammonia increasing and the patient continues to be confused and having intermittent hallucinations. CIWA score was 10 but clinically does not appear to be in withdrawal and the patient does not feel like she is in alcohol withdrawal. Started lactulose enema every 6 hours. Started high-dose thiamine IV supplementation. abdomen pelvis without contrast showed moderate hepatomegaly with a large low attenuating region infiltrating the entire lateral right hepatic lobe and a smaller region in the lateral segment of the left hepatic lobe, may represent atypical fatty infiltration however hepatocellular carcinoma or liver metastasis could have a similar appearance. There was also developing liver cirrhosis with mild enlargement of the portal vein, moderate splenomegaly and moderate ascites. Radiology recommended an MRI of the abdomen. We will have to defer MRI of the abdomen until the patient is no longer encephalopathic. Alpha fetoprotein level was normal. 10/06 The patient is more confused overnight suspect the patient is withdrawing from alcohol. Receiving Ativan IV as needed per CIWA protocol. This have been blunted initially by hepatic encephalopathy and the patient was also taking home Ativan as needed. Ammonia improved after a couple lactulose enemas overnight. CT head without contrast did not show any acute changes. Renal function is similar to yesterday. Nephrology started dopamine, octreotide and albumin IV. Discussed anemia with general surgery, Dr. Curiel deferred EGD at this time as he felt it would not be a high yield work-up. 10/07 Vital stable overnight, less agitated today, CIWA scores have improved. Renal function has improved. Ammonia level 90, down from a high of 109. Hemoglobin about the same as yesterday, 8.8. We will get an abdominal ultrasound to evaluate the extent of ascites today. Peripheral blood smear ordered for anemia and macrocytosis. 10/08 Patient going through alcohol withdrawal but is awake and answering questions appropriately. Hemoglobin stable. Creatinine stable. Transaminitis stable. Patient only complains of headache. Per nurse 3 bowel movements yesterday but none overnight. Guaiac testing was not done will obtain for next BM. 10/09 Patient last got 2 mg of Ativan last night at 9:00. None since. No overnight issues. Schedule undergo EGD for evaluation for esophagus varices. Patient seems lethargic this morning. Makes eye contact is does not answer questions. Ammonia improved from yesterday. 10/10 Yesterday patient had MRI of liver pending results. EGD showed gastroparesis but no varices. Patient has mild headache and occasional nausea. No vomiting. A little bit more responsive today. Treating for C. difficile colitis as found out yesterday. Per discussion with the she has had diarrhea prior to admission. 10/11 Little more talkative today but still confused. Diarrhea last night and on oral Vanco. Ammonia within normal limits today. Sodium elevated. Pending laboratory. PT OT. Large area of focal fatty infiltration of the liver on MRI, not suspicious at this point. 10/12 Patient became quite agitated last night requiring Haldol. This morning she is sleeping. Hypotonic infusion for hypernatremia yesterday. Provide hypotonic solution today while poor oral intake. 10/13: CIWA score 11 overnight. Poor oral intake due to poor appetite. No bowel movement yet today. No bowel movement yet today. Ammonia level 53 this morning. Continue Lactulose and Rifaximin for cirrhosis and hepatic encephalopathy, as well as Vancomycin PO for C diff colitis. Poor overall prognosis. 10/14: CIWA score of 8 this morning. Improving oral intake. She has bowel movement overnight/this morning. Continue Lactulose and Rifaximin for cirrhosis and hepatic encephalopathy, as well as Vancomycin PO for C diff colitis. d/c Gama catheter and also to obtain UA/urine cultures. Poor overall prognosis. SNF placement once medically cleared. Downgrade to med/surg. 10/15: No longer checking CIWA score. Urine culture growing gram negative bacillus. Blood culture no growth to date. Afebrile overnight. A and O times [address] Continue Rocephin for UTI. Continue Lactulose and Rocephin for cirrhosis and hepatic encephalopathy, as well as Vancomycin PO for C diff colitis. Poor overall prognosis. SNF placement once medically cleared. 10/16: Dr. Dickerson came by yesterday afternoon and replaced the left wrist splint. Afebrile overnight. Urine culture growing pablo sensitive proteus mirabilis. Blood culture no growth to date. Afebrile overnight. A and O times [address] Continue Rocephin for UTI. Continue Lactulose and Rocephin for cirrhosis and hepatic encephalopathy, as well as Vancomycin PO for C diff colitis. Poor overall prognosis. Pending SNF placement. Constitutional Vitals: Vital Signs Temp Pulse Resp BP Pulse Ox 36.2 C 105 H 15 98/71 96 10/16/21 08:01 10/15/21 18:32 10/16/21 08:01 10/16/21 08:01 10/16/21 08:01 Period Temp Pulse Resp BP Sys/Altman Pulse Ox Last 24 Hr 36.2 C-38.1 C 105 -22 97-114/63-71 94-98 Intake and Output 10/15/21 10/16/21 10/16/21 21:59 05:59 13:59 Intake Total 260 0 Output Total 151 75 Balance 109 0 -75 Weight 87.146 kg Intake & Output: Intake & Output 10/15/21 10/16/21 10/16/21 21:59 05:59 13:59 Intake Total 260 0 Output Total 151 75 Balance 109 0 -75 Weight 87.146 kg Intake: IV 260 Potassium Chloride 20 Meq In 260 Dextrose 5% in Water 250 ml @ 130 mls/hr IV UD PRN Rx#: [id number] Oral 0 Output: # of times incontinent of urine 1 Stool 150 75 Other: Stool Size Moderate Moderate Small Stool Color Brown Brown Brown Yellow Yellow Yellow Stool Consistency Liquid Liquid Liquid # Voids 1 # Bowel Movements 1 1 # of times incontinent of 1 Bowels General appearance: disheveled and obese; no cooperative Exam: Lethargic Head Head exam: Present atraumatic and normal inspection Eye Eye exam: Present normal appearance ENT ENT exam: Present mucous membranes moist, normal exam and normal external ear exam Neck Neck exam: Present normal inspection Respiratory Respiratory exam: Present normal respiratory exam Cardiovascular Cardiovascular exam: Present normal rate and rhythm GI/Abdominal GI/Abdominal exam: Present normal bowel sounds Extremities Exam Additional comments: Left wrist splint in place Back Exam Back exam: Present normal inspection Neurological Exam Neurological exam: Present alert and altered; Absent oriented X3 Additional comments: oriented X2 to person and place only. Skin Skin exam: Present intact and warm OBJ DATA Labs CBC & Chem 7: 10/16/21 05:15 10/16/21 05:15 Labs: Abnormal Lab Results 10/16/21 10/16/21 10/16/21 05:15 05:15 05:15 RBC 1.83 L Hgb 7.7 L Hct 24.4 L MCV 133.3 H MCH 42.1 H RDW 15.5 H Plt Count 91 L MPV 12.2 H Lymph % (Auto) Lymph # (Auto) 1.09 L PT 19.9 H INR 1.6 H Sodium 147 H Potassium 3.2 L Chloride 113 H BUN 6 L Creatinine 0.5 L Calcium 8.3 L Magnesium 1.5 L Total Bilirubin 1.9 H AST 112 H Alkaline Phosphatase 147 H Total Protein 5.1 L Albumin 2.5 L Urine Appearance Urine Protein Urine Ketones Urine Occult Blood Urine Nitrate Urine Bilirubin Ur Leukocyte Esterase Urine WBC Triple Phos Crystals Urine Bacteria Hyaline Casts Urine Mucus Rheumatoid Factor Complement C3c Complement C4c 10/15/21 10/15/21 10/15/21 05:26 05:26 05:25 RBC 1.80 L Hgb 7.9 L Hct 23.7 L MCV 131.7 H MCH 43.9 H RDW 15.8 H Plt Count 108 L MPV 11.6 H Lymph % (Auto) 14.8 L Lymph # (Auto) 1.01 L PT 21.2 H INR 1.7 H Sodium Potassium 3.2 L Chloride 109 H BUN 6 L Creatinine 0.5 L Calcium 8.2 L Magnesium Total Bilirubin 2.1 H AST 106 H Alkaline Phosphatase 144 H Total Protein 4.9 L Albumin 2.4 L Urine Appearance Urine Protein Urine Ketones Urine Occult Blood Urine Nitrate Urine Bilirubin Ur Leukocyte Esterase Urine WBC Triple Phos Crystals Urine Bacteria Hyaline Casts Urine Mucus Rheumatoid Factor Complement C3c Complement C4c 10/14/21 10/14/21 10/14/21 05:08 05:08 05:05 RBC 1.90 L Hgb 8.1 L Hct 25.1 L MCV 132.1 H MCH 42.6 H RDW 15.9 H Plt Count 114 L MPV 11.9 H Lymph % (Auto) 13.5 L Lymph # (Auto) 1.06 L PT 19.8 H INR 1.6 H Sodium Potassium Chloride BUN 6 L Creatinine 0.5 L Calcium 7.9 L Magnesium Total Bilirubin 2.5 H AST 111 H Alkaline Phosphatase 149 H Total Protein 5.2 L Albumin 2.8 L Urine Appearance Urine Protein Urine Ketones Urine Occult Blood Urine Nitrate Urine Bilirubin Ur Leukocyte Esterase Urine WBC Triple Phos Crystals Urine Bacteria Hyaline Casts Urine Mucus Rheumatoid Factor Complement C3c Complement C4c 10/14/21 10/08/21 02:10 19:59 RBC Hgb Hct MCV MCH RDW Plt Count MPV Lymph % (Auto) Lymph # (Auto) PT INR Sodium Potassium Chloride BUN Creatinine Calcium Magnesium Total Bilirubin AST Alkaline Phosphatase Total Protein Albumin Urine Appearance Cloudy A Urine Protein 100 mg/dl A Urine Ketones Trace A Urine Occult Blood Trace-intact A Urine Nitrate Positive A Urine Bilirubin Small A Ur Leukocyte Esterase Small A Urine WBC 118 H Triple Phos Crystals Mod A Urine Bacteria Few A Hyaline Casts 26 H Urine Mucus Many A Rheumatoid Factor 18 H Complement C3c 79 L Complement C4c 6 L Meds: Medications Acetaminophen (Acetaminophen 325 Mg Tablet) 325 mg PO Q6HP PRN; Protocol PRN Reason: Per Pain Protocol Last Admin: 10/15/21 16:07 Dose: 325 mg Documented by: Albuterol Sulfate (Albuterol Sulfate 200 Puff Inhaler) 1 puff INH Q4-6HP PRN PRN Reason: Shortness Of Breath Last Admin: 10/14/21 12:33 Dose: 1 puff Documented by: Benzonatate (Benzonatate 100 Mg Capsule) 100 mg PO TID PRN PRN Reason: cough Last Admin: 10/05/21 07:48 Dose: 100 mg Documented by: Buspirone HCl (Buspirone 15 Mg Tablet) 7.5 mg PO BID [facility] Last Admin: 10/16/21 08:32 Dose: 7.5 mg Documented by: Ceftriaxone Sodium (Ceftriaxone 1 Gm Vial) 1 gm IV DAILY [facility]; Protocol Last Admin: 10/16/21 08:34 Dose: 1 gm Documented by: Clotrimazole (Clotrimazole 10 Mg Yvette) 10 mg PO 5XD [facility] Last Admin: 10/16/21 08:31 Dose: 10 mg Documented by: Cyanocobalamin (Cyanocobalamin 1,000 Mcg/Ml Vial) 1,000 mcg IM Q2W [facility] Diphenhydramine HCl (Diphenhydramine 25 Mg Capsule) 25 mg PO Q6H PRN PRN Reason: Itching Last Admin: 10/12/21 19:45 Dose: 25 mg Documented by: Enoxaparin Sodium (Enoxaparin 40 Mg/0.4 Ml Syringe) 40 mg SQ DAILY [facility] Last Admin: 10/16/21 08:32 Dose: 40 mg Documented by: Famotidine (Famotidine 20 Mg Tablet) 20 mg PO HS [facility] Last Admin: 10/15/21 19:00 Dose: 20 mg Documented by: Folic Acid (Folic Acid 1 Mg Tablet) 1 mg PO DAILY [facility] Last Admin: 10/16/21 08:33 Dose: 1 mg Documented by: Gabapentin (Gabapentin 300 Mg Capsule) 300 mg PO BID [facility] Last Admin: 10/16/21 08:33 Dose: 300 mg Documented by: Guaifenesin (Guaifenesin 600 Mg Tab.Sr.12h) 600 mg PO Q12H PRN PRN Reason: Congestion Last Admin: 10/05/21 21:24 Dose: 600 mg Documented by: Haloperidol Lactate (Haloperidol Lactate 5 Mg/Ml Vial) 2 mg IV Q4HP PRN PRN Reason: Psychosis Potassium Chloride 20 meq/ (Dextrose) 260 mls @ 130 mls/hr IV UD PRN PRN Reason: hypokalemia Last Admin: 10/16/21 10:17 Dose: 130 mls/hr Documented by: Magnesium Sulfate (Magnesium Sulfate) 2 gm in 50 mls @ 25 mls/hr IV UD PRN PRN Reason: Hypomagnesemia Lactulose (Lactulose 20 Gm/30 Ml Oral.Petra) 30 gm PO TID [facility] Last Admin: 10/16/21 08:32 Dose: 30 gm Documented by: Lactulose (Lactulose 20 Gm/30 Ml Oral.Petra) 30 gm PO TIDP PRN PRN Reason: constipation Lorazepam (Lorazepam 2 Mg/Ml Vial) 1 mg IV Q4HP PRN PRN Reason: ANXIETY/SEDATION Last Admin: 10/15/21 23:00 Dose: 1 mg Documented by: Nicotine (Nicotine 21 Mg Patch) 21 mg TOPICAL DAILY@1000 FRANK Last Admin: 10/16/21 10:25 Dose: 21 mg Documented by: Olanzapine (Olanzapine 10 Mg Vial) 5 mg IM Q8HP PRN PRN Reason: Agitation Last Admin: 10/15/21 18:39 Dose: 5 mg Documented by: Ondansetron HCl (Ondansetron 4 Mg/2 Ml Vial) 4 mg IV Q4HP PRN; Protocol PRN Reason: Nausea And Vomiting Last Admin: 10/05/21 08:05 Dose: 4 mg Documented by: Oxycodone HCl (Oxycodone Hcl 5 Mg Tablet) 5 mg PO Q6HP PRN; Protocol PRN Reason: Per Pain Protocol Last Admin: 10/15/21 22:32 Dose: 5 mg Documented by: Emollient Combo No. [id number] (Bulk) [Custom Base Pcca] Cream 1 dose TOPICAL BID [facility] Last Admin: 10/16/21 09:37 Dose: Not Given Documented by: Fluticasone- Umeclidin-Vilanter [ Trelegy Ellipta] Inhaler 1 dose INH Q24H [facility] Last Admin: 10/15/21 22:03 Dose: 1 dose Documented by: Potassium Chloride (Potassium Chloride 20 Meq Tablet) 20 meq PO BIDCC [facility] Last Admin: 10/16/21 08:33 Dose: 20 meq Documented by: Senna (Sennosides 1 Tablet) 2 tab PO HS PRN PRN Reason: constipation Sodium Chloride (0.9 % Sodium Chloride 10 Ml Syringe) 10 ml IV Q8 [facility] Last Admin: 10/16/21 05:22 Dose: 10 ml Documented by: Sodium Chloride (0.9 % Sodium Chloride 10 Ml Syringe) 10 ml IV UD PRN PRN Reason: Central Line Maintence Last Admin: 10/14/21 13:29 Dose: 10 ml Documented by: Spironolactone (Spironolactone 25 Mg Tablet) 100 mg PO DAILY [facility] Last Admin: 10/16/21 08:33 Dose: 100 mg Documented by: Thiamine HCl (Thiamine 100 Mg Tablet) 100 mg PO DAILY [facility] Last Admin: 10/16/21 08:33 Dose: 100 mg Documented by: Vancomycin HCl (Vancomycin Oral Petra 1,000 Mg/10 Ml Bottle) 125 mg PO QID [facility]; Protocol Last Admin: 10/16/21 08:31 Dose: 125 mg Documented by: ABG Interpretation ABG results: 10/03/21 16:16 ABG Methemoglobin 0.1 L VBG pH 7.43 H VBG pCO2 36.6 L VBG pO2 88.5 H VBG HCO3 23.7 L VBG Total CO2 24.8 L VBG O2 Saturation 91.2 H VBG Base Excess 0 A/P Assessment and plan (1) C. difficile colitis: Status: Acute (2) Hepatic encephalopathy: Status: Acute (3) Hypomagnesemia: Status: Acute (4) Closed left radial fracture: Status: Acute (5) Anemia, macrocytic: Status: Acute (6) Cirrhosis of liver with ascites: Status: Acute Comment: EtOH cessation therapy (7) Gastroparesis: Status: Acute (8) Smoker: Status: Chronic (9) Hypokalemia: Status: Acute (10) UTI (urinary tract infection): Status: Acute Narrative A/P Narrative: Assessment and Plans: 1. 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 MELD-NA score of 14, <2% estimated 90 day mortality Haldol IV PRN psychosis 2. Gastroparesis: EGD showed gastroparesis but no esophageal varices Currently tolerating regular diet Zofran IV PRN nausea/vomiting 3. Macrocytic hyperchromic anemia: Thiamine, folate, and Vitamin B12 supplement cbc w/ auto diff daily to trend H/H 4. Hypokalemia/hypomagnesemia: Potassium chloride oral replacement, as well as K rider CMP in the morning to trend serum potassium level Also check serum Mg level and replace as needed 5. Cigarette smoker status: Nicotine replacement therapy. Will quitline counselor patient on quitting cigarette smoking when patient is ready 6. Left distal wrist fracture: As per orthopedic surgery, patient is not a surgical candidate. Keep splint on. Focus on symptoms control for the time being Dr. Dickerson came by on 10/15 and replaced the left wrist splint 7. C diff colitis: Continue Day 8/10 PO Vancomycin Contact isolation 8. Proteus Mirabilis UTI: Rocephin Tylenol PRN fever Blood culture no growth to date cbc w/ auto diff in the morning to trend WBC GI ppx: Pepcid DVT ppx: Lovenox Code status: Full Prognosis: Guarded Disposition: inpatient med surg telemetry Time Spent With Patient Time: Total time spent is greater than 50% in coordination of care (as documented) at patient's floor/unit and/or counseling patient: Total time spent with greater than 50% in coordination of care (as documented) at patient's floor/unit and/or counseling patient:: 35 - 50 minutes
[2021-10-16] MEDS: MAGNESIUM SULFATE 2 GM/50 ML BAG IV PRN (11:51)
[2021-10-16] MEDS: LORazepam 2 MG/ML VIAL IV PRN ×2 (16:36→21:31)
[2021-10-16] MEDS: FAMOTIDINE 20 MG TABLET PO SCH (20:30)
[2021-10-16] MEDS: oxyCODONE HCL 5 MG TABLET PO PRN (20:31)
[2021-10-16] MEDS: Fluticasone-Umeclidin-Vilanter [Trelegy Ellipta] Inhaler INH SCH (21:26)
[2021-10-16] MEDS: diphenhydrAMINE 25 MG CAPSULE PO PRN (22:01)
[2021-10-17] MEDS: oxyCODONE HCL 5 MG TABLET PO PRN (00:36)
[2021-10-17] MEDS: 0.9 % SODIUM CHLORIDE 10 ML SYRINGE IV SCH (05:34)
[2021-10-17 06:52] LABS: INR 1.6 (0.9-1.1); Prothrombin Time 19.5 sec (11.9-14.5)
[2021-10-17 06:52] LABS: Basophils # (Auto) 0.05 K/mcL (0.00-0.30); Basophils % (Auto) 0.8 % (0.0-2.0); Eosinophils # (Auto) 0.15 K/mcL (0.00-0.70); Eosinophils % (Auto) 2.5 % (0.0-7.0); Hematocrit 24.3 % (34.1-44.9); Hemoglobin 7.6 g/dL (11.2-15.7); Lymphocytes # (Auto) 1.35 K/mcL (1.50-4.80); Lymphocytes % (Auto) 22.1 % (15.5-49.0); Mean Cell Volume 132.8 fL (80.0-100.0); Mean Corpuscular HGB Conc 31.3 g/dL (31.0-36.0); Mean Platelet Volume 12.2 fL (7.4-10.4); Monocytes % (Auto) 11.4 % (1.0-12.0); Neutrophils % (Auto) 63.2 % (38.0-78.0); Platelet Count 93 K/mcL (140-440); RBC 1.83 M/mcL (3.59-5.38); Red Cell Distribution Width 15.5 % (11.5-14.5); WBC 6.1 K/mcL (4.5-11.0)
[2021-10-17 07:11] LABS: ALT/SGPT 33 U/L (<40); AST/SGOT 126 U/L (<32); Albumin 2.7 gm/dL (3.2-5.2); Alkaline Phosphatase 175 U/L (39-117); Bilirubin,Total 1.9 mg/dL (0.1-1.0); Blood Urea Nitrogen 6 mg/dL (8-23); Calcium 8.3 mg/dL (8.6-10.4); Carbon Dioxide 25 mmol/L (22-30); Chloride 114 mmol/L (96-108); Globulin 2.6 gm/dL (2.2-3.7); Glomerular Filtration Rate 103; Glucose 95 mg/dL (70-105); Phosphorous 3.5 mg/dL (2.5-4.5)
--- NOTE | 2021-10-17 09:27 | Discharge Summary ---
Discharge Provider Provider Patient information: Note initiated : 10/17/21 at 9:25 am Service Date, if different from initiated Date: [] Patient: Caleb Kern 61 y/o F admitted on 09/30/21 for left arm pain, fall yesterday. Chief Complaint: [] Date of admission: 09/30/21 20:04 Discharge date: 10/17/21 Primary care physician: Nikolas Sanchez Attending physician on admission: Shaun Caraballo Consults: 09/30/21 Consult to Physician [CONS] Stat Comment: Consulting Provider: Shaun Caraballo Reason For Exam: Physician to Consult 10/07/21 14:37 Consult to Physician [CONS] Routine Comment: new cirrhosis diagnosis Consulting Provider: Jeremiah Tabor Reason For Exam: Physician to Consult 10/15/21 11:23 Consult to Physician [CONS] Routine Comment: Re-evaluate and redress wrist fracture Consulting Provider: Chris Dickerson Reason For Exam: Physician to Consult Attending physician on discharge: Chi Leo Pui Discharge Meds Discharge Medications Home Medications gabapentin 300 mg capsule 300 mg PO BID 06/09/19 [History Confirmed 10/02/21 Last Taken Unknown] zolpidem 5 mg tablet 5 mg PO HS 06/09/19 [History Confirmed 10/02/21 Last Taken Unknown] albuterol sulfate 2.5 mg/0.5 mL solution for nebulization 2.5 mg INHALATION QID PRN ea 05/02/21 [History Confirmed 10/02/21 Last Taken Unknown] diphenhydramine HCl 25 mg capsule (Benadryl) 25 mg PO Q6H PRN 05/02/21 [History Confirmed 10/02/21 Last Taken Unknown] guaifenesin 600 mg tablet, extended release 12 hr (Mucinex) 600 mg PO Q12H PRN 05/02/21 [History Confirmed 10/02/21 Last Taken Unknown] emollient combo no.59 (bulk) (Custom Base Pcca Lipoderm) See Rx Instructions TOPICAL BID #60 g 06/18/21 [Rx Confirmed 10/02/21 Last Taken Unknown] buspirone 15 mg tablet 7.5 mg PO BID tab 06/28/21 [History Confirmed 10/02/21 Last Taken Unknown] famotidine 40 mg tablet 40 mg PO QHS 08/14/21 [History Confirmed 10/02/21 Last Taken Unknown] ipratropium 20 mcg-albuterol 100 mcg/actuation mist for inhalation (Combivent Respimat) 2 puff INHALATION QID g 08/14/21 [History Confirmed 10/02/21 Last Taken Unknown] cyclobenzaprine 5 mg tablet 5 mg PO TID PRN #15 tab 09/17/21 [Rx Confirmed 10/02/21 Last Taken Unknown] fluticasone fur. 100 mcg-umeclid 62.5 mcg-vilant 25 mcg inhalat.powder (Trelegy Ellipta) 1 inh INHALATION Q24H #60 ea 09/27/21 [Rx Confirmed 10/02/21 Last Taken Unknown] benzonatate 100 mg capsule 200 mg PO TID PRN 09/30/21 [History Confirmed 10/02/21 Last Taken Unknown] clotrimazole 10 mg edwardo 10 mg MUCOUS MEMBRANE 5XD 10/01/21 [History Confirmed 10/02/21 Last Taken Unknown] cyanocobalamin (vitamin B-12) 1,000 mcg/mL injection solution 1 ml IM Q2W 10/02/21 [History Confirmed 10/02/21 Last Taken Unknown] furosemide 20 mg tablet 20 mg PO QAM 10/02/21 [History Confirmed 10/02/21 Last Taken Unknown] spironolactone 50 mg tablet (Aldactone) 50 mg PO QDAY 10/02/21 [History Confirmed 10/02/21 Last Taken Unknown] folic acid 1 mg tablet 1 mg PO DAILY #30 tab 10/17/21 [Rx Last Taken Unknown] hydrocodone 5 mg-acetaminophen 325 mg tablet 1 tab PO BID PRN #10 tab 10/17/21 [Rx Last Taken Unknown] lactulose 20 gram/30 mL oral solution 30 gm PO TID 30 Days #500 ml 10/17/21 [Rx Last Taken Unknown] lorazepam 0.5 mg tablet 0.5 mg PO QDAY #10 tab 10/17/21 [Rx Last Taken Unknown] nicotine 21 mg/24 hr daily transdermal patch 21 mg TOPICAL DAILY@1000 #21 ea 10/17/21 [Rx Last Taken Unknown] rifaximin 550 mg tablet 550 mg PO BID #30 tab 10/17/21 [Rx Last Taken Unknown] thiamine mononitrate (vit B1) 100 mg tablet 100 mg PO DAILY #30 tab 10/17/21 [Rx Last Taken Unknown] vancomycin 1,000 mg intravenous injection 125 mg PO QID #8 ea 10/17/21 [Rx Last Taken Unknown] COURSE Hospital Course Hospital course: Ms. Kern is a 61 year old female with a past medical history not limited to SILVA, COPD, nocturnal hypoxia, vitamin B12 deficiency, degenerative disc disease, obesity, tobacco use disorder who presented to the emergency department after a fall at home for further evaluation of left wrist pain. X-ray of the left wrist showed an intraarticular fracture of the distal radius. The patient was noted to be hypervolemic in the emergency department, CBC and chemistry panel were ordered showing severe hyponatremia with a sodium level of 116. Additionally, labs showed a mild leukocytosis of 12.3, severe macrocytosis, thrombocytopenia, anion gap metabolic acidosis, bilirubin of 1.8 and ALT and AST elevated compared to the patient's prior labs from 2020. Patient also had a NT proBNP of 441, 1 view chest x-ray did not show any pulmonary vascular congestion. The patient had a markedly elevated D-dimer of 6.89. The patient has not been having any shortness of breath recently and was comfortable on room air in the emergency department. The patient received Lasix IV in the emergency department. Hospital medicine was consulted for admission and management of severe hyponatremia. The patient says that she has been experiencing intermittent bilateral lower extremity edema for some time and that they have always resolved. The current amount of edema is more severe than prior episodes. She denies recent dyspnea, has not noticed any significant changes in urination. Patient says that she has known about "fatty liver disease" for some time. She does drink a significant amount of alcohol which usually contains vodka on an almost daily basis. We discussed the goals of admission which include a gradual correction of her sodium level. We also discussed further work-up which will focus on cardiac, liver and renal pathologies that could explain hypovolemic hyponatremia. We discussed CODE STATUS in detail, the patient wishes to be full code. 3/ Urine protein creatinine ratio was normal, TSH and morning cortisol levels nikhil l. blood smear was not suggestive of a sinister hematologic process. Vitamin B12 level elevated, folate level normal. INR was 1.2. Sodium trended up to 120s and down to 119, the patient received 100 mL of 3% saline followed by increase in sodium to 122. Patient has not made significant urine after receiving a dose of Lasix 80 mg IV. Volume overloaded as on admission with bilateral lower extremity pitting edema. Abdominal ultrasound showed fatty liver, possible steatohepatitis or early stage cirrhosis, small to moderate amount of ascites was present, normal directional blood flow and hepatic and portal veins. Bilateral lower extremity venous duplex ultrasound was negative for DVT. Transthoracic echocardiogram report pending. 10/02 Creatinine increased, discontinued lasix and consulted nephrology. Nephrology started albumin, recommended holding on diuretics at this time. 10/03 TTE was fairly unremarkable, etiology for hyponatremia is likely a liver cirrhosis combined with alcohol use. Patient is more confused now, likely secondary to hepatic encephalopathy as ammonia has also been elevated. Hemoglobin trending down, started Protonix IV twice daily. Trending hemoglobin, will consider consulting general surgery for EGD if this trends down further. Sodium slightly improved now at 123. Renal function slightly improved, creatinine 1.3 today. 10/04 The patient is more alert and oriented today but still confused, ammonia level still elevated in spite of increase in lactulose. Hemoglobin trending up now, will continue Protonix IV BID for now and likely transition to oral PPI therapy in 1-2 days. The patient does have a history of peptic ulcer and had been taking Ibuprofen prior to admission but with hemoglobin trending up on a PPI and EGD may not be high yield. GI consult currently not available at [facility]. Nephrology started Octreotide and Midodrine in addition to Albumin IV. Renal function is about the same, sodium about the same as yesterday. The patient is still markedly hypervolemic. 10/05 Low urine output, nephrology started IV fluid, no longer on octreotide, midodrine and albumin IV. Urine output did improve somewhat today but still low relative to the patient's hypervolemic volume status. Ammonia increasing and the patient continues to be confused and having intermittent hallucinations. CIWA score was 10 but clinically does not appear to be in withdrawal and the patient does not feel like she is in alcohol withdrawal. Started lactulose enema every 6 hours. Started high-dose thiamine IV supplementation. abdomen pelvis without contrast showed moderate hepatomegaly with a large low attenuating region infiltrating the entire lateral right hepatic lobe and a smaller region in the lateral segment of the left hepatic lobe, may represent atypical fatty infiltration however hepatocellular carcinoma or liver metastasis could have a similar appearance. There was also developing liver cirrhosis with mild enlargement of the portal vein, moderate splenomegaly and moderate ascites. Radiology recommended an MRI of the abdomen. We will have to defer MRI of the abdomen until the patient is no longer encephalopathic. Alpha fetoprotein level was normal. 10/06 The patient is more confused overnight suspect the patient is withdrawing from alcohol. Receiving Ativan IV as needed per CIWA protocol. This have been blunted initially by hepatic encephalopathy and the patient was also taking home Ativan as needed. Ammonia improved after a couple lactulose enemas overnight. CT head without contrast did not show any acute changes. Renal function is similar to yesterday. Nephrology started dopamine, octreotide and albumin IV. Discussed anemia with general surgery, Dr. Curiel deferred EGD at this time as he felt it would not be a high yield work-up. 10/07 Vital stable overnight, less agitated today, CIWA scores have improved. Renal function has improved. Ammonia level 90, down from a high of 109. Hemoglobin about the same as yesterday, 8.8. We will get an abdominal ultrasound to evaluate the extent of ascites today. Peripheral blood smear ordered for anemia and macrocytosis. 10/08 Patient going through alcohol withdrawal but is awake and answering questions appropriately. Hemoglobin stable. Creatinine stable. Transaminitis stable. Patient only complains of headache. Per nurse 3 bowel movements yesterday but none overnight. Guaiac testing was not done will obtain for next BM. 10/09 Patient last got 2 mg of Ativan last night at 9:00. None since. No overnight issues. Schedule undergo EGD for evaluation for esophagus varices. Patient seems lethargic this morning. Makes eye contact is does not answer questions. Ammonia improved from yesterday. 10/10 Yesterday patient had MRI of liver pending results. EGD showed gastroparesis but no varices. Patient has mild headache and occasional nausea. No vomiting. A little bit more responsive today. Treating for C. difficile colitis as found out yesterday. Per discussion with the she has had diarrhea prior to admission. 10/11 Little more talkative today but still confused. Diarrhea last night and on oral Vanco. Ammonia within normal limits today. Sodium elevated. Pending laboratory. PT OT. Large area of focal fatty infiltration of the liver on MRI, not suspicious at this point. 10/12 Patient became quite agitated last night requiring Haldol. This morning she is sleeping. Hypotonic infusion for hypernatremia yesterday. Provide hypotonic solution today while poor oral intake. 10/13: CIWA score 11 overnight. Poor oral intake due to poor appetite. No bowel movement yet today. No bowel movement yet today. Ammonia level 53 this morning. Continue Lactulose and Rifaximin for cirrhosis and hepatic encephalopathy, as well as Vancomycin PO for C diff colitis. Poor overall prognosis. 10/14: CIWA score of 8 this morning. Improving oral intake. She has bowel movement overnight/this morning. Continue Lactulose and Rifaximin for cirrhosis and hepatic encephalopathy, as well as Vancomycin PO for C diff colitis. d/c Gama catheter and also to obtain UA/urine cultures. Poor overall prognosis. SNF placement once medically cleared. Downgrade to med/surg. 10/15: No longer checking CIWA score. Urine culture growing gram negative bacillus. Blood culture no growth to date. Afebrile overnight. A and O times [address] Continue Rocephin for UTI. Continue Lactulose and Rocephin for cirrhosis and hepatic encephalopathy, as well as Vancomycin PO for C diff colitis. Poor overall prognosis. SNF placement once medically cleared. 10/16: Dr. Dickerson came by yesterday afternoon and replaced the left wrist splint. Afebrile overnight. Urine culture growing pablo sensitive proteus mirabilis. Blood culture no growth to date. Afebrile overnight. A and O times [address] Continue Rocephin for UTI. Continue Lactulose and Rocephin for cirrhosis and hepatic encephalopathy, as well as Vancomycin PO for C diff colitis. Poor overall prognosis. Pending SNF placement. 10/17: Reached clinical stability, decision made to discharge to SNF [place] [facility] [place], [place]. Discharge diagnosis: Hepatic encephalopathy Time Spent with Patient Time attestation: Total time spent providing and/or coordinating discharge services: Time spent: Greater than 30 minutes EXAM Constitutional Vitals: Temp Pulse Resp BP Pulse Ox 36.6 C 94 H 20 97/58 92 10/17/21 03:00 10/17/21 03:00 10/17/21 03:00 10/17/21 03:00 10/17/21 03:00 General appearance: cooperative and no acute distress Head Head exam: Present atraumatic and normocephalic Eye Eye exam: Present EOMI and PERRL ENT ENT exam: Present mucous membranes moist, normal exam and normal external ear exam Neck Neck exam: Present normal inspection; Absent lymphadenopathy, tenderness or thyromegaly Respiratory Respiratory exam: Absent accessory muscle use, respiratory distress or wheezes Cardiovascular Cardiovascular exam: Present normal rate and rhythm; Absent JVD GI/Abdominal GI/Abdominal exam: Present normal bowel sounds and soft; Absent organomegaly or tenderness Extremities Exam Extremities exam: Present full ROM, normal capillary refill and normal inspection; Absent tenderness Neurological Exam Neurological exam: Present alert and CN II-XII intact; Absent motor sensory deficit or oriented X3 Additional comments: oriented X2 to person and place only Psychiatric Psychiatric exam: Present normal affect and normal mood; Absent anxious or depressed Skin Skin exam: Present dry and intact Discharge Data Data Completed and Pending Labs on day of discharge: Labs from last 24 hours 10/17/21 10/17/21 10/17/21 05:51 05:51 05:44 WBC 6.1 RBC 1.83 L Hgb 7.6 L Hct 24.3 L MCV 132.8 H MCH 41.5 H MCHC 31.3 RDW 15.5 H Plt Count 93 L MPV 12.2 H Neut % (Auto) 63.2 Lymph % (Auto) 22.1 [place] % (Auto) 11.4 Eos % (Auto) 2.5 Baso % (Auto) 0.8 Lymph # (Auto) 1.35 L [place] # (Auto) 0.70 Eos # (Auto) 0.15 Baso # (Auto) 0.05 Absolute Neutrophils 3.87 PT 19.5 H INR 1.6 H Sodium 147 H Potassium 4.1 Chloride 114 H Carbon Dioxide 25 Anion Gap 8.0 BUN 6 L Creatinine 0.5 L GFR Calculation 103 Glucose 95 Calcium 8.3 L Phosphorus 3.5 Magnesium 1.5 L Total Bilirubin 1.9 H AST 126 H ALT 33 Alkaline Phosphatase 175 H Total Protein 5.3 L Albumin 2.7 L Globulin 2.6 Albumin/Globulin Ratio 1.0 Discharge Plan Patient/Caregiver Discharge Instructions Activity: increase activity as tolerated Diet: Regular Diet Prescriptions: New nicotine 21 mg/24 hr Patch 24 Hour 21 mg topical DAILY@1000 Qty: 21 0RF thiamine mononitrate (vit B1) 100 mg Tablet 100 mg PO DAILY Qty: 30 0RF lactulose 20 gram/30 mL Solution 30 gm PO TID 30 Days Qty: 500 0RF vancomycin 1,000 mg Recon Soln 125 mg PO QID Qty: 8 0RF folic acid 1 mg Tablet 1 mg PO DAILY Qty: 30 0RF rifaximin 550 mg tablet 550 mg PO BID Qty: 30 0RF Continued Custom Base Pcca Lipoderm Cream See Rx Instructions TOPICAL BID Qty: 60 0RF Rx Instructions: topical twice a day; Trelegy Ellipta 100-62.5-25 mcg blister with device 1 inh inhalation Q24H Qty: 60 3RF Combivent Respimat 20-100 mcg/actuation mist 2 puff inhalation QID 0RF Rx Instructions: space evenly during waking hours famotidine 40 mg tablet 40 mg PO QHS 0RF diphenhydramine HCl [Benadryl] 25 mg capsule 25 mg PO Q6H PRN (Reason: Itching) 0RF guaifenesin [Mucinex] 600 mg tablet extended release 12hr 600 mg PO Q12H PRN (Reason: Congestion) 0RF albuterol sulfate 2.5 mg/0.5 mL solution for nebulization 2.5 mg inhalation QID PRN (Reason: Shortness Of Breath) 0RF Rx Instructions: for up to 3 doses buspirone 15 mg tablet 7.5 mg PO BID 0RF cyclobenzaprine 5 mg tablet 5 mg PO TID PRN (Reason: muscle spasm) Qty: 15 0RF gabapentin 300 MG capsule 300 mg PO BID 0RF zolpidem 5 MG tablet 5 mg PO HS 0RF benzonatate 100 mg capsule 200 mg PO TID PRN (Reason: cough) 0RF clotrimazole 10 mg Edwardo 10 mg MUCOUS MEMBRANE 5XD 0RF cyanocobalamin (vitamin B-12) 1,000 mcg/mL solution 1 ml IM Q2W 0RF furosemide 20 mg Tablet 20 mg PO QAM 0RF Rx Instructions: Take 1 tab by mouth every morning for 3-5 days. May increase to 2 tabs in the morning if swelling persists. spironolactone [Aldactone] 50 mg tablet 50 mg PO QDAY 0RF Rx Instructions: take 1 tab by mouth daily for 3-5 days may increase to 2 tabs daily if swelling persists hydrocodone-acetaminophen 5-325 mg Tablet 1 tab PO BID PRN (Reason: Pain) Qty: 10 0RF Rx Instructions: Max daily dose of 2 lorazepam 0.5 mg Tablet 0.5 mg PO QDAY Qty: 10 0RF Rx Instructions: max daily dose of 1 Follow Up Plan Follow up with: Nikolas Sanchez MD [Primary Care Provider] - Patient Disposition: Xfer SNF Prognosis: Fair Rehab Potential: Good I certify that the patient requires SNF services: Yes Overall status at discharge: patient is progressing back to baseline Discharge Orders: Discharge Order (Routine); Ordered 10/17/21 Ordered By: Anthony Tan
[2021-10-17] MEDS: MAGNESIUM SULFATE 2 GM/50 ML BAG IV PRN (09:41)
[2021-10-17] MEDS: NICOTINE 21 MG PATCH TOPICAL SCH (09:46)
[2021-10-17] MEDS: ENOXAPARIN 40 MG/0.4 ML SYRINGE SQ SCH (09:47)
[2021-10-17] MEDS: POTASSIUM CHLORIDE 20 MEQ TABLET PO SCH (10:18)
[2021-10-17] MEDS: CLOTRIMAZOLE 10 MG TROCHE PO SCH ×2 (10:19→11:10)
[2021-10-17] MEDS: FOLIC ACID 1 MG TABLET PO SCH (10:19)
[2021-10-17] MEDS: GABAPENTIN 300 MG CAPSULE PO SCH (10:19)
[2021-10-17] MEDS: THIAMINE 100 MG TABLET PO SCH (10:19)
[2021-10-17] MEDS: SPIRONOLACTONE 25 MG TABLET PO SCH (10:19)
[2021-10-17] MEDS: [UNRECOGNIZED DRUG - OTHER] TOPICAL SCH (10:19)
[2021-10-17] MEDS: busPIRone 15 MG TABLET PO SCH (10:19)
[2021-10-17] MEDS: LACTULOSE 20 GM/30 ML ORAL.SOL PO SCH (10:19)
[2021-10-17] MEDS: cefTRIAXone 1 GM VIAL IV SCH (10:32)
[2021-10-17] MEDS: VANCOMYCIN ORAL SOL 1,000 MG/10 ML BOTTLE PO SCH (10:32)
[2021-10-17 14:16] LABS: COPPER 24HR UA 34 mcg/24 h (15-60)
[2021-10-19] MEDS ORDERED: CYANOCOBALAMIN 1,000 MCG/ML VIAL IM SCH (09:00)
== END 2021-10-17 11:35 | DRG 433 ==
LOC: ED 11:09 → ICU 20:04 → MEDSUR 10-16 14:15
PROVIDERS: ADMIT Internal Medicine; ATTEND Internal Medicine